=== PATIENT | female | born 1970 | race Two or more races ===

== ENCOUNTER 2019-11-27 14:24 | Outpatient (REF) | payer OTHER, SELFPAY | END 2019-11-27 14:25 | disposition home or self-care (01) | LOC: HO.LAB 14:24 | PROVIDERS: PCP Internal Medicine; Referring Provider Internal Medicine; Visit Provider Obstetrics & Gynecology | DX: Z13.89 Encounter for screening for other disorder (principal) ==

== ENCOUNTER 2019-12-11 14:09 | Outpatient (REF) | payer OTHER, SELFPAY ==
--- NOTE | 2019-12-11 14:15 | MM_ITS ---
EXAMINATION: MM SCREENING DIGITAL BREAST TOMOSYNTHESIS, BILATERAL CLINICAL INFORMATION: Screening. Asymptomatic. The lifetime risk of breast cancer based on the Tyrer-Cuzick Model is 9.3%. COMPARISON: Mammography: July 12, 2018 and studies dating back to September 11, 2011 TECHNIQUE: Digital breast tomosynthesis is performed in both the craniocaudal and mediolateral oblique views along with computer-aided detection (CAD). Synthesized 2D images are generated from the tomosynthesis. FINDINGS: The breasts are almost entirely fatty (ACR BI-RADS breast composition Category a). There are no significant masses, abnormal calcifications, or other abnormalities. MM/MM tomosynthesis screening BI IMPRESSION: There are no significant changes from prior study. ASSESSMENT: BI-RADS 1: Negative RECOMMENDATION: Routine annual mammography screening. This patient's information was entered into a reminder system with a target due date for their next mammogram.
== END 2019-12-11 14:10 | disposition home or self-care (01) ==
LOC: HO.MAMMO 14:09
PROVIDERS: PCP Internal Medicine; Visit Provider Internal Medicine
DX: Z12.31 Encounter for screening mammogram for malignant neoplasm of breast (principal)
CPT/HCPCS: 77063; 77067

== ENCOUNTER → 2019-12-22 11:09 | Outpatient (BNVA) | payer OTHER, SELFPAY | PROVIDERS: PCP Internal Medicine; Referring Provider Internal Medicine; Visit Provider Physician Assistant | DX: Z76.89 Persons encountering health services in other specified circumstances (principal) ==

== ENCOUNTER 2020-01-07 10:09 | Outpatient (REF) | payer OTHER, SELFPAY | END 2020-01-07 10:10 | disposition home or self-care (01) | LOC: HO.HMGCLDS 10:09 | PROVIDERS: PCP Internal Medicine; Visit Provider Obstetrics & Gynecology | DX: R82.90 Unspecified abnormal findings in urine (principal) | CPT/HCPCS: 87086 ==

== ENCOUNTER 2020-03-02 07:28 | Day surgery (SDC) | payer OTHER, SELFPAY ==
[2020-02-25 10:49] VITALS: BMI 41.2
--- NOTE | 2020-03-01 09:35 | P.CONAN_ITS ---
Documented by User: Madyson Barrow 03/01/20 09:36 HPI - Anesthesia Eval Consult details Narrative: 50yo F for Colonoscopy PMFSH Past Medical History Medical History Abrasion of left knee Acid reflux Acquired hypothyroidism Developmental disability Gait instability History of fall History of hyperthyroidism Hx of major depression Hx of sleep apnea Family History Family History Father No problems noted. Mother No problems noted. Surgical History Surgical History History of ankle surgery Hx of endoscopy Hx of knee surgery Social History Social History Alcohol intake: never Smoking Status: Never smoker Use of substances other than those prescribed or required for medical reasons: No Advance Directives: No Advance Directives Information Provided: No Advance Directives on File: No Sexual orientation: Straight/Heterosexual Gender identity: female Meds Allergies Allergy/AdvReac Type Severity Reaction Status Date / Time lactose [LACTOSE] AdvReac Mild GI DISTRESS Verified 01/07/20 23:15 Home Medications Medication Instructions Recorded Confirmed Type aripiprazole 20 mg tablet 20 mg PO DAILY 11/27/19 02/25/20 History levothyroxine 112 mcg tablet 112 mcg PO DAILY 11/27/19 03/02/20 History pantoprazole 40 mg tablet,delayed 40 mg PO DAILY 11/27/19 03/02/20 History release topiramate 50 mg tablet 50 mg PO BID 11/27/19 03/02/20 History calcium carbonate-vitamin D3 600 1 tab PO DAILY 01/07/20 02/25/20 History mg (1,500 mg)-800 unit tablet clonidine HCl 0.1 mg tablet 0.1 mg PO BEDTIME 01/07/20 02/25/20 History flu vac qs 2019(4 yr up)CD(PF) ml IM 01/07/20 01/07/20 History lactase 9,000 unit tablet 9,000 unit PO DAILY PRN tab 01/07/20 02/25/20 History mirabegron 50 mg tablet,extended 50 mg PO DAILY 01/07/20 02/25/20 History release 24 hr multivitamin with folic acid 400 1 tab PO DAILY 01/07/20 02/25/20 History mcg tablet varicella-zoster glycoE [id number] IM 01/07/20 01/07/20 History adj(PF) 50 mcg/0.5 mL IM susp, kit fluoxetine 60 mg PO BID 02/25/20 03/02/20 History Exam Exam Date and Time: March 01, 2020 0935 Height,Weight and Vital Signs: Height 5 ft Weight 95.708 kg Assessment and Plan Assessment Anesthesia Assessment: Chart Reviewed Documented by User: Kiki Fatima 03/02/20 09:03 [facility] Past Medical History Medical History Abrasion of left knee Acid reflux Acquired hypothyroidism Developmental disability Gait instability History of fall History of hyperthyroidism Hx of major depression Hx of sleep apnea Family History Family History Father No problems noted. Mother No problems noted. Surgical History Surgical History History of ankle surgery Hx of endoscopy Hx of knee surgery Social History Social History Alcohol intake: never Smoking Status: Never smoker Use of substances other than those prescribed or required for medical reasons: No Advance Directives: No Advance Directives Information Provided: No Advance Directives on File: No Sexual orientation: Straight/Heterosexual Gender identity: female Meds Allergies Allergy/AdvReac Type Severity Reaction Status Date / Time lactose [LACTOSE] AdvReac Mild GI DISTRESS Verified 01/07/20 23:15 Home Medications Medication Instructions Recorded Confirmed Type aripiprazole 20 mg tablet 20 mg PO DAILY 11/27/19 02/25/20 History levothyroxine 112 mcg tablet 112 mcg PO DAILY 11/27/19 03/02/20 History pantoprazole 40 mg tablet,delayed 40 mg PO DAILY 11/27/19 03/02/20 History release topiramate 50 mg tablet 50 mg PO BID 11/27/19 03/02/20 History calcium carbonate-vitamin D3 600 1 tab PO DAILY 01/07/20 02/25/20 History mg (1,500 mg)-800 unit tablet clonidine HCl 0.1 mg tablet 0.1 mg PO BEDTIME 01/07/20 02/25/20 History flu vac qs 2019(4 yr up)CD(PF) ml IM 01/07/20 01/07/20 History lactase 9,000 unit tablet 9,000 unit PO DAILY PRN tab 01/07/20 02/25/20 History mirabegron 50 mg tablet,extended 50 mg PO DAILY 01/07/20 02/25/20 History release 24 hr multivitamin with folic acid 400 1 tab PO DAILY 01/07/20 02/25/20 History mcg tablet varicella-zoster glycoE [id number] IM 01/07/20 01/07/20 History adj(PF) 50 mcg/0.5 mL IM susp, kit fluoxetine 60 mg PO BID 02/25/20 03/02/20 History Exam Airway Mallampati Class: III (Small mouth) TM Dist: >3cm Neck ROM: Full Heart: RRR Lungs: CTA Assessment and Plan Assessment Anesthesia Assessment: Anesthesia Plan Discussed and Chart Reviewed Final Anesthetic Review NPO: Yes ASA Class: III Final Preanesthetic Review: Meds/Allgs Chart Reviewed, Consent Obtained/Reviewed and Anes Risks/Benef Reviewed Patient Risk: Intermediate Procedure Risk: Low Anesthetic Plan Anesthetic Plan: MAC:
[2020-03-02 08:17] VITALS: BP 124/43; PULSE 75; RESP 187; TEMP 36.4; O2SAT 96
[2020-03-02] MEDS: Lactated Ringers 1,000 ML 100 ML IVCONT (08:34)
--- NOTE | 2020-03-02 09:16 | MHC.SHP ---
Pre-Procedural Eval Section B Chief Complaint: screening Details of Present Illness: COLON CANCER SCREENING Relevant Family History (Specify if Yes): No Relevant Social History: None ([place]) Present Medications: see Short Stay Collaborative assessment Medical History: Significant History (DEVELOPMENTAL DELAY,HYPOTHYROID, MAJOR DEPRESSION, MYA) History of Previous Operations: No relevant previous surgery Allergies: Allergies Allergy/AdvReac Type Severity Reaction Status Date / Time lactose [LACTOSE] AdvReac Mild GI DISTRESS Verified 01/07/20 23:15 Review of Systems Sugical H&P ROS: Negative: Constitution, Cardiovascular, Respiratory and Gastrointestinal and Yes, Specify: Neurological Exam Surgical H&P Exam: Normal: HEENT, Normal: Heart, Normal: Lungs, Normal: Extremities and Normal: Abdomen Plan Diagnosis/Plan: Unchanged I have reviewed the history and physical and performed a pertinent physical examination on my patient. No changes have occurred unless specified.YES
[2020-03-02 09:45] VITALS: BP 104/33; PULSE 70; RESP 16; TEMP 36.6; O2SAT 100
--- NOTE | 2020-03-02 09:45 | PM.PROC ---
Brief Operative Note Date of procedure: 03/02/20 Pre-op diagnosis: SCREENING Post-op diagnosis: other (POLYP) Procedure: COLO WITH EXCISIONAL POLYPECTOMY CBX FORCEPS Anesthesia: MAC (MD YOEL) Surgeon: Thea Haddad Estimated blood loss (mL): 5 Pathology: other (POLYP-40CM) Condition: stable Disposition: PACU
[2020-03-02 10:00] VITALS: BP 121/64; PULSE 71; RESP 16; TEMP 36.6; O2SAT 100
--- NOTE | 2020-03-02 10:35 | HO.POSTANES ---
Post Anesthesia Evaluation Post Anesthesia Evaluation Vital Signs: Vital Signs Temp Pulse Resp BP Pulse Ox 03/02/20 10:00 97.8 F 71 16 121/64 100 03/02/20 09:45 97.8 F 70 16 104/33 L 100 03/02/20 08:17 97.5 F 75 187 H 124/43 L 96 Anesthesia: Monitored Mental Status: Awake Pain Control: Satisfactory Nausea/Vomiting: None Hydration: Adequate Anesthesia-Related Issues: No Anes. Related Issues
--- NOTE | 2020-03-02 12:18 | OP_ITS ---
SURGEON: Thea Haddad MD PREOPERATIVE DIAGNOSIS: Colon cancer screening. POSTOPERATIVE DIAGNOSIS: Diminutive polyp, awaiting histology. PROCEDURE PERFORMED: Colonoscopy with excisional polypectomy x1. ESTIMATED BLOOD LOSS: Less than 5 mL. COMPLICATIONS: No complications. ANESTHESIA: Monitored. ANESTHESIOLOGIST: Kiki Fatima MD ASSISTANTS: No cataloging assistant. SPECIMENS: Polyp-40cm. INTERNET MARKETING COORDINATOR: Dr. Haddad. CONDITION: Postop, stable. DESCRIPTION OF PROCEDURE: Digital rectal exam revealed no specific lesion. Video colonoscope was introduced without difficulty. It was navigated into the rectosigmoid sigmoid, slow progress through a fairly redundant colon on the left side. As we approached the region of the distal transverse colon, there was extrinsic looping with 2 techs due to very obese abdomen. We were ultimately able to facilitate movement through the proximal transverse colon, ascending colon down into the cecum. Appendiceal orifice was seen. Ileocecal valve was seen. No mucosal abnormalities noted in this area. Prep was good. Slow withdrawal of scope good rotational views. Polyp was identified and removed at 40 cm. No additional lesions were seen. Anorectal verge was clear. Followup will be 5 to 7 years depending on histology of the polyp with an abdomen that is difficult to exam like this should not exceed 7-year interval for screening. GRAFT OR IMPLANTS: No grafts or implants. Thea Haddad MD MEN/MODL / [id number] MTDD
--- NOTE | 2020-03-04 21:44 | OP_ITS ---
SURGEON: Thea Haddad MD PREOPERATIVE DIAGNOSIS: Colon cancer screening. POSTOPERATIVE DIAGNOSIS: Diminutive polyp. PROCEDURE PERFORMED: Colonoscopy with excisional polypectomy x1. ESTIMATED BLOOD LOSS: Less than 5 mL. COMPLICATIONS: No complications. ANESTHESIA: Monitored. ANESTHESIOLOGIST: Dr. Fatima ASSISTANTS: No academic support assistant. SPECIMENS: Specimen removed; 40 cm diminutive polyp. RETAIL SALESMAN: Dr. Haddad. CONDITION: Postop, stable. FINDINGS: Digital rectal exam revealed no specific lesion. Video colonoscope was introduced without difficulty, navigated into the rectosigmoid area. There was redundancy on the left side. Abdomen was soft, but very moderate. Central obesity noted. Slow progress with extrinsic abdominal pressure. We were able to facilitate movement into the cecum. Appendiceal orifice was seen. Ileocecal valve was well seen. Prep was good. Scope was slowly withdrawn. Good rotational views. Polyp identified and removed at 40 cm. Anorectal verge was clear. GRAFT OR IMPLANTS: No grafts or implants. Thea Haddad MD MEN/MODL / [id number] MTDD
== END 2020-03-02 10:45 | disposition home or self-care (01) ==
PROVIDERS: PCP Internal Medicine; Visit Provider Internal Medicine Gastroenterology
PROC: 0DJD8ZZ Inspection of Lower Intestinal Tract, Via Natural or Artificial Opening Endoscopic (ICD-10-PCS; CPT 45378; principal; 2020-03-02 08:30)
DX: Z12.11 Encounter for screening for malignant neoplasm of colon (principal); K63.5 Polyp of colon; E65 Localized adiposity; E03.9 Hypothyroidism, unspecified; R62.50 Unspecified lack of expected normal physiological development in childhood; F32.9 Major depressive disorder, single episode, unspecified; G47.33 Obstructive sleep apnea (adult) (pediatric); K21.9 Gastro-esophageal reflux disease without esophagitis; E73.9 Lactose intolerance, unspecified; Z79.899 Other long term (current) drug therapy
CPT/HCPCS: 45380; 88305; J2765

== ENCOUNTER → 2020-03-09 10:42 | Outpatient (BNVA) | payer OTHER, SELFPAY | PROVIDERS: PCP Internal Medicine; Visit Provider Physician Assistant ==

== ENCOUNTER 2020-05-15 09:14 | Outpatient (REF) | payer OTHER, SELFPAY ==
[2020-05-15 10:41] LABS: Alanine Aminotransferase 36 U/L (0-31); Anion Gap 10 (12-20); Aspartate Amino Transferase 26 U/L (5-31); Blood Urea Nitrogen 13 mg/dL (9-16); Calcium 8.9 mg/dL (8.4-10.2); Carbon Dioxide 27 mmol/L (22-29); Chloride 107 mmol/L (96-108); Cholesterol 162 mg/dL; Estimated Glomerular Filt Rate > 60; Glucose Fasting 106 mg/dL (60-99); HDL Cholesterol 62 mg/dL; LDL Cholesterol Calculated 85 mg/dl; Potassium 4.3 mmol/L (3.3-5.1); Sodium 140 mmol/L (135-145); Triglycerides 78 mg/dL
[2020-05-15 11:06] LABS: Free T4 (Free Thyroxine) 1.05 ng/dL (0.71-1.85); Thyroid Stimulating Hormone 0.29 uIU/mL (0.32-4.0); Vitamin D 25-OH Total 29.8 ng/mL (>30)
== END 2020-05-15 09:15 | disposition home or self-care (01) ==
LOC: HO.LAB 09:14
PROVIDERS: PCP Internal Medicine; Visit Provider Internal Medicine
DX: E03.9 Hypothyroidism, unspecified (principal); R26.81 Unsteadiness on feet; I10 Essential (primary) hypertension; Z78.0 Asymptomatic menopausal state
CPT/HCPCS: 36415; 80048; 80061; 82306; 84439; 84443; 84450; 84460

== ENCOUNTER 2020-05-28 14:45 | Outpatient (REF) | payer OTHER, SELFPAY ==
[2020-05-29 11:22] LABS: CT PCR NOT DETECTED (Not Detect.); NG PCR NOT DETECTED (Not Detect.)
[2020-05-29 12:03] LABS: BV Int Neg Control Negative (Negative); BV Int Pos Control Positive (Positive)
== END 2020-05-28 14:46 | disposition home or self-care (01) ==
LOC: HO.LAB 14:45
PROVIDERS: PCP Internal Medicine; Visit Provider Advanced Practice Midwife
DX: Z11.3 Encounter for screening for infections with a predominantly sexual mode of transmission (principal); N89.8 Other specified noninflammatory disorders of vagina; R39.15 Urgency of urination
CPT/HCPCS: 81003; 87480; 87491; 87510; 87591; 87660; 99212

== ENCOUNTER 2020-10-20 14:00 | Outpatient (RCR) | payer OTHER, SELFPAY ==
--- NOTE | 2020-07-14 15:19 | MHC.PT.EP ---
[facility] [place] Office [place] Office [place] Office [address] Arline Soto [address] [phone] F: [phone] F: [phone] F: [phone] F: [phone] Physical Therapy Plan of Care Date of Evaluation: Date of Surgery: Diagnosis: UNSTEADY GAIT Assessment: 50 YO FEMALE REF FOR GAIT INSTABILITY- SHE RESIDES IN A RETIREMENT AND HAS HAD FREQ FALLS- THE CAUSE OF SOME APPEAR TO BE DUE TO AMB IN HER SOCKS ONLY INDOORS AND ALSO OUTDOORS AMB RAPIDLY AND INFREQ USE OF HER CANE. SHE HAS A H/O RUPERT TKR AND 2 REVISIONS LEFT. OBJECTIVELY, Pt HAS RUPERT LEs AND CORE WEAKNESS, (+) PELVIC ASYMM W LLI AND SCOLIOSIS, TIGHT HIP IR, DECR ANKLE MOBILITY, AND MECH DEFICITS OF SCOLIOSIS W LEFT GENU VALGUS AND RECURVATUM. FUNCTIONALLY, Pt HAS DECR CHANCE TO STANDING > 3 MIN (W EXTERNAL SUPPORT), INCR LAT WT SHIFT W GAIT , INCONSISTENT USE OF HER CANE, AND DECR SAFETY AWARENESS. SHE WOULD BENEFIT FROM PT TO DEV A HEP, IMPROVE STATIC AND DYNAMIC BALANCE, MONITOR PELVIC SYMM, AND INCR STRENGTH Frequency and Duration: The patient will be seen 2x WK x 5 WKS Short Term Goals: DEV A HEP TO ADDRESS ANKLE ROM AND HIP IR FLEXIB IN 2 WKS DECR LEFT POSTERIOR KNEE PAIN TO A 2-3/10 EASE PELVIC ASYMM IN 2 WKS Property Administrator Goals: Pt MOD INDEP W HEP FOR LEs STRENGTH AND STABILITY IN LEs AND CORE IN 5 WKS Pt DEMON WFL GAIT W CANE ON LEVEL AND UNEVEN SURFACES AND STAIRS IN 5 WKS IMPROVE LEFT SCORE BY AT LEAST 8 POINTS ( 27/80 AT EVAL) IN 5 WKS Treatment Plan: Modalities to reduce pain, spasms and effusion. Manual therapy to restore motion and function. Therapeutic exercise to improve strength and flexibility. Neuromuscular re-education for posture and balance. Therapeutic activities to return to functional activities of daily living. Electronically signed by: Nandini Kidd,PT Please sign and return to therapist. Thank you for your referral.
--- NOTE | 2021-01-31 10:12 | MHC.PT.DC ---
[facility] [place] [facility] [place] [facility] [place] [facility] [address] Arline Soto [address] [phone] F: [phone] F: [phone] F: [phone] F: [phone] Physical Therapy Discharge Report Diagnosis: UNSTEADY GAIT Date of Surgery: Date of Evaluation: 07/14/20 Date of Discharge: 11/19/20 Treatments to Date: 17 Cancellations to Date: 0 No Shows to Date: 0 Discharge Status: Recommend MD Follow-up Discharge Summary: Ira had been an active participant in her therapy in the clinic with fair home carryover of her program; Pt persisted with poor control of her R knee from significant hyperextension with weight bearing activities; she was recommended to receive a brace for this and presentwd with a brace which did not address her significant hyperextension; last reported she was being fit for a new knee brace; Pt has not followed up with therapy after this conversation; NOTE from last Tx 10/20: therapy contacted [facility] d/t cont concern about knee hypertension which continues in her new brace. pt demonstrate 25 deg hyperext w/ WB and 4 step (w/ brace on). pt participated in all of her ther/ex though difficulty focusing with her ther/ex. therapy will wait to hear from her surgeon regarding if she will need an assessment for new knee brace. Electronically signed by: Julien Lew PT. Please sign and return to therapist. Thank you for your referral.
== END 2021-01-31 10:12 | disposition home or self-care (01) ==
LOC: HO.PTCHIC 14:00
PROVIDERS: PCP Internal Medicine; Visit Provider Internal Medicine
DX: R26.81 Unsteadiness on feet (principal); R29.6 Repeated falls
CPT/HCPCS: 97110; 97112; 97116; 97140; 97162; 97530

== ENCOUNTER 2020-11-29 15:54 | Outpatient (REF) | payer OTHER, SELFPAY ==
[2020-11-30 02:44] LABS: CT PCR NOT DETECTED (Not Detect.); NG PCR NOT DETECTED (Not Detect.)
[2020-11-30 09:26] LABS: BV Int Neg Control Negative (Negative); BV Int Pos Control Positive (Positive)
[2020-12-01 15:51] LABS: HPV mRNA E6/E7 rflx Not Detected (Not Detected)
== END 2020-11-29 15:55 | disposition home or self-care (01) ==
LOC: HO.LAB 15:54
PROVIDERS: Visit Provider Advanced Practice Midwife
DX: Z01.411 Encounter for gynecological examination (general) (routine) with abnormal findings (principal); Z11.51 Encounter for screening for human papillomavirus (HPV); Z11.3 Encounter for screening for infections with a predominantly sexual mode of transmission; N89.8 Other specified noninflammatory disorders of vagina; Z20.2 Contact with and (suspected) exposure to infections with a predominantly sexual mode of transmission
CPT/HCPCS: 87480; 87491; 87510; 87591; 87624; 87660; 88142

== ENCOUNTER 2020-12-14 13:52 | Outpatient (REF) | payer MEDICARE, MEDICAID, SELFPAY ==
--- NOTE | ~2020-12-14 | MM_ITS ---
EXAMINATION: MM SCREENING DIGITAL BREAST TOMOSYNTHESIS, BILATERAL CLINICAL INFORMATION: Screening. Asymptomatic. The lifetime risk of breast cancer based on the Tyrer-Cuzick Model is 7.8%. COMPARISON: Mammography: December 11, 2019 and studies dating back to September 11, 2011 TECHNIQUE: Digital breast tomosynthesis is performed in both the craniocaudal and mediolateral oblique views along with computer-aided detection (CAD). Synthesized 2D images are generated from the tomosynthesis. Bilateral exaggerated craniocaudal views performed. FINDINGS: The breasts are almost entirely fatty (ACR BI-RADS breast composition Category a). There are no significant masses, abnormal calcifications, or other abnormalities. MM/MM tomosynthesis screening BI IMPRESSION: There are no significant changes from prior study. ASSESSMENT: BI-RADS 1: Negative RECOMMENDATION: Routine annual mammography screening. This patient's information was entered into a reminder system with a target due date for their next mammogram.
== END 2020-12-14 13:53 | disposition home or self-care (01) ==
LOC: HO.MAMMO 13:52
PROVIDERS: Absent Provider Obstetrics & Gynecology; Visit Provider Internal Medicine
DX: Z12.31 Encounter for screening mammogram for malignant neoplasm of breast (principal)
CPT/HCPCS: 77063; 77067

== ENCOUNTER → 2021-02-15 13:46 | Outpatient (BNVA) | payer MEDICARE, MEDICAID, SELFPAY | PROVIDERS: Visit Provider Obstetrics & Gynecology | DX: Z13.89 Encounter for screening for other disorder (principal) | CPT/HCPCS: 99212 ==

== ENCOUNTER 2021-02-15 14:25 | Outpatient (REF) | payer MEDICARE, MEDICAID, SELFPAY ==
[2021-02-15 15:24] LABS: Alanine Aminotransferase 34 U/L (0-31); Aspartate Amino Transferase 23 U/L (5-31)
[2021-02-15 15:46] LABS: Free T4 (Free Thyroxine) 1.19 ng/dL (0.71-1.85); Thyroid Stimulating Hormone 0.88 uIU/mL (0.32-4.0); Vitamin D 25-OH Total 31.1 ng/mL (>30)
[2021-02-16 07:48] LABS: Syphilis Screen Nonreactive (Nonreactive)
[2021-02-16 07:50] LABS: HBsAGNum1 0.17 S/CO (0.00-0.99); HIV AB/AG Nonreactive (Nonreactive); HIV Num 1 0.09 S/CO (0.00-0.99); Hepatitis B Surface Antigen Negative (Negative); ~HepC Num1 0.24 S/CO (0.00-0.79); ~Hepatitis C Antibody Nonreactive (Nonreactive)
[2021-02-16 09:09] LABS: BV Int Neg Control Negative (Negative); BV Int Pos Control Positive (Positive)
[2021-02-16 10:35] LABS: CT PCR NOT DETECTED (Not Detect.); NG PCR NOT DETECTED (Not Detect.)
== END 2021-02-15 14:26 | disposition home or self-care (01) ==
LOC: HO.LAB 14:25
PROVIDERS: Internal Medicine; PCP Obstetrics & Gynecology; Visit Provider Obstetrics & Gynecology
DX: Z11.4 Encounter for screening for human immunodeficiency virus [HIV] (principal); E03.9 Hypothyroidism, unspecified; E66.9 Obesity, unspecified; R29.6 Repeated falls; E55.9 Vitamin D deficiency, unspecified; Z78.0 Asymptomatic menopausal state; B96.89 Other specified bacterial agents as the cause of diseases classified elsewhere; N76.0 Acute vaginitis
CPT/HCPCS: 36415; 82306; 84439; 84443; 84450; 84460; 86780; 86803; 87340; 87389; 87480; 87491; 87510; 87591; 87660; 99212

== ENCOUNTER 2021-05-11 10:00 | Outpatient (REF) | payer MEDICARE, MEDICAID, SELFPAY ==
[2021-05-11 11:43] LABS: Estimated Average Glucose 117 mg/dL; Hemoglobin A1c % 5.7 %
[2021-05-11 12:05] LABS: Glucose Fasting 99 mg/dL (60-99)
[2021-05-11 12:35] LABS: Free T4 (Free Thyroxine) 1.09 ng/dL (0.71-1.85); Thyroid Stimulating Hormone 1.74 uIU/mL (0.32-4.0); Vitamin D 25-OH Total 37.1 ng/mL (>30)
== END 2021-05-11 10:01 | disposition home or self-care (01) ==
LOC: HO.HMGCLDS 10:00
PROVIDERS: PCP Internal Medicine; Visit Provider Internal Medicine
DX: E03.9 Hypothyroidism, unspecified (principal); N95.9 Unspecified menopausal and perimenopausal disorder
CPT/HCPCS: 36415; 82306; 82947; 83036; 84439; 84443

== ENCOUNTER 2021-09-07 08:00 | Outpatient (RCR) | payer MEDICARE, MEDICAID, SELFPAY | END 2022-01-05 14:54 | disposition home or self-care (01) | LOC: HO.PTCHIC 08:00 | PROVIDERS: PCP Internal Medicine; Visit Provider Orthopaedic Surgery | DX: Z96.652 Presence of left artificial knee joint (principal) | CPT/HCPCS: 97110; 97162; 97530 ==

== ENCOUNTER 2021-12-16 08:08 | Outpatient (REF) | payer MEDICARE, MEDICAID, SELFPAY ==
--- NOTE | ~2021-12-16 | MM_ITS ---
EXAMINATION: MM SCREENING DIGITAL BREAST TOMOSYNTHESIS, BILATERAL CLINICAL INFORMATION: Screening. Asymptomatic. The lifetime risk of breast cancer based on the Tyrer-Cuzick Model is 8%. COMPARISON: Mammography: 12/14/2020, 12/11/2019, 07/12/2018 TECHNIQUE: Digital breast tomosynthesis is performed in both the craniocaudal and mediolateral oblique views along with computer-aided detection (CAD). Synthesized 2D images are generated from the tomosynthesis. Additional bilateral CC and views are provided. FINDINGS: There are scattered areas of fibroglandular density (ACR BI-RADS breast composition Category b). Breast tissue composition is similar to prior studies. There is no developing density or interval mass or architectural abnormality or abnormal calcifications. Mild duct ectasia central anterior right breast is stable. There are some scattered benign round and rim calcifications. The axilla and skin contours are unremarkable. No significant changes. MM/MM tomosynthesis screening BI IMPRESSION: No mammographic evidence of malignancy. ASSESSMENT: BI-RADS 2: Benign RECOMMENDATION: Routine annual mammography screening. This patient's information was entered into a reminder system with a target due date for their next mammogram.
== END 2021-12-16 08:09 | disposition home or self-care (01) ==
LOC: HO.MAMMO 08:08
PROVIDERS: PCP Internal Medicine; Visit Provider Internal Medicine
DX: Z12.31 Encounter for screening mammogram for malignant neoplasm of breast (principal)
CPT/HCPCS: 77063; 77067

== ENCOUNTER 2022-01-13 07:58 | Outpatient (REF) | payer MEDICARE, MEDICAID, SELFPAY ==
[2022-01-13 11:27] LABS: MANUAL DIFF FLAG NO
[2022-01-13 11:47] LABS: Basophils Percent Auto 0.2 % (0-2); Eosinophils Absolute Auto 0.1 X10*3/uL (0.0-0.4); Eosinophils Percent Auto 1.1 % (0-4); Hemoglobin 13.7 g/dl (12.0-16.0); Imm Gran Abs Auto 0.02 X10*3/uL (0.00-0.03); Imm Gran Pct Auto 0.4 % (0.0-0.4); Lymphocytes Absolute Auto 2.2 X10*3/uL (1.2-4.9); Lymphocytes Percent Auto 38.5 % (20-40); Mean Corpuscular HGB Conc 31.9 g/dl (31.0-35.0); Mean Corpuscular Hemoglobin 29.8 pg (27.0-33.0); Mean Corpuscular Volume 93.7 fL (80.0-98.0); Mean Platelet Volume 10.5 fL (9.4-12.3); Monocytes Absolute Auto 0.3 X10*3/uL (0.1-1.2); Neutrophils Percent Auto 53.8 % (45-73); Platelet Count 200 X10*3/uL (160-400); Red Blood Count 4.59 X10*6/uL (4.20-5.50); Red Cell Distribution Width 13.2 % (11.0-16.0); White Blood Count 5.6 X10*3/uL (4.8-10.8)
[2022-01-13 13:54] LABS: Alanine Aminotransferase 18 U/L (0-31); Anion Gap 13 (12-20); Aspartate Amino Transferase 18 U/L (5-31); Blood Urea Nitrogen 15 mg/dL (9-16); Calcium 10.3 mg/dL (8.4-10.2); Carbon Dioxide 32 mmol/L (22-29); Chloride 101 mmol/L (96-108); Cholesterol 181 mg/dL; Estimated Glomerular Filt Rate > 60; Free T4 (Free Thyroxine) 1.05 ng/dL (0.71-1.85); Glucose Fasting 92 mg/dL (60-99); HDL Cholesterol 61 mg/dL; LDL Cholesterol Calculated 104 mg/dl; Potassium 4.8 mmol/L (3.3-5.1); Sodium 141 mmol/L (135-145); Thyroid Stimulating Hormone 6.23 uIU/mL (0.32-4.0); Triglycerides 83 mg/dL; Vitamin D 25-OH Total 44.2 ng/mL (>30)
== END 2022-01-13 07:59 | disposition home or self-care (01) ==
LOC: HO.HMGCLDS 07:58
PROVIDERS: PCP Internal Medicine; Visit Provider Internal Medicine
DX: Z00.01 Encounter for general adult medical examination with abnormal findings (principal); E66.9 Obesity, unspecified; E55.9 Vitamin D deficiency, unspecified; E03.9 Hypothyroidism, unspecified
CPT/HCPCS: 36415; 80048; 80061; 82306; 84439; 84443; 84450; 84460; 85025

== ENCOUNTER 2022-02-09 08:28 | Outpatient (REF) | payer MEDICARE, MEDICAID, SELFPAY ==
[2022-02-09 14:06] LABS: CT PCR NOT DETECTED (Not Detect.); NG PCR NOT DETECTED (Not Detect.)
== END 2022-02-09 08:29 | disposition home or self-care (01) ==
LOC: HO.LNP 08:28
PROVIDERS: PCP Internal Medicine; Visit Provider Advanced Practice Midwife
DX: Z01.419 Encounter for gynecological examination (general) (routine) without abnormal findings (principal); R32 Unspecified urinary incontinence; Z11.3 Encounter for screening for infections with a predominantly sexual mode of transmission
CPT/HCPCS: 0353U

== ENCOUNTER 2022-04-20 14:16 | Outpatient (REF) | payer MEDICARE, MEDICAID, SELFPAY ==
[2022-04-20 16:51] LABS: Influenza A PCR NEGATIVE (Negative); Influenza B PCR NEGATIVE (Negative); Resp Syncy Virus RNA Qual PCR NEGATIVE (Negative); SARS COV2 PCR INHOUSE NEGATIVE (Negative)
== END 2022-04-20 14:17 | disposition home or self-care (01) ==
LOC: HO.LNP 14:16
PROVIDERS: Visit Provider Nurse Practitioner Family
DX: R09.89 Other specified symptoms and signs involving the circulatory and respiratory systems (principal); Z20.822 Contact with and (suspected) exposure to COVID-19
CPT/HCPCS: 0241U

== ENCOUNTER 2022-07-05 09:51 | Outpatient (REF) | payer MEDICARE, MEDICAID, SELFPAY ==
[2022-07-05 12:06] LABS: Thyroid Stimulating Hormone 2.32 uIU/mL (0.32-4.0); Vitamin D 25-OH Total 37.6 ng/mL (>30)
== END 2022-07-05 09:52 | disposition home or self-care (01) ==
LOC: HO.HMGCLDS 09:51
PROVIDERS: PCP Internal Medicine; Visit Provider Internal Medicine
DX: E03.9 Hypothyroidism, unspecified (principal); E55.9 Vitamin D deficiency, unspecified; R26.81 Unsteadiness on feet
CPT/HCPCS: 36415; 82306; 84443

== ENCOUNTER → 2022-07-20 08:03 | Outpatient (BNVA) | payer MEDICARE, MEDICAID, SELFPAY | PROVIDERS: PCP Internal Medicine; Visit Provider Nurse Practitioner Family | DX: G47.33 Obstructive sleep apnea (adult) (pediatric) (principal) | CPT/HCPCS: 99202 ==

== ENCOUNTER 2022-08-31 08:32 | Outpatient (AMB) | payer MEDICARE, MEDICAID, SELFPAY ==
[2022-08-31 08:33] VITALS: BP 110/70; PULSE 79; O2SAT 93; BMI 38.9
--- NOTE | 2022-08-31 08:33 | A.OFFPC_ITS ---
Vital Signs 08/31/22 08:33 Height 5 ft Weight 199 lb BMI 38.9 BP 110/70 Blood Pressure Location Rt brachial Position Sitting Pulse 79 Pulse Source Pulse Oximeter Pulse Oximetry (%) 93 Oxygen Delivery Method Room Air Intake Visit Reasons: BP Check Allergies lactose [LACTOSE] Adverse Reaction (Mild, Verified 10/22/22 23:24) GI DISTRESS Medication List - Last Reconciled 10/22/22 by Deonna Ratliff MD acetaminophen 500 mg PO Q6H PRN benztropine 0.5 mg PO BID calcium carbonate-vitamin D3 600 mg-20 mcg (800 unit) 1 tab PO DAILY fesoterodine ER (Toviaz) 4 mg PO .at bedtime fluoxetine 40 mg PO QAM lactase (Lactaid Fast Act) 9,000 units PO DAILY PRN levothyroxine 112 mcg PO DAILY mirabegron ER (Myrbetriq) 50 mg PO DAILY multivitamin with folic acid 400 mcg 1 tab PO DAILY risperidone 2 mg PO BEDTIME toothpaste (Sensodyne toothpaste) As directed Tobacco use date assessed: 08/31/22 Dental Screening Dental Screen Date: 08/31/22 Did you have a dental visit in the last 12 months?: Yes Did you have a dental problem in the last 6 months where you did not have access to dental care?: No Was dental information given to patient?: No HPI BP Check HPI Details 52-year-old lady with hypothyroidism, ob structive sleep apnea has developmental disability, osteoarthritis in both knees, obesity and major depression, here today accompanied by caregiver to be evaluated for gait instability, causing frequent falls. Patient has a walker, but does not use it all the time, would sometimes get up quick, and would start moving but frequently would lose her balance. Has had frequent fall with no injuries reported. Her bathroom has already been fitted with safety features, including Grab bars and shower chair. Patient however denies having any headache, but occasionally feels lightheaded, no seizure episodes seen, denies any chest pain or shortness of breath. [facility] Medical History (Updated 08/31/22 @ 10:49 by Deonna Ratliff MD) Abnormal Pap smear of cervix Enuresis, nocturnal only MYA (obstructive sleep apnea) Osteoarthritis, knee Vitamin D deficiency Falls frequently Obesity Developmental disability Acquired hypothyroidism Gait instability Acid reflux Hx of sleep apnea History of hyperthyroidism Hx of major depression Surgical History Hx of colonoscopy History of knee replacement Hx LEEP (loop electrosurgical excision procedure), cervix, History of thyroidectomy Hx of endoscopy History of ankle surgery Hx of knee surgery Family History Father No problems noted. Mother No problems noted. Maternal Aunt Breast cancer Social History Household Members: Other Household Members Other:: [facility] Housing: Assisted Living Facility Alcohol intake: never Patient Tobacco Use Status: Former Tobacco user Years Smoked: 2 yrs e-Cigarette/Vaping Use: Never Used service: No Current occupational status: disabled Sexual orientation: Straight/Heterosexual Gender identity: Female Cognitive needs: No Hearing needs: No Vision needs: No Questionnaire Thrive Questionnaire Date Thrive assessed: 11/02/20 AUDIT C Alcohol Use Questionnaire (AUDIT-C) 1. How often do you have a drink containing alcohol?: Never 3. How often do you have six or more drinks on one occasion?: Never Total Score: 0 Score Reviewed/Action Taken: Yes JUSTINO-7 AMB Questionnaire JUSTINO-7 Date JUSTINO - 7 assessed: 11/02/20 Source: Developed by Drs. Oc Dyson, Kate Sánchez, Surya Marks and colleagues, with an educational ena from [employer]. Review of Systems Const Reports as per HPI Eyes Denies change in vision ENT Reports no additional complaints Card Denies chest pain, Denies chest pain with activity, Denies irregular heart rhythm, Denies lightheadedness, Denies dyspnea and Denies dyspnea on exertion Resp Denies chest congestion, Denies cough, Denies dyspnea, Denies dyspnea on exertion and Denies wheezing GI Denies abdominal pain, Denies change in bowel habits, Denies change in stool character, Denies dyspepsia and Denies heartburn Reports no additional complaints, Denies hematuria and Denies dysuria Musc Reports abnormal gait, Reports arthralgias, Denies joint swelling, Denies muscle weakness, Denies numbness and Reports stiffness Skin/Breast Denies lesions and Denies rash Neuro Details: Tremors controlled since starting Cogentin Reports abnormal gait, Denies numbness and Denies Sensory deficit (Neuro) Lit/Lymph Denies easy bleeding and Denies easy bruising Aller/Immun Denies wheezing Physical exam (Primary Care) Vital Signs: Last Vital Signs Pulse 79 08/31/22 08:33 BP 110/70 08/31/22 08:33 Pulse Ox 93 08/31/22 08:33 Oxygen Delivery Method Room Air 08/31/22 08:33 BMI result Body Mass Index 38.9 Tobacco/Smoking Status: Tobacco use Status Tobacco use date assessed 08/31/22 08/31/22 08:34 Patient Tobacco Use Status Former Tobacco user 08/31/22 08:34 e-Cigarette/Vaping Use Never Used 08/31/22 08:34 Thrive Assessment: Date of Thrive Assessment Date Thrive assessed 11/02/20 08/31/22 08:34 Const General: awake Nutritional Appearance: obese Orientation/consciousness: oriented to person and oriented to place Limitations: ambulation with walker (Trunk tilted towards the left) HENMT Head: Yes normocephalic and Yes atraumatic Ears: external ears normal General nose exam: Normal external nose present and No nasal discharge present Face and sinus: Yes face symmetric Eyes Pupils: Equal, round and reactive pupils present Neck Other: Thyroid gland nonpalpable Neck: Yes full ROM and Yes supple Resp Auscultation: clear to auscultation bilaterally Cardio Other: S1-S2 present regular rate and rhythm GI Inspection: Yes obesity Palpation (GI): Soft to palpation, nontender, no guarding and no masses Auscultation: normal bowel sounds General: Yes no CVA tenderness Back/Spine/Pelvis Back: no CVA tenderness and No back tenderness Skin General skin exam: no rashes or lesions noted Neuro General: oriented to person, oriented to place, moves all extremities and no focal motor deficits Cranial nerves: Yes Equal, round and reactive pupils present and Yes Bilaterally intact EOM present Speech: Other speech findings present (Neuro) (Occasional Dysarthria and garbled speech) Gait exam (Neuro): Assisted gait required Gait assisted method: walker Motor exam (neuro): 5/5 motor strength present throughout Sensory Exam: No Sensory deficit (Neuro) Extrem General: Yes full ROM, Yes no joint enlargement and Yes no pedal edema Psych Appearance: grossly normal Speech and movement: Slowed movement present (Neuro) Affect: Blunted affect present Attitude: cooperative Results Reviewed Results Reviewed: Laboratory Tests 07/05/22 10:18 25-OH Vitamin D Total 37.6 TSH 2.32 Assessment and Plan Assessment & Plan (1) Gait instability: Code(s): R26.81 - Unsteadiness on feet (2) Falls frequently: Code(s): R29.6 - Repeated falls Plan: Has had physical therapy in the past which has not much. Will obtain CT of head , patient advised to use walker at all times, and take her time in getting up from a sitting or lying position do not move quickly, lab ordered today to check electrolytes, renal function and glucose levels (3) Acquired hypothyroidism: Code(s): E03.9 - Hypothyroidism, unspecified Plan: Continue with current dose of levothyroxine Orders: Orders CT head for stroke 08/31/22 R26.81 - Unsteadiness on feet Basic Metabolic Panel Fasting 08/31/22 R29.6 - Repeated falls, R26.81 - Unsteadiness on feet Medications: Discontinued leg brace Discontinued Reason: By Stop Date As directed 1 ea 0RF M21.862 - Other specified acquired deformities of left lower leg, R26.81 - Unsteadiness on feet, R29.6 - Repeated falls Coding Level of Care Code Est Pt Level 3 (27323) Diagnoses Gait instability R26.81 Falls frequently R29.6 Acquired hypothyroidism E03.9
== END 2022-08-31 11:30 | disposition home or self-care (01) ==
PROVIDERS: PCP Internal Medicine; Visit Provider Internal Medicine
DX: R26.81 Unsteadiness on feet (principal); R29.6 Repeated falls; E03.9 Hypothyroidism, unspecified
CPT/HCPCS: 99213

== ENCOUNTER 2022-09-27 09:56 | Outpatient (REF) | payer MEDICARE, MEDICAID, SELFPAY ==
--- NOTE | ~2022-09-27 | CT_ITS ---
EXAMINATION: CT HEAD WITHOUT CONTRAST CLINICAL INFORMATION: Unsteadiness on feet. COMPARISON: None. TECHNIQUE: Contiguous axial imaging was performed from the skullbase to vertex without intravenous administration of contrast. This CT examination was performed using dose optimization techniques as appropriate, variously including the following: *Automated exposure control *Adjustment of mA and/or kV according to patient size (this includes techniques or standardized protocols for targeted exams where dose is matched to indication/reason for exam; i.e. extremities or head) *Use of iterative reconstruction technique DLP: 802 mGy-cm. FINDINGS: There is no evidence of acute intracranial hemorrhage or territorial infarction. No abnormal mass effect or midline shift is seen. Medrano to white matter differentiation is well preserved. No extra-axial fluid collections are identified. Mild right cerebellar hemisphere volume loss noted. The ventricles are normal in size. There is no abnormal attenuation within the brain parenchyma. The osseous structures and soft tissues are normal. The mastoid air cells are well aerated. There are retention cysts in the dependent maxillary sinuses. CT/CT head/brain wo IV con IMPRESSION: No acute intracranial pathology. Mild right cerebellar hemispheric volume loss.
== END 2022-09-27 09:57 | disposition home or self-care (01) ==
LOC: HO.CT 09:56
PROVIDERS: Visit Provider Internal Medicine
DX: R26.81 Unsteadiness on feet (principal)
CPT/HCPCS: 70450

== ENCOUNTER 2022-10-04 11:00 | Outpatient (RCR) | payer MEDICARE, MEDICAID, SELFPAY ==
--- NOTE | 2022-09-20 12:23 | MHC.PT.EP ---
[facility] Office [place] Office [place] Office [address] Arline Soto [address] [phone] F: [phone] F: [phone] F: [phone] F: [phone] Physical Therapy Plan of Care Date of Evaluation: Date of Surgery: Diagnosis: Unsteadiness on feet. 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 Pt is a fair candidate for skilled PT services in order to improve functional balance for safe community ambulation. Frequency and Duration: The patient will be seen 1x/wk x5wks Short Term Goals: Initiate Home Program. 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 Computer Networker Goals: I with Home Program with caregiver support. Improve LEFI by at least 9 points: initial 6 Pt will have device compliance with help of staff; initial:poor device compliance Pt will improve pain <5/10: initial 8/10. Pt will be able to walk 2 blocks with moderate difficulty; initial: extreme difficulty Treatment Plan: Modalities to reduce pain, spasms and effusion. Manual therapy to restore motion and function. Therapeutic exercise to improve strength and flexibility. Neuromuscular re-education for posture and balance. Therapeutic activities to return to functional activities of daily living. Electronically signed by: Julien Lew PT. Please sign and return to therapist. Thank you for your referral.
--- NOTE | 2022-10-25 11:13 | MHC.PT.DC ---
[facility] [place] Office [place] Office [place] Office [address] Arline Soto [address] [phone] F: [phone] F: [phone] F: [phone] F: [phone] Physical Therapy Discharge Report Diagnosis: Unsteadiness on feet. Date of Surgery: Date of Evaluation: 09/20/22 Date of Discharge: 10/25/22 Treatments to Date: 3 Cancellations to Date: No Shows to Date: 3 Discharge Status: Recommend MD Follow-up Visit Non-compliance Discharge Summary: Ira had attended 3 visits and is unfortunately discharged d/t [facility] therapies attendance policy largely d/t transportation issues and suffering another recent fall; she is also limited in her participation in therapy due to difficulty following commands and has not been able to demonstrate her home program for self management. This has limited her progression towards her therapeutic goals. Therapy will follow-up with [facility] regarding knee brace as external support is needed to limit her significant L knee hyperextension during weight bearing. Electronically signed by: Julien Lew PT Please sign and return to therapist. Thank you for your referral.
== END 2022-10-25 11:14 | disposition home or self-care (01) ==
LOC: HO.PTCHIC 11:00
PROVIDERS: PCP Internal Medicine; Visit Provider Internal Medicine
DX: R26.81 Unsteadiness on feet (principal); R29.6 Repeated falls
CPT/HCPCS: 97110; 97162; 97530; 97535

== ENCOUNTER 2022-10-18 10:02 | Outpatient (REF) | payer MEDICARE, MEDICAID, SELFPAY ==
--- NOTE | ~2022-10-18 | XR_ITS ---
EXAMINATION: XR RIBS, RIGHT CLINICAL INFORMATION: Fall. Pain. COMPARISON: Chest radiograph dated 09/10/2008. TECHNIQUE: PA view the chest as well as 3 views of the right ribs. FINDINGS: No focal airspace consolidation. No pleural effusion or pneumothorax. Unremarkable cardiomediastinal silhouette. Nondisplaced, oblique fracture through the lateral aspect of the right seventh rib. Additional, possible nondisplaced fracture through the lateral aspect of the right eighth rib. No concerning lytic or blastic osseous lesion. No abnormal soft tissue calcification. Right upper quadrant surgical clips. XR/XR ribs RT min 3V w CXR1V IMPRESSION: Nondisplaced, oblique fracture through the lateral aspect of the right seventh rib. Additional, possible nondisplaced fracture through the lateral aspect of the right eighth rib.
== END 2022-10-18 10:03 | disposition home or self-care (01) ==
LOC: HO.HMGCX 10:02
PROVIDERS: Absent Provider Nurse Practitioner Family; PCP Internal Medicine; Visit Provider Internal Medicine
DX: R07.81 Pleurodynia (principal); W19.XXXD Unspecified fall, subsequent encounter
CPT/HCPCS: 71101

== ENCOUNTER 2022-10-18 10:31 | Outpatient (AMB) | payer MEDICARE, MEDICAID, SELFPAY ==
--- NOTE | 2022-10-18 10:34 | AM.OFFWIN_ITS ---
Intake Vital Signs 10/18/22 10:38 Height 5 ft Weight 196 lb BMI 38.3 BP 104/68 Blood Pressure Location Rt brachial Position Sitting Pulse 62 Pulse Source Pulse Oximeter Pulse Oximetry (%) 97 Oxygen Delivery Method Room Air Intake Visit Reasons: EST/fell right side pain Intake Note: Patient here because she had a fall on sunday, and now she had a bruise on the face and now has complaints of back pain. Patient Tobacco Use Status: Former Tobacco user Allergies lactose [LACTOSE] Adverse Reaction (Mild, Verified 10/18/22 10:40) GI DISTRESS Do you need a note to return to daycare/school/sports/work: No HPI EST/fell right side pain HPI Details Patient presents today worker from her halfway accompanying her. Reports that she slipped while using her walker on Sunday, and fell onto the floor on her right side. Denies LOC. EMS came, and evaluated her, and offered her transport to emergency department, however she declined. 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 Since incident, patient reports a pain on the right side of her ribs, increasing when she takes deep breaths. Denies any shortness of breath. [facility] Medical History (Updated 08/31/22 @ 10:49 by Deonna Ratliff MD) Abnormal Pap smear of cervix Enuresis, nocturnal only MYA (obstructive sleep apnea) Osteoarthritis, knee Vitamin D deficiency Falls frequently Obesity Developmental disability Acquired hypothyroidism Gait instability Acid reflux Hx of sleep apnea History of hyperthyroidism Hx of major depression Surgical History Hx of colonoscopy History of knee replacement Hx LEEP (loop electrosurgical excision procedure), cervix, History of thyroidectomy Hx of endoscopy History of ankle surgery Hx of knee surgery Family History (Updated 07/05/22 @ 09:08 by Daisy Lloyd CMA) Father No problems noted. Mother No problems noted. Maternal Aunt Breast cancer Social History (Updated 07/20/22 @ 08:12 by Mariam Rosales CMA) Household Members: Other Household Members Other:: [facility] Housing: Assisted Living Facility Alcohol intake: never Patient Tobacco Use Status: Former Tobacco user Years Smoked: 2 yrs e-Cigarette/Vaping Use: Never Used service: No Current occupational status: disabled Sexual orientation: Straight/Heterosexual Gender identity: Female Cognitive needs: No Hearing needs: No Vision needs: No Review of Systems Const All systems reviewed & are unremarkable except as noted in HPI and below Physical Exam Vital Signs: Last Vital Signs Pulse 62 10/18/22 10:38 BP 104/68 10/18/22 10:38 Pulse Ox 97 10/18/22 10:38 Oxygen Delivery Method Room Air 10/18/22 10:38 BMI result Body Mass Index 38.3 Const General: cooperative and no acute distress HEENT Head: Yes normal to inspection Ears: hearing grossly normal bilaterally Eyes General: appearance normal, both eyes and all related structures Resp Effort & Inspection: normal respiratory effort and able to speak in complete sentences Auscultation: clear to auscultation bilaterally Cardio Jugular venous distension: no JVD Palpation: normal PMI Rate: regular rate Rhythm: regular rhythm Back/Spine/Pelvis Other: Tenderness to palpation over right ribs on right side over mid axillary line. N o bruising noted. Skin General skin exam: no rashes or lesions noted Neuro General: gait normal, tone normal and moves all extremities Extrem General: Yes full ROM, Yes capillary refill normal and Yes no clubbing, cyanosis or edema Psych Other: Developmental delay. Appearance: grossly normal Attitude: cooperative Assessment & Plan Assessment & Plan (1) Fall: Code(s): W19.XXXA - Unspecified fall, initial encounter Qualifiers: Encounter type: initial encounter Qualified Code(s): W19.XXXA - Unspecified fall, initial encounter Plan: Patient had fall 3 days ago onto right side, with associated right-sided rib pain. X-ray obtained in the clinic today. Imaging was difficult per opto mechanical technician due to patient's habitus and difficulty in following directions. I did review images and do not see any fracture or acute process. Will review official radiology read once available. Advised to take PRN tylenol as ordered at her halfway, and may apply heat prn. Advised that this is likely a self-limiting injury and will take some time to resolve. If any new symptoms develop or if she does not improve with time and conservative measures, she can certainly return for evaluation. Patient and accompanying worker agree to plan. Paperwork for facility completed. (2) Rib pain on right side: Code(s): R07.81 - Pleurodynia Orders: Orders XR ribs RT min 3V w CXR1V Today R07.81 - Pleurodynia, W19.XXXA - Unspecified fall, initial encounter Coding Level of Care Code Est Pt Level 3 (09863) Diagnoses Fall, initial encounter W19.XXXA Encounter type: initial encounter Rib pain on right side R07.81
[2022-10-18 10:38] VITALS: BP 104/68; PULSE 62; O2SAT 97; BMI 38.3
== END 2022-10-18 11:54 | disposition home or self-care (01) ==
PROVIDERS: PCP Internal Medicine; Visit Provider Nurse Practitioner Family
DX: R07.81 Pleurodynia (principal); W19.XXXA Unspecified fall, initial encounter
CPT/HCPCS: 99213

== ENCOUNTER 2022-12-18 08:45 | Outpatient (AMB) | payer MEDICARE, MEDICAID, SELFPAY ==
--- NOTE | 2022-12-18 08:52 | MHC.PC.OV ---
Vital Signs 12/18/22 08:56 Height 5 ft Weight 193 lb BMI 37.7 BP 110/70 Blood Pressure Location Lt brachial Position Sitting Pulse 66 Pulse Source Pulse Oximeter Pulse Oximetry (%) 93 Oxygen Delivery Method Room Air Intake Visit Reasons: [facility]-12/11-12/12-acute kidney injury/UTI Intake Note: Pt is here today for [facility] acute kidney injury/ UTI Accompanied by: Bibi (staff residential) Allergies lactose [LACTOSE] Adverse Reaction (Mild, Verified 12/18/22 09:31) GI DISTRESS Medication List - Last Reconciled 12/18/22 by Deonna Ratliff MD acetaminophen 500 mg PO Q6H PRN benztropine 0.5 mg PO BID calcium carbonate-vitamin D3 600 mg-20 mcg (800 unit) 1 tab PO DAILY fesoterodine ER (Toviaz) 4 mg PO .at bedtime fluoxetine 40 mg PO QAM lactase (Lactaid Fast Act) 9,000 units PO DAILY PRN levothyroxine 112 mcg PO DAILY multivitamin with folic acid 400 mcg 1 tab PO DAILY risperidone 1 mg PO BEDTIME toothpaste (Sensodyne toothpaste) As directed vibegron (Gemtesa) 75 mg PO DAILY Tobacco use date assessed: 12/18/22 Dental Screening Dental Screen Date: 12/18/22 Did you have a dental visit in the last 12 months?: No Was dental information given to patient?: Patient declined HPI [facility]-12/11-12/12-acute kidney injury/UTI HPI Details 52-year-old lady with past medical history significant for hypothyroidism, cognitive impairment, schizophrenia, obstructive sleep apnea on CPAP, GERD, overactive urinary bladder with urge incontinence, here today for follow-up after recent admission at [facility], for altered mental status/ confusion, with decreased oral intake and recurrent fall and found to have acute kidney injury. She was afebrile, with found to have acute kidney injury with urinalysis positive for increased white blood cell count, leukocytes, and presence of bacteria seen. CT of head and cervical spine, chest x-ray and CT in abdomen pelvis were within normal limits. Her urine culture grew mixed yanick suggestive of contamination, blood cultures came back negative. Patient was empirically treated with ceftriaxone IV but no further oral antibiotics given after that. She was continued on her psychiatric medication for schizophrenia and depression and was continued on levothyroxine for her hypothyroidism with her TSH within normal limits. Patient's caregiver states that she has seldom drinks water, drinks mainly sweet tea, and juices. She however is now back to her baseline and has no complaints at present time. Reviewed [facility] discharge summary, which showed recent labs done 12/12/2022 . CBC was checked and results were within normal limits except for mild anemia with a hemoglobin at 11.9 grams/dL and hematocrit at 36.8%. troponin all came back negative, chemistry panel showed results within normal limits including ionized calcium and serum calcium, liver enzymes all within normal limits as well as TSH at 2.44 and repeat urine showed no evidence of infection on 12/10/2022 [facility] Medical History (Updated 12/18/22 @ 09:57 by Deonna Ratliff MD) Schizophrenia Abnormal Pap smear of cervix Enuresis, nocturnal only MYA (obstructive sleep apnea) Osteoarthritis, knee Vitamin D deficiency Falls frequently Obesity Developmental disability Acquired hypothyroidism Gait instability Acid reflux Hx of sleep apnea History of hyperthyroidism Hx of major depression Surgical History Hx of colonoscopy History of knee replacement Hx LEEP (loop electrosurgical excision procedure), cervix, History of thyroidectomy Hx of endoscopy History of ankle surgery Hx of knee surgery Family History Father No problems noted. Mother No problems noted. Maternal Aunt Breast cancer Social History Household Members: Other Household Members Other:: [facility] Housing: Assisted Living Facility Alcohol intake: never Patient Tobacco Use Status: Former Tobacco user Years Smoked: 2 yrs e-Cigarette/Vaping Use: Never Used service: No Current occupational status: disabled Sexual orientation: Straight/Heterosexual Gender identity: Female Cognitive needs: No Hearing needs: No Vision needs: No Questionnaire Thrive Questionnaire Date Thrive assessed: 11/02/20 JUSTINO-7 AMB Questionnaire JUSTINO-7 Date JUSTINO - 7 assessed: 11/02/20 Source: Developed by Drs. Oc Dyson, Kate Sánchez, Surya Marks and colleagues, with an educational ena from [employer]. Review of Systems Const Reports as per HPI Eyes Denies change in vision ENT Reports no additional complaints Card Denies chest pain, Denies chest pain with activity, Denies irregular heart rhythm, Denies lightheadedness, Denies dyspnea and Denies dyspnea on exertion Resp Denies chest congestion, Denies cough, Denies dyspnea, Denies dyspnea on exertion and Denies wheezing GI Denies abdominal pain, Denies change in bowel habits, Denies change in stool character, Denies dyspepsia and Denies heartburn Reports no additional complaints, Denies hematuria and Denies dysuria Musc Reports abnormal gait, Reports arthralgias, Denies joint swelling, Denies muscle weakness, Denies numbness and Reports stiffness Skin/Breast Denies lesions and Denies rash Neuro Details: Tremors controlled since starting Cogentin Reports abnormal gait, Denies numbness and Denies Sensory deficit (Neuro) Lit/Lymph Denies easy bleeding and Denies easy bruising Aller/Immun Denies wheezing Physical exam (Primary Care) Vital Signs: Last Vital Signs Pulse 66 12/18/22 08:56 BP 110/70 12/18/22 08:56 Pulse Ox 93 12/18/22 08:56 Oxygen Delivery Method Room Air 12/18/22 08:56 BMI result Body Mass Index 37.7 Tobacco/Smoking Status: Tobacco use Status Tobacco use date assessed 12/18/22 12/18/22 09:01 Patient Tobacco Use Status Former Tobacco user 12/18/22 08:55 e-Cigarette/Vaping Use Never Used 12/18/22 08:55 Thrive Assessment: Date of Thrive Assessment Date Thrive assessed 11/02/20 12/18/22 08:55 Const General: awake Nutritional Appearance: obese Orientation/consciousness: oriented to person and oriented to place Limitations: ambulation with walker HENWA Head: Yes normocephalic and Yes atraumatic Ears: external ears normal General nose exam: Normal external nose present and No nasal discharge present Face and sinus: Yes face symmetric Eyes Pupils: Equal, round and reactive pupils present Neck Other: Thyroid gland nonpalpable Neck: Yes full ROM and Yes supple Resp Auscultation: clear to auscultation bilaterally Cardio Other: S1-S2 present regular rate and rhythm GI Inspection: Yes obesity Palpation (GI): Soft to palpation, nontender, no guarding and no masses Auscultation: normal bowel sounds General: Yes no CVA tenderness Back/Spine/Pelvis Back: no CVA tenderness and No back tenderness Skin General skin exam: no rashes or lesions noted Neuro General: oriented to person, oriented to place, moves all extremities and no focal motor deficits Cranial nerves: Yes Equal, round and reactive pupils present and Yes Bilaterally intact EOM present Speech: Other speech findings present (Neuro) (Occasional Dysarthria and garbled speech) Gait exam (Neuro): Assisted gait required Gait assisted method: walker Motor exam (neuro): 5/5 motor strength present throughout Sensory Exam: No Sensory deficit (Neuro) Extrem General: Yes full ROM, Yes no joint enlargement and Yes no pedal edema Psych Appearance: grossly normal Speech and movement: Slowed movement present (Neuro) Affect: Blunted affect present Attitude: cooperative Assessment and Plan Assessment & Plan (1) Acquired hypothyroidism: Code(s): E03.9 - Hypothyroidism, unspecified Plan: Continue with current dose of levothyroxine, TSH level drawn during recent admission at [facility] showed results within normal limits (2) MYA (obstructive sleep apnea): Code(s): G47.33 - Obstructive sleep apnea (adult) (pediatric) Plan: Patient advised strongly to use the CPAP mask (3) Developmental disability: Comment: Has mild mental retardation, lives in residential, can sign for herself, sister HCP will bring DOS Code(s): F89 - Unspecified disorder of psychological development Plan: Followed by psychiatry (4) Schizophrenia: Code(s): F20.9 - Schizophrenia, unspecified Plan: Followed by psychiatry (5) Acute kidney injury (nontraumatic): Code(s): N17.9 - Acute kidney failure, unspecified Plan: Stressed importanc of staying well hydrated, advised to drink at least 4 8 oz glass of water daily (6) History of UTI: Code(s): Z87.440 - Personal history of urinary (tract) infections Plan: No evidence of infection on latest urinalysis done at [facility] prior to discharge December 10 (7) Hospital discharge follow-up: Code(s): Z09 - Encounter for follow-up examination after completed treatment for conditions other than malignant neoplasm Coding Level of Care Code Est Pt Level 4 (35531) Diagnoses Acquired hypothyroidism E03.9 MYA (obstructive sleep apnea) G47.33 Developmental disability F89 Schizophrenia F20.9 Acute kidney injury (nontraumatic) N17.9 History of UTI Z87.440 Hospital discharge follow-up Z09
[2022-12-18 08:56] VITALS: BP 110/70; PULSE 66; O2SAT 93; BMI 37.7
== END 2022-12-18 11:09 | disposition home or self-care (01) ==
PROVIDERS: PCP Internal Medicine; Visit Provider Internal Medicine
DX: E03.9 Hypothyroidism, unspecified (principal); N17.9 Acute kidney failure, unspecified; F20.9 Schizophrenia, unspecified; G47.33 Obstructive sleep apnea (adult) (pediatric); F89 Unspecified disorder of psychological development; Z87.440 Personal history of urinary (tract) infections; Z09 Encounter for follow-up examination after completed treatment for conditions other than malignant neoplasm
CPT/HCPCS: 99214

== ENCOUNTER 2022-12-19 12:00 | Outpatient (REF) | payer MEDICARE, MEDICAID, SELFPAY | END 2022-12-19 12:01 | disposition home or self-care (01) | LOC: HO.MAMMO 12:00 | PROVIDERS: PCP Internal Medicine; Visit Provider Internal Medicine | DX: Z12.31 Encounter for screening mammogram for malignant neoplasm of breast (principal) | CPT/HCPCS: 77063; 77067 ==

== ENCOUNTER → 2022-12-19 12:00 | Outpatient (BNV) | payer MEDICARE, MEDICAID, SELFPAY | PROVIDERS: PCP Internal Medicine; Visit Provider Radiology Diagnostic Radiology | DX: Z12.31 Encounter for screening mammogram for malignant neoplasm of breast (principal) | CPT/HCPCS: 77063; 77067 ==

== ENCOUNTER 2023-01-01 10:49 | Outpatient (AMB) | payer MEDICARE, MEDICAID, SELFPAY ==
[2023-01-01 11:23] VITALS: BP 112/64; PULSE 60; O2SAT 100
--- NOTE | 2023-01-01 11:23 | MHC.PC.OV ---
Vital Signs 01/01/23 11:23 Height 5 ft BMI Reason not done Patient refused/unable BP 112/64 Blood Pressure Location Rt brachial Position Sitting Pulse 60 Pulse Source Pulse Oximeter Pulse Oximetry (%) 100 Oxygen Delivery Method Room Air Intake Visit Reasons: Annual/f/u fx ribs right side Allergies lactose [LACTOSE] Adverse Reaction (Mild, Verified 06/14/23 14:07) GI DISTRESS Medication List - Last Reconciled 01/01/23 by Deonna Ratliff MD acetaminophen 500 mg PO Q6H PRN benztropine 0.5 mg PO BID calcium carbonate-vitamin D3 600 mg-20 mcg (800 unit) 1 tab PO DAILY fesoterodine ER (Toviaz) 4 mg PO .at bedtime fluoxetine 40 mg PO QAM lactase (Lactaid Fast Act) 9,000 units PO DAILY PRN levothyroxine 112 mcg PO DAILY multivitamin with folic acid 400 mcg 1 tab PO DAILY risperidone 1 mg PO BEDTIME toothpaste (Sensodyne toothpaste) As directed vibegron (Gemtesa) 75 mg PO DAILY Tobacco use date assessed: 12/18/22 HPI Annual/f/u fx ribs right side HPI Details 52-year-old lady with past medical history significant for hypothyroidism, cognitive impairment, schizophrenia, obstructive sleep apnea on CPAP, GERD, overactive urinary bladder with urge incontinence, here today for her physical exam. She sustained a fall in October 2022 and fractured her right 7th and questionable 8th rib, nondisplaced. Patient at present denies any pain over site, with no pain on inspiration reported. She is up-to-date with her screening mammogram, done 12/19/2022 with normal findings, had a cervical cancer screening done by [facility] 11/29/2020 with normal findings. She is also up-to-date with her screening colonoscopy done by Dr. Haddad 03/02/2020, with removal of hyperplastic polyp, with repeat colonoscopy due again in 2030. [facility], [facility] Medical History (Updated 06/14/23 @ 14:18 by Deonna Ratliff MD) Difficulty swallowing solids Schizophrenia Abnormal Pap smear of cervix Enuresis, nocturnal only MYA (obstructive sleep apnea) Osteoarthritis, knee Vitamin D deficiency Falls frequently Obesity Developmental disability Acquired hypothyroidism Gait instability Acid reflux Hx of sleep apnea History of hyperthyroidism Hx of major depression Surgical History Hx of colonoscopy History of knee replacement Hx LEEP (loop electrosurgical excision procedure), cervix, History of thyroidectomy Hx of endoscopy History of ankle surgery Hx of knee surgery Family History Father No problems noted. Mother No problems noted. Maternal Aunt Breast cancer Social History Household Members: Other Household Members Other:: Alf Housing: Assisted Living Facility Alcohol intake: never Comment: unsteady gait Patient Tobacco Use Status: Former Tobacco user Years Smoked: 2 yrs e-Cigarette/Vaping Use: Never Used service: No Current occupational status: disabled Sexual orientation: Straight/Heterosexual Gender identity: Female Cognitive needs: No Hearing needs: No Vision needs: No Female Reproductive History Menstrual Date of last pap smear: 11/29/20 Date of Mammogram: 12/19/22 Questionnaire PHQ-9 Over the last 2 weeks, how often have you been bothered by any of the following problems? 1. Little interest or pleasure in doing things: not at all 2. Feeling down, depressed, or hopeless: several days 3. Trouble falling or staying asleep, or sleeping too much: several days 4. Feeling tired or having little energy: several days 5. Poor appetite or overeating: not at all 6. Feeling bad about yourself - or that you are a failure or have let yourself or your family down: not at all 7. Trouble concentrating on things, such as reading the newspaper or watching television: several days 8. Moving or speaking so slowly that other people could have noticed. Or the opposite - being so fidgety or restless that you have been moving around a lot more than usual: not at all 9. Thoughts that you would be better off or of hurting yourself in some way: not at all Total score: 4 Depression Screening Interpretation: Positive Depression Screening Follow-up: Existing condition, In treatment and Community Mental Health Worker F/U Depression Screening Done: Yes 93635 - PHQ-9 Billing: Yes Source: Developed by Drs. Oc Dyson, Kate BSurya Stephens and colleagues, with an educational ena from [employer]. Thrive Questionnaire Date Thrive assessed: 01/01/23 I am a: Patient What is your living situation today?: I have a steady place to live Within the past 12 months, did the food you bought not last and you didn't have the money to get more?: Never true Within the past 12 months, did you worry whether your food would run out before you got money to buy more?: Never true Do you have trouble paying for medicines?: No Do you have trouble getting transportation to medical appointments?: No Do you have trouble paying your heating and electricity bill?: No Do you have trouble taking care of your child, family member or friend?: No Do you have trouble with day-to-day activities such as bathing, preparing meals, shopping, managing finances, etc.?: Yes Are you currently unemployed and looking for a job?: No Are you interested in more education?: Yes AUDIT C Alcohol Use Questionnaire (AUDIT-C) 1. How often do you have a drink containing alcohol?: Never Total Score: 0 JUSTINO-7 AMB Questionnaire JUSTINO-7 Date JUSTINO - 7 assessed: 01/01/23 Feeling nervous, anxious, or on edge: 1 = Several days Not being able to stop or control worryin = Several days Worrying too much about different things: 1 = Several days Trouble relaxin = Not at all Being so restless that it is hard to sit still: 0 = Not at all Becoming easily annoyed or irritable: 0 = Not at all Feeling afraid as if something awful might happen: 0 = Not at all Total JUSTINO-7 score (0-4 normal; 5-9 mild; 10-14 moderate; 15-21 severe): 3 Source: Developed by Drs. Oc Dyson, Surya Lee and colleagues, with an educational ena from [employer]. JUSTINO-7 Assessment Billing JUSTINO-7 Assessment Tool: JUSTINO-7 Assessment 56345 Review of Systems Const Reports no additional complaints Eyes Denies change in vision ENT Reports no additional complaints Card Denies chest pain, Denies chest pain with activity, Denies irregular heart rhythm, Denies lightheadedness, Denies dyspnea and Denies dyspnea on exertion Resp Denies chest congestion, Denies cough, Denies dyspnea, Denies dyspnea on exertion and Denies wheezing GI Denies abdominal pain, Denies change in bowel habits, Denies change in stool character, Denies dyspepsia and Denies heartburn Reports no additional complaints, Denies hematuria and Denies dysuria Musc Reports abnormal gait, Reports arthralgias, Denies joint swelling, Denies muscle weakness, Denies numbness and Reports stiffness Skin/Breast Denies lesions and Denies rash Neuro Reports abnormal gait, Denies numbness and Denies Sensory deficit (Neuro) Psych Reports no additional complaints and Reports as per HPI Endo Reports no additional complaints Lit/Lymph Denies easy bleeding and Denies easy bruising Aller/Immun Denies seasonal rhinorrhea and Denies wheezing Physical exam (Primary Care) Vital Signs: Last Vital Signs Pulse 60 01/01/23 11:23 BP 112/64 01/01/23 11:23 Pulse Ox 100 01/01/23 11:23 Oxygen Delivery Method Room Air 01/01/23 11:23 Tobacco/Smoking Status: Tobacco use Status Tobacco use date assessed 12/18/22 01/01/23 11:23 Patient Tobacco Use Status Former Tobacco user 01/01/23 11:23 e-Cigarette/Vaping Use Never Used 01/01/23 11:23 Depression Screening Interpretation: Positive Depression Screening Follow-up: Existing condition, In treatment and Community Mental Health Worker F/U Thrive Assessment: Date of Thrive Assessment Date Thrive assessed 11/02/20 01/01/23 11:23 Const General: awake Nutritional Appearance: obese Orientation/consciousness: oriented to person and oriented to place Limitations: ambulation with walker HENSC Head: Yes normocephalic and Yes atraumatic Ears: external ears normal General nose exam: Normal external nose present and No nasal discharge present Face and sinus: Yes face symmetric Eyes Pupils: Equal, round and reactive pupils present Neck Other: Thyroid gland nonpalpable Neck: Yes full ROM and Yes supple Resp Auscultation: clear to auscultation bilaterally Cardio Other: S1-S2 present regular rate and rhythm GI Inspection: Yes obesity Palpation (GI): Soft to palpation, nontender, no guarding and no masses Auscultation: normal bowel sounds General: Yes no CVA tenderness Back/Spine/Pelvis Back: no CVA tenderness and No back tenderness Skin General skin exam: no rashes or lesions noted Neuro General: oriented to person, oriented to place, moves all extremities and no focal motor deficits Cranial nerves: Yes Equal, round and reactive pupils present and Yes Bilaterally intact EOM present Speech: Other speech findings present (Neuro) (Occasional Dysarthria and garbled speech) Gait exam (Neuro): Assisted gait required Gait assisted method: walker Motor exam (neuro): 5/5 motor strength present throughout Sensory Exam: No Sensory deficit (Neuro) Extrem General: Yes full ROM, Yes no joint enlargement and Yes no pedal edema Psych Appearance: grossly normal Speech and movement: Slowed movement present (Neuro) Affect: Blunted affect present Attitude: cooperative Assessment and Plan Assessment & Plan (1) Annual visit for general adult medical examination with abnormal findings: Code(s): Z00.01 - Encounter for general adult medical examination with abnormal findings Plan: Will check appropriate labs. Recommended dental visit every 6 months and regular eye exams, at least every 2 years. Take adequate calcium in diet and vitamin-D 3 at 2000 IU per cap once a day, in addition to weight-bearing exercises to help maintain good muscle tone and weight control. Instructed to do self-breast exam, and continue to get yearly mammogram, . Up-to-date with her screening colonoscopy and cervical cancer screening. Up-to-date with her vaccine (2) Acquired hypothyroidism: Code(s): E03.9 - Hypothyroidism, unspecified Plan: Ordered TSH and free T4 level, continued in the meantime on levothyroxine 112 mcg daily (3) Developmental disability: Comment: Has mild mental retardation, lives in longterm, can sign for herself, sister HCP will bring DOS Code(s): F89 - Unspecified disorder of psychological development Plan: Lives in a longterm (4) Schizophrenia: Code(s): F20.9 - Schizophrenia, unspecified Plan: Followed by psychiatry Orders: Orders Lipid Panel 01/01/23 Z00.01 - Encounter for general adult medical examination with abnormal findings, E03.9 - Hypothyroidism, unspecified, R26.81 - Unsteadiness on feet, E66.9 - Obesity, unspecified, G47.33 - Obstructive sleep apnea (adult) (pediatric), F89 - Unspecified disorder of psychological development, R29.6 - Repeated falls, F20.9 - Schizophrenia, unspecified, Z78.0 - Asymptomatic menopausal state Vitamin D 25-OH Total 01/01/23 Z00.01 - Encounter for general adult medical examination with abnormal findings, E03.9 - Hypothyroidism, unspecified, R26.81 - Unsteadiness on feet, E66.9 - Obesity, unspecified, G47.33 - Obstructive sleep apnea (adult) (pediatric), F89 - Unspecified disorder of psychological development, R29.6 - Repeated falls, F20.9 - Schizophrenia, unspecified, Z78.0 - Asymptomatic menopausal state Thyroid Stimulating Hormone 01/01/23 Z00.01 - Encounter for general adult medical examination with abnormal findings, E03.9 - Hypothyroidism, unspecified, R26.81 - Unsteadiness on feet, E66.9 - Obesity, unspecified, G47.33 - Obstructive sleep apnea (adult) (pediatric), F89 - Unspecified disorder of psychological development, R29.6 - Repeated falls, F20.9 - Schizophrenia, unspecified, Z78.0 - Asymptomatic menopausal state Complete Blood Count Auto Diff 01/01/23 Z00.01 - Encounter for general adult medical examination with abnormal findings, E03.9 - Hypothyroidism, unspecified, R26.81 - Unsteadiness on feet, E66.9 - Obesity, unspecified, G47.33 - Obstructive sleep apnea (adult) (pediatric), F89 - Unspecified disorder of psychological development, R29.6 - Repeated falls, F20.9 - Schizophrenia, unspecified, Z78.0 - Asymptomatic menopausal state Comprehensive Ponce. Panel Fast 01/01/23 Z00.01 - Encounter for general adult medical examination with abnormal findings, E03.9 - Hypothyroidism, unspecified, R26.81 - Unsteadiness on feet, E66.9 - Obesity, unspecified, G47.33 - Obstructive sleep apnea (adult) (pediatric), F89 - Unspecified disorder of psychological development, R29.6 - Repeated falls, F20.9 - Schizophrenia, unspecified, Z78.0 - Asymptomatic menopausal state Coding Level of Care Code Est Pt Prev Care 40-64y(53637) Diagnoses Annual visit for general adult medical examination with abnormal findings Z00.01 Acquired hypothyroidism E03.9 Developmental disability F89 Schizophrenia F20.9 Additional Codes JUSTINO-7 Assessment Billing - JUSTINO-7 Assessment Tool: JUSTINO-7 Assessment [id number] ([id number])
== END 2023-01-01 12:27 | disposition home or self-care (01) ==
PROVIDERS: Visit Provider Internal Medicine
DX: Z00.00 Encounter for general adult medical examination without abnormal findings (principal); E03.9 Hypothyroidism, unspecified; F89 Unspecified disorder of psychological development; F20.9 Schizophrenia, unspecified
CPT/HCPCS: 99396

== ENCOUNTER 2023-01-23 11:48 | Outpatient (AMB) | payer MEDICARE, MEDICAID, SELFPAY ==
--- NOTE | 2023-01-23 13:38 | MHC.OFFWIV ---
Intake Vital Signs 01/23/23 13:40 Height 5 ft Weight 198 lb BMI 38.7 BP 118/70 Blood Pressure Location Lt brachial Position Sitting Pulse 86 Pulse Source Pulse Oximeter Temp 97.2 F Temp Source Temporal Artery Scan Pulse Oximetry (%) 96 Oxygen Delivery Method Room Air Intake Visit Reasons: EST/rash in between legs (lobby) Intake Note: pt is here today for rash in between legs started yesterday. Pt PARTNERSHIP DEVELOPMENT MANAGER states she noticed it today. Patient Tobacco Use Status: Former Tobacco user Allergies lactose [LACTOSE] Adverse Reaction (Mild, Verified 01/23/23 13:49) GI DISTRESS Do you need a note to return to daycare/school/sports/work: No HPI HPI Comments History of Present Illness Details This is a 53yo female with a past medical history of obesity, schizophrenia, developmental disabilities, dementia and hypothyroidism presenting for evaluation of a rash that was noticed in her left inguinal region this morning by Lawanda, her PARTNERSHIP DEVELOPMENT MANAGER. The PARTNERSHIP DEVELOPMENT MANAGER has applied baby powder only to her area of discomfort. The patient denies any pain or itching and describes the lesion as only stinky . PFS Medical History Schizophrenia Abnormal Pap smear of cervix Enuresis, nocturnal only MYA (obstructive sleep apnea) Osteoarthritis, knee Vitamin D deficiency Falls frequently Obesity Developmental disability Acquired hypothyroidism Gait instability Acid reflux Hx of sleep apnea History of hyperthyroidism Hx of major depression Surgical History Hx of colonoscopy History of knee replacement Hx LEEP (loop electrosurgical excision procedure), cervix, History of thyroidectomy Hx of endoscopy History of ankle surgery Hx of knee surgery Family History Father No problems noted. Mother No problems noted. Maternal Aunt Breast cancer Social History Household Members: Other Household Members Other:: Long Term Housing: Assisted Living Facility Alcohol intake: never Comment: unsteady gait Patient Tobacco Use Status: Former Tobacco user Years Smoked: 2 yrs e-Cigarette/Vaping Use: Never Used service: No Current occupational status: disabled Sexual orientation: Straight/Heterosexual Gender identity: Female Cognitive needs: No Hearing needs: No Vision needs: No Review of Systems Const All systems reviewed & are unremarkable except as noted in HPI and below Reports no additional complaints Skin/Breast Reports as per HPI, Reports non-healing lesions (left inguinal region) and Reports erythema Psych Reports no additional complaints Physical Exam Vital Signs: Last Vital Signs Temp 97.2 F 01/23/23 13:40 Pulse 86 01/23/23 13:40 BP 118/70 01/23/23 13:40 Pulse Ox 96 01/23/23 13:40 Oxygen Delivery Method Room Air 01/23/23 13:40 BMI result Body Mass Index 38.7 Const General: cooperative, comfortable and well developed; No ill appearing Nutritional Appearance: obese Orientation/consciousness: oriented to person, oriented to place and Other orientation findings (poor historian as related to HPI) Limitations: other limitations (cognitive delays) GI Palpation (GI): Soft to palpation and nontender Auscultation: normal bowel sounds Skin Rashes: other (surface abrasion 4cm x 1.5cm left inguinal region, no surrounding erythema) Neuro General: oriented to person and oriented to place Psych Appearance: grossly normal Mental Status: mental status grossly normal Affect: normal affect Attitude: cooperative Judgement: Good judgement present (Psych) Assessment & Plan Assessment & Plan (1) Abrasion of groin: Comment: Lesion appears to be related to friction of adipose tissue; no evidence of a secondary cellulitis. Code(s): S30.811A - Abrasion of abdominal wall, initial encounter Qualifiers: Encounter type: initial encounter Qualified Code(s): S30.811A - Abrasion of abdominal wall, initial encounter Plan: Given the location of this friction abrasion, patient will be discharged with Nystatin powder to use in the inguinal region bilaterally. Patient to follow-up with her PCP in 2-3 weeks for a reevaluation of this lesion. Medications: New nystatin 1 appl topical BID 60 grams 0RF Coding Level of Care Code Est Pt Level 3 (41774) Diagnoses Abrasion of groin, initial encounter S30.811A Encounter type: initial encounter Time Spent (min) 20
[2023-01-23 13:40] VITALS: BP 118/70; PULSE 86; TEMP 36.2; O2SAT 96; BMI 38.7
== END 2023-01-23 14:50 | disposition home or self-care (01) ==
PROVIDERS: PCP Internal Medicine; Visit Provider Physician Assistant
DX: S30.811A Abrasion of abdominal wall, initial encounter (principal)
CPT/HCPCS: 99213

== ENCOUNTER 2023-03-01 13:08 | Outpatient (REF) | payer MEDICARE, MEDICAID, SELFPAY ==
[2023-03-01 18:06] LABS: CT PCR NOT DETECTED (Not Detect.); NG PCR NOT DETECTED (Not Detect.)
[2023-03-02 07:15] LABS: Syphilis Screen Nonreactive (Nonreactive)
[2023-03-02 07:27] LABS: HBc Num1 0.12 S/CO (0.00-0.79); HIV AB/AG Nonreactive (Nonreactive); HIV Num 1 0.07 S/CO (0.00-0.99); Hepatitis B Core Antibody Nonreactive (Nonreactive); ~HepC Num1 0.16 S/CO (0.00-0.79); ~Hepatitis C Antibody Nonreactive (Nonreactive)
== END 2023-03-01 13:09 | disposition home or self-care (01) ==
LOC: HO.LNP 13:08
PROVIDERS: PCP Internal Medicine; Visit Provider Advanced Practice Midwife
DX: Z01.419 Encounter for gynecological examination (general) (routine) without abnormal findings (principal); Z11.4 Encounter for screening for human immunodeficiency virus [HIV]; Z20.2 Contact with and (suspected) exposure to infections with a predominantly sexual mode of transmission
CPT/HCPCS: 0353U; 86704; 86780; 86803; 87389; G0101

== ENCOUNTER 2023-03-01 13:08 | Outpatient (AMB) | payer MEDICARE, MEDICAID, SELFPAY ==
--- NOTE | 2023-03-01 13:17 | A.OFFVIS_ITS ---
Intake Vital Signs 03/01/23 13:19 Height 5 ft Weight 198 lb BMI 38.7 BP 120/84 Intake Visit Reasons: COSMETIC COUNSELOR annual exam Intake Note: 10/17 asc-h 12/17 colpo noé 2 02/17 leep 09/17 ascus neg hpv 4/18 +hpv /18 colpo noé 1 Manufacturing Machine Operator Required: No Packer Sausage [employer] Wiener: Packer Sausage [employer] Wiener Present (Josefina) Accompanied by: Family/Other Allergies lactose [LACTOSE] Adverse Reaction (Mild, Verified 03/01/23 13:19) GI DISTRESS HPI HPI Comments History of Present Illness Details She is a postmenopausal woman presenting for her annual medical claims representative examination. Presents with her LEGEND MAKER, Nimo Clement. She is doing well with no concerns. Attempting to eat a healthy diet with calcium and vitamin D. Uses a wheelchair and walker. Currently sexually active. Denies any vaginal dryness or irritation. STI testing offered; she accepts. Last pap smear; 2020. Last mammogram; 2022. Colonoscopy is UTD. Denies any family history of breast, ovarian or colon cancer. [facility] Medical History Schizophrenia Abnormal Pap smear of cervix Enuresis, nocturnal only MYA (obstructive sleep apnea) Osteoarthritis, knee Vitamin D deficiency Falls frequently Obesity Developmental disability Acquired hypothyroidism Gait instability Acid reflux Hx of sleep apnea History of hyperthyroidism Hx of major depression Surgical History Hx of colonoscopy History of knee replacement Hx LEEP (loop electrosurgical excision procedure), cervix, History of thyroidectomy Hx of endoscopy History of ankle surgery Hx of knee surgery Family History Father No problems noted. Mother No problems noted. Maternal Aunt Breast cancer Social History Household Members: Other Household Members Other:: Nursing Home Housing: Assisted Living Facility Alcohol intake: never Comment: unsteady gait Patient Tobacco Use Status: Former Tobacco user Years Smoked: 2 yrs e-Cigarette/Vaping Use: Never Used service: No Current occupational status: disabled Sexual orientation: Straight/Heterosexual Gender identity: Female Cognitive needs: No Hearing needs: No Vision needs: No Female Reproductive History Menstrual Total pregnancies: 1 Full term: 1 Number of Living Children: 1 Date of last pap smear: 11/29/20 (neg pap and hpv) History of abnormal pap smear: Yes (see intake note) Date of Mammogram: 12/19/22 (Birad 1) Review of Systems Const All systems reviewed & are unremarkable except as noted in HPI and below Reports as per HPI Eyes Reports no additional complaints ENT Reports no additional complaints Card Reports no additional complaints Resp Reports no additional complaints GI Reports as per HPI and Reports no additional complaints Reports as per HPI Musc Reports no additional complaints Skin/Breast Reports as per HPI Neuro Reports no additional complaints Psych Reports no additional complaints Endo Reports no additional complaints Lit/Lymph Reports no additional complaints Aller/Immun Reports no additional complaints Physical Exam Vital Signs: Last Vital Signs BP 120/84 03/01/23 13:19 BMI result Body Mass Index 38.7 Const General: cooperative, healthy appearing, no acute distress, well developed and alert Orientation/consciousness: patient oriented x3 HEENT Head: Yes normal to inspection Eyes General: appearance normal, both eyes and all related structures Neck Neck: Yes normal visual inspection Thyroid: Thyroid normal Chest Chest palpation & inspection: normal inspection of the chest and other (no puckering, dimpling, peau de orange, retraction, discharge, masses) Breast/axilla inspection: normal inspection of the breasts Breast/axilla palpation: normal palpation of the breasts Resp Effort & Inspection: normal respiratory effort GI Inspection: Yes normal to inspection and Yes obesity Palpation (GI): Soft to palpation Rectal Exam - Female: deferred General: Yes bladder normal to palpation External Female Exam: normal external appearance and normal appearance of the urethra Speculum Exam - Vagina: normal appearance of the vagina, normal palpation, normal vaginal discharge and vagina atrophic Speculum Exam - Cervix: normal appearance of the cervix and normal palpation Bimanual exam- vagina & uterus: normal bimanual exam, normal palpation, uterine size normal, bladder normal to palpation, normal palpation and non-tender Bimanual Exam- Adnexa, other: no masses Skin General skin exam: no rashes or lesions noted Rashes: no rashes Neuro General: patient oriented x3 Cognition (Neuro): normal cognition Extrem General: Yes normal to inspection Psych Attitude: cooperative Thought process: Normal thought process present Assessment & Plan Assessment & Plan (1) Encounter for well woman exam with routine gynecological exam: Code(s): Z01.419 - Encounter for gynecological examination (general) (routine) without abnormal findings Plan Discussed: Current recommendations for pap smears per ASCCP guidelines. Breast awareness, periodic self breast exams and yearly mammogram. Maintain a healthy lifestyle, well balanced diet including Calcium 1,200 mg and Vitamin D 600 IU daily, and routine exercise. Contact the office with any postmenopausal bleeding. Patient verbalizes understanding and agrees to the plan of care. She was given opportunity to ask questions and all questions were answered to the best of my ability. RTO in 1 year for annual medical claims representative exam. This note is constructed using voice recognition software. While every effort has been made to ensure accuracy, lean process deployment consultant errors may have been included. Orders: Orders CT NG by PCR Today Z20.2 - Contact with and (suspected) exposure to infections with a predominantly sexual mode of transmission Hepatitis C Antibody Today Z20.2 - Contact with and (suspected) exposure to infections with a predominantly sexual mode of transmission Syphilis Screen Today Z20.2 - Contact with and (suspected) exposure to in fections with a predominantly sexual mode of transmission HIV Ab/Ag Today Z20.2 - Contact with and (suspected) exposure to infections with a predominantly sexual mode of transmission Hepatitis B Core Antibody Today Z20.2 - Contact with and (suspected) exposure to infections with a predominantly sexual mode of transmission Coding Level of Care Code Est Pt Prev Care 40-64y(31688) Diagnoses Encounter for well woman exam with routine gynecological exam Z01.419
[2023-03-01 13:19] VITALS: BP 120/84; BMI 38.7
== END 2023-03-01 14:48 | disposition home or self-care (01) ==
PROVIDERS: PCP Internal Medicine; Visit Provider Advanced Practice Midwife
DX: Z01.419 Encounter for gynecological examination (general) (routine) without abnormal findings (principal)
CPT/HCPCS: G0101

== ENCOUNTER 2023-03-22 11:20 | Outpatient (REF) | payer MEDICARE, MEDICAID, SELFPAY ==
[2023-03-22 13:04] LABS: MANUAL DIFF FLAG NO
[2023-03-22 13:23] LABS: Basophils Percent Auto 0.4 % (0-2); Eosinophils Absolute Auto 0.1 X10*3/uL (0.0-0.4); Eosinophils Percent Auto 1.3 % (0-4); Hematocrit 42.6 % (37.0-47.0); Hemoglobin 13.8 g/dl (12.0-16.0); Imm Gran Abs Auto 0.01 X10*3/uL (0.00-0.03); Imm Gran Pct Auto 0.2 % (0.0-0.4); Lymphocytes Absolute Auto 2.1 X10*3/uL (1.2-4.9); Lymphocytes Percent Auto 40.8 % (20-40); Mean Corpuscular HGB Conc 32.4 g/dl (31.0-35.0); Mean Corpuscular Hemoglobin 29.4 pg (27.0-33.0); Mean Corpuscular Volume 90.8 fL (80.0-98.0); Mean Platelet Volume 10.7 fL (9.4-12.3); Monocytes Absolute Auto 0.3 X10*3/uL (0.1-1.2); Monocytes Percent Auto 5.7 % (2-11); Neutrophils Absolute Auto 2.7 x10*3/uL (2.0-8.3); Neutrophils Percent Auto 51.6 % (45-73); Platelet Count 198 X10*3/uL (160-400); Red Blood Count 4.69 X10*6/uL (4.20-5.50); Red Cell Distribution Width 15.5 % (11.0-16.0); White Blood Count 5.3 X10*3/uL (4.8-10.8)
[2023-03-22 14:04] LABS: Alanine Aminotransferase 19 U/L (0-31); Albumin Level 3.8 g/dL (3.5-5.0); Alkaline Phosphatase 102 U/L (39-117); Anion Gap 13 (12-20); Aspartate Amino Transferase 18 U/L (5-31); Bilirubin Total 0.5 mg/dL (0.0-1.0); Blood Urea Nitrogen 14 mg/dL (9-16); Calcium 9.1 mg/dL (8.4-10.2); Carbon Dioxide 29 mmol/L (22-29); Chloride 103 mmol/L (96-108); Cholesterol 172 mg/dL (<200); Estimated Glomerular Filt Rate > 60; Glucose Fasting 104 mg/dL (60-99); HDL Cholesterol 61 mg/dL (>40); LDL Cholesterol Calculated 92 mg/dL (<100); Potassium 4.4 mmol/L (3.3-5.1); Sodium 141 mmol/L (135-145); Total Protein 7.6 g/dL (6.5-8.0); Triglycerides 95 mg/dL (<150)
[2023-03-22 14:06] LABS: Free T4 (Free Thyroxine) 0.99 ng/dL (0.71-1.85); Thyroid Stimulating Hormone 6.55 uIU/mL (0.32-4.0); Vitamin D 25-OH Total 38.8 ng/mL (>30)
[2023-03-24 20:48] LABS: TS Negative Control Passed; TS Panel A 0; TS Panel B 0; TS Positive Control Passed; TSpotTB Negative (Negative)
== END 2023-03-22 11:21 | disposition home or self-care (01) ==
LOC: HO.HMGCLDS 11:20
PROVIDERS: PCP Internal Medicine; Visit Provider Internal Medicine
DX: Z00.01 Encounter for general adult medical examination with abnormal findings (principal); R29.6 Repeated falls; R26.81 Unsteadiness on feet; E03.9 Hypothyroidism, unspecified; E55.9 Vitamin D deficiency, unspecified; E83.52 Hypercalcemia; E66.9 Obesity, unspecified; G47.33 Obstructive sleep apnea (adult) (pediatric); F89 Unspecified disorder of psychological development; F20.9 Schizophrenia, unspecified; Z78.0 Asymptomatic menopausal state; Z11.1 Encounter for screening for respiratory tuberculosis
CPT/HCPCS: 36415; 80053; 80061; 82306; 82330; 84439; 84443; 85025; 86481

== ENCOUNTER 2023-06-14 13:22 | Outpatient (AMB) | payer MEDICARE, MEDICAID, SELFPAY ==
[2023-06-14 13:34] VITALS: BP 120/80; PULSE 81; O2SAT 98; BMI 39.3
--- NOTE | 2023-06-14 13:34 | A.OFFPC_ITS ---
Vital Signs 06/14/23 13:34 Height 5 ft Weight 201 lb BMI 39.3 BP 120/80 Blood Pressure Location Lt brachial Position Sitting Pulse 81 Pulse Source Pulse Oximeter Pulse Oximetry (%) 98 Oxygen Delivery Method Room Air Intake Visit Reasons: Follow up Intake Note: Pt is here today for a follow up visit. Allergies lactose [LACTOSE] Adverse Reaction (Mild, Verified 06/14/23 14:07) GI DISTRESS Medication List - Last Reconciled 06/14/23 by Deonna Ratliff MD acetaminophen 500 mg PO Q6H PRN amantadine HCl 100 mg PO DAILY benztropine 0.5 mg PO BID calcium carbonate-vitamin D3 600 mg-20 mcg (800 unit) 1 tab PO DAILY donepezil 5 mg PO DAILY fesoterodine ER (Toviaz) 4 mg PO .at bedtime fluoxetine 40 mg PO QAM lactase (Lactaid Fast Act) 9,000 units PO DAILY PRN levothyroxine 112 mcg PO DAILY multivitamin with folic acid 400 mcg 1 tab PO DAILY nystatin 1 appl topical BID risperidone 1 mg PO BEDTIME risperidone 3 mg PO BEDTIME toothpaste (Sensodyne toothpaste) As directed vibegron (Gemtesa) 75 mg PO DAILY Tobacco use date assessed: 06/14/23 Dental Screening Dental Screen Date: 06/14/23 Did you have a dental visit in the last 12 months?: Yes Did you have a dental problem in the last 6 months where you did not have access to dental care?: No Was dental information given to patient?: Patient has dentist HPI Follow up HPI Details 63-year-old lady with history hypothyroi dism, cognitive impairment, schizophrenia, obstructive sleep apnea on CPAP, GERD, overactive urinary bladder with urge incontinence, and gait instability, here today for follow-up. She would like a prescription for an ultralight walker with seat, as the one she is using is so heavy for her and is borrowed. She also has been having occasional difficulty swallowing usually solid food, for the last several weeks , no problems with swallowing liquids. [facility] Medical History (Updated 06/14/23 @ 14:18 by Deonna Ratliff MD) Difficulty swallowing solids Schizophrenia Abnormal Pap smear of cervix Enuresis, nocturnal only MYA (obstructive sleep apnea) Osteoarthritis, knee Vitamin D deficiency Falls frequently Obesity Developmental disability Acquired hypothyroidism Gait instability Acid reflux Hx of sleep apnea History of hyperthyroidism Hx of major depression Surgical History Hx of colonoscopy History of knee replacement Hx LEEP (loop electrosurgical excision procedure), cervix, History of thyroidectomy Hx of endoscopy History of ankle surgery Hx of knee surgery Family History Father No problems noted. Mother No problems noted. Maternal Aunt Breast cancer Social History Household Members: Other Household Members Other:: [facility] Housing: Assisted Living Facility Alcohol intake: never Comment: unsteady gait Patient Tobacco Use Status: Former Tobacco user Years Smoked: 2 yrs e-Cigarette/Vaping Use: Never Used service: No Current occupational status: disabled Sexual orientation: Straight/Heterosexual Gender identity: Female Cognitive needs: No Hearing needs: No Vision needs: No Questionnaire PHQ-9 Over the last 2 weeks, how often have you been bothered by any of the following problems? 1. Little interest or pleasure in doing things: not at all 2. Feeling down, depressed, or hopeless: several days 3. Trouble falling or staying asleep, or sleeping too much: several days 4. Feeling tired or having little energy: several days 5. Poor appetite or overeating: not at all 6. Feeling bad about yourself - or that you are a failure or have let yourself or your family down: not at all 7. Trouble concentrating on things, such as reading the newspaper or watching television: several days 8. Moving or speaking so slowly that other people could have noticed. Or the opposite - being so fidgety or restless that you have been moving around a lot more than usual: not at all 9. Thoughts that you would be better off or of hurting yourself in some way: not at all Total score: 4 Depression Screening Interpretation: Positive Depression Screening Follow-up: Existing condition, In treatment and Community Mental Health Worker F/U Depression Screening Done: Yes 68997 - PHQ-9 Billing: Yes Source: Developed by Drs. Oc Dyson, Kate Sánchez, Surya Marks and colleagues, with an educational ena from [employer]. Thrive Questionnaire Date Thrive assessed: 06/14/23 I am a: Parent/Caregiver What is your living situation today?: I have a steady place to live Within the past 12 months, did the food you bought not last and you didn't have the money to get more?: Never true Within the past 12 months, did you worry whether your food would run out before you got money to buy more?: Never true Do you have trouble paying for medicines?: No Do you have trouble getting transportation to medical appointments?: No Do you have trouble paying your heating and electricity bill?: No Do you have trouble taking care of your child, family member or friend?: No Do you have trouble with day-to-day activities such as bathing, preparing meals, shopping, managing finances, etc.?: Yes Are you currently unemployed and looking for a job?: No Are you interested in more education?: Yes THRIVE Score: 0 AUDIT C Alcohol Use Questionnaire (AUDIT-C) 1. How often do you have a drink containing alcohol?: Never 3. How often do you have six or more drinks on one occasion?: Never Total Score: 0 JUSTINO-7 AMB Questionnaire JUSTINO-7 Date JUSTINO - 7 assessed: 06/14/23 Feeling nervous, anxious, or on edge: 1 = Several days Not being able to stop or control worryin = Several days Worrying too much about different things: 1 = Several days Trouble relaxin = Not at all Being so restless that it is hard to sit still: 0 = Not at all Becoming easily annoyed or irritable: 0 = Not at all Feeling afraid as if something awful might happen: 0 = Not at all Total JUSTINO-7 score (0-4 normal; 5-9 mild; 10-14 moderate; 15-21 severe): 3 Source: Developed by Drs. Oc Dyson, Kate Sánchez, Surya Marks and colleagues, with an educational ena from [employer]. JUSTINO-7 Assessment Billing JUSTINO-7 Assessment Tool: JUSTINO-7 Assessment 75380 Review of Systems Const Reports no additional complaints Eyes Denies change in vision ENT Reports no additional complaints Card Denies chest pain, Denies irregular heart rhythm, Denies lightheadedness and Denies dyspnea Resp Denies cough, Denies dyspnea and Denies wheezing GI Denies abdominal pain, Denies change in bowel habits, Denies change in stool character, Denies dyspepsia and Denies heartburn Reports no additional complaints, Denies hematuria and Denies dysuria Musc Reports abnormal gait, Reports arthralgias, Denies joint swelling, Denies muscle weakness, Denies numbness and Reports stiffness Skin/Breast Denies lesions and Denies rash Neuro Reports abnormal gait, Denies numbness and Denies Sensory deficit (Neuro) Endo Reports no additional complaints Lit/Lymph Denies easy bleeding and Denies easy bruising Aller/Immun Denies seasonal rhinorrhea and Denies wheezing Physical exam (Primary Care) Vital Signs: Last Vital Signs Pulse 81 06/14/23 13:34 BP 120/80 06/14/23 13:34 Pulse Ox 98 06/14/23 13:34 Oxygen Delivery Method Room Air 06/14/23 13:34 BMI result Body Mass Index 39.3 Tobacco/Smoking Status: Tobacco use Status Tobacco use date assessed 06/14/23 06/14/23 13:39 Patient Tobacco Use Status Former Tobacco user 06/14/23 13:39 e-Cigarette/Vaping Use Never Used 06/14/23 13:39 PHQ-9: PHQ-9 Score PHQ-9: Total score 4 06/14/23 14:24 Depression Screening Interpretation: Positive Depression Screening Follow-up: Existing condition, In treatment and Community Mental Health Worker F/U Thrive Assessment: Date of Thrive Assessment Date Thrive assessed 06/14/23 06/14/23 14:24 Const Nutritional Appearance: obese Orientation/consciousness: oriented to person and oriented to place Limitations: ambulation with walker HENMT Ears: external ears normal General nose exam: Normal external nose present and No nasal discharge present Face and sinus: Yes face symmetric Eyes Pupils: Equal, round and reactive pupils present Neck Other: Thyroid gland nonpalpable Neck: Yes full ROM and Yes supple Resp Auscultation: clear to auscultation bilaterally Cardio Other: S1-S2 present regular rate and rhythm GI Inspection: Yes obesity Palpation (GI): Soft to palpation, nontender, no guarding and no masses Auscultation: normal bowel sounds Skin General skin exam: no rashes or lesions noted Neuro General: oriented to person, oriented to place, moves all extremities and no focal motor deficits Cranial nerves: Yes Equal, round and reactive pupils present and Yes Bilaterally intact EOM present Speech: Other speech findings present (Neuro) (Occasional Dysarthria and garbled speech) Gait exam (Neuro): Assisted gait required Gait assisted method: walker Motor exam (neuro): 5/5 motor strength present throughout Sensory Exam: No Sensory deficit (Neuro) Extrem General: Yes full ROM, Yes no joint enlargement and Yes no pedal edema Psych Appearance: grossly normal Speech and movement: Slowed movement present (Neuro) Affect: Blunted affect present Attitude: cooperative Results Reviewed Results Reviewed: Name: Ira Acuña Age/Sex: 53/F : 1970 Unit#: [id number] Attend Dr: Deonna Ratliff MD Re03/22/23 Status: DEP [facility]F [facility] Disch: SPEC : [id number] GERTRUDIS: 03/22/23 STATUS: COMP REQ : [id number] RECD: 03/22/23-[address]: Deonna Ratliff MD COMP: 03/22/23 ENTERED: 03/22/[address] [facility] [address]: ORDERED: CBC Auto Diff Test Result Flag Reference WBC 5.3 4.8-10.8 X10*3/uL RBC 4.69 4.20-5.50 X10*6/uL HGB 13.8 12.0-16.0 g/dl HCT 42.6 37.0-47.0 % MCV 90.8 80.0-98.0 fL MCH 29.4 27.0-33.0 pg MCHC 32.4 31.0-35.0 g/dl RDW 15.5 11.0-16.0 % PLT 198 160-400 X10*3/uL MPV 10.7 9.4-12.3 fL Neut Pct Auto 51.6 45-73 % ImGran Pct Auto 0.2 0.0-0.4 % Lymp Pct Auto 40.8 H 20-40 % [place] Pct Auto 5.7 2-11 % Eos Pct Auto 1.3 0-4 % Baso Pct Auto 0.4 0-2 % NRBC Pct Auto 0.0 0.0-0.2 /100WBC ANC Neut Abs # 2.7 2.0-8.3 x10*3/uL ImGran Abs Auto 0.01 0.00-0.03 X10*3/uL Lymph Abs Auto 2.1 1.2-4.9 X10*3/uL [place] Abs Auto 0.3 0.1-1.2 X10*3/uL Eos Abs Auto 0.1 0.0-0.4 X10*3/uL Baso Abs Auto 0.0 0.0-0.2 X10*3/uL NRBC Abs Auto 0.000 0.0-0.012 X10*3/uL Name: Ira Acuña Age/Sex: 53/F : 1970 Unit#: [id number] Attend Dr: Deonna Ratliff MD Re03/22/23 Status: DEP REF Location: [facility] Disch: SPEC : [id number] GERTRUDIS: 03/22/23-1124 STATUS: COMP REQ : [id number] RECD: 03/22/23-[address]: Deonna Ratliff MD COMP: 03/22/23-1405 ENTERED: 03/22/23-[address]: ORDERED: CMP Fast, Lipid Panel, Vitamin D 25-OH, Free T4, TSH Test Result Flag Reference Sodium 141 135-145 mmol/L Potassium 4.4 3.3-5.1 mmol/L CL 103 96-108 mmol/L CO2 29 22-29 mmol/L Gap 13 12-20 BUN 14 9-16 mg/dL Creat 0.82 0.5-1.4 mg/dL EGFR > 60 NOTE: For -Spanish individuals, multiply the result by 1.210. Chronic Kidney Disease: Estimated GFR < 60 mL/min/1.73m2 Severe Kidney Disease: Estimated GFR < 15 mL/min/1.73m2 FBS 104 H 60-99 mg/dL A fasting glucose from 100-125 mg/dl is considered impaired (pre-diabetes). CA 9.1 # 8.4-10.2 mg/dL Total Bili 0.5 0.0-1.0 mg/dL AST (GOT) 18 5-31 U/L ALT (GPT) 19 0-31 U/L Protein, Total 7.6 6.5-8.0 g/dL Alb 3.8 3.5-5.0 g/dL Triglyceride 95 <150 mg/dL Desirable Triglyceride: less than 150 mg/dL Borderline High Triglyceride 150-199 mg/dL High Triglyceride: 200-499 mg/dL Very High Triglyceride: greater than or equal to 5OO mg/dL Cholesterol 172 <200 mg/dL Desirable Cholesterol: less than 200 mg/dL Borderline High Cholesterol: 200-239 mg/dL High Cholesterol: greater than 239 mg/dL LDL Calculated 92 <100 mg/dL Desirable LDL: less than 100 mg/dL Near Optimal/Above Optimal LDL: 110-129 mg/dL Borderline High LDL: 130-159 mg/dL High LDL: 160-189 mg/dL Very High LDL: greater than or equal to 190 mg/dL HDL 61 >40 mg/dL Desirable HDL: greater than 40 mg/dL Note: This HDL assay may give artificially low results in patients with liver disease. Alk Phos 102 39-117 U/L Vit D 25-OH Tot 38.8 >30 ng/mL Health Based Reference Values* < 20 ng/mL Deficient 20-30 ng/mL Insufficient > 30 ng/mL Sufficient *Alicia HOLLAND. N Engl J Med. 2007;357:266-280 Care must be taken in interpreting Vitamin D results from different laboratories and methodologies. Published data demonstrated that results from patients undergoing hemodialysis may show a negative bias when tested with various automated 25-OH vitamin D assays when compared to LC-MS/MS. When testing samples from patients whose predominant form of Vitamin D is Vitamin D2, such as patients receiving Vitamin D2 supplementation, results that are subtherapeutic should be confirmed with another method such as LC-MS/MS. Free T4 0.99 0.71-1.85 ng/dL TSH 3rd Gen. 6.55 H 0.32-4.0 uIU/mL Note: A sustained TSH level above 2.5 uIU/mL may warrant further investigation. TSH 3rd Generation ([facility]) Assessment and Plan Assessment & Plan (1) Difficulty swallowing solids: Code(s): R13.10 - Dysphagia, unspecified Plan: Ordered barium swallow for further evaluation management (2) Acquired hypothyroidism: Code(s): E03.9 - Hypothyroidism, unspecified Plan: Repeat TSH and free T4, in the meantime will continue with levothyroxine 112 mcg daily in a.m. (3) Gait instability: Code(s): R26.81 - Unsteadiness on feet Plan: Prescription given for Ultralight Rollator walker with seat (4) Developmental disability: Comment: Has mild mental retardation, lives [place] [facility] [place], can sign for herself, sister HCP will bring DOS Code(s): F89 - Unspecified disorder of psychological development Plan: Lives in [place] Orders: Orders FL barium swallow 06/14/23 R13.10 - Dysphagia, unspecified Thyroid Stimulating Hormone 06/14/23 E03.9 - Hypothyroidism, unspecified, R13.10 - Dysphagia, unspecified Free T4 (Free Thyroxine) 06/14/23 E03.9 - Hypothyroidism, unspecified, R13.10 - Dysphagia, unspecified Medications: New walker (Ultra-Light Rollator misc) As directed, with seat 1 ea 0RF F89 - Unspecified disorder of psychological development, R26.81 - Unsteadiness on feet Coding Level of Care Code Est Pt Level 4 (36780) Complex EM visit Add On G2211 Diagnoses Difficulty swallowing solids R13.10 Acquired hypothyroidism E03.9 Gait instability R26.81 Developmental disability F89 Additional Codes JUSTINO-7 Assessment Billing - JUSTINO-7 Assessment Tool: JUSTINO-7 Assessment 46618 ([id number])
== END 2023-06-14 14:27 | disposition home or self-care (01) ==
PROVIDERS: PCP Internal Medicine; Visit Provider Internal Medicine
DX: R13.10 Dysphagia, unspecified (principal); E03.9 Hypothyroidism, unspecified; R26.81 Unsteadiness on feet; F89 Unspecified disorder of psychological development
CPT/HCPCS: 99214; G2211

== ENCOUNTER 2023-06-14 14:32 | Outpatient (REF) | payer MEDICARE, MEDICAID, SELFPAY ==
[2023-06-14 16:58] LABS: Free T4 (Free Thyroxine) 1.09 ng/dL (0.71-1.85)
== END 2023-06-14 14:33 | disposition home or self-care (01) ==
LOC: HO.HMGCLDS 14:32
PROVIDERS: PCP Internal Medicine; Visit Provider Internal Medicine
DX: E03.9 Hypothyroidism, unspecified (principal); R13.10 Dysphagia, unspecified
CPT/HCPCS: 36415; 84439; 84443

== ENCOUNTER 2023-08-20 07:44 | Outpatient (REF) | payer MEDICARE, MEDICAID, SELFPAY ==
--- NOTE | ~2023-08-20 | FL_ITS ---
EXAMINATION: XR FLUOROSCOPY UPPER GI WITH AIR CLINICAL INFORMATION: Dysphagia COMPARISON: None TECHNIQUE: Fluoroscopic air contrast upper GI examination was performed utilizing standard techniques with thin and thick barium and effervescent granules. Numerous spot images were obtained. FINDINGS: Lateral cine images of the oropharynx and hypopharynx demonstrate normal swallow mechanism with normal epiglottic inversion and soft palate elevation. A small amount of tracheal aspiration was observed on the third swallow with thick barium. No nasopharyngeal reflux present. There is a large bridging anterior osteophyte from C3-C5 causing moderate posterior compression of the hypopharynx. Mild cricopharyngeal achalasia is present. Numerous paratracheal surgical clips in the region of the thyroid gland are present. Dual and single contrast images of the esophagus demonstrate normal caliber, contour, and mucosal pattern. No evidence of stricture, mass, or ulcerations identified. There is to and fro motion of the barium column with nonpropulsive tertiary contractions noted throughout the esophagus. A small type I hiatal hernia is present. A small amount of gastroesophageal reflux is seen in the distal esophagus. Dual contrast and single contrast images of the stomach demonstrated a normal contour. Evaluation of the gastric mucosa is limited due to lack of distention of the stomach from poor tolerance of the effervescent granules. No obvious masses or ulcerations are seen. Contrast freely passed into the gastric antrum and duodenal bulb without delay. Single and air-contrast images of the duodenal bulb demonstrate no abnormality. The duodenal sweep has a normal appearance, course, and mucosal fold appearance. The imaged proximal jejunum has a normal fold pattern and caliber. FLUOROSCOPY TIME: 4 minutes 5 seconds Number of Spot Images: 11 Number of Cine: 12 DOSE AREA PRODUCT: 2458 uGy-m2 (microgray-meter squared) FL/FL barium swallow with air IMPRESSION: 1. Small amount of tracheal aspiration observed on the third swallow 2. Large bridging anterior osteophyte from C3-C5 causing moderate posterior compression of the hypopharynx. Appearance highly suggestive of DISH. 3. Mild cricopharyngeal achalasia 4. Significant esophageal dysmotility 5. Small type I hiatal hernia with mild gastroesophageal reflux 6. Limited evaluation of the gastric mucosa due to lack of distention of the stomach from poor tolerance of the effervescent granular gas. This procedure was performed by Lorenzo Dwyer PA-C, and supervised by Dr. Beavers
== END 2023-08-20 07:45 | disposition home or self-care (01) ==
LOC: HO.XRAY 07:44
PROVIDERS: Visit Provider Internal Medicine
DX: R13.10 Dysphagia, unspecified (principal)
CPT/HCPCS: 74221

== ENCOUNTER → 2023-08-20 07:46 | Outpatient (BNV) | payer MEDICARE, MEDICAID, SELFPAY | PROVIDERS: Visit Provider Physician Assistant Surgical | DX: R13.10 Dysphagia, unspecified (principal) | CPT/HCPCS: 74246 ==

== ENCOUNTER 2023-09-06 09:53 | Outpatient (REF) | payer MEDICARE, MEDICAID, SELFPAY ==
[2023-09-06 12:58] LABS: MANUAL DIFF FLAG NO
[2023-09-06 13:02] LABS: Basophils Percent Auto 0.5 % (0-2); Eosinophils Absolute Auto 0.2 X10*3/uL (0.0-0.4); Eosinophils Percent Auto 3.3 % (0-4); Hematocrit 43.5 % (37.0-47.0); Hemoglobin 14.2 g/dl (12.0-16.0); Imm Gran Abs Auto 0.01 X10*3/uL (0.00-0.03); Imm Gran Pct Auto 0.2 % (0.0-0.4); Lymphocytes Absolute Auto 2.7 X10*3/uL (1.2-4.9); Mean Corpuscular HGB Conc 32.6 g/dl (31.0-35.0); Mean Corpuscular Hemoglobin 29.6 pg (27.0-33.0); Mean Corpuscular Volume 90.8 fL (80.0-98.0); Mean Platelet Volume 10.7 fL (9.4-12.3); Monocytes Absolute Auto 0.5 X10*3/uL (0.1-1.2); Platelet Count 188 X10*3/uL (160-400); Red Blood Count 4.79 X10*6/uL (4.20-5.50); Red Cell Distribution Width 14.7 % (11.0-16.0); White Blood Count 6.4 X10*3/uL (4.8-10.8)
[2023-09-06 13:25] LABS: Alanine Aminotransferase 23 U/L (0-31); Albumin Level 3.7 g/dL (3.5-5.0); Alkaline Phosphatase 97 U/L (39-117); Anion Gap 13 (12-20); Aspartate Amino Transferase 19 U/L (5-31); Bilirubin Total 0.8 mg/dL (0.0-1.0); Blood Urea Nitrogen 17 mg/dL (9-16); Calcium 9.9 mg/dL (8.4-10.2); Carbon Dioxide 31 mmol/L (22-29); Chloride 100 mmol/L (96-108); Estimated Glomerular Filt Rate > 60; Glucose Random 88 mg/dL (60-115); Potassium 4.8 mmol/L (3.3-5.1); Sodium 139 mmol/L (135-145); Total Protein 7.4 g/dL (6.5-8.0)
== END 2023-09-06 09:54 | disposition home or self-care (01) ==
LOC: HO.HMGCLDS 09:53
PROVIDERS: PCP Internal Medicine; Visit Provider Clinical Nurse Specialist Psychiatric/Mental Health, Adult
DX: F33.3 Major depressive disorder, recurrent, severe with psychotic symptoms (principal); F63.9 Impulse disorder, unspecified
CPT/HCPCS: 36415; 80053; 85025

== ENCOUNTER 2023-09-19 14:52 | Outpatient (AMB) | payer MEDICARE, MEDICAID, SELFPAY ==
--- NOTE | 2023-09-19 14:52 | AM.OFFWIN_ITS ---
Intake Vital Signs 09/19/23 14:54 Height 5 ft Weight 200 lb BMI 39.1 BP 110/74 Blood Pressure Location Rt brachial Position Sitting Pulse 80 Pulse Source Pulse Oximeter Temp 97.8 F Temp Source Oral Pulse Oximetry (%) 94 Oxygen Delivery Method Room Air Intake Visit Reasons: EP- cold, coughing, stuffy Intake Note: pt c/o cough/cold/stuffy nose. Started yesterday Patient Tobacco Use Status: Former Tobacco user Allergies lactose [LACTOSE] Adverse Reaction (Mild, Verified 09/19/23 14:53) GI DISTRESS Do you need a note to return to daycare/school/sports/work: No HPI EP- cold, coughing, stuffy HPI Details This note is constructed using voice recognition software. While every effort has been made to ensure accuracy, driver trainer errors may have been included. The patient is a 53 year old female who presents to the clinic today with itchy, watery eyes, cough, and runny nose for the past 1 day. She denies fever, chills, dyspnea. She reports a sick green party at her day program, but that individual reported it was allergies, she has had no other sick contacts. [facility] Medical History (Updated 06/14/23 @ 14:18 by Deonna Ratliff MD) Difficulty swallowing solids Schizophrenia Abnormal Pap smear of cervix Enuresis, nocturnal only MYA (obstructive sleep apnea) Osteoarthritis, knee Vitamin D deficiency Falls frequently Obesity Developmental disability Acquired hypothyroidism Gait instability Acid reflux Hx of sleep apnea History of hyperthyroidism Hx of major depression Surgical History Hx of colonoscopy History of knee replacement Hx LEEP (loop electrosurgical excision procedure), cervix, History of thyroidectomy Hx of endoscopy History of ankle surgery Hx of knee surgery Family History Father No problems noted. Mother No problems noted. Maternal Aunt Breast cancer Social History Household Members: Other Household Members Other:: Jail Housing: Assisted Living Facility Alcohol intake: never Comment: unsteady gait Patient Tobacco Use Status: Former Tobacco user Years Smoked: 2 yrs e-Cigarette/Vaping Use: Never Used service: No Current occupational status: disabled Sexual orientation: Straight/Heterosexual Gender identity: Female Cognitive needs: No Hearing needs: No Vision needs: No Review of Systems Const All systems reviewed & are unremarkable except as noted in HPI and below Physical Exam Vital Signs: Last Vital Signs Temp 97.8 F 09/19/23 14:54 Pulse 80 09/19/23 14:54 BP 110/74 09/19/23 14:54 Pulse Ox 94 09/19/23 14:54 Oxygen Delivery Method Room Air 09/19/23 14:54 BMI result Body Mass Index 39.1 Const General: cooperative, healthy appearing, comfortable and no acute distress Orientation/consciousness: patient oriented x3 HEENT Head: Yes normal to inspection, Yes No palpable skull fracture present and Yes normocephalic Ears: hearing grossly normal bilaterally, external ears normal, EAC's normal, mastoids normal (no TTP) bilaterally and TM abnormal (on left) bulging and erythematous General nose exam: Normal external nose present Face and sinus: Yes normal facial exam Mouth: Normal oral and palatal mucosa present Teeth and gingiva: dentition normal Throat: Yes posterior oropharynx normal Eyes General: appearance normal, both eyes and all related structures Neck Neck: Yes normal visual inspection, Yes full ROM, Yes no lymphadenopathy, Yes no meningeal signs, Yes trachea midline and Yes supple Resp Effort & Inspection: normal respiratory effort and able to speak in complete sentences Skin General skin exam: no rashes or lesions noted Neuro General: patient oriented x3 and no meningeal signs Assessment & Plan Assessment & Plan (1) Otitis media: Code(s): H66.90 - Otitis media, unspecified, unspecified ear Qualifiers: Otitis media type: suppurative Chronicity: acute Laterality: left Recurrence: non-recurrent Spontaneous tympanic membrane rupture: without spontaneous rupture Qualified Code(s): H66.002 - Acute suppurative otitis media without spontaneous rupture of ear drum, left ear Plan: Antibiotic therapy sent to requested pharmacy. Advised supportive measures such as ibuprofen for pain management. Advised follow up with worsening or new symptoms. Plan See above for full details and plan. Medications: New amoxicillin-pot clavulanate 875-125 mg 1 tab PO BID 7 days 14 tabs 0RF Coding Level of Care Code Est Pt Level 3 (41334) Diagnoses Non-recurrent acute suppurative otitis media of left ear without spontaneous rupture of tympanic membrane H66.002 Otitis media type: suppurative Chronicity: acute Laterality: left Recurrence: non-recurrent Spontaneous tympanic membrane rupture: without spontaneous rupture
[2023-09-19 14:54] VITALS: BP 110/74; PULSE 80; TEMP 36.6; O2SAT 94; BMI 39.1
--- OUTSIDE RECORDS SUMMARY | 2023-09-26 06:00 | XMS_ITS | Continuity of Care Document ---
Author Organization [facility] Address [address] [place] [id number]- Care Team Providers Care Fur Mixer Operator Name Role Phone Gaudencio TUCKER, Deonna Montoya Primary Care Physician [place] [facility] [place] - 06/07/[address] [address]- Encounter Diagnosis Fall(Final) - 06/07/22 Closed head injury(Final) - 06/07/22 Discharge Disposition: A-D/C Home Attending Physician: Ketty Harmon MD Admitting Physician: Ketty Harmon MD Referring Physician: Not on Staff, Referring MD Allergies, Adverse Reactions, Alerts Substance Reaction Severity Status Milk Products mayonnaise diarrhea Active Medications Abilify 15 mg oral tablet 20 mg, By Mouth, Daily, # 30 tablet, Refills 0, Maintenance, 07/05/17 9:11:09 EDT Start Date: 07/05/17 Status: Ordered Bactrim DS 800 mg-160 mg oral tablet 1 tablet, By Mouth, 2 times a day, # 60 tablet, 0 Refills, Maintenance, 05/23/19 14:06:00 EDT, Tablet, [facility], 1 tablet By Mouth 2 times a day, 153, cm, 01/01/19 10:27:00 EST, Height, 92.5, kg, 06/04/18 8:24:00 EDT, Dry Weight Start Date: 05/23/19 Status: Ordered CPAP Business Development Representative, 07/04/17 9:22:17 EDT, Compound Start Date: 07/04/17 Status: Ordered Fesoterodine 4 mg oral tablet, extended release 1 tablet, By Mouth, Daily at bedtime, # 30 tablet, 5 Refills, Maintenance, 05/26/22 8:29:00 EDT, [facility], 153, cm, 04/28/22 13:14:00 EDT, Height, 89.9, kg, 07/16/21 10:56:00 EDT, Dry Weight Start Date: 05/26/22 Status: Ordered FLUoxetine 60 mg oral tablet 1 tablet = 60 mg, By Mouth, Daily in AM, # 30 tablet, 0 Refills, Maintenance, 07/04/17 9:21:07 EDT,Tablet Start Date: 07/04/17 Status: Ordered Lactaid Fast Action 9000 units oral tablet 0 Refills, Maintenance, 07/04/17 9:22:32 EDT Start Date: 07/04/17 Status: Ordered levothyroxine 0.112 mg oral tablet 1 tablet = 112 mcg, By Mouth, Daily, # 30 tablet, 0 Refills, Maintenance, 07/05/17 9:04:17 EDT, Tablet Start Date: 07/05/17 Status: Ordered Multivitamin Daily, 0 Refills, Maintenance, 07/07/19 11:29:00 EDT Start Date: 07/07/19 Status: Ordered Myrbetriq 50 mg oral tablet, extended release 1 tablet, By Mouth, Daily at bedtime, INSTR:DO NOT CRUSH OR CHEW, # 30 tablet, 4 Refills, Maintenance, 05/15/22 16:27:00 EDT, [facility], 153, cm, 04/28/22 13:14:00 EDT, Height, 89.9, kg, 07/16/21 10:56:00 EDT, Dry Weight Start Date: 05/15/22 Status: Ordered pantoprazole 40 mg oral delayed release tablet = 40 mg, By Mouth, Daily, 0 Refills, Maintenance, 12/27/17 7:33:03 EST, EC Tablet Start Date: 12/27/17 Status: Ordered Topamax 50 mg oral tablet 1 tablet = 50 mg, By Mouth, 2 times a day, # 180 tablet, 0 Refills, Maintenance, 11/02/16 10:10:03,Tablet Start Date: 11/02/16 Status: Ordered trospium 60 mg oral capsule, extended release 1 capsule = 60 mg, By Mouth, Daily in AM, # 30 capsule, 6 Refills, Maintenance, 11/04/21 12:21:00 EDT, CR Capsule, [facility], Partial fill upon patient request if the prescription is for aschedule II opioid drug., 153, cm, 07/16/21 10:56:0... Start Date: 11/04/21 Status: Ordered Tylenol Extra Strength 500 mg oral tablet 2 tablet = 1,000 mg, By Mouth, Every 6 hours, 0 Refills, Maintenance, 07/07/19 11:29:00 EDT Start Date: 07/07/19 Status: Ordered Problem List Condition Confirmation Course Effective Dates Status Health St atus Informant Obstructive sleep apnea Confirmed Active Severe obesity (BMI 35.0-39.9) with comorbidity Confirmed Active Urinary incontinence Confirmed Active Results Radiology Reports * Exam Date Time Procedure Performing Provider Status 06/07/22 10:[address] Cervical Spine W/O Contrast Arcelia Stewart (Verified) Notes: (CT Cervical Spine W/O Contrast) Reason For Exam: Neck trauma, dangerous injury mechanism;Other: RESULT: CT Cervical Spine W/O Contrast CT Head/Brain W/O Contrast, CT Cervical Spine W/O Contrast INDICATION: Hx of Present Illness: from 's office. Lives in jail. Fall and hit frontal head.; Reason: Trauma; Clinical Question(s): Hematoma TECHNIQUE: Noncontrast head CT using axial technique was reconstructed in axial and coronal planes.Noncontrast spiral CT through the cervical spine was formatted in 3 planes. Automatic tube modulation was used for the cervical spine and iterative dose reconstruction was used for both the head and cervical spine to optimize scan parameters and image quality. CTDIvol Body: 68.88 mGy, DLP Body: 1468 mGy*cm. CTDIvol Head: 43.97 mGy, DLP Head: 703 mGy*cm. COMPARISON: None. FINDINGS: Retail Special Event Associate View Findings, Lines and Tubes: None. BRAIN AND EXTRA-AXIAL SPACES: No parenchymal hemorrhage, midline shift, or mass effect. Medrano-white matter differentiation is wellpreserved. No acute infarct. Ventricles, sulci, and basilar cisterns are normal. No white matter lesions. No subarachnoid hemorrhage. No subdural or epidural collection. CALVARIUM, SKULL BASE, AND SOFT TISSUES: No fractures or suspicious bony lesions. There are multiple retention cysts within bilateral maxillary sinuses. There is mild mucoperiostealthickening within the ethmoid air cells. The remaining paranasal sinuses and mastoid air cells are clear. Visualized orbits and globes are intact. The extracranial soft tissues are unremarkable. CERVICAL SPINE: No fracture. No acute osseous abnormalities. Normal alignment. No locked or perched facet. There are anterior flowing osteophytes. There is narrowing of the atlantodens interval with osteophyte formation. OTHER BONES: No acute abnormality. CERVICAL SOFT TISSUES AND LUNG APICES: Normal soft tissues. Visualized lung apices are clear. IMPRESSION: No acute intracranial abnormality. No cervical spine fracture or subluxation. Extensive disc degenerative disease with anterior flowing osteophytes. WSN: [id number] Ordering Physician: Berna Ann Dictated By: Rosario Oden MD Dictated Date/Time: 06/07/22 10:46 a Reviewed By: Rosario Oden MD Signed By: Rosario Oden MD Signed Date/Time: 06/07/22 10:46 am Transcribed By: BRUNO Transcribed Date/Time: 06/07/22 10:38 am * Exam Date Time Procedure Performing Provider Status 06/07/22 10:[address] Head/Brain W/O Contrast Patty Stewart; Auth (Verified) Notes: (CT Head/Brain W/O Contrast) Reason For Exam: Trauma RESULT: CT Head/Brain W/O Contrast CT Head/Brain W/O Contrast, CT Cervical Spine W/O Contrast INDICATION: Hx of Present Illness: from Dr's office. Lives in jail. Fall and hit frontal head.; Reason: Trauma; Clinical Question(s): Hematoma TECHNIQUE: Noncontrast head CT using axial technique was reconstructed in axial and coronal planes.Noncontrast spiral CT through the cervical spine was formatted in 3 planes. Automatic tube modulation was used for the cervical spine and iterative dose reconstruction was used for both the head and cervical spine to optimize scan parameters and image quality. CTDIvol Body: 68.88 mGy, DLP Body: 1468 mGy*cm. CTDIvol Head: 43.97 mGy, DLP Head: 703 mGy*cm. COMPARISON: None. FINDINGS: Retail Special Event Associate View Findings, Lines and Tubes: None. BRAIN AND EXTRA-AXIAL SPACES: No parenchymal hemorrhage, midline shift, or mass effect. Medrano-white matter differentiation is wellpreserved. No acute infarct. Ventricles, sulci, and basilar cisterns are normal. No white matter lesions. No subarachnoid hemorrhage. No subdural or epidural collection. CALVARIUM, SKULL BASE, AND SOFT TISSUES: No fractures or suspicious bony lesions. There are multiple retention cysts within bilateral maxillary sinuses. There is mild mucoperiostealthickening within the ethmoid air cells. The remaining paranasal sinuses and mastoid air cells are clear. Visualized orbits and globes are intact. The extracranial soft tissues are unremarkable. CERVICAL SPINE: No fracture. No acute osseous abnormalities. Normal alignment. No locked or perched facet. There are anterior flowing osteophytes. There is narrowing of the atlantodens interval with osteophyte formation. OTHER BONES: No acute abnormality. CERVICAL SOFT TISSUES AND LUNG APICES: Normal soft tissues. Visualized lung apices are clear. IMPRESSION: No acute intracranial abnormality. No cervical spine fracture or subluxation. Extensive disc degenerative disease with anterior flowing osteophytes. WSN: [id number] Ordering Physician: Berna Ann Dictated By: Rosario Oden MD Dictated Date/Time: 06/07/22 10:46 a Reviewed By: Rosario Oden MD Signed By: Rosario Oden MD Signed Date/Time: 06/07/22 10:46 am Transcribed By: RBUNO Transcribed Date/Time: 06/07/22 10:38 am Vital Signs Most recent to oldest [Reference Range]: 1 2 Oxygen Saturation [94-100 %] 98 % (06/07/22 11:25 AM) 98 % (06/07/22 9:48 AM) Pulse Rate [55-90 bpm] 66 bpm (06/07/22 11:25 AM) 72 bpm (06/07/22 9:48 AM) Blood Pressure [90-138/55-84 mm Hg] 124/ 53mm Hg (06/07/22 11:25 AM) 112/77mm Hg (06/07/22 9:48 AM) Respiratory Rate [16-30 br/min] 14 br/mi n *L* (06/07/22 11:25 AM) 13 br/min *L* (06/07/22 9:48 AM) Temperature [96.8-100.4 DegF] 97.5 DegF (06/07/22 9:48 AM) Mode of Delivery (Oxygen) Room air (06/07/22 11:25 AM) Room air (06/07/22 9:48 AM) Blood pressure sites Arm, left (06/07/22 11:25 AM) Arm, left (06/07/22 9:48 AM) Temperature Route Oral (06/07/22 9:48 AM) Social History Social History Type Response Smoking Status Former smoker entered on: 05/01/16 Sex Note * Berna Mckeon: PERFORM Event Display: Patient Education Leaflets Authored Date: [id number] Head Injury (Adult) ?? [id number] Head Injury (Adult) You have a head injury. It doesn't appear serious at this time. But symptoms of a more serious problem, such as a mild brain injury (concussion) or bruising or bleeding in the brain, may appear later. For this reason, you or someone caring for you will need to watch for the symptoms listed below. Once you???re home, also be sure to follow any care directions you???re given. Home care Watch??for the following symptoms Seek emergency medical care if you have any of these symptoms over the next hours to days:? Headache that gets worse or doesn't go away ??? Nausea or vomiting ??? Dizziness ??? Sensitivity to light or noise ??? Unusual sleepiness or grogginess ??? Trouble falling asleep ??? Personality changes ??? Vision changes ??? Memory loss ??? Confusion ??? Trouble walking or clumsiness ??? Loss of consciousness (even for a short time) ??? Inability to be awakened ??? Stiff neck ??? Weakness ornumbness in any part of the body ??? Seizures General care ??? If you were prescribed medicines for pain, use them as directed. Note: Don???t take other medicines for pain without talking to your healthcare provider first. ??? To help reduce swelling and pain, apply a cold source to the injured area for up to 20 minutes at a time. Do this as often??as directed. Use a cold pack or bag of ice wrapped in a thin towel. Never apply a cold source directly to the skin. ??? If you are on a blood thinner for a health condition and have a head injury, follow your healthcare provider's specific directions. You are at a higher risk for bleeding fromthe blood thinner, so your provider will talk to you about taking extra precautions. ??? If you have cuts or scrapes as a result of your head injury, care for them as directed. ??? For the next 24 hours??(or longer, if directed): o Don???t drink alcohol or use sedatives or other medicines that makeyou sleepy. o Don???t drive or operate machinery. o Don???t do anything strenuous, such as heavy lifting or straining. o Limit tasks that need concentration. This includes reading, using a smartphone or computer, watching TV, and playing video games. o Don???t return to sports or other activities that could result in another head injury until approved by your healthcare provider. ?? Follow-up care Follow up with your healthcare provider, or as directed.??If imaging tests were done, they will be reviewed by a healthcare provider. You will be told the results and any new findings that may affectyour care. ?? When to seek medical advice Call your healthcare provider right away if any of the following occur: ??? Pain doesn???t get better or gets worse ??? New or increased swelling or bruising ??? Increased redness,??warmth,??drainage, or bleeding from the injured area ??? Fluid drainage or bleeding from the nose or ears ??? Any depression or bony abnormality in the injured area ??? Persistent confusion or lethargy ??? Personalitychanges ??? Bruising behind the ears or bruising around the eyes ?? Last Reviewed Date: 2022 ?? [id number] The [employer]. All rights reserved. This information is not intended as a substitute for professional medical care. Always follow your healthcare professional's instructions. ?? CT Cervical spine WO contrast * BHSPowerscribe , CIS S: TRANSCRIBE Akshat TUCKER, Rosario H: VERIFY Event Display: Result: Authored Date: [id number] CT Head/Brain W/O Contrast, CT Cervical Spine W/O Contrast INDICATION: Hx of Present Illness: from 's office. Lives in jail. Fall and hit frontal head.; Reason: Trauma; Clinical Question(s): Hematoma TECHNIQUE: Noncontrast head CT using axial technique was reconstructed in axial and coronal planes.Noncontrast spiral CT through the cervical spine was formatted in 3 planes. Automatic tube modulation was used for the cervical spine and iterative dose reconstruction was used for both the head and cervical spine to optimize scan parameters and image quality. CTDIvol Body: 68.88 mGy, DLP Body: 1468 mGy*cm. CTDIvol Head: 43.97 mGy, DLP Head: 703 mGy*cm. COMPARISON: None. FINDINGS: Retail Special Event Associate View Findings, Lines and Tubes: None. BRAIN AND EXTRA-AXIAL SPACES: No parenchymal hemorrhage, midline shift, or mass effect. Medrano-white matter differentiation is wellpreserved. No acute infarct. Ventricles, sulci, and basilar cisterns are normal. No white matter lesions. No subarachnoid hemorrhage. No subdural or epidural collection. CALVARIUM, SKULL BASE, AND SOFT TISSUES: No fractures or suspicious bony lesions. There are multiple retention cysts within bilateral maxillary sinuses. There is mild mucoperiostealthickening within the ethmoid air cells. The remaining paranasal sinuses and mastoid air cells are clear. Visualized orbits and globes are intact. The extracranial soft tissues are unremarkable. CERVICAL SPINE: No fracture. No acute osseous abnormalities. Normal alignment. No locked or perched facet. There are anterior flowing osteophytes. There is narrowing of the atlantodens interval with osteophyte formation. OTHER BONES: No acute abnormality. CERVICAL SOFT TISSUES AND LUNG APICES: Normal soft tissues. Visualized lung apices are clear. IMPRESSION: No acute intracranial abnormality. No cervical spine fracture or subluxation. Extensive disc degenerative disease with anterior flowing osteophytes. WSN: [id number] Ordering Physician: Berna Ann Dictated By: Rosario Oden MD Dictated Date/Time: 06/07/22 10:46 a Reviewed By: Rosario Oden MD Signed By: Rosario Oden MD Signed Date/Time: 06/07/22 10:46 am Transcribed By: BRUNO Transcribed Date/Time: 06/07/22 10:[address] Head WO contrast * [employer] , CIS S: TRANSCRIBE Rosario Oden MD: VERIFY Event Display: Result: Authored Date: [id number] CT Head/Brain W/O Contrast, CT Cervical Spine W/O Contrast INDICATION: Hx of Present Illness: from Dr's office. Lives in jail. Fall and hit frontal head.; Reason: Trauma; Clinical Question(s): Hematoma TECHNIQUE: Noncontrast head CT using axial technique was reconstructed in axial and coronal planes.Noncontrast spiral CT through the cervical spine was formatted in 3 planes. Automatic tube modulation was used for the cervical spine and iterative dose reconstruction was used for both the head and cervical spine to optimize scan parameters and image quality. CTDIvol Body: 68.88 mGy, DLP Body: 1468 mGy*cm. CTDIvol Head: 43.97 mGy, DLP Head: 703 mGy*cm. COMPARISON: None. FINDINGS: Retail Special Event Associate View Findings, Lines and Tubes: None. BRAIN AND EXTRA-AXIAL SPACES: No parenchymal hemorrhage, midline shift, or mass effect. Medrano-white matter differentiation is wellpreserved. No acute infarct. Ventricles, sulci, and basilar cisterns are normal. No white matter lesions. No subarachnoid hemorrhage. No subdural or epidural collection. CALVARIUM, SKULL BASE, AND SOFT TISSUES: No fractures or suspicious bony lesions. There are multiple retention cysts within bilateral maxillary sinuses. There is mild mucoperiostealthickening within the ethmoid air cells. The remaining paranasal sinuses and mastoid air cells are clear. Visualized orbits and globes are intact. The extracranial soft tissues are unremarkable. CERVICAL SPINE: No fracture. No acute osseous abnormalities. Normal alignment. No locked or perched facet. There are anterior flowing osteophytes. There is narrowing of the atlantodens interval with osteophyte formation. OTHER BONES: No acute abnormality. CERVICAL SOFT TISSUES AND LUNG APICES: Normal soft tissues. Visualized lung apices are clear. IMPRESSION: No acute intracranial abnormality. No cervical spine fracture or subluxation. Extensive disc degenerative disease with anterior flowing osteophytes. WSN: [id number] Ordering Physician: Berna Ann Dictated By: Rosario Oden MD Dictated Date/Time: 06/07/22 10:46 a Reviewed By: Rosario Oden MD Signed By: Rosario Oden MD Signed Date/Time: 06/07/22 10:46 am Transcribed By: BRUNO Transcribed Date/Time: 06/07/22 10:38 am Patient Care team information Care Team Personnel Name: Cleo Riggs RN Position: [facility] RN Member Role: Primary Care Nurse Name: Amauri Mathias RN Position: [facility] RN Member Role: Primary Care Nurse Name: Gaudencio TUCKER , Deonna Montoya Position: Reference Physician Member Role: PCP Address: Address: [address], [place] - Name: Kiley Miller RN Position: [facility] RN Member Role: Primary Care Nurse Name: Lisa Rodrigues RN Position: [facility] RN Member Role: Primary Care Nurse Name: Elenita Donald RN Position: [facility] RN Member Role: Primary Care Nurse Name: Rica Rosario RN Position: [facility] RN Member Role: Primary Care Nurse Name: Pam Matt Position: [facility] ED RN W/OE and Tasks Member Role: Patient Care Provider Name: Ketty Harmon MD Position: [facility] Resident Member Role: Admitting Physician Address: Address: [address] [place] [id number]- Name: Berna Mckeon Position: [facility] Associate Professional Member Role: ED Physician Toll Service Observer Address: Address: [address] [place] [address]- Name: Kathleen Vieira Position: [facility] ED TA [facility] Member Role: General Maintenance Technician Care Team Related Persons Name: VIELKA MILAN Address: home [address] [place] [address] Name: GERALDO WILDER Address: home [address] [place] [address]
--- OUTSIDE RECORDS SUMMARY | 2023-09-26 06:00 | XMS_ITS | Continuity of Care Document ---
Author Organization [facility] Address [address] [place] [id number]- Care Team Providers Care Bailer Tenders Supervisor Name Role Phone Gaudencio TUCKER, Deonna Montoya Primary Care Physician [place] [facility] [place] Date[place]s): 01/30/19 - 05/30/19 [facility] [address] [place] [address]- [facility] Attending Physician: Armando Serrano MD Admitting Physician: Armando Serrano MD Allergies, Adverse Reactions, Alerts Substance Reaction [...] 0 Refills, Maintenance, 05/23/19 14:06:00 EDT, Tablet, [facility], 1 tablet By Mouth 2 times a day, 153, cm, 01/01/19 10:27:00 EST, Height, 92.5, kg, 06/04/18 8:24:00 EDT, Dry Weight Start Date: 05/23/19 Status: Ordered CPAP Crop Grain Or Livestock Farm Manager, 07/04/17 9:22:17 EDT, Compound Start Date: 07/04/17 Status: Ordered FLUoxetine 60 mg oral tablet [...] EDT, Tablet Start Date: 07/05/17 Status: Ordered mirabegron 25 mg oral tablet, extended release 1 tablet = 25 mg, By Mouth, Daily, do not crush or chew, # 30 tablet, 5 Refills, Maintenance, 11/29/18 8:18:32 EDT, ER Tablet Start Date: 11/29/18 Status: Ordered mirabegron 25 mg oral tablet, extended release 1 tablet = 25 mg, By Mouth, Daily, do not crush or chew, # 30 tablet, 5 Refills, Maintenance, 09/16/18 10:00:19 EDT, ER Tablet Start Date: 09/16/18 Status: Ordered mirabegron 50 mg oral tablet, extended release 1 tablet = 50 mg, By Mouth, Daily, do not crush or chew, # 30 tablet, 5 Refills, Maintenance, 05/27/19 8:49:00 EDT, ER Tablet, [facility], 153, cm, 01/01/19 10:27:00 EST, Height, 92.5, kg, 06/04/18 8:24:00 EDT, Dry Weight Start Date: 05/27/19 Status: Ordered pantoprazole 40 mg oral delayed release tablet = 40 mg, By Mouth, Daily, 0 Refills, Maintenance, 12/27/17 7:33:03 EST, EC Tablet Start Date: 12/27/17 Status: Ordered Topamax 50 mg oral tablet 1 tablet = 50 mg, By Mouth, 2 times a day, # 180 tablet, 0 Refills, Maintenance, 11/02/16 10:10:03,Tablet Start Date: 11/02/16 Status: Ordered Problem List Condition Effective Dates Status Health Status Inform ant Obstructive sleep apnea(Confirmed) Active Urinary incontinence(Confirmed) Active Social History Social History Type Response Smoking Status Former smoker entered on: 05/01/16 Sex
--- OUTSIDE RECORDS SUMMARY | 2023-09-26 06:00 | XMS_ITS | Continuity of Care Document ---
Author Organization [facility] Address [address], [address] [place] [address]- Care Team Providers Care Cigar Packer And Sorter Name Role Phone Gaudencio TUCKER, Deonna Montoya Primary Care Physician Encounter [facility] [place] Date(s): 04/27/21 - 06/05/21 [facility] [address] [place], [place] [address] Attending Physician: Lori Cai MD Referring Physician: Gaudencio TUCKER , Deonna Montoya Allergies, Adverse Reactions, Alerts Substance Reaction Severity Status Milk Products mayonnaise diarrhea Active Medications Abilify 15 mg oral tablet 20 mg, By Mouth, Daily, # 30 tablet, Refills 0, Maintenance, 07/05/17 9:11:09 EDT Start Date: 07/05/17 Status: Ordered Bactrim DS 800 mg-160 mg oral tablet 1 tablet, By Mouth, 2 times a day, # 60 tablet, 0 Refills, Maintenance, 05/23/19 14:06:00 EDT, Tablet, [facility], 1 tablet By Mouth 2 times a day, 153, cm, 01/01/19 10:27:00 EST, Height, 92.5, kg, 06/04/18 8:24:00 EDT, Dry Weight Start Date: 05/23/19 Status: Ordered CPAP Cigar Head Puncher, 07/04/17 9:22:17 EDT, Compound Start Date: 07/04/17 [...] NOT CRUSH OR CHEW, # 30 tablet, 5 Refills, Maintenance, 01/12/21 16:53:00 EST, [facility] Start Date: 01/12/21 Status: Ordered pantoprazole 40 mg oral delayed release tablet = 40 mg, By Mouth, Daily, 0 Refills, Maintenance, 12/27/17 7:33:03 EST, EC Tablet Start Date: 12/27/17 Status: Ordered Topamax 50 mg oral tablet 1 tablet = 50 mg, By Mouth, 2 times a day, # 180 tablet, 0 Refills, Maintenance, 11/02/16 10:10:03,Tablet Start Date: 11/02/16 Status: Ordered Tylenol Extra Strength 500 mg oral tablet 2 tablet = 1,000 mg, By Mouth, Every 6 hours, 0 Refills, Maintenance, 07/07/19 11:29:00 EDT Start Date: 07/07/19 Status: Ordered Problem List Condition Effective Dates Status Health Status Inform ant Obstructive sleep apnea(Confirmed) Active Urinary incontinence(Confirmed) Active Social History Social History Type Response Smoking Status Former smoker entered on: 05/01/16 Sex
--- OUTSIDE RECORDS SUMMARY | 2023-09-26 06:00 | XMS_ITS | Continuity of Care Document ---
Author Organization [facility] Address [address] [place] [id number] Care Team Providers Care Electronic Health Records Specialist Name Role Phone Gaudencio TUCKER, Deonna Montoya Primary Care Physician Encounter [facility] – [place] Date(s): 12/10/22 - 12/12/[address] [id number]- Encounter Diagnosis ELLA (acute kidney injury)(Final) - 12/10/22 Fall(Final) - 12/10/22 Fall(Final) - 12/11/22 ELLA (acute kidney injury)(Final) - 12/11/22 Failure to thrive in adult(Final) - 12/11/22 Discharge Disposition: A-D/C Home Attending Physician: Irma TUCKER, Raven Arreguin Admitting Physician: Anton TUCKER, Erich Vega Referring Physician: Not on Staff, Referring MD Allergies, Adverse Reactions, Alerts Substance Reaction Severity Status Milk Products mayonnaise diarrhea Active Medications Abilify 15 mg oral tablet 20 mg, By Mouth, Daily, # 30 tablet, Refills 0, Maintenance, 07/05/17 9:11:09 EDT Start Date: 07/05/17 Status: Ordered benztropine 0.5 mg oral tablet 0.5 mg, 1, tablet, By Mouth, Daily at bedtime, # 90 tablet, Refills 0, Maintenance, 07/27/22 11:16:00 EDT, Partial fill upon patient request if the prescription is for a schedule II opioid drug. Start Date: 07/27/22 Status: Ordered Fesoterodine 4 mg oral tablet, extended release 1 tablet, By Mouth, Daily at bedtime, # 30 tablet, 5 Refills, Maintenance, 10/30/22 14:23:00 EDT, [facility], 153, cm, 06/24/22 10:53:00 EDT, Height, 91.5, kg, 07/27/22 11:08:00 EDT, Dry Weight Start Date: 10/30/22 Status: Ordered FLUoxetine 60 mg oral tablet 1 tablet = 60 mg, By Mouth, Daily in AM, # 30 tablet, 0 Refills, Maintenance, 07/04/17 9:21:07 EDT,Tablet Start Date: 07/04/17 Status: Ordered Gemtesa 75 mg oral tablet 1 tablet = 75 mg, By Mouth, Daily, # 30 tablet, 7 Refills, Maintenance, 10/24/22 13:54:00 EDT, Tablet, [facility], Partial fill upon patient request if the prescription is for a schedule IIopioid drug., 153, cm, 06/24/22 10:53:00 EDT, [facility]. Start Date: 10/24/22 Status: Ordered Lactaid Fast Action 9000 units oral tablet 0 Refills, Maintenance, 07/04/17 9:22:32 EDT Start Date: 07/04/17 Status: Ordered levothyroxine 0.112 mg oral tablet 1 tablet = 112 mcg, By Mouth, Daily, # 30 tablet, 0 Refills, Maintenance, 07/05/17 9:04:17 EDT, Tablet Start Date: 07/05/17 Status: Ordered Multivitamin Daily, 0 Refills, Maintenance, 07/07/19 11:29:00 EDT Start Date: 07/07/19 Status: Ordered pantoprazole 40 mg oral delayed release tablet = 40 mg, By Mouth, Daily, 0 Refills, Maintenance, 12/27/17 7:33:03 EST, [facility] Tablet Start Date: 12/27/17 Status: Ordered risperiDONE 2 mg oral tablet 2 mg, 1, tablet, By Mouth, Daily, # 30 tablet, Refills 0, Maintenance, 07/27/22 11:16:00 EDT, Partial fill upon patient request if the prescription is for a schedule II opioid drug. Start Date: 07/27/22 Status: Ordered Topamax 50 mg oral tablet [...] List Condition Confirmation Course Effective Dates Status H ealth Status Informant Altered mental state Confirmed Active Depression Confirmed Active Hypothyroidism Confirmed Active Cognitive impairment Confirmed Active Obstructive sleep apnea Confirmed Active Overactive bladder Confirmed Active Recurrent falls Confirmed Active Schizophrenia Confirmed Active Severe obesity (BMI 35.0-39.9) with comorbidity Confirmed Active Urge urinary incontinence Confirmed Active Urinary incontinence Confirmed Active Results Orders for Microbiology Reports Name Date Blood Culture 12/10/22 Blood Culture #2 12/10/22 Urine Culture (URINE CULTURE) 12/10/22 Microbiology Reports TEST:Blood Culture, Second Order STATUS:Unauthenticated BODY SITE: SOURCE:Blood COLLECTED DATE/TIME:12/10/22 9:09 AM Blood Culture, Second Order SPECIMEN DESCRIPTION : BLOOD SPECIAL REQUESTS : NONE CULTURE : NO GROWTH AFTER 48 HOURS REPORT STATUS : PRELIMINARY REPORT TEST:Blood Culture STATUS:Unauthenticated BODY SITE: SOURCE:Blood COLLECTED DATE/TIME:12/10/22 9:00 AM Blood Culture SPECIMEN DESCRIPTION : BLOOD NO SITE SPECIAL REQUESTS : NONE CULTURE : NO GROWTH AFTER 48 HOURS REPORT STATUS : PRELIMINARY REPORT TEST:Urine Culture STATUS:Auth (Verified) BODY SITE: SOURCE:URINE COLLECTED DATE/TIME:12/10/22 1:35 AM Urine Culture SPECIMEN DESCRIPTION : URINE SPECIAL REQUESTS : NONE CULTURE : Mixed bacterial yanick, indicative of urogenital contamination. REPORT STATUS : FINAL 12/11/2022 Radiology Reports * Exam Date Time Procedure Performing Provider Status 12/10/22 1:59 AM Humerus Min 2 Views Right Joe Sung na; Auth (Verified) Notes: (Humerus Min 2 Views Right) Reason For Exam: Trauma RESULT: Humerus Min 2 Views Right Humerus Min 2 Views Right, 2 views Hx of Present Illness: [facility] from [facility]- hx of schizo[hernia - poor po intake past 2 days, gnl abd pain , speech is slower per staff, pt not cleaning herself, urinating on self, did fall 2 days agobut refused ambulacne -no focal neuro deficits,; Reason: Trauma; Clinical Question(s): Fracture COMPARISON: None. FINDINGS: No diaphyseal humeral fracture. Positioning and soft tissue superimposition mildly limits assessment of the right humeral head and elbow without definite acute abnormality. IMPRESSION: No definite fracture. WSN: [id number] Ordering Physician: Tonja Guajardo Dictated By: Joel Kim MD Dictated Date/Time: 12/10/22 7:08 am Reviewed By: Joel Kim MD Signed By: Joel Kim MD Signed Date/Time: 12/10/22 7:08 am Transcribed By: BRUNO Transcribed Date/Time: 12/10/22 7:06 am * Exam Date Time Procedure Performing Provider Status 12/10/22 1:59 AM Chest 2 Views Frontal and Lat Janie Sung; Auth (Verified) Notes: (Chest 2 Views Frontal and Lat) Reason For Exam: Shortness of Breath RESULT: Chest 2 Views Frontal and Lat Chest 2 Views Frontal and Lat Hx of Present Illness: Pt from [facility]- hx of schizo[hernia - poor po intake past 2 days, gnl abd pain , speech is slower per staff, pt not cleaning herself, urinating on self, did fall 2 days agobut refused ambulacne -no focal neuro deficits,; Reason: Shortness of Breath; Clinical Question(s):Pulmonary Edema COMPARISON: July 09, 2022 FINDINGS: LINES AND TUBES: None. LUNGS AND PLEURA: Substantially leftward rotated study with limited evaluation of the left lung due to overlying softtissue. Right lung appears clear without evidence of edema, effusion, or pneumothorax. HEART, MEDIASTINUM AND NANI: Mildly prominent cardiomediastinal silhouette, with evaluation limited by rotated AP technique. BONES AND SOFT TISSUES: No acute abnormality. Mild degenerative change throughout the spine. IMPRESSION: Limited study due to rotation and soft tissue superimposition without definite acute cardiopulmonary process. WSN: [id number] Ordering Physician: Tonja Guajardo Dictated By: Joel Kim MD Dictated Date/Time: 12/10/22 6:29 am Reviewed By: Joel Kim MD Signed By: Joel Kim MD Signed Date/Time: 12/10/22 6:29 am Transcribed By: BRUNO Transcribed Date/Time: 12/10/22 6:28 am * Exam Date Time Procedure Performing Provider Status 12/10/22 1:[address] Cervical Spine W/O Contrast Stupak , Awais; Auth (Verified) Notes: (CT Cervical Spine W/O Contrast) Reason For Exam: Neck trauma, dangerous injury mechanism;Other: RESULT: CT Cervical Spine W/O Contrast Please see report for head CT from the same date. WSN: [id number] Ordering Physician: Tonja Guajardo Dictated By: Antonia Yo MD Dictated Date/Time: 12/10/22 6:14 am Reviewed By: Antonia Yo MD Signed By: Antonia Yo MD Signed Date/Time: 12/10/22 6:14 am Transcribed By: BRUNO Transcribed Date/Time: 12/10/22 6:13 am * Exam Date Time Procedure Performing Provider Status 12/10/22 1:[address] Head/Brain W/O Contrast Stupak , Ol eg; Auth (Verified) Notes: (CT Head/Brain W/O Contrast) Reason For Exam: Trauma RESULT: CT Head/Brain W/O Contrast CT Head/Brain W/O Contrast INDICATION: Hx of Present Illness: Pt from [facility]- hx of schizo[hernia - poor po intake past 2 days, gnl abd pain , speech is slower per staff, pt not cleaning herself, urinating on self, did fall 2 days ago but refused ambulacne - no focal neuro deficits,; Reason: Trauma; Clinical Question(s): Hematoma; Order Comment: TECHNIQUE: Noncontrast head CT using axial technique was reconstructed in axial and coronal planes.Noncontrast spiral CT through the cervical spine was formatted in 3 planes. Automatic tube modulation was used for the cervical spine and iterative dose reconstruction was used for both the head and cervical spine to optimize scan parameters and image quality. COMPARISON: 07/09/2022 and 06/07/2022 FINDINGS: Porcelain Enamel Installer View Findings, Lines and Tubes: None. BRAIN AND EXTRA-AXIAL SPACES: No parenchymal hemorrhage, midline shift, or mass effect. Medrano-white matter differentiation is wellpreserved. No acute infarct. Negative insular ribbon sign. Atherosclerotic vascular calcification of the carotid arteries but negative hyperdense vessel sign. Mild prominence of the ventricles and sulci consistent with parenchymal volume loss. Mild low-density white matter changes. No subarachnoid hemorrhage. No subdural or epidural collection. CALVARIUM, SKULL BASE, AND SOFT TISSUES: No fractures or suspicious bony lesions. Mucosal retention cysts in bilateral maxillary sinuses. The remaining paranasal sinuses and mastoidair cells are clear. Visualized orbits and globes are intact. The extracranial soft tissues are unremarkable. CERVICAL SPINE: No fracture. No acute osseous abnormalities. Normal alignment. No locked or perched facet. Mild multilevel degenerative disc space narrowing andend plate irregularity. OTHER BONES: No acute abnormality. CERVICAL SOFT TISSUES AND LUNG APICES: Normal soft tissues. Multifocal hazy groundglass opacity. IMPRESSION: No acute abnormality of the head or cervical spine. Hazy groundglass opacities seen in bilateral lung apices, could represent mild pulmonary edema. I have personally reviewed the images and I agree with this report. WSN: [id number] Ordering Physician: Tonja Guajardo Dictated By: Tahir Snow DO Dictated Date/Time: 12/10/22 6:08 am Reviewed By: Antonia Yo MD Signed By: Antonia Yo MD Signed Date/Time: 12/10/22 6:13 am Transcribed By: BRUNO Transcribed Date/Time: 12/10/22 1:44 am * Exam Date Time Procedure Performing Provider Status 12/10/22 12:[address] Abd/Pelvis W/ IV Contrast Only Stupak , Awais; Auth (Verified) Notes: (CT Abd/Pelvis W/ IV Contrast Only) Reason For Exam: Pain RESULT: CT Abd/Pelvis W/ IV Contrast Only CT Abd/Pelvis W/ IV Contrast Only Hx of Present Illness: Pt from [facility]- hx of schizo[hernia - poor po intake past 2 days, gnl abd pain , speech is slower per staff, pt not cleaning herself, urinating on self, did fall 2 days agobut refused ambulacne -no focal neuro deficits,; Reason: Pain; Clinical Question(s): Bowel Perforation; Order Comment: TECHNIQUE: Spiral CT through the abdomen and pelvis with IV contrast formatted in 3 planes. 100 cc of Omnipaque 300 was administered intravenously. This study was performed without oral contrast. Weight-based protocol using automatic tube modulation was used to optimize exposure parameters. CTDIvol Body: 20.00 mGy, DLP Body: 1117 mGy*cm. COMPARISON: 07/09/2022. FINDINGS: Porcelain Enamel Installer View Findings, Lines and Tubes: None. Visualized Chest: Lung bases are clear. No pleural effusion. The heart is normal in size. No pericardial effusion. Diaphragm: Normal. Liver: Normal. Gallbladder: Absent consistent with prior cholecystectomy. Bile ducts: No biliary ductal dilation. Spleen: Normal. Pancreas: Normal. Adrenal glands: 2.3 cm left adrenal nodule is redemonstrated. Kidneys and ureters: No hydronephrosis, stones, or suspicious masses. Bladder: Distended Reproductive organs: Unremarkable. Stomach, small bowel, and large bowel: No evidence of obstruction or inflammation. Appendix: Normal. Peritoneum and retroperitoneum: No ascites or pneumoperitoneum. No omental or mesenteric lesions. Lymph nodes: No enlarged lymph nodes. Blood vessels: Normal. No aneurysm. No evidence of venous thrombosis. Abdominal and pelvic wall: Unremarkable. Bones: No acute abnormality. IMPRESSION: The urinary bladder is mildly distended, otherwise no acute process. Stable 2.3 cm left adrenal nodule. This could be further characterized with routine dedicated adrenal CT or MRI. An actionable message (Yellow) has been communicated via the Say2[employer] system on 12/10/2022 6:01 AM, Message ID [id number]. I have personally reviewed the images and I agree with this report. WSN: [id number] Ordering Physician: Odell Krishnamurthy Dictated By: Tahir Snow DO Dictated Date/Time: 12/10/22 6:01 am Reviewed By: Antonia Yo MD Signed By: Antonia Yo MD Signed Date/Time: 12/10/22 6:06 am Transcribed By: BRUNO Transcribed Date/Time: 12/10/22 1:36 am Vital Signs Most recent to oldest [Reference Range]: 1 2 3 Height 153 cm (12/12/22 2:07 PM) 153 cm (12/12/22 5:24 AM) 153 cm (12/12/22 12:03 AM) Weight 91.5 kg (12/11/22 10:33 AM) Oxygen Saturation [94-100 %] 98 % (12/12/22 2:07 PM) 97 % (12/12/22 5:24 AM) 98 % (12/12/22 12:03 AM) Pulse Rate [55-90 bpm] 66 bpm (12/12/22 2:07 PM) 60 bpm (12/12/22 5:24 AM) 94 bpm *H* (12/12/22 12:03 AM) Body Mass Index [18.5-24.99 kg/m2] 39.09 kg/m2 *>HHI* (12/11/22 10:33 AM) Blood Pressure [90-138/55-84 mm Hg] 98/64mm Hg (12/12/22 2:07 PM) 113/51mm Hg (12/12/22 5:24 AM) 111/82mm Hg (12/12/22 12:03 AM) Respiratory Rate [16-30 br/min] 16 br/min (12/12/22 2:07 PM) 16 br/min (12/12/22 5:24 AM) 18 br/min (12/12/22 12:03 AM) Temperature [96.8-100.4 DegF] 97.2 DegF (12/12/22 2:07 PM) 97.4 DegF (12/12/22 5:24 AM) 97.6 DegF (12/12/22 12:03 AM) Mode of Delivery (Oxygen) Room air (12/12/22 2:07 PM) Room air (12/12/22 5:24 AM) Room air (12/12/22 12:03 AM) Blood pressure sites Arm, left (12/12/22 2:07 PM) Arm, left (12/12/22 5:24 AM) Arm, right (12/12/22 12:03 AM) Temperature Route Oral (12/12/22 2:07 PM) Oral (12/12/22 5:24 AM) Oral (12/12/22 12:03 AM) Dry Weight 91.5 kg (12/11/22 10:33 AM) Social History Social History Type Response Smoking Status Former smoker entered on: 05/01/16 Sex Admission evaluation note * Argelia TUCKER, [place] A: PERFORM, MODIFY Event Display: Admission Note Authored Date: [id number] Patient: ??ELLEN REED ? Age:??52 Years?Sex:??Female?:??1970?? Chief Complaint/Reason for Consultation Altered mental status, decrease PO intake and recurrent falls. History of Present Illness 52-year-old female patient with a past medical history significant hypothyroidism, cognitive impairment, schizophrenia, obstructive sleep apnea on CPAP machine, gastroesophageal reflux disease, overactive urinary bladder with urge urinary incontinence was brought to the emergency department for evaluation of altered mental status and is being admitted with acute kidney injury. ?? History is limited due to patient altered mental status. Most of the history was obtained from the [facility] employee who was present at the bedside and from the medical chart. ??[facility]??and??at baseline is alert and oriented x3, able to ambulate with a walker,??and able to go to the bathroom by herself but needs help with medications and meals. According to the review the patient has not been herself??for the last month, with decrease PO intake,??getting more confused, and they are not able to understand her when she talks which has worsen in the last few days. Also in the last three days she has had multiple falls with no loss of consciousness. Unclear if she had head strike. Patient has not reported any symptoms to [facility] employees in the last months. Her family lives in [place]. ?? In the emergency department she has been afebrile, and hemodynamically stable, on room air with good oxygen saturation.?? Lab including complete blood cell count, basic metabolic panel, liver biochemical profile were significant for elevated creatinine of 1.8, elevated alkaline phosphatase of 138 and elevated lactic acid of 3.4 which normalized to 1 on repeat.?? High-sensitivity troponin was initially elevated at 1.5 which was normal of less than 6 on repeat. Urine analysis was positive for LE, WBC of 20 and slight bacteria. Imaging including CXR, CT head and cervical spine and CT abdomen and pelvis are pending. She received??1 L of intravenous fluid and being admitted to the medical service for further evaluation and management.?? Review of Systems Unobtainable due to MS Objective Vital Signs?? Temperature: 98.1 DegF (12/09/22 21:59:00) Temperature Route: Oral (12/09/22 21:59:00) Pulse Rate: 63 bpm (12/10/22 03:35:00) Respiratory Rate: 16 br/min (12/10/22 03:35:00) Systolic Blood Pressure: 130 mm Hg (12/10/22 03:35:00) Diastolic Blood Pressure: 58 mm Hg (12/10/22 03:35:00) Blood pressure sites: Arm, left (12/10/22 03:35:00) Mean Arterial Pressure: 94 mm Hg (12/09/22 21:59:00) Pulse Pressure: 45 mm Hg (12/09/22 21:59:00) Oxygen Saturation: 98 % (12/10/22 03:35:00) Mode of Delivery (Oxygen): Room air (12/10/22 03:35:00) ? Physical Exam Constitutional: Alert, in no acute distress. Head: Normocephalic. Eyes: Pupils are equal, round and reactive to light. Extraocular muscles??could not be examined as she was not following commands consistently-??No pallor or scleral icterus Ear, Nose and Throat: mucous membranes moist. Ears and nose - no obvious deformities. Neck: No JVD or bruits. Respiratory:??Clear to auscultation. No wheezing or rhonchi.??No use of accessory muscles. Cardiovascular:??S1 S2 regular. No murmurs, rubs or gallops. Gastrointestinal:??Abdomen soft, non-tender, non-distended. Extremities: No lower extremity pitting edema. No cyanosis or clubbing. Neurologic:??AAOx2, Cranial nerves II-XII grossly intact. Speech incoherent, no facial droop. No focal neurological deficits. Moves all extremities spontaneously. Skin:??No rash.?? Psychiatric: Normal mood and affect. Assessment/Plan 52-year-old female patient with a past medical history significant hypothyroidism, cognitive impairment, schizophrenia, obstructive sleep apnea on CPAP machine, gastroesophageal reflux disease, overactive urinary bladder with urge urinary incontinence was brought to the emergency department for evaluation of altered mental status,??decrease oral intake, and recurrent fall??and is being admitted with acute kidney injury. ? Active Problem list:?? #??ELLA (acute kidney injury) ??(N17.9): Likely pre-renal as appear very dehydrated on examination -received 1 L of LR. - 1 L of LR @ 75 cc/hr. - monitor kidney functions ?? # Altered mental state ??(R41.82):?? #??Recurrent falls ??(R29.6) # Cognitive impairment ??(R41.89) Patient with history of cognitive impairment, schizophrenia brought to the ED with??progressive altered mental status/confusion for almost a month which has worsen in the last few days. She has been having recurrent fall. She is afebrile and hemodynamically stable in ED. Initial basic blood work significant for acute kidney injury and UA positive for WBC 20, LE and bacteria. Imaging including CT head??and cervical spine, CXR, CT abdomen and pelvis are pending. - continue fluid hydration. - start CTX for possible UTI. - add urine culture, blood culture, COVID 19 and Flu PCR. - send Thiamine level, folic acid and vitamin B12. - f/u imaging CT head??and cervical spine, CXR, CT abdomen and pelvis? # Schizophrenia ??(F20.9) # Depression ??(F32.A) - continue Risperidone and??Prozac ?? #?Hypothyroidism ??(E03.9): - continue Levothyroxine ?? #??Overactive bladder ??(N32.81) #??Urge urinary incontinence ??(N39.41) ?? Prophylaxis: VTE: heparin SQ ? Goal of care: Code Status: full code (not discussed with patient due to mental status - no family, HCP or guardian) Histories Allergies Allergies ?(Active and Proposed Allergies Only) Milk Products? (Severity: Unknown severity, Onset: Unknown) ?Reactions: mayonnaise, diarrhea ? Past Medical History/Problem List Active Problems??(3) Obstructive sleep apnea Severe obesity (BMI 35.0-39.9) with comorbidity Urinary incontinence ? Past Surgical History No surgery history documented. ? Social History Alcohol Details:??Use: Never. Employment/School Details:??Status: Unemployed. Exercise Details:??Self assessment: Poor condition. Home/Environment Details:??Living situation: residential. Nutrition/Health Details:??Diet: Regular. Sexual Details:??Sexually involved in last 6 months: No. ??Sexual orientation: Heterosexual. ??Gender identity: Female. Substance Abuse Details:??Use: Never. Tobacco Details:??Former smoker ? Family History No family history recorded. ? Medications Home Medications Acetaminophen (Tylenol Extra Strength 500 mg oral tablet)?2?tab(s)?1,000?Milligram?By Mouth?Every 6 hours Aripiprazole (Abilify 15 mg oral tablet)?20?Milligram?By Mouth?Daily Benztropine (benztropine 0.5 mg oral tablet)?0.5?Milligram?1?tablet?By Mouth?Daily at bedtime fesoterodine (Fesoterodine 4 mg oral tablet, extended release)?1?tab(s)?By Mouth?Daily at bedtime Fluoxetine (FLUoxetine 60 mg oral tablet)?1?tab(s)?60?Milligram?By Mouth?Daily Piero Levothyroxine (levothyroxine 0.112 mg oral tablet)?1?tab(s)?112?Microgram?By Mouth?Daily Multivitamin?Daily Pantoprazole (pantoprazole 40 mg oral delayed release tablet)?40?Milligram?By Mouth?Daily Risperidone (risperiDONE 2 mg oral tablet)?2?Milligram?1?tablet?By Mouth?Daily Topiramate (Topamax 50 mg oral tablet)?1?tab(s)?50?Milligram?By Mouth?2 times a day vibegron (Gemtesa 75 mg oral tablet)?1?tab(s)?75?Milligram?By Mouth?Daily ? Results Recent Labs BLOOD COUNT & DIFF WBC 4.8 k/mm3 ()?? 12/09/2022 22:30 RBC 5.42 m/mm3 (High)?? 12/09/2022 22:30 Hgb 13.6 Gm/dL ()?? 12/09/2022 22:30 Hct 44.3 % ()?? 12/09/2022 22:30 MCV 81.7 femtoliters ()?? 12/09/2022 22:30 MCH 25.1 pg (Low)?? 12/09/2022 22:30 MCHC 30.7 g/dL (Low)?? 12/09/2022 22:30 Platelet Count 187 k/mm3 ()?? 12/09/2022 22:30 RDW-SD 47.9 femtoliters (High)?? 12/09/2022 22:30 MPV 11.6 femtoliters ()?? 12/09/2022 22:30 Nucleated RBC (Automated) 0.0 #/100 WBC'S ()?? 12/09/2022 22:30 Abs. NRBC 0.0 k/mm3 ()?? 12/09/2022 22:30 Abs. Neut 2.5 k/mm3 ()?? 12/09/2022 22:30 Abs. Lymph 1.6 k/mm3 ()?? 12/09/2022 22:30 Abs. [place] 0.5 k/mm3 ()?? 12/09/2022 22:30 Abs. Eo 0.2 k/mm3 ()?? 12/09/2022 22:30 Abs. Baso 0.0 k/mm3 ()?? 12/09/2022 22:30 Neut % 52.9 % ()?? 12/09/2022 22:30 Lymph % 33.3 % ()?? 12/09/2022 22:30 [place] % 9.4 % ()?? 12/09/2022 22:30 Eos % 3.6 % ()?? 12/09/2022 22:30 Baso % 0.6 % ()?? 12/09/2022 22:30 Imm Gran 0.2 % ()?? 12/09/2022 22:30 Abs. Imm Gran 0.0 k/mm3 ()?? 12/09/2022 22:30 ?? CARDIAC High Sensitivity Troponin (HSTnT) <6 ng/L ()?? 12/10/2022 00:50 ?? CHEM GENERAL Sodium 142 mmol/L ()?? 12/09/2022 22:30 Potassium 3.7 mmol/L ()?? 12/09/2022 22:30 Chloride 105 mmol/L ()?? 12/09/2022 22:30 Bicarbonate Level 25 mmol/L ()?? 12/09/2022 22:30 Anion Gap 12 ()?? 12/09/2022 22:30 Glucose Level 292 mg/dL (High)?? 12/09/2022 22:30 BUN 35 mg/dL (High)?? 12/09/2022 22:30 Creatinine-Blood 1.8 mg/dL (High)?? 12/09/2022 22:30 Estimated GFR Creatinine 33 ML/MIN/1.73 M2 ()?? 12/09/2022 22:30 Calcium 8.4 mg/dL (Low)?? 12/09/2022 22:30 Calcium, Ionized pH Corrected 1.18 mmol/L ()?? 12/09/2022 22:30 Magnesium 1.6 mg/dL ()?? 12/09/2022 22:30 Protein, Total 6.3 Gm/dL ()?? 12/09/2022 22:30 Albumin 3.2 Gm/dL (Low)?? 12/09/2022 22:30 AG Ratio 1.0 ()?? 12/09/2022 22:30 Alkaline Phosphatase 138 units/L (High)?? 12/09/2022 22:30 AST (SGOT) 24 units/L ()?? 12/09/2022 22:30 ALT (SGPT) 27 units/L ()?? 12/09/2022 22:30 Bilirubin, Total 0.7 mg/dL ()?? 12/09/2022 22:30 Lactate 1.0 mmol/L ()?? 12/10/2022 00:50 ?? ENDOCRINE/TUMOR MARKER TSH 2.44 uIU/mL ()?? 12/09/2022 22:30 ?? HEME OTHER Hold Lavender Top SPECIMEN DISCARDED AFTER 24 HOURS. ()?? 12/10/2022 00:50 Hold Blue Top SPECIMEN DISCARDED AFTER 4 HOURS. ()?? 12/10/2022 00:50 ?? MISC. CHEMISTRY Hold Green Top SPECIMEN DISCARDED AFTER 1 WEEK ()?? 12/09/2022 23:02 Hold Gel Top SPECIMEN DISCARDED AFTER 1 WEEK ()?? 12/09/2022 23:02 Hold Medrano Top SPECIMEN DISCARDED AFTER 1 WEEK ()?? 12/09/2022 23:02 ?? UA/URINALYSIS Appear/Color, Urine LIGHT YELLOW ()?? 12/10/2022 01:35 Specific [place], Urine 1.020 ()?? 12/10/2022 01:35 pH, Urine 6.5 ()?? 12/10/2022 01:35 Albumin, Urine NEGATIVE ()?? 12/10/2022 01:35 Glucose, Urine NEGATIVE ()?? 12/10/2022 01:35 Ketones, Urine NEGATIVE ()?? 12/10/2022 01:35 Bilirubin, Urine NEGATIVE ()?? 12/10/2022 01:35 Hemoglobin, Urine NEGATIVE ()?? 12/10/2022 01:35 Nitrite, Urine NEGATIVE ()?? 12/10/2022 01:35 Leukocyte, Urine 1+ (Abnormal)?? 12/10/2022 01:35 Urobilinogen NORMAL mg/dL ()?? 12/10/2022 01:35 WBC's, Urine 20 /HPF (High)?? 12/10/2022 01:35 RBC's, Urine 1 /HPF ()?? 12/10/2022 01:35 Bacteria SLIGHT HPF (Abnormal)?? 12/10/2022 01:35 Squamous Epith 2 /HPF ()?? 12/10/2022 01:35 Mucus SLIGHT /LPF ()?? 12/10/2022 01:35 Hold Urine Culture Testing available 48 hours from time of collection. ()?? 12/10/2022 01:35 ? Hospital Progress note * Samir Berumen RN: PERFORM, SIGN, VERIFY Event Display: Progress Note Hospital Authored Date: [id number] Patient: ELLEN REED Age: 52 years Sex: Female : 1970 Associated Diagnoses: None Author: Samir Berumen RN Findings Problem Related to Alteration in Genitourinary : Alteration in Genitourinary Function/new 12/11/2022 18:00 EST Alteration in Status Related to UTI Goals & Outcomes, Genitourinary Pt will achieve normal/improved fluid balance, Pt will maintainnormal fluid balance Interventions, Assess/monitor/maintain Genitourinary status BH Goals/Interventions, Genitourinary Yes Genitourinary, Problem Start 12/11/2022 12:00 Reviewed Plan with, Genitourinary Other: [employer] Patient Progression, Genitourinary Plan Initiation Genitourinary, Problem Ongoing Yes . Evaluation I- SEE CIS E- patient alert to self, does not report pain, does not ambulate as of yet, high risk fall. Video safety order in. Compliant with medications. Safety maintained during shift. . * Mee Patiño DO: PERFORM Event Display: Progress Note Hospital Authored Date: [id number] Patient: ??ELLEN REED ? Age:??52 Years?Sex:??Female?:??1970?? Subjective feeling better. limited hisotrian. caregiver at bedside, reports she is feeling better Review of Systems as per above Objective ? Vital Signs?? Temperature: 97.3 DegF (12/11/22 08:49:00) Temperature Route: Oral (12/11/22 08:49:00) Pulse Rate: 61 bpm (12/11/22 08:49:00) Respiratory Rate:??15 br/min??Low (12/11/22 08:49:00) Systolic Blood Pressure: 129 mm Hg (12/11/22 08:49:00) Diastolic Blood Pressure: 56 mm Hg (12/11/22 08:49:00) Blood pressure sites: Arm, right (12/11/22 08:49:00) Mean Arterial Pressure: 80 mm Hg (12/11/22 08:49:00) Pulse Pressure: 73 mm Hg (12/11/22 08:49:00) Oxygen Saturation: 100 % (12/11/22 08:49:00) Mode of Delivery (Oxygen): Room air (12/11/22 08:49:00) Early Warning Score: 8 (12/11/22 08:50:14) ? Physical Exam General:??NAD Head:??NCAT Eyes:??EOMI Ear, Nose and Throat:??MMM Respiratory:??CTA Cardiovascular:RRR Gastrointestinal:??soft nt nd Neurologic :alert and orientedx1 ?? Results Recent Labs BLOOD COUNT & DIFF WBC 3.2 k/mm3 (Low)?? 12/10/2022 06:27 RBC 4.19 m/mm3 (Low)?? 12/10/2022 06:27 Hgb 12.0 Gm/dL ()?? 12/10/2022 06:27 Hct 36.8 % ()?? 12/10/2022 06:27 MCV 87.8 femtoliters ()?? 12/10/2022 06:27 MCH 28.6 pg ()?? 12/10/2022 06:27 MCHC 32.6 g/dL (Low)?? 12/10/2022 06:27 Platelet Count 147 k/mm3 (Low)?? 12/10/2022 06:27 RDW-SD 47.0 femtoliters (High)?? 12/10/2022 06:27 MPV 10.3 femtoliters ()?? 12/10/2022 06:27 Nucleated RBC (Automated) 0.0 #/100 WBC'S ()?? 12/10/2022 06:27 Abs. NRBC 0.0 k/mm3 ()?? 12/10/2022 06:27 ?? CARDIAC High Sensitivity Troponin (HSTnT) <6 ng/L ()?? 12/10/2022 00:50 ?? CHEM GENERAL Sodium 140 mmol/L ()?? 12/11/2022 06:56 Potassium HEMOLYZED mmol/L ()?? 12/11/2022 06:56 Chloride 103 mmol/L ()?? 12/11/2022 06:56 Bicarbonate Level 26 mmol/L ()?? 12/11/2022 06:56 Anion Gap 11 ()?? 12/11/2022 06:56 Glucose Level 98 mg/dL ()?? 12/10/2022 06:27 BUN 12 mg/dL ()?? 12/11/2022 06:56 Creatinine-Blood 0.7 mg/dL ()?? 12/11/2022 06:56 Estimated GFR Creatinine 103 ML/MIN/1.73 M2 ()?? 12/11/2022 06:56 Calcium 9.1 mg/dL ()?? 12/10/2022 06:27 Protein, Total 5.9 Gm/dL (Low)?? 12/10/2022 06:27 Albumin 3.2 Gm/dL (Low)?? 12/10/2022 06:27 Alkaline Phosphatase 94 units/L ()?? 12/10/2022 06:27 AST (SGOT) 21 units/L ()?? 12/10/2022 06:27 ALT (SGPT) 17 units/L ()?? 12/10/2022 06:27 Bilirubin, Total 0.4 mg/dL ()?? 12/10/2022 06:27 Bilirubin, Direct <0.2 mg/dL ()?? 12/10/2022 06:27 Bilirubin, Indirect Direct bilirubin is less than the measureable limit. Therefore, indirect mg/dL ()?? 12/10/2022 06:27 Lactate 1.0 mmol/L ()?? 12/10/2022 00:50 ?? HEME OTHER Hold Lavender Top SPECIMEN DISCARDED AFTER 24 HOURS. ()?? 12/10/2022 00:50 Hold Blue Top SPECIMEN DISCARDED AFTER 4 HOURS. ()?? 12/10/2022 00:50 ?? UA/URINALYSIS Appear/Color, Urine LIGHT YELLOW ()?? 12/10/2022 01:35 Specific [place], Urine 1.020 ()?? 12/10/2022 01:35 pH, Urine 6.5 ()?? 12/10/2022 01:35 Albumin, Urine NEGATIVE ()?? 12/10/2022 01:35 Glucose, Urine NEGATIVE ()?? 12/10/2022 01:35 Ketones, Urine NEGATIVE ()?? 12/10/2022 01:35 Bilirubin, Urine NEGATIVE ()?? 12/10/2022 01:35 Hemoglobin, Urine NEGATIVE ()?? 12/10/2022 01:35 Nitrite, Urine NEGATIVE ()?? 12/10/2022 01:35 Leukocyte, Urine 1+ (Abnormal)?? 12/10/2022 01:35 Urobilinogen NORMAL mg/dL ()?? 12/10/2022 01:35 WBC's, Urine 20 /HPF (High)?? 12/10/2022 01:35 RBC's, Urine 1 /HPF ()?? 12/10/2022 01:35 Bacteria SLIGHT HPF (Abnormal)?? 12/10/2022 01:35 Squamous Epith 2 /HPF ()?? 12/10/2022 01:35 Mucus SLIGHT /LPF ()?? 12/10/2022 01:35 Hold Urine Culture Testing available 48 hours from time of collection. ()?? 12/10/2022 01:35 ?? VIROLOGY Influenza A PCR NEGATIVE ()?? 12/10/2022 06:10 Influenza B PCR NEGATIVE ()?? 12/10/2022 06:10 RSV PCR NEGATIVE ()?? 12/10/2022 06:10 COVID-19 PCR Specimen Source NASAL ()?? 12/10/2022 06:10 COVID-19 PCR Result NEGATIVE ()?? 12/10/2022 06:10 ? Abnormal Labs ?? CHEM GENERAL ??Estimated GFR Creatinine ??103 ML/MIN/1.73 M2 () ??12/11/2022 06:56 ??Potassium ??HEMOLYZED mmol/L () ??12/11/2022 06:56 ? Note: Critical results are displayed in red. ? CBC, CBC w/Diff?? No qualifying data available. ?? BMP, Mg, and Phos Anion Gap: 11 (06:56) Bicarbonate Level: 26 mmol/L (06:56) BUN: 12 mg/dL (06:56) Chloride: 103 mmol/L (06:56) Creatinine-Blood: 0.7 mg/dL (06:56) Estimated GFR Creatinine: 103 ML/MIN/1.73 M2 (06:56) Potassium: HEMOLYZED (06:56) Sodium: 140 mmol/L (06:56) ?? Coagulation Profile?? No qualifying data available. ?? LFT?? No qualifying data available. ?? Urinalysis?? No qualifying data available. ?? Microbiology ?? COVID-19, RSV, and Flu A/B, Rapid PCR?? Completed?? Source: Nasopharyngeal Body Site: Nasopharyngeal Collected Dt/Tm: 12/10/2022 05:56 Last Updated Dt/Tm: 12/10/2022 07:13 ? Assessment/Plan ??52-year-old female patient with a past medical history significant hypothyroidism, cognitive impairment, schizophrenia, obstructive sleep apnea on CPAP machine, gastroesophageal reflux disease, overactive urinary bladder with urge urinary incontinence was brought to the emergency department for evaluation of altered mental status,??decrease oral intake, and recurrent fall??and is being admittedwith acute kidney injury. ? Active Problem list:?? #??ELLA (acute kidney injury) ??(N17.9): Likely pre-renal as appear very dehydrated on examination -received 1 L of LR. - resolved encourage oral hydration ?? # Altered mental state ??(R41.82):?? #??Recurrent falls ??(R29.6) # Cognitive impairment ??(R41.89) Patient with history of cognitive impairment, schizophrenia brought to the ED with??progressive altered mental status/confusion for almost a month which has worsened in the last few days. She has been having recurrent fall. She is afebrile and hemodynamically stable in ED. Initial basic blood work significant for acute kidney injury and UA positive for WBC 20, LE and bacteria. Imaging including CT head??and cervical spine, CXR, CT abdomen and pelvis wnl. - start CTX for possible UTI. - add urine culture, -f/u blood cx -f/u Thiamine level, folic acid and vitamin B12. ?? # Schizophrenia ??(F20.9) # Depression ??(F32.A) - continue Risperidone and??Prozac ?? #?Hypothyroidism ??(E03.9): tsh wnl continue Levothyroxine ? Prophylaxis: VTE: heparin SQ * Matthew Cabrera MD: PERFORM Event Display: Progress Note Hospital Authored Date: Patient: ??ELLEN REED ? Age:??52 Years?Sex:??Female?:??1970?? Subjective Reviewed H/P from today, 52 y/o female patient that was brought with AMS, decreased PO intake. ?? Patient was seen in the ED area [facility] staff at bedside ?? Unable to obtain history from patient ?? Review of Systems unable to obtain Objective Vital Signs?? Temperature: 97.2 DegF (12/10/22 05:46:00) Temperature Route: Oral (12/10/22 05:46:00) Pulse Rate: 63 bpm (12/10/22 11:41:00) Respiratory Rate:??14 br/min??Low (12/10/22 11:41:00) Systolic Blood Pressure: 122 mm Hg (12/10/22 11:41:00) Diastolic Blood Pressure: 68 mm Hg (12/10/22 11:41:00) Blood pressure sites: Arm, left (12/10/22 11:41:00) Mean Arterial Pressure: 94 mm Hg (12/09/22 21:59:00) Pulse Pressure: 54 mm Hg (12/10/22 11:41:00) Oxygen Saturation: 95 % (12/10/22 11:41:00) Mode of Delivery (Oxygen): Room air (12/10/22 11:41:00) Early Warning Score:??10??Critical (12/10/22 11:41:58) ? Intake/Output? No Data Available ? Physical Exam Constitutional: Alert, in no acute distress. Mental Status: unable to assess Head: Normocephalic. Respiratory: Clear to auscultation bilaterally anteriorly. No wheezing, rales or rhonchi. Cardiovascular: S1 S2 regular. No murmurs, rubs or gallops. RRR Gastrointestinal: Abdomen soft, non-tender, non-distended. Normal bowel sounds. Neurologic:??unable to fully examine, not following commands Skin: No rashes or lesions. No jaundice Musculoskeletal: No cyanosis or clubbing. No gross deformities. no pitting edema on Right or Left LE ?? Results Recent Labs BLOOD COUNT & DIFF WBC 3.2 k/mm3 (Low)?? 12/10/2022 06:27 RBC 4.19 m/mm3 (Low)?? 12/10/2022 06:27 Hgb 12.0 Gm/dL ()?? 12/10/2022 06:27 Hct 36.8 % ()?? 12/10/2022 06:27 MCV 87.8 femtoliters ()?? 12/10/2022 06:27 MCH 28.6 pg ()?? 12/10/2022 06:27 MCHC 32.6 g/dL (Low)?? 12/10/2022 06:27 Platelet Count 147 k/mm3 (Low)?? 12/10/2022 06:27 RDW-SD 47.0 femtoliters (High)?? 12/10/2022 06:27 MPV 10.3 femtoliters ()?? 12/10/2022 06:27 Nucleated RBC (Automated) 0.0 #/100 WBC'S ()?? 12/10/2022 06:27 Abs. NRBC 0.0 k/mm3 ()?? 12/10/2022 06:27 Abs. Neut 2.5 k/mm3 ()?? 12/09/2022 22:30 Abs. Lymph 1.6 k/mm3 ()?? 12/09/2022 22:30 Abs. [place] 0.5 k/mm3 ()?? 12/09/2022 22:30 Abs. Eo 0.2 k/mm3 ()?? 12/09/2022 22:30 Abs. Baso 0.0 k/mm3 ()?? 12/09/2022 22:30 Neut % 52.9 % ()?? 12/09/2022 22:30 Lymph % 33.3 % ()?? 12/09/2022 22:30 [place] % 9.4 % ()?? 12/09/2022 22:30 Eos % 3.6 % ()?? 12/09/2022 22:30 Baso % 0.6 % ()?? 12/09/2022 22:30 Imm Gran 0.2 % ()?? 12/09/2022 22:30 Abs. Imm Gran 0.0 k/mm3 ()?? 12/09/2022 22:30 ?? CARDIAC High Sensitivity Troponin (HSTnT) <6 ng/L ()?? 12/10/2022 00:50 ?? CHEM GENERAL Sodium 141 mmol/L ()?? 12/10/2022 06:27 Potassium 4.2 mmol/L ()?? 12/10/2022 06:27 Chloride 104 mmol/L ()?? 12/10/2022 06:27 Bicarbonate Level 27 mmol/L ()?? 12/10/2022 06:27 Anion Gap 10 ()?? 12/10/2022 06:27 Glucose Level 98 mg/dL ()?? 12/10/2022 06:27 BUN 11 mg/dL ()?? 12/10/2022 06:27 Creatinine-Blood 0.7 mg/dL ()?? 12/10/2022 06:27 Estimated GFR Creatinine 103 ML/MIN/1.73 M2 ()?? 12/10/2022 06:27 Calcium 9.1 mg/dL ()?? 12/10/2022 06:27 Calcium, Ionized pH Corrected 1.18 mmol/L ()?? 12/09/2022 22:30 Magnesium 1.6 mg/dL ()?? 12/09/2022 22:30 Protein, Total 5.9 Gm/dL (Low)?? 12/10/2022 06:27 Albumin 3.2 Gm/dL (Low)?? 12/10/2022 06:27 AG Ratio 1.0 ()?? 12/09/2022 22:30 Alkaline Phosphatase 94 units/L ()?? 12/10/2022 06:27 AST (SGOT) 21 units/L ()?? 12/10/2022 06:27 ALT (SGPT) 17 units/L ()?? 12/10/2022 06:27 Bilirubin, Total 0.4 mg/dL ()?? 12/10/2022 06:27 Bilirubin, Direct <0.2 mg/dL ()?? 12/10/2022 06:27 Bilirubin, Indirect Direct bilirubin is less than the measureable limit. Therefore, indirect mg/dL ()?? 12/10/2022 06:27 Lactate 1.0 mmol/L ()?? 12/10/2022 00:50 ?? ENDOCRINE/TUMOR MARKER TSH 2.44 uIU/mL ()?? 12/09/2022 22:30 ?? HEME OTHER Hold Lavender Top SPECIMEN DISCARDED AFTER 24 HOURS. ()?? 12/10/2022 00:50 Hold Blue Top SPECIMEN DISCARDED AFTER 4 HOURS. ()?? 12/10/2022 00:50 ?? MISC. CHEMISTRY Hold Green Top SPECIMEN DISCARDED AFTER 1 WEEK ()?? 12/09/2022 23:02 Hold Gel Top SPECIMEN DISCARDED AFTER 1 WEEK ()?? 12/09/2022 23:02 Hold [place] Top SPECIMEN DISCARDED AFTER 1 WEEK ()?? 12/09/2022 23:02 ?? UA/URINALYSIS Appear/Color, Urine LIGHT YELLOW ()?? 12/10/2022 01:35 Specific [place], Urine 1.020 ()?? 12/10/2022 01:35 pH, Urine 6.5 ()?? 12/10/2022 01:35 Albumin, Urine NEGATIVE ()?? 12/10/2022 01:35 Glucose, Urine NEGATIVE ()?? 12/10/2022 01:35 Ketones, Urine NEGATIVE ()?? 12/10/2022 01:35 Bilirubin, Urine NEGATIVE ()?? 12/10/2022 01:35 Hemoglobin, Urine NEGATIVE ()?? 12/10/2022 01:35 Nitrite, Urine NEGATIVE ()?? 12/10/2022 01:35 Leukocyte, Urine 1+ (Abnormal)?? 12/10/2022 01:35 Urobilinogen NORMAL mg/dL ()?? 12/10/2022 01:35 WBC's, Urine 20 /HPF (High)?? 12/10/2022 01:35 RBC's, Urine 1 /HPF ()?? 12/10/2022 01:35 Bacteria SLIGHT HPF (Abnormal)?? 12/10/2022 01:35 Squamous Epith 2 /HPF ()?? 12/10/2022 01:35 Mucus SLIGHT /LPF ()?? 12/10/2022 01:35 Hold Urine Culture Testing available 48 hours from time of collection. ()?? 12/10/2022 01:35 ?? VIROLOGY Influenza A PCR NEGATIVE ()?? 12/10/2022 06:10 Influenza B PCR NEGATIVE ()?? 12/10/2022 06:10 RSV PCR NEGATIVE ()?? 12/10/2022 06:10 COVID-19 PCR Specimen Source NASAL ()?? 12/10/2022 06:10 COVID-19 PCR Result NEGATIVE ()?? 12/10/2022 06:10 ? Assessment/Plan ??52-year-old female patient with a past medical history significant hypothyroidism, cognitive impairment, schizophrenia, obstructive sleep apnea on CPAP machine, gastroesophageal reflux disease, overactive urinary bladder with urge urinary incontinence was brought to the emergency department for evaluation of altered mental status and is being admitted with acute kidney injury. ?? 1. Acute kidney injury: resolved, renal function back to normal today. Likely pre-renal/dehydration, will continue with IV fluids since unknown PO intake improvement ?? 2. UTI/Cognitive impairment: continue with Ceftriaxone IV, follow up urine cultures ?? Will continue with plan as described in H/P from today ?? Note * Ekta Long RN: PERFORM Event Display: Discharge/Transfer Note Hospital Authored Date: [id number] Nursing Discharge Note Entered On: 12/12/2022 14:26 EST Performed On: 12/12/2022 14:25 EST by Ekta Long RN Nursing Discharge Note 2 Discharge Time : 12/12/2022 14:30 EST Discharge Level of Care at Discharge : Home/Senior Living/Foster Care Patient Left Unit Via : Chair Van Patient Accompanied Off Unit with : Responsible adult DC Instructions Provided & Signed by Pt : Unable Patient Understands D/C Instructions : Unable Verbalized Understanding of D/C Plan By : Responsible adult Patient Instructions Discharge Signed : Yes Did Pt have Specialty Bed or Wound Vac : No Ekta Long RN - 12/12/2022 14:25 EST * Irma TUCKER, Raven Arreguin: PERFORM Event Display: Discharge/Transfer Note Hospital Authored Date: [id number] Patient: ??ELLEN REED ? Age:??52 Years?Sex:??Female?:??1970?? Patient Information Discharge Location: S64 Primary Care Physician: Gaudencio TUCKER , Deonna Montoya Admit Date/Time: 12/10/22 04:17 Discharge Disposition Discharge Disposition: ?? Discharge Diagnosis ELLA (acute kidney injury) (N17.9) Fall (W19.XXXA) Recurrent falls (R29.6) Cognitive impairment (R41.89) Schizophrenia (F20.9) Depression (F32.A) Hypothyroidism (E03.9) Overactive bladder (N32.81) Urge urinary incontinence (N39.41) Altered mental state (R41.82) ELLA (acute kidney injury) (N17.9) Failure to thrive in adult (R62.7) Fall (W19.XXXA) ?? _ Discharge Medications Acetaminophen (Tylenol Extra Strength 500 mg oral tablet)?2?tab(s)?1,000?Milligram?By Mouth?Every 6 hours Aripiprazole (Abilify 15 mg oral tablet)?20?Milligram?By Mouth?Daily Benztropine (benztropine 0.5 mg oral tablet)?0.5?Milligram?1?tablet?By Mouth?Daily at bedtime fesoterodine (Fesoterodine 4 mg oral tablet, extended release)?1?tab(s)?By Mouth?Daily at bedtime Fluoxetine (FLUoxetine 60 mg oral tablet)?1?tab(s)?60?Milligram?By Mouth?Daily Piero Levothyroxine (levothyroxine 0.112 mg oral tablet)?1?tab(s)?112?Microgram?By Mouth?Daily Multivitamin?Daily Pantoprazole (pantoprazole 40 mg oral delayed release tablet)?40?Milligram?By Mouth?Daily Risperidone (risperiDONE 2 mg oral tablet)?2?Milligram?1?tablet?By Mouth?Daily Topiramate (Topamax 50 mg oral tablet)?1?tab(s)?50?Milligram?By Mouth?2 times a day vibegron (Gemtesa 75 mg oral tablet)?1?tab(s)?75?Milligram?By Mouth?Daily ? Allergies Allergies ?(Active and Proposed Allergies Only) Milk Products? (Severity: Unknown severity, Onset: Unknown) ?Reactions: mayonnaise, diarrhea ? Future Appointments Sunday 12:00 PM EST ?? With: Trell TUCKER, Lori Vega Where: [facility] [address] [place] [address]- Status: Pending Hospital Course 52-year-old female patient with a past medical history significant hypothyroidism, cognitive impairment, schizophrenia, obstructive sleep apnea on CPAP machine, gastroesophageal reflux disease, overactive urinary bladder with urge urinary incontinence was brought to the emergency department for evaluation of altered mental status, decrease oral intake, and recurrent fall and is being admitted with acute kidney injury. ? # ELLA (acute kidney injury) (N17.9): Likely pre-renal as appear very dehydrated on examination - received 1 L of LR. ??- resolved ?? She is being discharged back to her [facility] ?? Tesfaye??encourage oral hydration ?? # Altered mental state (R41.82):??Resolved # Recurrent falls (R29.6) ??# Cognitive impairment (R41.89) ?? Patient with history of cognitive impairment, schizophrenia brought to the ED with progressive altered mental status/confusion for almost a month which has worsened in the last few days. She has beenhaving recurrent fall. She is afebrile and hemodynamically stable in ED. Initial basic blood work significant for acute kidney injury and UA positive for WBC 20, LE and bacteria. Imaging including CThead and cervical spine, CXR, CT abdomen and pelvis wnl. ?? urine CS grew mixed yanick suggestive of contamination Blood cs negative ?? Received Ceftriaxone (day 2) No further antibiotic needed ? # Schizophrenia (F20.9) ??# Depression (F32.A) - continue Risperidone and Prozac ?? # Hypothyroidism (E03.9): ??tsh wnl ??continue Levothyroxine ? Objective Assessment and Plan ? Vital Signs?? Temperature: 97.4 DegF (12/12/22 05:24:00) Temperature Route: Oral (12/12/22 05:24:00) Pulse Rate: 60 bpm (12/12/22 05:24:00) Respiratory Rate: 16 br/min (12/12/22 05:24:00) Systolic Blood Pressure: 113 mm Hg (12/12/22 05:24:00) Diastolic Blood Pressure:??51 mm Hg??Low (12/12/22 05:24:00) Blood pressure sites: Arm, left (12/12/22 05:24:00) Mean Arterial Pressure: 72 mm Hg (12/12/22 05:24:00) Pulse Pressure: 62 mm Hg (12/12/22 05:24:00) Oxygen Saturation: 97 % (12/12/22 05:24:00) Mode of Delivery (Oxygen): Room air (12/12/22 05:24:00) Early Warning Score: 2 (12/12/22 05:26:01) ? . Physical Exam Awake, alert, oriented Lungs: Clear to auscultation bilateral, no wheezing no rales Heart: Regular rate and rhythm, no murmur, no rub or gallop Abdomen: Soft, nontender, nondistended; Bowel sounds present Extremity: No edema cyanosis clubbing Neurological: No focal deficit Psychiatric: Normal mood and affect Pending Results Add On Lab Order ordered on 12/10/2022 Basic Metabolic Panel ordered on 12/10/2022 Blood Culture ordered on 12/10/2022 Blood Culture #2 ordered on 12/10/2022 CBC ordered on 12/10/2022 Folate Level ordered on 12/10/2022 Thiamine Level ordered on 12/10/2022 Vitamin B12 Level ordered on 12/10/2022 Follow-Up Appointments Added Follow Up ?Time Frame ?Comments Gaudencio TUCKER , Deonna Montoya?1 week Home Health Face to Face ^[facility] Results Discharge Labs BLOOD COUNT & DIFF WBC 4.0 k/mm3 ()?? 12/12/2022 01:28 RBC 4.14 m/mm3 (Low)?? 12/12/2022 01:28 Hgb 11.9 Gm/dL ()?? 12/12/2022 01:28 Hct 36.8 % ()?? 12/12/2022 01:28 MCV 88.9 femtoliters ()?? 12/12/2022 01:28 MCH 28.7 pg ()?? 12/12/2022 01:28 MCHC 32.3 g/dL (Low)?? 12/12/2022 01:28 Platelet Count 182 k/mm3 ()?? 12/12/2022 01:28 RDW-SD 46.2 femtoliters ()?? 12/12/2022 01:28 MPV 10.4 femtoliters ()?? 12/12/2022 01:28 Nucleated RBC (Automated) 0.0 #/100 WBC'S ()?? 12/12/2022 01:28 Abs. NRBC 0.0 k/mm3 ()?? 12/12/2022 01:28 Abs. Neut 1.3 k/mm3 ()?? 12/12/2022 01:28 Abs. Lymph 2.2 k/mm3 ()?? 12/12/2022 01:28 Abs. [place] 0.3 k/mm3 (Low)?? 12/12/2022 01:28 Abs. Eo 0.1 k/mm3 ()?? 12/12/2022 01:28 Abs. Baso 0.0 k/mm3 ()?? 12/12/2022 01:28 Neut % 31.9 % (Low)?? 12/12/2022 01:28 Lymph % 56.6 % (High)?? 12/12/2022 01:28 [place] % 8.6 % ()?? 12/12/2022 01:28 Eos % 2.3 % ()?? 12/12/2022 01:28 Baso % 0.3 % ()?? 12/12/2022 01:28 Imm Gran 0.3 % ()?? 12/12/2022 01:28 Abs. Imm Gran 0.0 k/mm3 ()?? 12/12/2022 01:28 ?? CARDIAC High Sensitivity Troponin (HSTnT) <6 ng/L ()?? 12/10/2022 00:50 ? CHEM GENERAL Sodium 142 mmol/L ()?? 12/12/2022 01:28 Potassium 5.2 mmol/L ()?? 12/12/2022 01:28 Chloride 90 mmol/L (Low)?? 12/12/2022 01:28 Bicarbonate Level 26 mmol/L ()?? 12/12/2022 01:28 Anion Gap 26 (High)?? 12/12/2022 01:28 Glucose Level 98 mg/dL ()?? 12/10/2022 06:27 BUN 18 mg/dL ()?? 12/12/2022 01:28 Creatinine-Blood 0.8 mg/dL ()?? 12/12/2022 01:28 Estimated GFR Creatinine 85 ML/MIN/1.73 M2 ()?? 12/12/2022 01:28 Calcium 9.1 mg/dL ()?? 12/10/2022 06:27 Calcium, Ionized pH Corrected 1.18 mmol/L ()?? 12/09/2022 22:30 Magnesium 1.6 mg/dL ()?? 12/09/2022 22:30 Protein, Total 5.9 Gm/dL (Low)?? 12/10/2022 06:27 Albumin 3.2 Gm/dL (Low)?? 12/10/2022 06:27 AG Ratio 1.0 ()?? 12/09/2022 22:30 Alkaline Phosphatase 94 units/L ()?? 12/10/2022 06:27 AST (SGOT) 21 units/L ()?? 12/10/2022 06:27 ALT (SGPT) 17 units/L ()?? 12/10/2022 06:27 Bilirubin, Total 0.4 mg/dL ()?? 12/10/2022 06:27 Bilirubin, Direct <0.2 mg/dL ()?? 12/10/2022 06:27 Bilirubin, Indirect Direct bilirubin is less than the measureable limit. Therefore, indirect mg/dL ()?? 12/10/2022 06:27 Lactate 1.0 mmol/L ()?? 12/10/2022 00:50 ?? ENDOCRINE/TUMOR MARKER TSH 2.44 uIU/mL ()?? 12/09/2022 22:30 ? HEME OTHER Hold Lavender Top SPECIMEN DISCARDED AFTER 24 HOURS. ()?? 12/10/2022 00:50 Hold Blue Top SPECIMEN DISCARDED AFTER 4 HOURS. ()?? 12/10/2022 00:50 ?? MISC. CHEMISTRY Hold Green Top SPECIMEN DISCARDED AFTER 1 WEEK ()?? 12/09/2022 23:02 Hold Gel Top SPECIMEN DISCARDED AFTER 1 WEEK ()?? 12/09/2022 23:02 Hold [place] Top SPECIMEN DISCARDED AFTER 1 WEEK ()?? 12/09/2022 23:02 ? UA/URINALYSIS Appear/Color, Urine LIGHT YELLOW ()?? 12/10/2022 01:35 Specific [place], Urine 1.020 ()?? 12/10/2022 01:35 pH, Urine 6.5 ()?? 12/10/2022 01:35 Albumin, Urine NEGATIVE ()?? 12/10/2022 01:35 Glucose, Urine NEGATIVE ()?? 12/10/2022 01:35 Ketones, Urine NEGATIVE ()?? 12/10/2022 01:35 Bilirubin, Urine NEGATIVE ()?? 12/10/2022 01:35 Hemoglobin, Urine NEGATIVE ()?? 12/10/2022 01:35 Nitrite, Urine NEGATIVE ()?? 12/10/2022 01:35 Leukocyte, Urine 1+ (Abnormal)?? 12/10/2022 01:35 Urobilinogen NORMAL mg/dL ()?? 12/10/2022 01:35 WBC's, Urine 20 /HPF (High)?? 12/10/2022 01:35 RBC's, Urine 1 /HPF ()?? 12/10/2022 01:35 Bacteria SLIGHT HPF (Abnormal)?? 12/10/2022 01:35 Squamous Epith 2 /HPF ()?? 12/10/2022 01:35 Mucus SLIGHT /LPF ()?? 12/10/2022 01:35 Hold Urine Culture Testing available 48 hours from time of collection. ()?? 12/10/2022 01:35 ? URINE OTHER Est Creatinine Clearance 58.43 mL/min ()?? 12/12/2022 05:13 ? VIROLOGY Influenza A PCR NEGATIVE ()?? 12/10/2022 06:10 Influenza B PCR NEGATIVE ()?? 12/10/2022 06:10 RSV PCR NEGATIVE ()?? 12/10/2022 06:10 COVID-19 PCR Specimen Source NASAL ()?? 12/10/2022 06:10 COVID-19 PCR Result NEGATIVE ()?? 12/10/2022 06:10 ? Microbiology ?? COVID-19, RSV, and Flu A/B, Rapid PCR?? Completed?? Source: Nasopharyngeal Body Site: Nasopharyngeal Collected Dt/Tm: 12/10/2022 05:56 Last Updated Dt/Tm: 12/10/2022 07:13 ? 35 minutes spent on discharge * Ekta Long RN: PERFORM Event Display: Patient Education/Instruction Authored Date: [id number] Inpatient Adult Discharge Instructions [address] [address] Name: ELLEN REED : 1970 Visit: 12/10/2022 04:17:00 Current Date: 12/12/2022 14:18 Account: [id number] Inpatient Adult Discharge Instructions We would like to thank you for allowing us to assist you with your healthcare needs. The following includes patient education materials and information regarding your injury/illness. Our entire staffstrives to provide an excellent experience for our patients and their families. PLEASE ENSURE YOU FOLLOW-UP PER THE INSTRUCTIONS BELOW! ?? YOUR OPINION IS IMPORTANT TO US! Please complete the survey you may receive by mail or email. Your feedback will be used to make improvements to the healthcare experiences of our patients and their families. Surveys are administered by [employer] ?? If further treatment with your primary care physician or another doctor is recommended, it is important for you to keep the appointment. Call your primary care physician or return to the Emergency Department immediately if your condition worsens, fails to improve, or new symptoms develop. If you need to find a doctor, you can call [facility] Link for a referral at [phone] or toll free at [phone]) or log in to [email or web address].. ?? [facility], in keeping with [facility] guidance, no longer requires face masks for staff, patientsor visitors in most situations. Similiar to time spent indoors at other locations, there is the chance that you were exposed to repiratory viruses during your time with us (such as flu or COVID-19). If you develop symptoms concerning for a viral respiratory infection, please seek testing (and treatment if indicated) from your medical provider or home test kit. ?? You can view and manage your care through the patient portal or by using a health care issac of your choosing. [employer] is a website that allows you to securely view your medical information including your hospital discharge summary, office visit summaries, medications and follow-up visits. You can also request appointments, renew medications, and request access to your medical information using a health care issac of your choosing, or just ask a question. You can enroll at [email or web address] or register during your next office visit. You have been discharged from [facility], Patient Care Unit: S64. If you have any questions regarding these instructions after you leave, please call us and we will be happy to assist you. [facility] Your Care Team Attending Physician Raven Solis MD Discharging Providers Raven Solis MD Reason for Admission failure to thrive Your Diagnosis ELLA (acute kidney injury) Fall Recurrent falls Cognitive impairment Schizophrenia Depression Hypothyroidism Overactive bladder Urge urinary incontinence Altered mental state Fall ELLA (acute kidney injury) Failure to thrive in adult Tests Performed Below is a partial list of the tests performed during your hospitalization. You may have had other tests and procedures not included in this list. Please discuss all test results with your provider. B12 Vitamin Level?-- Results Pending -- Basic Metabolic Panel?-- Results Pending -- BUN Calcium Ionized CBC w/ Differential Comprehensive Metabolic Panel COVID-19, RSV, and Flu A/B, Rapid PCR Creatinine Electrolytes Folic Acid Level?-- Results Pending -- High??Sensitivity??Troponin T HOLD BLUE TUBE HOLD GEL TUBE HOLD MEDRANO TUBE HOLD GREEN TUBE HOLD LAVENDER TUBE Lactate Level Lactic Acid Level LFT's Lytes Magnesium Level Troponin T, High Sensitivity TSH with T4 Reflex (Adults Only) Urinalysis w/hold for Urine Culture CT Abd/Pelvis W/ IV Contrast Only CT Cervical Spine W/O Contrast CT Head/Brain W/O Contrast CXR W/ Frontal and Lat XR Humerus Min 2 Views Right You will be contacted within 72 hours with your results. Primary Care Provider Deonna Ratliff MD Advance Directive Health Care Proxy on File Yes - Health Care Proxy Yes - MOLST Discharge Vitals Temperature: 97.2 DegF Height: 153 cm Pulse Rate: 66 bpm Weight: 91.5 kg Respiratory Rate: 16 br/min Body Mass Index:??39.09 kg/m2??Critical Systolic Blood Pressure: 98 mm Hg Body surface area: 1.97 Diastolic Blood Pressure: 64 mm Hg ?? Oxygen Saturation: 98 % ?? Studies Pending All tests and labs ordered during this hospital stay have been completed unless listed below. Please discuss all pending results with your provider listed above in these instructions. ?? Add On Lab Order Basic Metabolic Panel Blood Culture Blood Culture #2 CBC (COMPLETE BLOOD COUNT) Folate Level (Folic Acid Level) Thiamine Level Vitamin B12 Level (B12 Vitamin Level) What to do next Instructions From Your Doctor Discharge Orders Scheduled Follow-Up Appointments Sunday 12:00 PM EST ?? With: Lori Cai MD Where: [facility] [address] [address]- Status: Pending You Need to Schedule the Following Appointments Follow Up with??Deonna Ratliff MD When:??Within 1 week Where: [address] [place] [address]- Discharge Medications ELLEN REED :1970 Visit Date:12/10/2022 Medications: Please continue your medications until treatment is completed or stopped by your provider. Medications not listed below should be discontinued. Discuss any questions related to medications with your provider. What How Much When Instructions Next Dose Unchanged Acetaminophen (Tylenol Extra Strength 500 mg oral tablet) 2 tab(s) Oral Every 6 hours Unchanged Aripiprazole (Abilify 15 mg oral tablet) 20 Milligram Oral Daily 12/13/22 Unchanged Benztropine (benztropine 0.5 mg oral tablet) 1 tab(s) Oral Daily at Bedtime 12/12/22 Unchanged fesoterodine (Fesoterodine 4 mg oral tablet, extended release) 1 tab(s) Oral Daily at Bedtime 12/12/22 Unchanged Fluoxetine (FLUoxetine 60 mg oral tablet) 1 tab(s) Oral Daily in the morning 12/13/22 Unchanged Lactase (Lactaid Fast Action 9000 units oral tablet) Unchanged Levothyroxine (levothyroxine 0.112 mg oral tablet) 1 tab(s) Oral Daily 12/13/22 Unchanged Multivitamin Daily 12/13/22 Unchanged Pantoprazole (pantoprazole 40 mg oral delayed release tablet) 40 Milligram Oral Daily 12/13/22 Unchanged Risperidone (risperiDONE 2 mg oral tablet) 1 tab(s) Oral Daily 12/13/22 Unchanged Topiramate (Topamax 50 mg oral tablet) 1 tab(s) Oral Twice a day 02/11/22 Unchanged vibegron (Gemtesa 75 mg oral tablet) 1 tab(s) Oral Daily 12/13/22 Test Results Below is a partial list of the most recent Laboratory test results done prior to this discharge. You may have had other tests and procedures not included in this list. Please discuss all test resultswith your provider. Est Creatinine Clearance - 58.43 mL/min (12/12/2022) BUN (12/12/2022) ???BUN - 18 mg/dL Calcium Ionized (12/09/2022) ???Calcium, Ionized pH Corrected - 1.18 mmol/L CBC w/ Differential (12/12/2022) ???WBC - 4.0 k/mm3???RBC - 4.14 m/mm3???Hgb - 11.9 Gm/dL???Hct - 36.8 %???MCV - 88.9 femtoliters???MCH - 28.7 pg???MCHC - 32.3 g/dL???Platelet Count - 182 k/mm3???RDW-SD - 46.2 femtoliters???MPV - 10.4 femtoliters???Nucleated RBC (Automated) - 0.0 #/100 WBC'S???Abs. NRBC - 0.0 k/mm3???Abs. Neut - 1.3 k/mm3???Abs. Lymph - 2.2 k/mm3???Abs. [place] - 0.3 k/mm3???Abs. Eo - 0.1 k/mm3???Abs. Baso - 0.0 k/mm3???Neut % - 31.9 %???Lymph % - 56.6 %???[place] % - 8.6 %???Eos % - 2.3 %???Baso % - 0.3 %???Imm Gran - 0.3 %???Abs. Imm Gran - 0.0 k/mm3 Comprehensive Metabolic Panel (12/09/2022) ???Sodium - 142 mmol/L???Potassium - 3.7 mmol/L???Chloride - 105 mmol/L???Bicarbonate Level - 25 mmol/L???Anion Gap - 12???Glucose Level - 292 mg/dL???BUN - 35 mg/dL???Creatinine-Blood - 1.8 mg/dL???Estimated GFR Creatinine - 33 ML/MIN/1.73 M2???Calcium - 8.4 mg/dL???Protein, Total - 6.3 Gm/dL???Albumin - 3.2 Gm/dL???AG Ratio - 1.0???Alkaline Phosphatase - 138 units/L???AST (SGOT) - 24 units/L???ALT (SGPT) - 27 units/L???Bilirubin, Total - 0.7 mg/dL COVID-19, RSV, and Flu A/B, Rapid PCR (12/10/2022) ???Influenza A PCR - NEGATIVE???Influenza B PCR - NEGATIVE???RSV PCR - NEGATIVE???COVID-19 PCR Specimen Source - NASAL???COVID-19 PCR Result - NEGATIVE Creatinine (12/12/2022) ???Creatinine-Blood - 0.8 mg/dL???Estimated GFR Creatinine - 85 ML/MIN/1.73 M2 Electrolytes (12/12/2022) ???Sodium - 142 mmol/L???Potassium - 5.2 mmol/L???Chloride - 90 mmol/L???Bicarbonate Level - 26 mmol/L???Anion Gap - 26 High??Sensitivity??Troponin T (12/09/2022) ???High Sensitivity Troponin (HSTnT) - 105 ng/L HOLD BLUE TUBE (12/10/2022) ???Hold Blue Top - SPECIMEN DISCARDED AFTER 4 HOURS. HOLD GEL TUBE (12/09/2022) ???Hold Gel Top - SPECIMEN DISCARDED AFTER 1 WEEK HOLD MEDRANO TUBE (12/09/2022) ???Hold [place]rano Top - SPECIMEN DISCARDED AFTER 1 WEEK HOLD GREEN TUBE (12/09/2022) ???Hold Green Top - SPECIMEN DISCARDED AFTER 1 WEEK HOLD LAVENDER TUBE (12/10/2022) ???Hold Lavender Top - SPECIMEN DISCARDED AFTER 24 HOURS. Lactate Level (12/09/2022) ???Lactate - 3.4 mmol/L Lactic Acid Level (12/10/2022) ???Lactate - 1.0 mmol/L LFT's (12/10/2022) ???Protein, Total - 5.9 Gm/dL???Albumin - 3.2 Gm/dL???Alkaline Phosphatase - 94 units/L???AST (SGOT) - 21 units/L? ?ALT (SGPT) - 17 units/L? ?Bilirubin, Total - 0.4 mg/dL? ?Bilirubin, Direct - <0.2 mg/dL???Bilirubin, Indirect - Direct bilirubin is less than the measureable limit. Therefore, indirect Lytes (12/11/2022) ???Sodium - 140 mmol/L???Potassium - HEMOLYZED???Chloride - 103 mmol/L???Bicarbonate Level - 26 mmol/L???Anion Gap - 11 Magnesium Level (12/09/2022) ???Magnesium - 1.6 mg/dL Troponin T, High Sensitivity (12/10/2022) ? ?High Sensitivity Troponin (HSTnT) - <6 ng/L TSH with T4 Reflex (Adults Only) (12/09/2022) ???TSH - 2.44 uIU/mL Urinalysis w/hold for Urine Culture (12/10/2022) ???Appear/Color, Urine - LIGHT YELLOW???Specific [place], Urine - 1.020???pH, Urine - 6.5???Albumin, Urine - NEGATIVE???Glucose, Urine - NEGATIVE???Ketones, Urine - NEGATIVE???Bilirubin, Urine - NEGATIVE???Hemoglobin, Urine - NEGATIVE???Nitrite, Urine - NEGATIVE???Leukocyte, Urine - 1+???Urobilinogen - NORMAL???WBC's, Urine - 20 /HPF???RBC's, Urine - 1 /HPF???Bacteria - SLIGHT???Squamous Epith - 2 /HPF???Mucus - SLIGHT???Hold Urine Culture - Testing available 48 hours from time of collection. Allergies (NKA means No Known Allergies) Milk Products??(mayonnaise, diarrhea) Problems Active Problems??(11) Altered mental state?? Cognitive impairment?? Depression?? Hypothyroidism?? Obstructive sleep apnea?? Overactive bladder?? Recurrent falls?? Schizophrenia?? Severe obesity (BMI 35.0-39.9) with comorbidity?? Urge urinary incontinence?? Urinary incontinence?? Education Materials Below is the list of Educational Leaflet Providered with your Discharge Instructions. Valuables and Belongings I fully understand and agree that [facility] accepts no responsibility for all my personal property including clothing, toilet articles, radios, jewelry, dentures, hearing aids, rings, money, or any other property that is in my possession or is brought to me after admission. I understand certain valuables may be placed in a hospital safe for a short period of time. I understand that the hospital is not liable for loss or damage due to accident, fire, or other natural occurrence while said property is in the safe. I accept full responsibility for any personal property that I keep with me, and will not hold the hospital responsible in case of loss or disappearance. I acknowledge that i have been encouraged to send valuables and belongings home. ?? No Valuables/Belongings: No valuables/belongings present Review of Valuable and Belonging List: With patient, With witness Date for Pt to Sign Valuables/Belongings: 12/11/22 08:50:00 ?? Other Discharge Information ? Case Management Discharge Plan?? Discharge Plan?? Discharge Level of Care at Discharge: Home/Senior Living/Foster Care Discharge Transportation Arranged: Group residence staff transportation Mode of Transportation Arranged: private car Discharge Arranged Transport Date/Time: 12/12/22 15:00:00 ?? Pulmonary Rehab Status?? Pulmonary Rehab Discharge Status?? Respiratory Rate: 16 br/min ? Common Emergency Awareness Tips IS IT A STROKE? Act FAST and Check for these signs: FACE Does the face look uneven? ARM Does one arm drift down? SPEECH Does their speech sound strange? TIME Call at any sign of stroke ?? Heart Attack Signs Chest discomfort: Most heart attacks involve discomfort in the center of the chest and lasts more than a few minutes, or goes away and comes back. It can feel like uncomfortable pressure, squeezing, fullness or pain. Discomfort in upper body: Symptoms can include pain or discomfort in one or both arms, back, neck, jaw or stomach. Shortness of breath: With or without discomfort. Other signs: Breaking out in a cold sweat, nausea, or lightheaded. Remember, MINUTES DO MATTER. If you experience any of these heart attack warning signs, call to get immediate medical attention! ?? Smoking can increase your chances of developing chronic health problems and can cause harmful effects to other family members in your house. If you smoke, you are strongly encouraged to quit. Please call [facility] [employer] Link at [phone] or [phone] ([phone]) or log in to [email or web address] for referrals to smoking cessation programs. ?? 737 Suicide & Crisis Lifeline is available 28/08 if you or someone you know needs to find a reason to keep living. By calling 230 you'll be connected to a skilled, trained counselor at a crisis center in your area. INPATIENT DISCHARGE INSTRUCTIONS SIGNATURE PAGE ELLEN REED Location:[facility] Registration Date and Time:12/10/2022 04:17 EST Primary Care Physician: Gaudencio TUCKER , Deonna Montoya, Attending Physician: Irma TUCKER, Raven Arreguin, ELLEN TILLMAN, have received the above patient education materials/instructions and have verbalized understanding. If ambulance or transport services are being used I further acknowledge being given a choice of service. ?? If you need to contact me, please call me at this number: . Patient/Oil Well Pumper Name: Patient/Oil Well Pumper Signature: Relationship to Patient: Witness Name/Signature: Date: Patient Care team information Care Team Personnel Name: Cleo Riggs RN Position: S RN Member Role: Primary Care Nurse Name: Amauri Mathias RN Position: S RN Member Role: Primary Care Nurse Name: Deonna Ratliff MD Position: Reference Physician Member Role: PCP Address: Address: [address], [place] [address] Name: Kiley Miller RN Position: S RN Member Role: Primary Care Nurse Name: Lisa Rodrigues RN Position: S RN Member Role: Primary Care Nurse Name: Tobias Nixon RN Position: [facility] RN Member Role: Primary Care Nurse Name: Elenita Donald RN Position: [facility] RN Member Role: Primary Care Nurse Name: Rica Rosario RN Position: [facility] RN Member Role: Primary Care Nurse Name: Sonam LUNA Attending Position: [facility] ED Medicine MD Name: Yancy Navarrete RN Position: [facility] ED RN W/OE and Tasks Member Role: Patient Care Provider Name: Yoanna Hernandez Position: [facility] ED TA [facility] Care Team Related Persons Name: VIELKA MILAN Address: home [address] [place] [id number] Name: TINA RUIJAZMYNE Address: [address] [place] [address]
--- OUTSIDE RECORDS SUMMARY | 2023-09-26 06:00 | XMS_ITS | Continuity of Care Document ---
Author Organization [facility] Jose rupesh Address [address] [place] [address] [address] [place] [address]- Care Team Providers Care Securities Compliance Examiner Name Role Phone Gaudencio TUCKER, Deonna Montoya Primary Care Physician [place] [facility] 04/28/22 - 05/28/22 [facility] [address] [place], [place] [address] Attending Physician: Admtr, Jayson Admitting Physician: Admtr, Jayson Referring Physician: Admtr, Ar8 Allergies, Adverse Reactions, Alerts Substance Reaction Severity Status Milk Products mayonnaise diarrhea Active Medications Abilify 15 mg oral tablet 20 mg, By Mouth, Daily, # 30 tablet, Refills 0, Maintenance, 07/05/17 9:11:09 EDT Start Date: 07/05/17 Status: Ordered Bactrim DS 800 mg-160 mg oral tablet 1 tablet, By Mouth, 2 times a day, # 60 tablet, 0 Refills, Maintenance, 05/23/19 14:06:00 EDT, Tablet, [facility], 1 tablet By Mouth 2 times a day, 153, cm, 01/01/19 10:27:00 EST, Height, 92.5, kg, 06/04/18 8:24:00 EDT, Dry Weight Start Date: 05/23/19 Status: Ordered CPAP Highway Patrol Officer, 07/04/17 9:22:17 EDT, Compound Start Date: 07/04/17 Status: Ordered Fesoterodine 4 mg oral tablet, extended release 1 tablet, By Mouth, Daily at bedtime, # 30 tablet, 5 Refills, Maintenance, 05/26/22 8:29:00 EDT, [facility], 153, cm, 04/28/22 13:14:00 EDT, Height, [...] tablet, 4 Refills, Maintenance, 05/15/22 16:27:00 EDT, [facility], 153, cm, 04/28/22 13:14:00 EDT, Height, [...] Refills, Maintenance, 11/04/21 12:21:00 EDT, CR Capsule, [facility], Partial fill upon patient request if [...] comorbidity Confirmed Active Urinary incontinence Confirmed Active Social History Social History Type Response Smoking Status Former smoker entered on: 05/01/16 Sex Patient Care team information Care Team Personnel Name: Cleo Riggs RN Position: S RN Member Role: Primary Care Nurse Name: Amauri Mathias RN Position: S RN Member Role: Primary Care Nurse Name: Gaudencio TUCKER , Deonna Montoya Position: Reference Physician Member Role: PCP Address: Address: [facility] [place] [address]- Name: Kiley Miller RN Position: S RN Member Role: Primary Care Nurse Name: Lisa Rodrigues RN Position: S RN Member Role: Primary Care Nurse Name: Elenita Donald RN Position: S RN Member Role: Primary Care Nurse Name: Rica Rosario RN Position: S RN Member Role: Primary Care Nurse Care Team Related Persons Name: VIELKA MILAN Address: [address] [address] Name: GERALDO WILDER Address: home [address] [place] [address]
--- OUTSIDE RECORDS SUMMARY | 2023-09-26 06:00 | XMS_ITS | Continuity of Care Document ---
Author Organization [facility]anna [facility] Address [address], [address] [place] [address]- Care Team Providers Care Temple Meat Cutter Name Role Phone Gaudencio TUCKER, Deonna Montoya Primary Care Physician Encounter [facility] Date(s): 04/11/22 - 05/11/22 [facility] [address] [place], [place] [address] Allergies, Adverse Reactions, Alerts Substance Reaction Severity Status Milk Products mayonnaise diarrhea Active Medications Abilify 15 mg oral tablet 20 mg, By Mouth, Daily, # 30 tablet, Refills 0, Maintenance, 07/05/17 9:11:09 EDT Start Date: 07/05/17 Status: Ordered Bactrim DS 800 mg-160 mg oral tablet 1 tablet, By Mouth, 2 times a day, # 60 tablet, 0 Refills, Maintenance, 05/23/19 14:06:00 EDT, Tablet, [facility], 1 tablet By Mouth 2 times a day, 153, cm, 01/01/19 10:27:00 EST, Height, 92.5, kg, 06/04/18 8:24:00 EDT, Dry Weight Start Date: 05/23/19 Status: Ordered CPAP Leather Toggler, 07/04/17 9:22:17 EDT, Compound Start Date: 07/04/17 [...] NOT CRUSH OR CHEW, # 30 tablet, 1 Refills, Maintenance, 02/13/22 10:07:00 EST, [facility], 153, cm, 07/16/21 10:56:00 EDT, Height, 89.9, kg, 07/16/21 10:56:00 EDT, Dry Weight Start Date: 02/13/22 Status: Ordered pantoprazole 40 mg oral delayed release tablet = 40 mg, By Mouth, Daily, 0 Refills, Maintenance, 12/27/17 7:33:03 EST, EC Tablet Start Date: 12/27/17 Status: Ordered Topamax 50 mg oral tablet 1 tablet = 50 mg, By Mouth, 2 times a day, # 180 tablet, 0 Refills, Maintenance, 11/02/16 10:10:03,Tablet Start Date: 11/02/16 Status: Ordered Toviaz 4 mg oral tablet, extended release 1 tablet = 4 mg, By Mouth, Daily, # 30 tablet, 6 Refills, Maintenance, 11/09/21 8:28:00 EDT, ER Tablet, [facility], Partial fill upon patient request if the prescription is for a schedule II opioid drug., 153, cm, 07/16/21 10:56:00 EDT, [facility]... Start Date: 11/09/21 Status: Ordered trospium 60 mg oral capsule, extended release 1 capsule = 60 mg, By Mouth, Daily in AM, # 30 capsule, 6 Refills, Maintenance, 11/04/21 12:21:00 EDT, CR Capsule, [facility], Partial fill upon patient request if the [...] Physician Member Role: PCP Address: Address: [address] [place], [place] [facility] Name: Kiley Miller RN Position: S RN Member Role: Primary Care Nurse Name: Lisa Rodrigues RN Position: S RN Member Role: Primary Care Nurse Name: Elenita Donald RN Position: S RN Member Role: Primary Care Nurse Name: Rica Rosario RN Position: S RN Member Role: Primary Care Nurse Care Team Related Persons Name: VIELKA MILAN Address: home [address] [place] [address] Name: GERALDO WILDER Address: [address] [place] [address]
--- OUTSIDE RECORDS SUMMARY | 2023-09-26 06:00 | XMS_ITS | Continuity of Care Document ---
Author Organization [facility] Address [address] [place] [address]- Care Team Providers Care Director Of Product Development Name Role Phone Gaudencio TUCKER, Deonna Montoya Primary Care Physician [place] [facility] - 07/04/19 [facility] [address] [place] [address] [facility] Attending Physician: Armando Serrano MD Admitting Physician: Armando Serrano MD Referring Physician: Deonna Ratliff MD Allergies, Adverse Reactions, Alerts Substance Reaction [...] 0 Refills, Maintenance, 05/23/19 14:06:00 EDT, Tablet, [facility], 1 tablet By Mouth 2 times a day, 153, cm, 01/01/19 10:27:00 EST, Height, 92.5, kg, 06/04/18 8:24:00 EDT, Dry Weight Start Date: 05/23/19 Status: Ordered CPAP Sports Physiotherapist, 07/04/17 9:22:17 EDT, Compound Start Date: 07/04/17 [...] Refills, Maintenance, 05/27/19 8:49:00 EDT, ER Tablet, [facility], 153, cm, 01/01/19 10:27:00 EST, Height, [...]
--- OUTSIDE RECORDS SUMMARY | 2023-09-26 06:00 | XMS_ITS | Continuity of Care Document ---
Author Organization [facility] Ashley browne [facility] Address [address], [address]t [place] [address]- Care Team Providers Care Automatic Lehr Operator Name Role Phone Gaudencio TUCKER, Deonna Montoya [id number] [address], 4th Floor [place], [place] [address] Allergies, Adverse Reactions, Alerts Substance Reaction [...] Fesoterodine 4 mg oral tablet, extended release See Instructions, TAKE 1 TABLET BY MOUTH DAILY AT BEDTIME, # 30 tablet, 4 Refills, Maintenance, 05/31/23 16:32:00 EDT, [facility], 153, cm, 12/12/22 14:07:00 EST, Height, 91.5, kg, 12/11/2313:36:00 EST, Dry Weight Start Date: 05/31/23 Status: Ordered FLUoxetine 60 mg oral tablet 1 tablet = 60 mg, By Mouth, Daily in AM, # 30 tablet, 0 Refills, Maintenance, 07/04/17 9:21:07 EDT,Tablet Start Date: 07/04/17 Status: Ordered Gemtesa 75 mg oral tablet 1 tablet, By Mouth, Daily in AM, # 30 tablet, 6 Refills, Maintenance, 06/19/23 16:54:00 EDT, [facility], 153, cm, 12/12/22 14:07:00 EST, Height, 91.5, kg, 12/11/22 14:36:00 EST, Dry Weight Start Date: 06/19/23 Status: Ordered Lactaid Fast Action 9000 units [...] incontinence Confirmed Active Urinary incontinence Confirmed Active Social [...] Physician Member Role: PCP Address: Address: [address] [place], [place] [facility] Name: Kiley Miller RN Position: S RN Member Role: Primary Care Nurse Name: Lisa Rodrigues RN Position: S RN Member Role: Primary Care Nurse Name: Tobias Nixon RN Position: [facility] RN Member Role: Primary Care Nurse Name: Elenita Donald RN Position: S RN Member Role: Primary Care Nurse Name: Rica Rosario RN Position: S RN Member Role: Primary Care Nurse Care Team Related Persons Name: VIELKA MILAN Address: [address] [address] Name: GERALDO WILDER Address: home [address] [place] [address]
--- OUTSIDE RECORDS SUMMARY | 2023-09-26 06:00 | XMS_ITS | Continuity of Care Document ---
Author Organization [facility] Jose rupesh Address [address] [place] [address] [address] [place] [address]- Care Team Providers Care Pedicab Driver Name Role Phone Gaudencio TUCKER, Doenna Montoya Primary Care Physician Encounter [facility] Date(s): 11/14/22 - 12/14/22 [facility] [address] [place], [place] [address] Attending Physician: Jayson Monzon Admitting Physician: AdmtrJayson Referring Physician: Admtr, ArLorenzo Allergies, Adverse Reactions, Alerts Substance Reaction Severity [...] tablet, 5 Refills, Maintenance, 10/30/22 14:23:00 EDT, [facility], 153, cm, 06/24/22 10:53:00 EDT, Height, [...] 7 Refills, Maintenance, 10/24/22 13:54:00 EDT, Tablet, [facility], Partial fill upon patient request if the prescription is for a schedule IIopioid drug., 153, cm, 06/24/22 10:53:00 EDT, Abhinav... Start Date: 10/24/22 Status: Ordered Lactaid Fast [...] Physician Member Role: PCP Address: Address: [address] [place], [place] [facility] Name: Kiley Miller RN Position: S RN Member Role: Primary Care Nurse Name: Lisa Rodrigues RN Position: S RN Member Role: Primary Care Nurse Name: Tobias Nixon RN Position: S RN Member Role: Primary Care Nurse Name: Elenita Donald RN Position: S RN Member Role: Primary Care Nurse Name: Rica Rosario RN Position: S RN Member Role: Primary Care Nurse Care Team Related Persons Name: VIELKA MILAN Address: home [address] [place] [id number] Name: GERALDO WILDER Address: home [place] [id number] [place] [address]
--- OUTSIDE RECORDS SUMMARY | 2023-09-26 06:00 | XMS_ITS | Continuity of Care Document ---
Author Organization [facility] Brianna [employer] [facility] Address [address] [place] [address], 4t [place] [address]- Care Team Providers Care Mis Director Name Role Phone Gaudencio TUCKER, Deonna Montoya Primary Care Physician Encounter [facility] Date(s): 12/12/21 - 01/11/22 [facility] [email or web address] [facility] [address] [facility], 4th Floor [place], [place] [address] Attending Physician: Jayson Monzno Admitting Physician: Jayson Monzon Referring Physician: AdmtrJayson Allergies, Adverse Reactions, Alerts Substance Reaction Severity Status Milk Products mayonnaise diarrhea Active Medications Abilify 15 mg oral tablet 20 mg, By Mouth, Daily, # 30 tablet, Refills 0, Maintenance, 07/05/17 9:11:09 EDT Start Date: 07/05/17 Status: Ordered Bactrim DS 800 mg-160 mg oral tablet 1 tablet, By Mouth, 2 times a day, # 60 tablet, 0 Refills, Maintenance, 05/23/19 14:06:00 EDT, Tablet, [facility], 1 tablet By Mouth 2 times a day, 153, cm, 01/01/19 10:27:00 EST, Height, 92.5, kg, 06/04/18 8:24:00 EDT, Dry Weight Start Date: 05/23/19 Status: Ordered CPAP Financial Sales Consultant, 07/04/17 9:22:17 EDT, Compound Start Date: 07/04/17 [...] NOT CRUSH OR CHEW, # 30 tablet, 2 Refills, Maintenance, 11/18/21 11:11:00 EDT, [facility], 153, cm, 07/16/21 10:56:00 EDT, Height, 89.9, kg, 07/16/21 10:56:00 EDT, Dry Weight Start Date: 11/18/21 Status: Ordered pantoprazole 40 mg oral delayed [...] Refills, Maintenance, 11/09/21 8:28:00 EDT, ER Tablet, [facility], Partial fill upon patient request if the prescription is for a schedule II opioid drug., 153, cm, 07/16/21 10:56:00 EDT, [facility]... Start Date: 11/09/21 Status: Ordered trospium 60 mg oral capsule, extended release 1 capsule = 60 mg, By Mouth, Daily in AM, # 30 capsule, 6 Refills, Maintenance, 11/04/21 12:21:00 EDT, CR Capsule, [facility], Partial fill upon patient request if [...] atus Informant Obstructive sleep apnea Confirmed Active Urinary incontinence Confirmed Active Social [...] Physician Member Role: PCP Address: Address: [address] [place] [address]- Name: Kiley Miller RN Position: S RN Member Role: Primary Care Nurse Name: Lisa Rodrigues RN Position: S RN Member Role: Primary Care Nurse Name: Elenita Donald RN Position: S RN Member Role: Primary Care Nurse Name: Rica Rosario RN Position: S RN Member Role: Primary Care Nurse Care Team Related Persons Name: VIELKA MILAN Address: [address] [address] Name: GERALDO WILDER Address: [address] [place] [address]
--- OUTSIDE RECORDS SUMMARY | 2023-09-26 06:00 | XMS_ITS | Continuity of Care Document ---
Author Organization [facility] Ashley browne [facility] Address [address], 4t [place] [address]- Care Team Providers Care Supervisor Computer Operations Name Role Phone Gaudencio TUCKER, Deonna Montoya Primary Care Physician [id number] Date[facility]s): 10/05/22 - [facility]04[facility] [address], 4th Floor [place], [place] [address] Allergies, Adverse Reactions, Alerts Substance Reaction Severity [...] tablet, 5 Refills, Maintenance, 10/30/22 14:23:00 EDT, [facility], 153, cm, 06/24/22 10:53:00 EDT, Height, [...] 7 Refills, Maintenance, 10/24/22 13:54:00 EDT, Tablet, [facility], Partial fill upon patient request if the prescription is for a schedule IIopioid drug., 153, cm, 06/24/22 10:53:00 EDT, [facility]ney Start Date: 10/24/22 Status: Ordered Lactaid Fast [...] tablet, 4 Refills, Maintenance, 05/15/22 16:27:00 EDT, [facility], 153, cm, 04/28/22 13:14:00 EDT, Height, [...] Reference Physician Member Role: PCP Address: Address: [facility] [place], [place] [facility] Name: Paul MACIAS, Kiley Position: S RN Member Role: Primary Care Nurse Name: Lisa Rodrigues RN Position: S RN Member Role: Primary Care Nurse Name: Elenita Donald RN Position: S RN Member Role: Primary Care Nurse Name: Rica Rosario RN Position: S RN Member Role: Primary Care Nurse Care Team Related Persons Name: VIELKA MILAN Address: [address] Name: GERALDO WILDER Address: [facility] [address] [place] [address]
--- OUTSIDE RECORDS SUMMARY | 2023-09-26 06:00 | XMS_ITS | Continuity of Care Document ---
Author Organization [facility] Brianna [employer] [facility] Address [address], 4t [place] [address]- Care Team Providers Care Prison Officer Name Role Phone Gaudencio TUCKER, Deonna Montoya Primary Care Physician Encounter [facility] Date(s): 01/12/21 - 02/11/21 [facility] Axtell RaúlM[employer] [facility] [address], 4th [address] [place], [place] [address] Allergies, Adverse Reactions, Alerts Substance Reaction [...] 0 Refills, Maintenance, 05/23/19 14:06:00 EDT, Tablet, [facility], 1 tablet By Mouth 2 times a day, 153, cm, 01/01/19 10:27:00 EST, Height, 92.5, kg, 06/04/18 8:24:00 EDT, Dry Weight Start Date: 05/23/19 Status: Ordered CPAP Lift Builder Whole, 07/04/17 9:22:17 EDT, Compound Start Date: 07/04/17 [...] tablet, 5 Refills, Maintenance, 01/12/21 16:53:00 EST, [facility] Start Date: 01/12/21 Status: Ordered pantoprazole [...]
--- OUTSIDE RECORDS SUMMARY | 2023-09-26 06:00 | XMS_ITS | Continuity of Care Document ---
Author Organization [facility] Brianna nki works [facility] Address [address], 4t [place] [address]- Care Team Providers Care Earth Boring Machine Operator Name Role Phone Gaudencio TUCKER, Deonna Montoya Primary Care [id number] Date[facility] 05/27/19 - 06/03/19 [facility] [employer] [address], [address]th [place] [address]- Attending Physician: Lori Cai MD Admitting Physician: Lori Cai MD Referring Physician: Gaudencio [...] 0 Refills, Maintenance, 05/23/19 14:06:00 EDT, Tablet, [facility], 1 tablet By Mouth 2 times a day, 153, cm, 01/01/19 10:27:00 EST, Height, 92.5, kg, 06/04/18 8:24:00 EDT, Dry Weight Start Date: 05/23/19 Status: Ordered CPAP Blanket Maker, 07/04/17 9:22:17 EDT, Compound Start Date: 07/04/17 [...] Refills, Maintenance, 05/27/19 8:49:00 EDT, ER Tablet, [facility], 153, cm, 01/01/19 10:27:00 EST, Height, [...]
--- OUTSIDE RECORDS SUMMARY | 2023-09-26 06:00 | XMS_ITS | Continuity of Care Document ---
Author Organization [facility] Ashley browne [facility] Address [address] [place] [address], 4t [place] [address]- Care Team Providers Care Prorate Clerk Name Role Phone Gaudencio TUCKER, Deonna Montoya Primary Care Physician [facility] [id number] Date(s): 01/12/23 - 02/11/23 [facility] Ashley Chávezs [facility] [address] [facility], 4th [address] [place], [place] [address] Attending Physician: Jayson Monzon Admitting Physician: AdmJayson heredia Referring Physician: AdmtrJasyon Allergies, Adverse Reactions, Alerts Substance Reaction Severity [...] tablet, 5 Refills, Maintenance, 10/30/22 14:23:00 EDT, [facility], 153, cm, 06/24/22 10:53:00 EDT, Height, [...] 7 Refills, Maintenance, 10/24/22 13:54:00 EDT, Tablet, [facility], Partial fill upon patient request if the prescription is for a schedule IIopioid drug., 153, cm, 06/24/22 10:53:00 EDT, Abhinav.Marilee. Start Date: 10/24/22 Status: Ordered Lactaid Fast [...] Physician Member Role: PCP Address: Address: [address] [place] [address]- Name: Kiley Miller RN Position: S RN [...] Team Related Persons Name: VIELKA MILAN Address: [address] [address] Name: GERALDO WILDER Address: [address] [place] [address]
--- OUTSIDE RECORDS SUMMARY | 2023-09-26 06:00 | XMS_ITS | Continuity of Care Document ---
Author Organization [facility] ter Address [address] [place] [id number]- Care Team Providers Care Conventions Assistant Name Role Phone Gaudencio TUCKER, Deonna Montoya Primary Care Physician Encounter [facility] [place] Date(s): 07/20/21 - 07/20/[address] [id number]- Encounter Diagnosis Left ankle pain(Final) - 07/20/21 Discharge Disposition: A-D/C Home Attending Physician: Oc Noble MD Admitting Physician: Oc Noble MD Referring Physician: Not on Staff, Referring MD Allergies, Adverse Reactions, Alerts Substance Reaction Severity Status [facility] Active Medications Abilify 15 mg oral tablet 20 mg, By Mouth, Daily, # 30 tablet, Refills 0, Maintenance, 07/05/17 9:11:09 EDT Start Date: 07/05/17 Status: Ordered Bactrim DS 800 mg-160 mg oral tablet 1 tablet, By Mouth, 2 times a day, # 60 tablet, 0 Refills, Maintenance, 05/23/19 14:06:00 EDT, Tablet, [facility], 1 tablet By Mouth 2 times a day, 153, cm, 01/01/19 10:27:00 EST, Height, 92.5, kg, 06/04/18 8:24:00 EDT, Dry Weight Start Date: 05/23/19 Status: Ordered CPAP Dry Cleaning Supervisor, 07/04/17 9:22:17 EDT, Compound Start Date: 07/04/17 [...] NOT CRUSH OR CHEW, # 30 tablet, 3 Refills, [facility] Start Date: 07/15/21 Status: Ordered pantoprazole 40 mg oral delayed [...] Obstructive sleep apnea(Confirmed) Active Urinary incontinence(Confirmed) Active Results Radiology Reports * Exam Date Time Procedure Performing Provider Status 07/20/21 10:35 AM Tibia/Fibula 2 Views Right Priscilla Tesfaye; Auth (Verified) Notes: (Tibia/Fibula 2 Views Right) Reason For Exam: Trauma RESULT: Tibia/Fibula 2 Views Right Ankle Min 3 Views Left, Tibia/Fibula 2 Views Left, Femur 2 Views Left, Pelvis 1 or 2 Views, Femur 2Views Right, Tibia/Fibula 2 Views Right Hx of Present Illness: L knee lower exremity pain s p fall; Reason: Trauma; Clinical Question(s): Fracture COMPARISON: None. FINDINGS: No acute osseous abnormality. Hip joint and SI joints are unremarkable. Patient is status post bilateral total knee arthroplasty. Postsurgical changes are noted in the surrounding soft tissue. No evidence of hardware failure or loosening on this study. Ligament repair hardware is also noted in the left knee. Moderate bilateral patellofemoral osteoarthritis. No acute fractures of the tibia/fibula bilaterally. Patient is status post internal fixation of thedistal right fibula. No evidence of hardware for prior fracture. The ankle mortise and talar dome are maintained on the left. There is moderate degenerative changesof the left ankle and visualized tarsals/tarsometatarsal articulations are IMPRESSION: No acute osseous abnormality. Degenerative changes and postsurgical changes as mentioned above. I have personally reviewed the images and I agree with this report. WSN: [id number] Ordering Physician: Thor Lea Dictated By: Urbano Reyna DO Dictated Date/Time: 07/20/21 10:55 a Reviewed By: Min Estrada MD, V Signed By: Min Estrada MD, V Signed Date/Time: 07/20/21 11:02 am Transcribed By: BRUNO Transcribed Date/Time: 07/20/21 10:45 am * Exam Date Time Procedure Performing Provider Status 07/20/21 10:35 AM XR Femur 2 Views Right Ayo Tesfaye; Auth (Verified) Notes: (XR Femur 2 Views Right) Reason For Exam: Trauma RESULT: Femur 2 Views Right Ankle Min 3 Views Left, Tibia/Fibula 2 Views Left, Femur 2 Views Left, Pelvis 1 or 2 Views, Femur 2Views Right, Tibia/Fibula 2 Views Right Hx of Present Illness: L knee lower exremity pain s p fall; Reason: Trauma; Clinical Question(s): Fracture COMPARISON: None. FINDINGS: No acute osseous abnormality. Hip joint and SI joints are unremarkable. Patient is status post bilateral total knee arthroplasty. Postsurgical changes are noted in the surrounding soft tissue. No evidence of hardware failure or loosening on this study. Ligament repair hardware is also noted in the left knee. Moderate bilateral patellofemoral osteoarthritis. No acute fractures of the tibia/fibula bilaterally. Patient is status post internal fixation of thedistal right fibula. No evidence of hardware for prior fracture. The ankle mortise and talar dome are maintained on the left. There is moderate degenerative changesof the left ankle and visualized tarsals/tarsometatarsal articulations are IMPRESSION: No acute osseous abnormality. Degenerative changes and postsurgical changes as mentioned above. I have personally reviewed the images and I agree with this report. WSN: [id number] Ordering Physician: Thor Lea Dictated By: Urbano Reyna DO Dictated Date/Time: 07/20/21 10:55 a Reviewed By: Min Estrada MD, V Signed By: Min Estrada MD, V Signed Date/Time: 07/20/21 11:02 am Transcribed By: BRUNO Transcribed Date/Time: 07/20/21 10:45 am * Exam Date Time Procedure Performing Provider Status 07/20/21 10:35 AM Pelvis 1 or 2 Views Lalitha Tesfaye; Auth (Verified) Notes: (Pelvis 1 or 2 Views) Reason For Exam: Trauma RESULT: Pelvis 1 or 2 Views Ankle Min 3 Views Left, Tibia/Fibula 2 Views Left, Femur 2 Views Left, Pelvis 1 or 2 Views, Femur 2Views Right, Tibia/Fibula 2 Views Right Hx of Present Illness: L knee lower exremity pain s p fall; Reason: Trauma; Clinical Question(s): Fracture COMPARISON: None. FINDINGS: No acute osseous abnormality. Hip joint and SI joints are unremarkable. Patient is status post bilateral total knee arthroplasty. Postsurgical changes are noted in the surrounding soft tissue. No evidence of hardware failure or loosening on this study. Ligament repair hardware is also noted in the left knee. Moderate bilateral patellofemoral osteoarthritis. No acute fractures of the tibia/fibula bilaterally. Patient is status post internal fixation of thedistal right fibula. No evidence of hardware for prior fracture. The ankle mortise and talar dome are maintained on the left. There is moderate degenerative changesof the left ankle and visualized tarsals/tarsometatarsal articulations are IMPRESSION: No acute osseous abnormality. Degenerative changes and postsurgical changes as mentioned above. I have personally reviewed the images and I agree with this report. WSN: [id number] Ordering Physician: Thor Lea Dictated By: Urbano Reyna DO Dictated Date/Time: 07/20/21 10:55 a Reviewed By: Min Estrada MD, V Signed By: Min Estrada MD, V Signed Date/Time: 07/20/21 11:02 am Transcribed By: BRUNO Transcribed Date/Time: 07/20/21 10:45 am * Exam Date Time Procedure Performing Provider Status 07/20/21 10:35 AM XR Femur 2 Views Left Leanne Tesfaye; Auth (Verified) Notes: (XR Femur 2 Views Left) Reason For Exam: Trauma RESULT: Femur 2 Views Left Ankle Min 3 Views Left, Tibia/Fibula 2 Views Left, Femur 2 Views Left, Pelvis 1 or 2 Views, Femur 2Views Right, Tibia/Fibula 2 Views Right Hx of Present Illness: L knee lower exremity pain s p fall; Reason: Trauma; Clinical Question(s): Fracture COMPARISON: None. FINDINGS: No acute osseous abnormality. Hip joint and SI joints are unremarkable. Patient is status post bilateral total knee arthroplasty. Postsurgical changes are noted in the surrounding soft tissue. No evidence of hardware failure or loosening on this study. Ligament repair hardware is also noted in the left knee. Moderate bilateral patellofemoral osteoarthritis. No acute fractures of the tibia/fibula bilaterally. Patient is status post internal fixation of thedistal right fibula. No evidence of hardware for prior fracture. The ankle mortise and talar dome are maintained on the left. There is moderate degenerative changesof the left ankle and visualized tarsals/tarsometatarsal articulations are IMPRESSION: No acute osseous abnormality. Degenerative changes and postsurgical changes as mentioned above. I have personally reviewed the images and I agree with this report. WSN: [id number] Ordering Physician: Thor Lea Dictated By: Urbano Reyna DO Dictated Date/Time: 07/20/21 10:55 a Reviewed By: Min Estrada MD, V Signed By: Min Estrada MD, V Signed Date/Time: 07/20/21 11:02 am Transcribed By: BRUNO Transcribed Date/Time: 07/20/21 10:45 am * Exam Date Time Procedure Performing Provider Status 07/20/21 10:35 AM Tibia/Fibula 2 Views Left Priscilla Tesfaye; Auth (Verified) Notes: (Tibia/Fibula 2 Views Left) Reason For Exam: Trauma RESULT: Tibia/Fibula 2 Views Left Ankle Min 3 Views Left, Tibia/Fibula 2 Views Left, Femur 2 Views Left, Pelvis 1 or 2 Views, Femur 2Views Right, Tibia/Fibula 2 Views Right Hx of Present Illness: L knee lower exremity pain s p fall; Reason: Trauma; Clinical Question(s): Fracture COMPARISON: None. FINDINGS: No acute osseous abnormality. Hip joint and SI joints are unremarkable. Patient is status post bilateral total knee arthroplasty. Postsurgical changes are noted in the surrounding soft tissue. No evidence of hardware failure or loosening on this study. Ligament repair hardware is also noted in the left knee. Moderate bilateral patellofemoral osteoarthritis. No acute fractures of the tibia/fibula bilaterally. Patient is status post internal fixation of thedistal right fibula. No evidence of hardware for prior fracture. The ankle mortise and talar dome are maintained on the left. There is moderate degenerative changesof the left ankle and visualized tarsals/tarsometatarsal articulations are IMPRESSION: No acute osseous abnormality. Degenerative changes and postsurgical changes as mentioned above. I have personally reviewed the images and I agree with this report. WSN: [id number] Ordering Physician: Thor Lea Dictated By: Urbano Reyna DO Dictated Date/Time: 07/20/21 10:55 a Reviewed By: Min Estrada MD, V Signed By: Min Estrada MD, V Signed Date/Time: 07/20/21 11:02 am Transcribed By: BRUNO Transcribed Date/Time: 07/20/21 10:45 am * Exam Date Time Procedure Performing Provider Status 07/20/21 10:35 AM Ankle Min 3 Views Left Ayo Tesfaye; Auth (Verified) Notes: (Ankle Min 3 Views Left) Reason For Exam: Trauma RESULT: Ankle Min 3 Views Left Ankle Min 3 Views Left, Tibia/Fibula 2 Views Left, Femur 2 Views Left, Pelvis 1 or 2 Views, Femur 2Views Right, Tibia/Fibula 2 Views Right Hx of Present Illness: L knee lower exremity pain s p fall; Reason: Trauma; Clinical Question(s): Fracture COMPARISON: None. FINDINGS: No acute osseous abnormality. Hip joint and SI joints are unremarkable. Patient is status post bilateral total knee arthroplasty. Postsurgical changes are noted in the surrounding soft tissue. No evidence of hardware failure or loosening on this study. Ligament repair hardware is also noted in the left knee. Moderate bilateral patellofemoral osteoarthritis. No acute fractures of the tibia/fibula bilaterally. Patient is status post internal fixation of thedistal right fibula. No evidence of hardware for prior fracture. The ankle mortise and talar dome are maintained on the left. There is moderate degenerative changesof the left ankle and visualized tarsals/tarsometatarsal articulations are IMPRESSION: No acute osseous abnormality. Degenerative changes and postsurgical changes as mentioned above. I have personally reviewed the images and I agree with this report. WSN: [id number] Ordering Physician: Thor Lea Dictated By: Urbano Reyna DO Dictated Date/Time: 07/20/21 10:55 a Reviewed By: Min Estrada MD, V Signed By: Min Estrada MD, V Signed Date/Time: 07/20/21 11:02 am Transcribed By: BRUNO Transcribed Date/Time: 07/20/21 10:45 am Vital Signs Most recent to oldest [Reference Range]: 1 2 3 Oxygen Saturation [94-100 %] 100 % (07/20/21 7:55 AM) Pulse Rate [55-90 bpm] 67 bpm (07/20/21 1:44 PM) 62 bpm (07/20/21 11:38 AM) 73 bpm (07/20/21 7:55 AM) Blood Pressure [90-138/55-84 mm Hg] 114/38mm Hg (07/20/21 1:44 PM) 105/42mm Hg (07/20/21 11:38 AM) 111/84mm Hg (07/20/21 7:55 AM) Respiratory Rate [16-30 br/min] 18 br/min (07/20/21 1:44 PM) 18 br/min (07/20/21 11:38 AM) 18 br/min (07/20/21 7:55 AM) Temperature [96.8-100.4 DegF] 97.7 DegF (07/20/21 1:44 PM) 97.5 DegF (07/20/21 11:38 AM) 97.9 DegF (07/20/21 7:55 AM) Mode of Delivery (Oxygen) Room air (07/20/21 7:55 AM) Blood pressure sites Arm, left (07/20/21 1:44 PM) Arm, left (07/20/21 11:38 AM) Arm, right (07/20/21 7:55 AM) Temperature Route Oral (07/20/21 1:44 PM) Oral (07/20/21 11:38 AM) Oral (07/20/21 7:55 AM) Social History Social History Type Response Smoking Status Former smoker entered on: 05/01/16 Sex
--- OUTSIDE RECORDS SUMMARY | 2023-09-26 06:00 | XMS_ITS | Continuity of Care Document ---
Author Organization [facility] Address [address] [place] [id number]- Care Team Providers Care Publishing Director Name Role Phone Gaudencio TUCKER, Deonna Montoya Primary Care Physician Encounter [facility] Date(s): 07/09/22 - 07/09/[address] [address]- Encounter Diagnosis Weakness(Final) - 07/09/22 Discharge Disposition: A-D/C Home Attending Physician: Robert Gil MD Admitting Physician: Robert iGl MD Referring Physician: Not on Staff, Referring MD Allergies, Adverse Reactions, Alerts Substance Reaction Severity Status Milk Products mayonnaise diarrhea Active Medications Abilify 15 mg oral tablet 20 mg, By Mouth, Daily, # 30 tablet, Refills 0, Maintenance, 07/05/17 9:11:09 EDT Start Date: 07/05/17 Status: Ordered Fesoterodine 4 mg oral tablet, extended release 1 tablet, By Mouth, Daily at bedtime, # 30 tablet, 5 Refills, Maintenance, 05/26/22 8:29:00 EDT, [facility], 153, cm, 04/28/22 13:14:00 EDT, Height, [...] tablet, 4 Refills, Maintenance, 05/15/22 16:27:00 EDT, [facility], 153, cm, 04/28/22 13:14:00 EDT, Height, [...] Exam Date Time Procedure Performing Provider Status 07/09/22 11:[address] Abd/Pelvis W/ IV Contrast Only [place] n , Neema; Auth (Verified) Notes: (CT Abd/Pelvis W/ IV Contrast Only) Reason For Exam: LLQ abdominal pain;Other: RESULT: CT Abd/Pelvis W/ IV Contrast Only CT Abd/Pelvis W/ IV Contrast Only Hx of Present Illness: Pt from custodial, poor historian, custodial staff reported to EMS pt is new at facility and seemed to have increased weakness today, normally ambulates with walker and was unable to stand today, pt initially stated pain to L shoulder and buttocks; Reason: LLQ abdominal pain; Clinical Question(s): Diverticulitis; TECHNIQUE: Spiral CT through the abdomen and pelvis with IV contrast formatted in 3 planes. 100 cc of Omnipaque 300 was administered intravenously. This study was performed without oral contrast. Weight-based protocol using automatic tube modulation was used to optimize exposure parameters. CTDIvolBody: 19.30 mGy, DLP Body: 1080 mGy*cm. COMPARISON: None on record at the time of interpretation. FINDINGS: LUNG BASES: Included portions appear clear. LIVER: Unremarkable. GALLBLADDER: Status post cholecystectomy. BILE DUCTS: No intra or extra hepatic bile duct dilation. SPLEEN: Normal in size and attenuation. PANCREAS: Atrophic. ADRENAL GLANDS: Unremarkable. KIDNEYS and URETERS: No calculi or hydronephrosis. No suspicious masses. BLADDER: Unremarkable. REPRODUCTIVE ORGANS: Unremarkable. STOMACH, SMALL AND LARGE BOWEL: No obstruction or inflammation. APPENDIX: Normal-appearing. PERITONEUM, OMENTUM AND MESENTERY: No ascites or pneumoperitoneum. No omental or mesenteric lesions. VASCULATURE: Normal. No aneurysm. No evidence of venous thrombosis. LYMPH NODES: None enlarged. ABDOMINAL WALL: Unremarkable. BONES: No acute abnormalities, no focal osseous lesions. IMPRESSION: No evidence of an acute process. WSN: [id number] Ordering Physician: Dori Anderson Dictated By: Andrea Álvarez MD Dictated Date/Time: 07/09/22 12:28 p Reviewed By: Andrea Álvarez MD Signed By: Andrea Álvarez MD Signed Date/Time: 07/09/22 12:28 pm Transcribed By: BRUNO Transcribed Date/Time: 07/09/22 12:07 pm * Exam Date Time Procedure Performing Provider Status 07/09/22 11:[address] Cervical Spine W/O Contrast [place] , Neema; Auth (Verified) Notes: (CT Cervical Spine W/O Contrast) Reason For Exam: Neck trauma, dangerous injury mechanism;Other: RESULT: CT Cervical Spine W/O Contrast CT Head/Brain W/O Contrast, CT Cervical Spine W/O Contrast INDICATION: Pt from custodial, poor historian, custodial staff reported to EMS pt is new at facility and seemed to have increased weakness today, normally ambulates with walker and was unable to stand today; Reason: Trauma; Clinical Question(s): Hematoma TECHNIQUE: Noncontrast head CT using axial technique was reconstructed in axial and coronal planes.Noncontrast spiral CT through the cervical spine was formatted in 3 planes. Automatic tube modulation was used for the cervical spine and iterative dose reconstruction was used for both the head and cervical spine to optimize scan parameters and image quality. CTDIvol Body: 22.00 mGy, DLP Body: 605 mGy*cm. CTDIvol Head: 47.00 mGy, DLP Head: 773 mGy*cm. (accession [id number]), CTDIvol Body: 22.00 mGy, DLP Body: 605 mGy*cm. CTDIvol Head: 47.00 mGy, DLP Head: 773 mGy*cm. (accession [id number]) COMPARISON: 06/07/2022 FINDINGS: Information Assurance View Findings, Lines and Tubes: None. BRAIN [...] No fractures or suspicious bony lesions. Mucosal thickening of the maxillary sinuses. Other visualized paranasal sinuses and mastoid air cells are clear. Visualized orbits and globes are intact. The extracranial soft tissues are unremarkable. CERVICAL SPINE: No fracture. No acute osseous abnormalities. There is straightening of the cervical spine. No locked or perched facet. Mild multilevel degenerative disc space narrowing and end plate irregularity. OTHER BONES: No acute abnormality. CERVICAL SOFT TISSUES AND LUNG APICES: Normal soft tissues. Visualized lung apices are clear. IMPRESSION: No acute abnormality of the head or cervical spine. I have personally reviewed the images and I agree with this report. WSN: [id number] Ordering Physician: Dori Anderson Dictated By: Rosenda Islas DO Dictated Date/Time: 07/09/22 11:41 a Reviewed By: Antonia Cook MD Signed By: Antonia Cook MD Signed Date/Time: 07/09/22 11:46 am Transcribed By: BRUNO Transcribed Date/Time: 07/09/22 11:33 am * Exam Date Time Procedure Performing Provider Status 07/09/22 11:[address] Head/Brain W/O Contrast Colon , Tat jasvir; Auth (Verified) Notes: (CT Head/Brain W/O Contrast) Reason For Exam: Trauma RESULT: CT Head/Brain W/O Contrast CT Head/Brain W/O Contrast, CT Cervical Spine W/O Contrast INDICATION: Pt from custodial, poor historian, custodial staff reported to EMS pt is new at facility and seemed to have increased weakness today, normally ambulates with walker and was unable to stand today; Reason: Trauma; Clinical Question(s): Hematoma TECHNIQUE: Noncontrast head CT using axial technique was reconstructed in axial and coronal planes.Noncontrast spiral CT through the cervical spine was formatted in 3 planes. Automatic tube modulation was used for the cervical spine and iterative dose reconstruction was used for both the head and cervical spine to optimize scan parameters and image quality. CTDIvol Body: 22.00 mGy, DLP Body: 605 mGy*cm. CTDIvol Head: 47.00 mGy, DLP Head: 773 mGy*cm. (accession [id number]), CTDIvol Body: 22.00 mGy, DLP Body: 605 mGy*cm. CTDIvol Head: 47.00 mGy, DLP Head: 773 mGy*cm. (accession [id number]) COMPARISON: 06/07/2022 FINDINGS: Information Assurance View Findings, Lines and Tubes: None. BRAIN [...] No fractures or suspicious bony lesions. Mucosal thickening of the maxillary sinuses. Other visualized paranasal sinuses and mastoid air cells are clear. Visualized orbits and globes are intact. The extracranial soft tissues are unremarkable. CERVICAL SPINE: No fracture. No acute osseous abnormalities. There is straightening of the cervical spine. No locked or perched facet. Mild multilevel degenerative disc space narrowing and end plate irregularity. OTHER BONES: No acute abnormality. CERVICAL SOFT TISSUES AND LUNG APICES: Normal soft tissues. Visualized lung apices are clear. IMPRESSION: No acute abnormality of the head or cervical spine. I have personally reviewed the images and I agree with this report. WSN: [id number] Ordering Physician: Dori Anderson Dictated By: Rosenda Islas DO Dictated Date/Time: 07/09/22 11:41 a Reviewed By: Antonia Cook MD Signed By: Antonia Cook MD Signed Date/Time: 07/09/22 11:46 am Transcribed By: BRUNO Transcribed Date/Time: 07/09/22 11:33 am * Exam Date Time Procedure Performing Provider Status 07/09/22 8:10 AM Chest 2 Views Frontal and Lat Ilda Kim; Kiara (Verified) Notes: (Chest 2 Views Frontal and Lat) Reason For Exam: Chest Pain;Other: RESULT: Chest 2 Views Frontal and Lat Chest 2 Views Frontal and Lat Hx of Present Illness: Pt from custodial, poor historian, custodial staff reported to EMS pt is new at facility and seemed to have increased weakness today, normally ambulates with walker and was unable to stand today, pt initially stated pain to L shoulder and buttocks; Reason: Other:; Chest Pain; Clinical Question(s): CHF COMPARISON: 06/15/2018. FINDINGS: LINES AND TUBES: None. LUNGS AND PLEURA: Low lung volumes. Mild left basilar atelectasis. Normal pulmonary vascularity. No pleural effusion. No pneumothorax. HEART, MEDIASTINUM AND NANI: Low lung volumes which accentuates the cardiomediastinal silhouette. BONES AND SOFT TISSUES: No acute abnormality. Multilevel degenerative changes of the visualized spine. IMPRESSION: Low lung volumes which accentuates the cardiomediastinal silhouette. No acute abnormality. WSN: [id number] Ordering Physician: Dori Anderson Dictated By: Antonia Cook MD Dictated Date/Time: 07/09/22 8:25 am Reviewed By: Antonia Cook MD Signed By: Antonia Cook MD Signed Date/Time: 07/09/22 8:25 am Transcribed By: BRUNO Transcribed Date/Time: 07/09/22 8:22 am * Exam Date Time Procedure Performing Provider Status 07/09/22 8:10 AM Shoulder Min 2 Views Left Meaghan Kim dashcammy; Auth (Verified) Notes: (Shoulder Min 2 Views Left) Reason For Exam: with Pain;Trauma RESULT: Shoulder Min 2 Views Left Shoulder Min 2 Views Left, 3 views Hx of Present Illness: Pt from custodial, poor historian, custodial staff reported to EMS pt is new at facility and seemed to have increased weakness today, normally ambulates with walker and was unable to stand today, pt initially stated pain to L shoulder and buttocks; Reason: Trauma; with Pain; Clinical Question(s): Fracture COMPARISON: None. FINDINGS: No fracture or dislocation. No arthritic change of the glenohumeral joint. Moderate degenerative changes of the AC joint. The portion of the clavicle included on the exam is intact. No calcification of the rotator cuff. IMPRESSION: No acute fracture or dislocation. WSN: [id number] Ordering Physician: Dori Anderson Dictated By: Ania Baker MD Dictated Date/Time: 07/09/22 8:18 am Reviewed By: Ania Baker MD Signed By: Ania Baker MD Signed Date/Time: 07/09/22 8:18 am Transcribed By: BRUNO Transcribed Date/Time: 07/09/22 8:18 am Vital Signs Most recent to oldest [Reference Range]: 1 2 3 Oxygen Saturation [94-100 %] 100 % (07/09/22 2:55 PM) 100 % (07/09/22 11:56 AM) 100 % (07/09/22 10:12 AM) Pulse Rate [55-90 bpm] 78 bpm (07/09/22 2:55 PM) 73 bpm (07/09/22 11:56 AM) 72 bpm (07/09/22 10:12 AM) Blood Pressure [90-138/55-84 mm Hg] 105/53mm Hg (07/09/22 2:55 PM) 120/94mm Hg (07/09/22 11:56 AM) 118/63mm Hg (07/09/22 10:12 AM) Respiratory Rate [16-30 br/min] 14 br/min *L* (07/09/22 2:55 PM) 12 br/min *L* (07/09/22 11:56 AM) 10 br/min *L* (07/09/22 10:12 AM) Temperature [96.8-100.4 DegF] 97.7 DegF (07/09/22 7:37 AM) Mode of Delivery (Oxygen) Room air (07/09/22 2:55 PM) Room air (07/09/22 11:56 AM) Room air (07/09/22 10:12 AM) Blood pressure sites Arm, right (07/09/22 2:55 PM) Arm, right (07/09/22 11:56 AM) Arm, left (07/09/22 10:12 AM) Temperature Route Oral (07/09/22 7:37 AM) Social History Social History Type Response Smoking Status Former smoker entered on: 05/01/16 Sex XR Shoulder - left GE 2 Views * [facility] , CIS S: TRANSCRIBE Ania Baker MD: VERIFY Event Display: Result: Authored Date: Shoulder Min 2 Views Left, 3 views Hx of Present Illness: Pt from custodial, poor historian, custodial staff reported to EMS pt is new at facility and seemed to have increased weakness today, normally ambulates with walker and was unable to stand today, pt initially stated pain to L shoulder and buttocks; Reason: Trauma; with Pain; Clinical Question(s): Fracture COMPARISON: None. FINDINGS: No fracture or dislocation. No arthritic change of the glenohumeral joint. Moderate degenerative changes of the AC joint. The portion of the clavicle included on the exam is intact. No calcification of the rotator cuff. IMPRESSION: No acute fracture or dislocation. WSN: [id number] Ordering Physician: Dori Anderson Dictated By: Ania Baker MD Dictated Date/Time: 07/09/22 8:18 am Reviewed By: Aina Baker MD Signed By: Ania Baker MD Signed Date/Time: 07/09/22 8:18 am Transcribed By: BRUNO Transcribed Date/Time: 07/09/22 8:18 am Laboratory * [facility]HAAD[facility]oweranthony , CIS S: TRANSCRIAntonia Buchanan MD: VERIFY Event Display: Result: Authored Date: [id number] Chest 2 Views Frontal and Lat Hx of Present Illness: Pt from custodial, poor historian, custodial staff reported to EMS pt is new at facility and seemed to have increased weakness today, normally ambulates with walker and was unable to stand today, pt initially stated pain to L shoulder and buttocks; Reason: Other:; Chest Pain; Clinical Question(s): CHF COMPARISON: 06/15/2018. FINDINGS: LINES AND TUBES: None. LUNGS AND PLEURA: Low lung volumes. Mild left basilar atelectasis. Normal pulmonary vascularity. No pleural effusion. No pneumothorax. HEART, MEDIASTINUM AND NANI: Low lung volumes which accentuates the cardiomediastinal silhouette. BONES AND SOFT TISSUES: No acute abnormality. Multilevel degenerative changes of the visualized spine. IMPRESSION: Low lung volumes which accentuates the cardiomediastinal silhouette. No acute abnormality. WSN: [id number] Ordering Physician: Dori Anderson Dictated By: Antonia Cook MD Dictated Date/Time: 07/09/22 8:25 am Reviewed By: Antonia Cook MD Signed By: Antonia Cook MD Signed Date/Time: 07/09/22 8:25 am Transcribed By: BRUNO Transcribed Date/Time: 07/09/22 8:[address] Cervical spine WO contrast * [facility] , CIS S: TRANSCRIBE Antonia Cook MD: VERIFY Rosenda Islas DO F: SIGN Event Display: Result: Authored Date: [id number] CT Head/Brain W/O Contrast, CT Cervical Spine W/O Contrast INDICATION: Pt from custodial, [facility], custodial staff reported to EMS pt is new at facility and seemed to have increased weakness today, normally ambulates with walker and was unable to stand today; Reason: Trauma; Clinical Question(s): Hematoma TECHNIQUE: Noncontrast head CT using axial technique was reconstructed in axial and coronal planes.Noncontrast spiral CT through the cervical spine was formatted in 3 planes. Automatic tube modulation was used for the cervical spine and iterative dose reconstruction was used for both the head and cervical spine to optimize scan parameters and image quality. CTDIvol Body: 22.00 mGy, DLP Body: 605 mGy*cm. CTDIvol Head: 47.00 mGy, DLP Head: 773 mGy*cm. (accession [id number]), CTDIvol Body: 22.00 mGy, DLP Body: 605 mGy*cm. CTDIvol Head: 47.00 mGy, DLP Head: 773 mGy*cm. (accession [id number]) COMPARISON: 06/07/2022 FINDINGS: Information Assurance View Findings, Lines and Tubes: None. BRAIN [...] No fractures or suspicious bony lesions. Mucosal thickening of the maxillary sinuses. Other visualized paranasal sinuses and mastoid air cells are clear. Visualized orbits and globes are intact. The extracranial soft tissues are unremarkable. CERVICAL SPINE: No fracture. No acute osseous abnormalities. There is straightening of the cervical spine. No locked or perched facet. Mild multilevel degenerative disc space narrowing and end plate irregularity. OTHER BONES: No acute abnormality. CERVICAL SOFT TISSUES AND LUNG APICES: Normal soft tissues. Visualized lung apices are clear. IMPRESSION: No acute abnormality of the head or cervical spine. I have personally reviewed the images and I agree with this report. WSN: [id number] Ordering Physician: Dori Anderson Dictated By: Rosenda Islas DO Dictated Date/Time: 07/09/22 11:41 a Reviewed By: Antonia Cook MD Signed By: Antonia Cook MD Signed Date/Time: 07/09/22 11:46 am Transcribed By: BRUNO Transcribed Date/Time: 07/09/22 11:[address] Head WO contrast * [facility] , CIS S: TRANSCRIBE Antonia Cook MD: VERIFY Rosenda Islas DO: SIGN Event Display: Result: Authored Date: [id number] CT Head/Brain W/O Contrast, CT Cervical Spine W/O Contrast INDICATION: Pt from custodial, [employer] historian, custodial staff reported to EMS pt is new at facility and seemed to have increased weakness today, normally ambulates with walker and was unable to stand today; Reason: Trauma; Clinical Question(s): Hematoma TECHNIQUE: Noncontrast head CT using axial technique was reconstructed in axial and coronal planes.Noncontrast spiral CT through the cervical spine was formatted in 3 planes. Automatic tube modulation was used for the cervical spine and iterative dose reconstruction was used for both the head and cervical spine to optimize scan parameters and image quality. CTDIvol Body: 22.00 mGy, DLP Body: 605 mGy*cm. CTDIvol Head: 47.00 mGy, DLP Head: 773 mGy*cm. (accession [id number]), CTDIvol Body: 22.00 mGy, DLP Body: 605 mGy*cm. CTDIvol Head: 47.00 mGy, DLP Head: 773 mGy*cm. (accession [id number]) COMPARISON: 06/07/2022 FINDINGS: Information Assurance View Findings, Lines and Tubes: None. BRAIN [...] No fractures or suspicious bony lesions. Mucosal thickening of the maxillary sinuses. Other visualized paranasal sinuses and mastoid air cells are clear. Visualized orbits and globes are intact. The extracranial soft tissues are unremarkable. CERVICAL SPINE: No fracture. No acute osseous abnormalities. There is straightening of the cervical spine. No locked or perched facet. Mild multilevel degenerative disc space narrowing and end plate irregularity. OTHER BONES: No acute abnormality. CERVICAL SOFT TISSUES AND LUNG APICES: Normal soft tissues. Visualized lung apices are clear. IMPRESSION: No acute abnormality of the head or cervical spine. I have personally reviewed the images and I agree with this report. WSN: [id number] Ordering Physician: Dori Anderson Dictated By: Valentinprashanthernandonegrita Rosenda CLAY Dictated Date/Time: 07/09/22 11:41 a Reviewed By: Antonia Cook MD Signed By: Antonia Cook MD Signed Date/Time: 07/09/22 11:46 am Transcribed By: BRUNO Transcribed Date/Time: 07/09/22 11:[address] Abdomen and Pelvis W contrast IV * [facility] , CIS S: TRANSCRIBE Andrea Álvarez MD: VERIFY Event Display: Result: Authored Date: [id number] CT Abd/Pelvis W/ IV Contrast Only Hx of Present Illness: Pt from custodial, poor historian, custodial staff reported to EMS pt is new at facility and seemed to have increased weakness today, normally ambulates with walker and was unable to stand today, pt initially stated pain to L shoulder and buttocks; Reason: LLQ abdominal pain; Clinical Question(s): Diverticulitis; TECHNIQUE: Spiral CT through the abdomen and pelvis with IV contrast formatted in 3 planes. 100 cc of Omnipaque 300 was administered intravenously. This study was performed without oral contrast. Weight-based protocol using automatic tube modulation was used to optimize exposure parameters. CTDIvolBody: 19.30 mGy, DLP Body: 1080 mGy*cm. COMPARISON: None on record at the time of interpretation. FINDINGS: LUNG BASES: Included portions appear clear. LIVER: Unremarkable. GALLBLADDER: Status post cholecystectomy. BILE DUCTS: No intra or extra hepatic bile duct dilation. SPLEEN: Normal in size and attenuation. PANCREAS: Atrophic. ADRENAL GLANDS: Unremarkable. KIDNEYS and URETERS: No calculi or hydronephrosis. No suspicious masses. BLADDER: Unremarkable. REPRODUCTIVE ORGANS: Unremarkable. STOMACH, SMALL AND LARGE BOWEL: No obstruction or inflammation. APPENDIX: Normal-appearing. PERITONEUM, OMENTUM AND MESENTERY: No ascites or pneumoperitoneum. No omental or mesenteric lesions. VASCULATURE: Normal. No aneurysm. No evidence of venous thrombosis. LYMPH NODES: None enlarged. ABDOMINAL WALL: Unremarkable. BONES: No acute abnormalities, no focal osseous lesions. IMPRESSION: No evidence of an acute process. WSN: [id number] Ordering Physician: Dori Anderson Dictated By: Andrea Álvarez MD Dictated Date/Time: 06/04/23 12:28 p Reviewed By: Andrea Álvarez MD Signed By: Andrea Álvarez MD Signed Date/Time: 07/09/22 12:28 pm Transcribed By: BRUNO Transcribed Date/Time: 07/09/22 12:07 pm Patient Care team information Care Team Personnel Name: Cleo Riggs RN Position: [facility] RN Member Role: Primary Care Nurse Name: Amauri Mathias RN Position: [facility] RN Member Role: Primary Care Nurse Name: Deonna Ratliff MD Position: Reference Physician Member Role: PCP Address: Address: [facility] [place], [place] - Name: Kiley Miller RN Position: [facility] RN Member Role: Primary Care Nurse Name: Lisa Rodrigues RN Position: [facility] RN Member Role: Primary Care Nurse Name: Elenita Donald RN Position: [facility] RN Member Role: Primary Care Nurse Name: Rica Rosario RN Position: [facility] RN Member Role: Primary Care Nurse Name: Yumi Chandler Position: [facility] ED RN W/OE and Tasks Member Role: Patient Care Provider Name: Dori Anderson DO Position: [facility] Resident Member Role: ED Resident Address: Address: [address] [place] [id number]- Name: Robert Gil MD Position: [facility] ED Medicine MD Member Role: Admitting Physician Address: Address: [address] [place] [address]- Name: Kiley Pineda RN Position: [facility] ED RN W/OE and Tasks Member Role: Patient Care Provider Care Team Related Persons Name: KAYLI VIELKA Address: [address] Name: GERALDO WILDER Address: [address] [place] [address]
--- OUTSIDE RECORDS SUMMARY | 2023-09-26 06:00 | XMS_ITS | Continuity of Care Document ---
Author Organization [facility] Address [address], [address] [place] [address]- Care Team Providers Care Brown Sourer Name Role Phone Gaudencio TUCKER, Deonna Montoya Primary Care Physician Encounter [facility] Date(s): 11/10/21 - 01/11/22 [facility] [address] [place], [place] [address] Attending Physician: oLri Cai MD Admitting Physician: Lori Cai MD [...] 0 Refills, Maintenance, 05/23/19 14:06:00 EDT, Tablet, [facility], 1 tablet By Mouth 2 times a day, 153, cm, 01/01/19 10:27:00 EST, Height, 92.5, kg, 06/04/18 8:24:00 EDT, Dry Weight Start Date: 05/23/19 Status: Ordered CPAP Night Worker, 07/04/17 9:22:17 EDT, Compound Start Date: 07/04/17 [...] tablet, 2 Refills, Maintenance, 11/18/21 11:11:00 EDT, [facility], 153, cm, 07/16/21 10:56:00 EDT, Height, [...] Refills, Maintenance, 11/09/21 8:28:00 EDT, ER Tablet, [facility], Partial fill upon patient request if the prescription is for a schedule II opioid drug., 153, cm, 07/16/21 10:56:00 EDT, Hechristine... Start Date: 11/09/21 Status: Ordered trospium 60 mg oral capsule, extended release 1 capsule = 60 mg, By Mouth, Daily in AM, # 30 capsule, 6 Refills, Maintenance, 11/04/21 12:21:00 EDT, CR Capsule, [facility], Partial fill upon patient request if [...] Reference Physician Member Role: PCP Address: Address: [facility] [place] [address]- Name: Kiley Miller RN Position: S RN Member Role: Primary Care Nurse Name: Lisa Rodrigues RN Position: S RN Member Role: Primary Care Nurse Name: Elenita Donald RN Position: S RN Member Role: Primary Care Nurse Name: Rica Rosario RN Position: S RN Member Role: Primary Care Nurse Care Team Related Persons Name: VIELKA MILAN Address: home [address] [place] [address] Name: GERALDO WILDER Address: home [address] [place] [address]
--- OUTSIDE RECORDS SUMMARY | 2023-09-26 06:00 | XMS_ITS | Continuity of Care Document ---
Author Organization [facility] Address [address] [place] [address]- Care Team Providers Care Surfacer Name Role Phone Gaudencio TUCKER, Deonna Montoya Primary Care Physician Encounter [facility] Date(s): 06/24/22 - 06/24/[address] [address]- Encounter Diagnosis Fall(Final) - 06/24/22 Discharge Disposition: A-D/C Home Attending Physician: Maegan TUCKER, Leonel Coronel Admitting Physician: Maegan TUCKER, Leonel Coronel Referring Physician: Not on Staff, Referring MD [...] tablet, 5 Refills, Maintenance, 05/26/22 8:29:00 EDT, [facility], 153, cm, 04/28/22 13:14:00 EDT, Height, [...] tablet, 4 Refills, Maintenance, 05/15/22 16:27:00 EDT, [facility], 153, cm, 04/28/22 13:14:00 EDT, Height, [...] Exam Date Time Procedure Performing Provider Status 06/24/22 11:17 AM Knee 1 or 2 Views Left Vianca Nieto; Auth (Verified) Notes: (Knee 1 or 2 Views Left) Reason For Exam: Pain RESULT: Knee 1 or 2 Views Left Knee 1 or 2 Views Left, 2 views Hx of Present Illness: fall at home hardwood floor, slipped with socks on, off balance, did not have cane with her. Pt c o left knee and left wrist. Pt c o left foot going numb ; Reason: Pain; Clinical Question(s): Fracture COMPARISON: Tibia and fibular radiograph 07/20/2021.. FINDINGS: Patient is status post total knee arthroscopy and patellar resurfacing. No periprosthetic fracture No evidence of hardware loosening. Prominent patellar tendon enthesophyte. Small suprapatellar effusion. IMPRESSION: 1. No radiographic evidence of an acute osseous abnormality. 2. No evidence of hardware loosening or malfunction. WSN: [id number] Ordering Physician: Leonel Issa Dictated By: Lorenzo Engle MD Dictated Date/Time: 06/24/22 12:05 p Reviewed By: Lorenzo Engle MD Signed By: Lorenzo Engle MD Signed Date/Time: 06/24/22 12:05 pm Transcribed By: BRUNO Transcribed Date/Time: 06/24/22 11:58 am * Exam Date Time Procedure Performing Provider Status 06/24/22 11:17 AM Forearm 2 Views Left Gerson , Vianca; A ut (Verified) Notes: (Forearm 2 Views Left) Reason For Exam: Pain RESULT: Forearm 2 Views Left Forearm 2 Views Left Hx of Present Illness: fall at home hardwood floor, slipped with socks on, off balance, did not have cane with her. Pt c o left knee and left wrist. Pt c o left foot going numb ; Reason: Pain; Clinical Question(s): Fracture COMPARISON: None available. FINDINGS: No fractures or bone lesions. Mild degenerative joint space narrowing of the radiocarpal joint. There is also degenerative joint space narrowing sclerosis of the intercarpal joints. Proximal elbow joint is intact. Normal soft tissues. IMPRESSION: No radiographic evidence of an acute osseous abnormality. WSN: [id number] Ordering Physician: Leonel Issa Dictated By: Lorenzo Engle MD Dictated Date/Time: 06/24/22 11:58 a Reviewed By: Lorenzo Engle MD Signed By: Lorenzo Engle MD Signed Date/Time: 06/24/22 11:58 am Transcribed By: BRUNO Transcribed Date/Time: 06/24/22 11:56 am Vital Signs Most recent to oldest [Reference Range]: 1 2 Height 153 cm (06/24/22 10:53 AM) Weight 94.0 kg (06/24/22 10:53 AM) Oxygen Saturation [94-100 %] 97 % (5/20/23 1:05 PM) 100 % (06/24/22 10:53 AM) Pulse Rate [55-90 bpm] 72 bpm (06/24/22 1:05 PM) 86 bpm (06/24/22 10:53 AM) Blood Pressure [90-138/55-84 mm Hg] 113/ 46mm Hg (06/24/22 1:05 PM) 97/63mm Hg (06/24/22 10:53 AM) Respiratory Rate [16-30 br/min] 16 br/mi n (06/24/22 1:05 PM) 18 br/min (06/24/22 10:53 AM) Temperature [96.8-100.4 DegF] 97.8 DegF (06/24/22 1:05 PM) 97.1 DegF (06/24/22 10:53 AM) Mode of Delivery (Oxygen) Room air (06/24/22 1:05 PM) Room air (06/24/22 10:53 AM) Blood pressure sites Arm, right (06/24/22 1:05 PM) Arm, left (06/24/22 10:53 AM) Temperature Route Oral (06/24/22 1:05 PM) Temporal (06/24/22 10:53 AM) Dry Weight 94.0 kg (06/24/22 10:53 AM) Weight Obtained Via Standing scale (06/24/22 10:53 AM) Dry Weight Obtained Via Standing scale (06/24/22 10:53 AM) Social History Social History Type Response Smoking Status Former smoker entered on: 05/01/16 Sex Note * Maegan TUCKER, Leonel Coronel: PERFORM Event Display: Patient Education Leaflets Authored Date: [id number] Knee Sprain ?? [id number] Knee Sprain A sprain is an injury to the ligaments or capsule that holds a joint together. There are no broken bones. Most sprains take 3 to 6 weeks to heal. If it's a severe sprain where the ligament is completely torn, it can take months to recover. Most knee sprains are treated with a splint, knee immobilizer brace, or elastic wrap for support. Severe sprains may rarely require surgery. Home care ??? Stay off the injured leg as much as possible until you can walk on it without pain. If you have a lot of pain with walking, crutches or a walker may be prescribed. (These can be rented or purchased at many pharmacies and surgical or orthopedic supply stores). Follow your healthcare provider's advice about when to begin putting weight on that leg. ??? Keep your leg raised (elevated) to reduce pain and swelling. When sleeping, place a pillow under the injured leg. When sitting, support the injured leg so it's above heart level. This is very important during the first 48 hours. ???Apply an ice pack over the injured area for 15 to 20 minutes every??2 to 3 ??hours. You should do this for??the first??24 to 48 hours.??To make an ice pack, put ice cubes in a plastic bag that seals at the top. Wrap the bag in a thin towel. Continue to use ice packs to ease pain and swelling as needed. As the ice melts, be careful to avoid getting your wrap, splint, or cast wet. After 48 to 72 hours or as directed by your healthcare provider, apply heat??(warm shower or??warm bath)??for 15 to 20 minutes several times a day, or alternate ice and heat.??You can place the ice pack directly over the splint. If you have to wear a rwan-ttv-ymsr??knee brace, you can open it to apply the ice pack, or heat, directly to the knee. Never put ice directly on the skin. Always wrap the ice in a towel orother type of cloth. ??? You may use??ulvb-wmr-fkiyajk pain medicine??to control pain, unless another pain medicine was prescribed. If you have chronic liver or kidney disease, ever had a stomach ulcer or gastrointestinal bleeding, or take a blood thinner, talk with your healthcare provider before??using these medicines. ??? If you were given a splint, keep it completely dry at all times. Bathe with your splint out of the water, protected with??2 large plastic bags, sealed with rubber bands or tape at the top end. If a fiberglass splint gets wet, you can dry it with a hairspring truer set to cool. If you have a??rmai-tny-obcy??knee brace, you can remove this to bathe, unless told otherwise. ?? Follow-up care Follow up with your doctor, or as advised. Any X-rays you had today don???t show any broken bones, breaks, or fractures. Sometimes fractures don???t show up on the first X-ray. Bruises and sprains can sometimes hurt as much as a fracture. These injuries can take time to heal completely. If your symptoms don???t improve or they get worse, talk with your doctor. You may need a repeat X- ray.??If X-rays were taken, you will be told of any new findings that may affect your care. ?? Call 911 Call 911 if you have: ?Shortness of breath ?Chest pain ?? When to get medical advice Call your healthcare provider right away??if any of these occur: ??? The??splint??or knee immobilizer??brace??becomes wet or soft ??? The fiberglass cast or splint stays wet for more than 24 hours ??? Pain or swelling get worse ??? The injured leg??or??toes become cold, blue, numb, or tingly ?? Last Reviewed Date: 2021 ?? 2182-1933 [employer]. All rights reserved. This information is not intended as a substitute for professional medical care. Always follow your healthcare professional's instructions. ?? XR Radius and Ulna - left 2 Views * [facility] , CIS S: TRANSCRILorenzo Metcalf MD: VERIFY Event Display: Result: Authored Date: Forearm 2 Views Left Hx of Present Illness: fall at home hardwood floor, slipped with socks on, off balance, did not have cane with her. Pt c o left knee and left wrist. Pt c o left foot going numb ; Reason: Pain; Clinical Question(s): Fracture COMPARISON: None available. FINDINGS: No fractures or bone lesions. Mild degenerative joint space narrowing of the radiocarpal joint. There is also degenerative joint space narrowing sclerosis of the intercarpal joints. Proximal elbow joint is intact. Normal soft tissues. IMPRESSION: No radiographic evidence of an acute osseous abnormality. WSN: [id number] Ordering Physician: Leonel Issa Dictated By: Lorenzo Engle MD Dictated Date/Time: 06/24/22 11:58 a Reviewed By: Lorenzo Engle MD Signed By: Lorenzo Engle MD Signed Date/Time: 06/24/22 11:58 am Transcribed By: BRUNO Transcribed Date/Time: 06/24/22 11:56 am XR Knee - left 1 or 2 Views * [facility] , CIS S: TRANSCRIBE Lorenzo Engle MD: VERIFY Event Display: Result: Authored Date: Knee 1 or 2 Views Left, 2 views Hx of Present Illness: fall at home hardwood floor, slipped with socks on, off balance, did not have cane with her. Pt c o left knee and left wrist. Pt c o left foot going numb ; Reason: Pain; Clinical Question(s): Fracture COMPARISON: Tibia and fibular radiograph 07/20/2021.. FINDINGS: Patient is status post total knee arthroscopy and patellar resurfacing. No periprosthetic fracture No evidence of hardware loosening. Prominent patellar tendon enthesophyte. Small suprapatellar effusion. IMPRESSION: 1. No radiographic evidence of an acute osseous abnormality. 2. No evidence of hardware loosening or malfunction. WSN: [id number] Ordering Physician: Leonel Issa Dictated By: Lorenzo Engle MD Dictated Date/Time: 06/24/22 12:05 p Reviewed By: Lorenzo Engle MD Signed By: Lorenzo Engle MD Signed Date/Time: 06/24/22 12:05 pm Transcribed By: BRUNO Transcribed Date/Time: 06/24/22 11:58 am Patient Care team information Care Team Personnel Name: Cleo Riggs RN Position: S RN Member Role: Primary Care Nurse Name: Aamuri Mathias RN Position: S RN Member Role: Primary Care Nurse Name: Deonna Ratliff MD Position: Reference Physician Member Role: PCP Address: Address: [address] [place], [place] [address] Name: Kiley Miller RN Position: S RN Member Role: Primary Care Nurse Name: Lisa Rodrigues RN Position: S RN Member Role: Primary Care Nurse Name: Elenita Donald RN Position: [facility] RN Member Role: Primary Care Nurse Name: Rica Rosario RN Position: [facility] RN Member Role: Primary Care Nurse Name: Avinash Falcon RN Position: [facility] ED RN W/OE and Tasks Member Role: Patient Care Provider Name: Leonel Issa MD Position: [facility] Resident Member Role: Admitting Physician Address: Address: [address] [place] [address] Name: Lizzie Cullen Position: [facility] ED TA [facility] Member Role: Patient Care Provider Care Team Related Persons Name: KAYLI VIELKA Address: home [address] [place] [id number] Name: GERALDO WILDER Address: home [address] [address]
--- OUTSIDE RECORDS SUMMARY | 2023-09-26 06:00 | XMS_ITS | Continuity of Care Document ---
Author Organization [facility] Address [address] [place] [address]- Care Team Providers Care Systems Consultant Name Role Phone Gaudencio TUCKER, Deonna Montoya Primary Care Physician [place] [facility] Date(s): 06/04/19 - 07/04/19 [facility] [address] [place] [address] [facility] Attending Physician: Admgiovanna, Jayson Admitting Physician: Admtr, Ar8 Referring Physician: Admtr, Ar8 Allergies, Adverse Reactions, [...] 0 Refills, Maintenance, 05/23/19 14:06:00 EDT, Tablet, [facility], 1 tablet By Mouth 2 times a day, 153, cm, 01/01/19 10:27:00 EST, Height, 92.5, kg, 06/04/18 8:24:00 EDT, Dry Weight Start Date: 05/23/19 Status: Ordered CPAP Manager Facility, 07/04/17 9:22:17 EDT, Compound Start Date: 07/04/17 [...] Refills, Maintenance, 05/27/19 8:49:00 EDT, ER Tablet, [facility], 153, cm, 01/01/19 10:27:00 EST, Height, [...]
--- OUTSIDE RECORDS SUMMARY | 2023-09-26 06:00 | XMS_ITS | Continuity of Care Document ---
Author Organization [facility] Brianna nZidishas [facility] Address [address] [place] [address], 4t [place] [address]- Care Team Providers Care Missileman Name Role Phone Gaudencio TUCKER, Deonna Montoya Primary Care Physician Encounter [facility] Date(s): 02/11/21 - 03/13/21 [facility] Bomgar RaúlZidishas [facility] [address] [facility], 4th Floor [place], [place] [address] Attending Physician: Jayson Monzon Admitting Physician: Jayson Monzon Referring Physician: AdmtrJayson [...] 0 Refills, Maintenance, 05/23/19 14:06:00 EDT, Tablet, [facility], 1 tablet By Mouth 2 times a day, 153, cm, 01/01/19 10:27:00 EST, Height, 92.5, kg, 06/04/18 8:24:00 EDT, Dry Weight Start Date: 05/23/19 Status: Ordered CPAP Foot Doctor, 07/04/17 9:22:17 EDT, Compound Start Date: 07/04/17 [...] tablet, 5 Refills, Maintenance, 01/12/21 16:53:00 EST, [facility] Start Date: 01/12/21 Status: Ordered pantoprazole [...]
--- OUTSIDE RECORDS SUMMARY | 2023-09-26 06:00 | XMS_ITS | Continuity of Care Document ---
Author Organization [facility] Brianna [employer] [facility] Address [address] [place] [address], 4t [place] [address]- Care Team Providers Care Eye Specialist Name Role Phone Gaudencio TUCKER, Deonna Montoya Primary Care Physician Encounter [facility] Date(s): 09/22/21 - 10/22/21 [facility] [facility] [address] [facility], 4th [place] [address]- Allergies, Adverse Reactions, Alerts Substance Reaction Severity Status Milk Products mayonnaise diarrhea Active Medications Abilify 15 mg oral tablet 20 mg, By Mouth, Daily, # 30 tablet, Refills 0, Maintenance, 07/05/17 9:11:09 EDT Start Date: 07/05/17 Status: Ordered Bactrim DS 800 mg-160 mg oral tablet 1 tablet, By Mouth, 2 times a day, # 60 tablet, 0 Refills, Maintenance, 05/23/19 14:06:00 EDT, Tablet, [facility], 1 tablet By Mouth 2 times a day, 153, cm, 01/01/19 10:27:00 EST, Height, 92.5, kg, 06/04/18 8:24:00 EDT, Dry Weight Start Date: 05/23/19 Status: Ordered CPAP Sales Performance Manager, 07/04/17 9:22:17 EDT, Compound Start Date: [...] OR CHEW, # 30 tablet, 3 Refills, [facility] Start Date: 07/15/21 Status: Ordered pantoprazole [...] Status Former smoker entered on: 05/01/16 Sex Care Team Personnel Name: Gaudencio TUCKER , Deonna Montoya Address: [address] [place] [id number]
--- OUTSIDE RECORDS SUMMARY | 2023-09-26 06:00 | XMS_ITS | Continuity of Care Document ---
Author Organization [facility] Brianna [facility] [facility] Address [address] [facility], 4t [place] [address]- Care Team Providers Care Supervisor Scouring Pads Name Role Phone Gaudencio TUCKER, Deonna Montoya Primary Care Physician Encounter [facility] Date(s): 01/12/21 - 03/13/21 [facility] Ashley RaúlVolunteerSpots [facility] [address], 4th [address] [place], [place] [address] Attending Physician: Lori Cai MD Referring Physician: [...] 0 Refills, Maintenance, 05/23/19 14:06:00 EDT, Tablet, [facility], 1 tablet By Mouth 2 times a day, 153, cm, 01/01/19 10:27:00 EST, Height, 92.5, kg, 06/04/18 8:24:00 EDT, Dry Weight Start Date: 05/23/19 Status: Ordered CPAP Dynamics Ax Solution Architect, 07/04/17 9:22:17 EDT, Compound Start Date: 07/04/17 [...] tablet, 5 Refills, Maintenance, 01/12/21 16:53:00 EST, [facility] Start Date: 01/12/21 Status: Ordered pantoprazole [...]
--- OUTSIDE RECORDS SUMMARY | 2023-09-26 06:00 | XMS_ITS | Continuity of Care Document ---
Author Organization [facility] Jose rupesh Address [address] [place] [address] [address] [place] [address]- Care Team Providers Care Preparatory Technician Name Role Phone Gaudencio TUCKER, Deonna Montoya Primary Care Physician [place] [facility] [place]14[place]22 - 11/21/22 [facility] [address] [place], [place] [address] Attending Physician: Not on Staff, Attending MD Allergies, Adverse Reactions, Alerts Substance Reaction [...] tablet, 5 Refills, Maintenance, 10/30/22 14:23:00 EDT, [facility], 153, cm, 06/24/22 10:53:00 EDT, Height, [...] 7 Refills, Maintenance, 10/24/22 13:54:00 EDT, Tablet, [facility], Partial fill upon patient request if [...] tablet, 4 Refills, Maintenance, 05/15/22 16:27:00 EDT, [facility], 153, cm, 04/28/22 13:14:00 EDT, Height, [...] comorbidity Confirmed Active Urinary incontinence Confirmed Active Vital Signs Most recent to oldest [Reference Range]: 1 Height 153 cm (11/14/22 11:02 AM) Weight 91 kg (11/14/22 11:02 AM) Body Mass Index [18.5-24.99 kg/m2] 38.87 kg/m2 *>HHI* (11/14/22 11:02 AM) Weight Obtained Via Standing scale (11/14/22 11:02 AM) Social History Social History Type Response Smoking Status Former smoker entered on: 05/01/16 Sex Patient Care team information Care Team Personnel Name: Cleo Riggs RN Position: S RN Member Role: Primary Care Nurse Name: Amauri Mathias RN Position: S RN Member Role: Primary Care Nurse Name: Gaudencio TUCKER , Deonna Montoya Position: Reference Physician Member Role: PCP Address: Address: [address] [place] [address]- Name: Kiley Miller RN Position: S RN Member Role: Primary Care Nurse Name: Lisa Rodrigues RN Position: S RN Member Role: Primary Care Nurse Name: Elenita Donald RN Position: S RN Member Role: Primary Care Nurse Name: Rica Rosario RN Position: S RN Member Role: Primary Care Nurse Care Team Related Persons Name: VIELKA MILAN Address: home [address] [place] [id number] Name: TINA RUIJAZMYNE Address: home [address] [facility] [address] [place] [address]
--- OUTSIDE RECORDS SUMMARY | 2023-09-26 06:00 | XMS_ITS | Continuity of Care Document ---
Author Organization [facility] Brianna [employer] [facility] Address [address] [place] [address], 4t [place] [address]- Care Team Providers Care Ob Gyn Name Role Phone Gaudencio TUCKER, Deonna Montoya Primary Care Phys[id number] Date(s): 07/06/20 - 08/05/20 [facility] [employer] [facility] [address] [facility], 4th [address] [place], [place] [address] Attending Physician: Admtr, Jayson Admitting Physician: AdmtrJayson Referring Physician: Admtr, Ar8 Allergies, Adverse Reactions, [...] 0 Refills, Maintenance, 05/23/19 14:06:00 EDT, Tablet, [facility], 1 tablet By Mouth 2 times a day, 153, cm, 01/01/19 10:27:00 EST, Height, 92.5, kg, 06/04/18 8:24:00 EDT, Dry Weight Start Date: 05/23/19 Status: Ordered CPAP Curtain Stretcher, 07/04/17 9:22:17 EDT, Compound Start Date: 07/04/17 [...] CHEW, # 30 tablet, 5 Refills, Maintenance, 06/29/20 14:56:00 EDT, [facility], 153, cm, 01/01/19 10:27:00 EST, Height Start Date: 06/29/20 Status: Ordered pantoprazole 40 mg oral delayed [...]
--- OUTSIDE RECORDS SUMMARY | 2023-09-26 06:01 | XMS_ITS | Continuity of Care Document ---
Author Organization [facility] Brianna [employer] Address [address] [facility], 4t [place] [address]- Care Team Providers Care Ship Rigger Apprentice Name Role Phone Gaudencio TUCKER, Deonna Montoya Primary Care Physician En[place] [facility] Date(s): 11/08/21 - 12/08/21 [facility] Ashleydmitriy OlsenGFRANQs [employer] [address], 4th [address] [place], [place] [address] Allergies, Adverse Reactions, Alerts Substance Reaction [...] 0 Refills, Maintenance, 05/23/19 14:06:00 EDT, Tablet, [facility], 1 tablet By Mouth 2 times a day, 153, cm, 01/01/19 10:27:00 EST, Height, 92.5, kg, 06/04/18 8:24:00 EDT, Dry Weight Start Date: 05/23/19 Status: Ordered CPAP Crabber, 07/04/17 9:22:17 EDT, Compound Start Date: 07/04/17 [...] tablet, 2 Refills, Maintenance, 11/18/21 11:11:00 EDT, [facility], 153, cm, 07/16/21 10:56:00 EDT, Height, [...] Refills, Maintenance, 11/09/21 8:28:00 EDT, ER Tablet, [facility], Partial fill upon patient request if the prescription is for a schedule II opioid drug., 153, cm, 07/16/21 10:56:00 EDT, [facility]... Start Date: 11/09/21 Status: Ordered trospium 60 mg oral capsule, extended release 1 capsule = 60 mg, By Mouth, Daily in AM, # 30 capsule, 6 Refills, Maintenance, 11/04/21 12:21:00 EDT, CR Capsule, [facility], Partial fill upon patient request if the [...] on: 05/01/16 Sex Patient Care team information Personnel Name: Gaudencio TUCKER , Deonna Montoya Address: Address: [facility] [place] [address]
--- OUTSIDE RECORDS SUMMARY | 2023-09-26 06:01 | XMS_ITS | Continuity of Care Document ---
Author Organization [facility] Ashley browne [facility] Address [address] [place] [address], 4t [place] [address]- Care Team Providers Care Lip Of Shank Cutter Name Role Phone Gaudencio TUCKER, Deonna Montoya Primary Care Physician [facility] [id number] Date(s): 12/06/22 - 01/05/23 [facility] Ashley Chávezs [facility] [address] [facility], 4th [address] [place], [place] [address] Attending Physician: aJyson Monzon Admitting Physician: AdmJayson heredia Referring Physician: AdmtrJayson Allergies, Adverse Reactions, Alerts [...] tablet, 5 Refills, Maintenance, 10/30/22 14:23:00 EDT, [facility], 153, cm, 06/24/22 10:53:00 EDT, Height, [...] 7 Refills, Maintenance, 10/24/22 13:54:00 EDT, Tablet, [facility], Partial fill upon patient request if [...] Physician Member Role: PCP Address: Address: [address] [place] [address]- Name: Kiley Miller RN Position: S RN [...] Team Related Persons Name: VIELKA MILAN Address: [address] [address] Name: GERALDO WILDER Address: [address] [place] [address]
--- OUTSIDE RECORDS SUMMARY | 2023-09-26 06:01 | XMS_ITS | Continuity of Care Document ---
Author Organization [facility] Jose rupesh Address [address] [place] [address] [address] [place] [address]- Care Team Providers Care Wire Galvanizer Name Role Phone Gaudencio TUCKER, Deonna Montoya Primary Care Physician Encounter [facility] Date(s): 04/28/22 - 05/05/22 [facility] [address] [place], [place] [address] Attending Physician: Christopher Gallegos MD Allergies, Adverse Reactions, Alerts Substance Reaction [...] 0 Refills, Maintenance, 05/23/19 14:06:00 EDT, Tablet, [facility], 1 tablet By Mouth 2 times a day, 153, cm, 01/01/19 10:27:00 EST, Height, 92.5, kg, 06/04/18 8:24:00 EDT, Dry Weight Start Date: 05/23/19 Status: Ordered CPAP Scarf And Anneal Operator, 07/04/17 9:22:17 EDT, Compound Start Date: 07/04/17 [...] tablet, 1 Refills, Maintenance, 02/13/22 10:07:00 EST, [facility], 153, cm, 07/16/21 10:56:00 EDT, Height, [...] Refills, Maintenance, 11/09/21 8:28:00 EDT, ER Tablet, [facility], Partial fill upon patient request if the prescription is for a schedule II opioid drug., 153, cm, 07/16/21 10:56:00 EDT, [facility]... Start Date: 11/09/21 Status: Ordered trospium 60 mg oral capsule, extended release 1 capsule = 60 mg, By Mouth, Daily in AM, # 30 capsule, 6 Refills, Maintenance, 11/04/21 12:21:00 EDT, CR Capsule, [facility], Partial fill upon patient request [...] oldest [Reference Range]: 1 Height 153 cm (04/28/22 1:14 PM) Weight 89 kg (04/28/22 1:14 PM) Body Mass Index [18.5-24.99 kg/m2] 38.02 kg/m2 *>HHI* (04/28/22 1:14 PM) Social History Social History Type Response Smoking Status Former smoker entered on: 05/01/16 Sex Patient Care team information Care Team Personnel Name: Cleo Riggs RN Position: S RN Member Role: Primary Care Nurse Name: Amauri Mathias RN Position: S RN Member Role: Primary Care Nurse Name: Gaudencio TUCKER , Deonna Montoya Position: Reference Physician Member Role: PCP Address: Address: [address] [place] [address]- Name: Kiley Miller RN Position: S RN Member Role: Primary Care Nurse Name: Lisa Rodrigues RN Position: S RN Member Role: Primary Care Nurse Name: Elenita Donald RN Position: S RN Member Role: Primary Care Nurse Name: Rica Rosario RN Position: S RN Member Role: Primary Care Nurse Care Team Related Persons Name: VIELKA MILAN Address: home [address] [place] [address] Name: GERALDO WILDER Address: home [facility] [address] [place] [address], [place] [address]
--- OUTSIDE RECORDS SUMMARY | 2023-09-26 06:01 | XMS_ITS | Continuity of Care Document ---
Author Organization [facility] Jose rupesh Address [address] [place] [address] [address] [place] [address]- Care Team Providers Care Powerhouse Mechanic Name Role Phone Gaudencio TUCKER, Deonna Montoya Primary Care Physician Encounter [facility] Date(s): 11/03/22 - 11/10/22 [facility] [address] [place], [place] [address] Attending Physician: Christopher Gallegos MD Allergies, Adverse [...] tablet, 5 Refills, Maintenance, 10/30/22 14:23:00 EDT, [facility], 153, cm, 06/24/22 10:53:00 EDT, Height, [...] 7 Refills, Maintenance, 10/24/22 13:54:00 EDT, Tablet, [facility], Partial fill upon patient request if [...] tablet, 4 Refills, Maintenance, 05/15/22 16:27:00 EDT, [facility], 153, cm, 04/28/22 13:14:00 EDT, Height, [...] oldest [Reference Range]: 1 Height 153 cm (11/03/22 2:28 PM) Weight 91 kg (11/03/22 2:28 PM) Body Mass Index [18.5-24.99 kg/m2] 38.87 kg/m2 *>HHI* (11/03/22 2:28 PM) Social History Social History Type Response Smoking Status Former smoker entered on: 05/01/16 Sex Patient Care team information Care Team Personnel Name: Cleo Riggs RN Position: S RN Member Role: Primary Care Nurse Name: Amauri Mathias RN Position: S RN Member Role: Primary Care Nurse Name: Deonna Ratliff MD Position: Reference Physician Member Role: PCP Address: Address: [address] [place], [place] - Name: Kiley Miller RN Position: S RN Member Role: Primary Care Nurse Name: Lisa Rodrigues RN Position: S RN Member Role: Primary Care Nurse Name: Elenita Donald RN Position: S RN Member Role: Primary Care Nurse Name: Rica Rosario RN Position: S RN Member Role: Primary Care Nurse Care Team Related Persons Name: VIELKA MILAN Address: [address] [address] Name: GERALDO WILDER Address: home [address] [place] [address]
--- OUTSIDE RECORDS SUMMARY | 2023-09-26 06:01 | XMS_ITS | Continuity of Care Document ---
Author Organization [facility] Ashley browne [facility] Address [address], 4t [place] [address]- Care Team Providers Care Developer Evangelist Name Role Phone Gaudencio TUCKER, Deonna Montoya Primary Care Physician [id number] Date(s): [facility]/31/23 [facility] [address], 4th [address] [place], [place] [address] Allergies, Adverse Reactions, Alerts Substance Reaction [...] tablet, 4 Refills, Maintenance, 05/31/23 16:32:00 EDT, [facility], 153, cm, 12/12/22 14:07:00 EST, Height, [...] tablet, 6 Refills, Maintenance, 06/19/23 16:54:00 EDT, [facility], 153, cm, 12/12/22 14:07:00 EST, Height, [...] Physician Member Role: PCP Address: Address: [address] [place], [place] [facility] Name: Kiley Miller RN Position: S RN Member Role: Primary Care Nurse Name: Lisa Rodrigues RN Position: S RN Member Role: Primary Care Nurse Name: Tobias Nioxn RN Position: [facility] RN Member Role: Primary Care Nurse Name: Elenita Donald RN Position: S RN Member Role: Primary Care Nurse Name: Rica Rosario RN Position: S RN Member Role: Primary Care Nurse Care Team Related Persons Name: VIELKA MILAN Address: [address] [address] Name: GERALDO WILDER Address: home [address] [place] [address]
--- OUTSIDE RECORDS SUMMARY | 2023-09-26 06:01 | XMS_ITS | Continuity of Care Document ---
Author Organization [facility] Jose rupesh Address [address] [place] [address] [address] [place] [address]- Care Team Providers Care Cleat Blanker Name Role Phone Gaudencio TUCKER, Deonna Montoya Primary Care Physician Encounter [facility] Date(s): 12/06/21 - 01/05/22 [facility] [address] [place], [place] [address] Allergies, Adverse Reactions, Alerts Substance [...] 0 Refills, Maintenance, 05/23/19 14:06:00 EDT, Tablet, [facility], 1 tablet By Mouth 2 times a day, 153, cm, 01/01/19 10:27:00 EST, Height, 92.5, kg, 06/04/18 8:24:00 EDT, Dry Weight Start Date: 05/23/19 Status: Ordered CPAP Nematology Teacher, 07/04/17 9:22:17 EDT, Compound Start Date: 07/04/17 [...] tablet, 2 Refills, Maintenance, 11/18/21 11:11:00 EDT, [facility], 153, cm, 07/16/21 10:56:00 EDT, Height, 89.9, [...] Refills, Maintenance, 11/09/21 8:28:00 EDT, ER Tablet, [facility], Partial fill upon patient request if the prescription is for a schedule II opioid drug., 153, cm, 07/16/21 10:56:00 EDT, [facility]... Start Date: 11/09/21 Status: Ordered trospium 60 mg oral capsule, extended release 1 capsule = 60 mg, By Mouth, Daily in AM, # 30 capsule, 6 Refills, Maintenance, 11/04/21 12:21:00 EDT, CR Capsule, [facility], Partial fill upon patient request [...] Physician Member Role: PCP Address: Address: [address] [place] [address]- Name: Kiley Miller RN Position: S RN Member Role: Primary Care Nurse Name: Lisa Rodrigues RN Position: S RN Member Role: Primary Care Nurse Name: Elenita Donald RN Position: S RN Member Role: Primary Care Nurse Name: Rica Rosario RN Position: S RN Member Role: Primary Care Nurse Care Team Related Persons Name: VIELKA MILAN Address: home [address] [place] [id number] Name: GERALDO WILDER Address: [address] [place] [address]
--- OUTSIDE RECORDS SUMMARY | 2023-09-26 06:01 | XMS_ITS | Continuity of Care Document ---
Author Organization [facility] Brianna nEferios [facility] Address [address], 4t [place] [address]- Care Team Providers Care Rn Tele Name Role Phone Gaudencio TUCKER, Deonna Montoya Primary Care Physician Encounter [facility] [place] Date(s): 04/05/21 - 05/08/21 [facility] Ashley RaúlEferios [facility] [address], 4th [address] [place], [place] [address] Attending Physician: Lori Cai MD Referring Physician: [...] 0 Refills, Maintenance, 05/23/19 14:06:00 EDT, Tablet, [facility], 1 tablet By Mouth 2 times a day, 153, cm, 01/01/19 10:27:00 EST, Height, 92.5, kg, 06/04/18 8:24:00 EDT, Dry Weight Start Date: 05/23/19 Status: Ordered CPAP Reel Hooker, 07/04/17 9:22:17 EDT, Compound Start Date: 07/04/17 [...] tablet, 5 Refills, Maintenance, 01/12/21 16:53:00 EST, [facility] Start Date: 01/12/21 Status: Ordered pantoprazole [...]
--- OUTSIDE RECORDS SUMMARY | 2023-09-26 06:01 | XMS_ITS | Continuity of Care Document ---
Author Organization [facility] Ashley browne [facility] Address [address] [place] [address], 4t [place] [address]- Care Team Providers Care Lead Java Software Engineer Name Role Phone Gaudencio TUCKER, Deonna Montoya Primary Care Physician Encounter [facility] [id number] Date(s): 10/24/22 - 01/05/23 [facility] Ashley Chávezs [facility] [address], 4th Floor [place], [place] [address] Attending Physician: Lori Cai MD Admitting Physician: Lori Cai MD Referring Physician: Deonna Ratliff MD Allergies, [...] tablet, 5 Refills, Maintenance, 10/30/22 14:23:00 EDT, [facility], 153, cm, 06/24/22 10:53:00 EDT, Height, [...] 7 Refills, Maintenance, 10/24/22 13:54:00 EDT, Tablet, [facility], Partial fill upon patient request if [...] Physician Member Role: PCP Address: Address: [address] [place] [address]- Name: Kiley Miller RN Position: S RN [...] Related Persons Name: VIELKA MILAN Address: home [address] [place] [address] Name: GERALDO WILDER Address: home [address] [place] [address]
--- OUTSIDE RECORDS SUMMARY | 2023-09-26 06:01 | XMS_ITS | Continuity of Care Document ---
Author Organization [facility] Address [address] [place] [address]- Care Team Providers Care Spring Bender Name Role Phone Gaudencio TUCKER, Deonna Montoya Primary Care Physician Encounter [facility] Date(s): 07/16/21 - 07/16/[address] [address]- Discharge Disposition: A-D/C Home Attending Physician: Julio Cesar Ferraro MD Admitting Physician: Julio Cesar Ferraro MD Referring Physician: Not on Staff, Referring [...] 0 Refills, Maintenance, 05/23/19 14:06:00 EDT, Tablet, [facility], 1 tablet By Mouth 2 times a day, 153, cm, 01/01/19 10:27:00 EST, Height, 92.5, kg, 06/04/18 8:24:00 EDT, Dry Weight Start Date: 05/23/19 Status: Ordered CPAP Director Of Billing, 07/04/17 9:22:17 EDT, Compound Start Date: 07/04/17 [...] OR CHEW, # 30 tablet, 3 Refills, [facility] Start Date: 07/15/21 Status: Ordered pantoprazole [...] Obstructive sleep apnea(Confirmed) Active Urinary incontinence(Confirmed) Active Vital Signs Most recent to oldest [Reference Range]: 1 Height 153 cm (07/16/21 10:56 AM) Weight 89.9 kg (07/16/21 10:56 AM) Oxygen Saturation [94-100 %] 98 % (07/16/21 10:56 AM) Pulse Rate [55-90 bpm] 65 bpm (07/16/21 10:56 AM) Blood Pressure [90-138/55-84 mm Hg] 98/4 4mm Hg (07/16/21 10:56 AM) Respiratory Rate [16-30 br/min] 18 br/mi n (07/16/21 10:56 AM) Temperature [96.8-100.4 DegF] 97 DegF (07/16/21 10:56 AM) Mode of Delivery (Oxygen) Room air (07/16/21 10:56 AM) Blood pressure sites Arm, left (07/16/21 10:56 AM) Temperature Route Temporal (07/16/21 10:56 AM) Dry Weight 89.9 kg (07/16/21 10:56 AM) Dry Weight Obtained Via Standing scale (07/16/21 10:56 AM) Social History Social History Type Response Smoking Status Former smoker entered on: 05/01/16 Sex
--- OUTSIDE RECORDS SUMMARY | 2023-09-26 06:01 | XMS_ITS | Continuity of Care Document ---
Author Organization [facility] Address [address] [place] [address]- Care Team Providers Care Cafe Helper Name Role Phone Gaudencio TUCKER, Deonna Montoya Primary Care Physician Encounter [facility] Date(s): 06/04/19 - 06/11/19 [facility] [address] [place] [address] [facility] Attending Physician: Armando Serrano MD Referring Physician: Deonna [...] 0 Refills, Maintenance, 05/23/19 14:06:00 EDT, Tablet, [facility], 1 tablet By Mouth 2 times a day, 153, cm, 01/01/19 10:27:00 EST, Height, 92.5, kg, 06/04/18 8:24:00 EDT, Dry Weight Start Date: 05/23/19 Status: Ordered CPAP Hospital Ward Clerk, 07/04/17 9:22:17 EDT, Compound Start Date: 07/04/17 [...] Refills, Maintenance, 05/27/19 8:49:00 EDT, ER Tablet, [facility], 153, cm, 01/01/19 10:27:00 EST, Height, 92.5, [...]
--- OUTSIDE RECORDS SUMMARY | 2023-09-26 06:01 | XMS_ITS | Continuity of Care Document ---
Author Organization [facility] Address [address] [place] [address], 4t [place] [address]- Care Team Providers Care Boarding House Manager Name Role Phone Gaudencio TUCKER, Deonna Montoya Primary Care Physician Encounter [facility] Date(s): 05/06/21 - 06/05/21 [facility] [address], 4th [address] [place], [place] [address] Attending Physician: Jayson Monzon Admitting Physician: [...] 0 Refills, Maintenance, 05/23/19 14:06:00 EDT, Tablet, [facility], 1 tablet By Mouth 2 times a day, 153, cm, 01/01/19 10:27:00 EST, Height, 92.5, kg, 06/04/18 8:24:00 EDT, Dry Weight Start Date: 05/23/19 Status: Ordered CPAP Tool Grinding Technician, 07/04/17 9:22:17 EDT, Compound Start Date: 07/04/17 [...] tablet, 5 Refills, Maintenance, 01/12/21 16:53:00 EST, [facility] Start Date: 01/12/21 Status: Ordered pantoprazole [...]
--- OUTSIDE RECORDS SUMMARY | 2023-09-26 06:01 | XMS_ITS | Continuity of Care Document ---
Author Organization [facility] Address [address] [place] [address]- Care Team Providers Care Traditional Chinese Herbalist Name Role Phone Gaudencio TUCKER, Deonna Montoya Primary Care Physician Encounter [facility] Date(s): 10/24/19 - 10/24/[address] [address]- [facility] Encounter Diagnosis Contusion of left knee(Final) - 10/24/19 Discharge Disposition: A-D/C Home Attending Physician: Rom TUCKER, Mame Conteh Admitting Physician: Rom TUCKER, Mame Conteh Referring Physician: Not on Staff, Referring MD [...] 0 Refills, Maintenance, 05/23/19 14:06:00 EDT, Tablet, [facility], 1 tablet By Mouth 2 times a day, 153, cm, 01/01/19 10:27:00 EST, Height, 92.5, kg, 06/04/18 8:24:00 EDT, Dry Weight Start Date: 05/23/19 Status: Ordered CPAP Grape Grower, 07/04/17 9:22:17 EDT, Compound Start Date: 07/04/17 [...] Refills, Maintenance, 05/27/19 8:49:00 EDT, ER Tablet, [facility], 153, cm, 01/01/19 10:27:00 EST, Height, 92.5, kg, 06/04/18 8:24:00 EDT, Dry Weight Start Date: 05/27/19 Status: Ordered Multivitamin Daily, 0 Refills, Maintenance, [...] Exam Date Time Procedure Performing Provider Status 10/24/19 7:42 PM Knee 1 or 2 Views Left Daisy Chaudhari; Auth (Verified) Notes: (Knee 1 or 2 Views Left) Reason For Exam: Pain RESULT: Knee 1 or 2 Views Left Knee 1 or 2 Views Left, 2 views Hx of Present Illness: Fell this morning and now has left knee pain.; Reason: Pain; Clinical Question(s): Fracture COMPARISON: 02/07/2018. FINDINGS: The patient is status post left knee arthroplasty. Hardware appears intact without evidence of loosening. These anatomic in alignment. No acute fracture. No significant joint effusion. The soft tissues are otherwise unremarkable. IMPRESSION: Status post left knee arthroplasty. No acute fracture or dislocation. WSN: [id number] Ordering Physician: Priya Mccrary Dictated By: Tyson Ozuna MD Dictated Date/Time: 10/24/19 7:54 pm Reviewed By: Tyson Ozuna MD Signed By: Tyson Ozuna MD Signed Date/Time: 10/24/19 7:54 pm Transcribed By: BRUNO Transcribed Date/Time: 10/24/19 7:53 pm Vital Signs Most recent to oldest [Reference Range]: 1 2 Oxygen Saturation [94-100 %] 100 % (10/24/19 9:29 PM) 100 % (10/24/19 6:41 PM) Pulse Rate [55-90 bpm] 68 bpm (10/24/19 9:29 PM) 68 bpm (10/24/19 6:41 PM) Blood Pressure [90-138/55-84 mm Hg] 116/ 46mm Hg (10/24/19 9:29 PM) 131/100mm Hg (10/24/19 6:41 PM) Respiratory Rate [16-30 br/min] 17 br/mi n (10/24/19 9:29 PM) 18 br/min (10/24/19 6:41 PM) Temperature [96.8-100.4 DegF] 98.7 DegF (10/24/19 9:29 PM) 97.2 DegF (10/24/19 6:41 PM) Mode of Delivery (Oxygen) Room air (10/24/19 9:29 PM) Room air (10/24/19 6:41 PM) Blood pressure sites Arm, left (10/24/19 9:29 PM) Temperature Route Oral (10/24/19 9:29 PM) Oral (10/24/19 6:41 PM) Social History Social History Type Response Smoking Status Former smoker entered on: 05/01/16 Sex
== END 2023-09-19 15:47 | disposition home or self-care (01) ==
PROVIDERS: PCP Internal Medicine; Visit Provider Registered Nurse
DX: H66.002 Acute suppurative otitis media without spontaneous rupture of ear drum, left ear (principal)
CPT/HCPCS: 99213

== ENCOUNTER 2023-12-17 08:43 | Outpatient (REF) | payer MEDICARE, MEDICAID, SELFPAY ==
[2023-12-17 10:29] LABS: Anion Gap 13 (12-20); Blood Urea Nitrogen 12 mg/dL (9-16); Calcium 9.4 mg/dL (8.4-10.2); Carbon Dioxide 27 mmol/L (22-29); Chloride 102 mmol/L (96-108); Estimated Glomerular Filt Rate > 60; Glucose Fasting 94 mg/dL (60-99); Potassium 4.4 mmol/L (3.3-5.1); Sodium 138 mmol/L (135-145)
[2023-12-17 11:21] LABS: Free T4 (Free Thyroxine) 0.99 ng/dL (0.71-1.85); TSH reflex Free T4 4.98 uIU/mL (0.32-4.0)
== END 2023-12-17 08:44 | disposition home or self-care (01) ==
LOC: HO.LAB 08:43
PROVIDERS: PCP Internal Medicine; Visit Provider Internal Medicine
DX: R29.6 Repeated falls (principal); R26.81 Unsteadiness on feet; E03.9 Hypothyroidism, unspecified
CPT/HCPCS: 36415; 80048; 84439; 84443

== ENCOUNTER 2023-12-20 08:49 | Outpatient (AMB) | payer MEDICARE, MEDICAID, SELFPAY ==
--- NOTE | 2023-12-20 09:39 | A.OFFPC_ITS ---
Vital Signs 12/20/23 09:40 Height 5 ft Weight 205 lb BMI 40.0 BP 120/70 Blood Pressure Location Lt brachial Position Sitting Pulse 75 Pulse Source Pulse Oximeter Pulse Oximetry (%) 95 Oxygen Delivery Method Room Air Intake Visit Reasons: 6 month follow up Allergies lactose [LACTOSE] Adverse Reaction (Mild, Verified 12/20/23 10:02) GI DISTRESS Medication List - Last Reconciled 12/20/23 by Deonna Ratliff MD acetaminophen 500 mg PO Q6H PRN amantadine HCl 100 mg PO DAILY calcium carbonate-vitamin D3 600 mg-20 mcg (800 unit) 1 tab PO DAILY donepezil 5 mg PO DAILY fesoterodine ER (Toviaz) 4 mg PO .at bedtime fluoxetine 40 mg PO DAILY lactase (Lactaid Fast Act) 9,000 units PO DAILY PRN levothyroxine 112 mcg PO DAILY multivitamin with folic acid 400 mcg 1 tab PO DAILY risperidone 1 mg PO BEDTIME toothpaste (Sensodyne toothpaste) As directed vibegron (Gemtesa) 75 mg PO DAILY walker (Ultra-Light Rollator misc) As directed, with seat Tobacco use date assessed: 12/20/23 Dental Screening Dental Screen Date: 12/20/23 Did you have a dental visit in the last 12 months?: Yes Did you have a dental problem in the last 6 months where you did not have access to dental care?: Yes Was dental information given to patient?: Patient has dentist HPI 6 month follow up HPI Details 53 year-old lady with history hypothyroi dism, osteoarthritis, schizophrenia, obstructive sleep apnea on CPAP, GERD, overactive urinary bladder with urge incontinence, and gait instability, here today for follow-up. She had recent fasting labs done which showed thyroid levels within normal limits. Currently taking levothyroxine 112 mcg daily.. Complains of a hard time walking,, has unstable gait and has to use a walker when getting around. She would like a prescription for a new walker, as the rubber tips of her walker has already eroded, which makes it difficult for her to use it. [facility] Medical History (Updated 12/20/23 @ 23:47 by Deonna Ratliff MD) Difficulty swallowing solids Schizophrenia Abnormal Pap smear of cervix Enuresis, nocturnal only MYA (obstructive sleep apnea) Osteoarthritis, knee Vitamin D deficiency Obesity Developmental disability Acquired hypothyroidism Gait instability Acid reflux Hx of sleep apnea History of hyperthyroidism Hx of major depression Surgical History Hx of colonoscopy History of knee replacement Hx LEEP (loop electrosurgical excision procedure), cervix, History of thyroidectomy Hx of endoscopy History of ankle surgery Hx of knee surgery Family History Father No problems noted. Mother No problems noted. Maternal Aunt Breast cancer Social History Household Members: Other Household Members Other:: [facility] Housing: Assisted Living Facility Alcohol intake: never Comment: unsteady gait Patient Tobacco Use Status: Former Tobacco user Years Smoked: 2 yrs e-Cigarette/Vaping Use: Never Used service: No Current occupational status: disabled Sexual orientation: Straight/Heterosexual Gender identity: Female Cognitive needs: No Hearing needs: No Vision needs: No Questionnaire Thrive Questionnaire Date Thrive assessed: 01/01/23 JUSTINO-7 AMB Questionnaire JUSTINO-7 Date JUSTINO - 7 assessed: 01/01/23 Source: Developed by Drs. Oc Dyson, Kate Sánchez, Surya Marks and colleagues, with an educational ena from [email or web address]. Review of Systems Const Reports no additional complaints Eyes Denies change in vision ENT Reports no additional complaints Card Denies chest pain, Denies lightheadedness and Denies dyspnea Resp Denies cough, Denies dyspnea and Denies wheezing GI Denies abdominal pain, Denies change in bowel habits, Denies change in stool character, Denies dyspepsia and Denies heartburn Reports no additional complaints, Denies hematuria and Denies dysuria Musc Reports abnormal gait, Reports arthralgias, Denies joint swelling, Denies muscle weakness, Denies numbness and Reports stiffness Skin/Breast Denies lesions and Denies rash Neuro Reports abnormal gait, Denies numbness and Denies Sensory deficit (Neuro) Endo Reports no additional complaints Lit/Lymph Denies easy bleeding and Denies easy bruising Aller/Immun Denies seasonal rhinorrhea and Denies wheezing Physical exam (Primary Care) Vital Signs: Last Vital Signs Pulse 75 12/20/23 09:40 BP 120/70 12/20/23 09:40 Pulse Ox 95 12/20/23 09:40 Oxygen Delivery Method Room Air 12/20/23 09:40 BMI result Body Mass Index 40.0 Tobacco/Smoking Status: Tobacco use Status Tobacco use date assessed 12/20/23 12/20/23 09:47 Patient Tobacco Use Status Former Tobacco user 12/20/23 09:39 e-Cigarette/Vaping Use Never Used 12/20/23 09:39 Thrive Assessment: Date of Thrive Assessment Date Thrive assessed 01/01/23 12/20/23 09:39 Const Other: Caregiver accompanying patient Nutritional Appearance: obese Orientation/consciousness: oriented to person and oriented to place Limitations: ambulation with walker HENMT Ears: external ears normal General nose exam: Normal external nose present and No nasal discharge present Face and sinus: Yes face symmetric Eyes Pupils: Equal, round and reactive pupils present Neck Other: Thyroid gland nonpalpable Neck: Yes full ROM and Yes supple Resp Auscultation: clear to auscultation bilaterally Cardio Other: S1-S2 present regular rate and rhythm GI Inspection: Yes obesity Palpation (GI): Soft to palpation, nontender, no guarding and no masses Auscultation: normal bowel sounds Skin General skin exam: no rashes or lesions noted Neuro General: oriented to person, oriented to place, moves all extremities and no focal motor deficits Cranial nerves: Yes Equal, round and reactive pupils present and Yes Bilaterally intact EOM present Speech: Other speech findings present (Neuro) (Occasional Dysarthria and garbled speech) Gait exam (Neuro): Assisted gait required Gait assisted method: walker Motor exam (neuro): 5/5 motor strength present throughout Sensory Exam: No Sensory deficit (Neuro) Extrem General: Yes full ROM, Yes no joint enlargement and Yes no pedal edema Psych Appearance: grossly normal Speech and movement: Slowed movement present (Neuro) Affect: Blunted affect present Attitude: cooperative Office Procedures Flu Questionnaire Does the patient have a severe egg allergy?: No Does the patient have severe life threatening allergies?: No Does the patient have a fever or illness today?: No Has the patient ever had Guillain-Thornton Syndrome?: No Has the patient ever had any past reaction to a flu shot?: No Immunizations Fluarix Triv 1388-5099 (PF) 45 mcg (15 mcg x 3)/0.5 mL IM syringe Performing Provider: Deonna Ratliff MD Performing Location: [facility] Administered by: Daisy Lloyd CMA on 12/20/23 10:23 Dose Route Admin Location Dispensed Lot Number Expiration Date [facility] Nuclear Physics Professor 0.5 mL IM Left Deltoid 0.5 mL [id number] 08/04/24 [id number] [employer]LAXOSMITHKLINE VIS Given Date VIS Provided VIS Publication Date 12/20/23 Single Vaccine 20 Eligibility Eligibility Date Funding Source Not [facility] Eligible 12/20/23 Private Results Reviewed Results Reviewed: Name: Ira Acuña Age/Sex: 53/F : 1970 Unit#: [id number] Attend Dr: Deonna Ratliff MD Re12/17/23 Status: DEP REF Location: .LAB Disch: SPEC : [id number] GERTRUDIS: 12/17/23 STATUS: COMP REQ : [id number] RECD: 12/17/[address]: Deonna Ratliff MD COMP: 12/17/23 ENTERED: 12/17/[address]: ORDERED: Met Prof Fast, Free T4, TSH Rflx Test Result Flag Reference Sodium 138 135-145 mmol/L Potassium 4.4 3.3-5.1 mmol/L CL 102 96-108 mmol/L CO2 27 22-29 mmol/L Gap 13 12-20 BUN 12 9-16 mg/dL Creat 0.79 0.5-1.4 mg/dL eGFR > 60 Chronic Kidney Disease: Estimated GFR < 60 mL/min/1.73m2 Severe Kidney Disease: Estimated GFR < 15 mL/min/1.73m2 FBS 94 60-99 mg/dL CA 9.4 8.4-10.2 mg/dL Free T4 0.99 0.71-1.85 ng/dL TSH 4.98 H 0.32-4.0 uIU/mL Coding Level of Care Code Est Pt Level 4 (54961) Diagnoses Gait instability R26.81 Acquired hypothyroidism E03.9 Osteoarthritis, knee M17.10 Needs flu shot Z23 Assessment & Plan Assessment & Plan (1) Gait instability: Code(s): R26.81 - Unsteadiness on feet Category: Medical Plan: Prescription for new walker given to patient. Application for handicap placard completed and given back to patient to mail (2) Acquired hypothyroidism: Code(s): E03.9 - Hypothyroidism, unspecified Category: Medical Plan: Recent thyroid levels are within normal limits, continued on current dose of levothyroxine at 112 mcg daily. Repeat levels again in 09/2024 prior to her next visit (3) Osteoarthritis, knee: Code(s): M17.10 - Unilateral primary osteoarthritis, unspecified knee Category: Medical Plan: Handicap placard application completed and given to patient to male. Prescription for a new walker also given to patient (4) Needs flu shot: Code(s): Z23 - Encounter for immunization Plan: Flu vaccine given today Orders: Orders Influenza [id number] Immunization 12/20/23 Z23 - Encounter for immunization Lipid Panel 09/05/24 E03.9 - Hypothyroidism, unspecified, E66.9 - Obesity, unspecified, M17.10 - Unilateral primary osteoarthritis, unspecified knee, Z13.1 - Encounter for screening for diabetes mellitus, Z13.220 - Encounter for screening for lipoid disorders, Z78.0 - Asymptomatic menopausal state Alanine Aminotransferase 09/05/24 E03.9 - Hypothyroidism, unspecified, E66.9 - Obesity, unspecified, M17.10 - Unilateral primary osteoarthritis, unspecified knee, Z13.1 - Encounter for screening for diabetes mellitus, Z13.220 - Encounter for screening for lipoid disorders, Z78.0 - Asymptomatic menopausal state Vitamin D 25-OH Total 09/05/24 E03.9 - Hypothyroidism, unspecified, E66.9 - Obesity, unspecified, M17.10 - Unilateral primary osteoarthritis, unspecified knee, Z13.1 - Encounter for screening for diabetes mellitus, Z13.220 - Encounter for screening for lipoid disorders, Z78.0 - Asymptomatic menopausal state Thyroid Stimulating Hormone 09/05/24 E03.9 - Hypothyroidism, unspecified, E66.9 - Obesity, unspecified, M17.10 - Unilateral primary osteoarthritis, unspecified knee, Z13.1 - Encounter for screening for diabetes mellitus, Z13.220 - Enco unter for screening for lipoid disorders, Z78.0 - Asymptomatic menopausal state Free T4 (Free Thyroxine) 09/05/24 E03.9 - Hypothyroidism, unspecified, E66.9 - Obesity, unspecified, M17.10 - Unilateral primary osteoarthritis, unspecified knee, Z13.1 - Encounter for screening for diabetes mellitus, Z13.220 - Encounter for screening for lipoid disorders, Z78.0 - Asymptomatic menopausal state Basic Metabolic Panel Fasting 09/05/24 E03.9 - Hypothyroidism, unspecified, E66.9 - Obesity, unspecified, M17.10 - Unilateral primary osteoarthritis, unsp ecified knee, Z13.1 - Encounter for screening for diabetes mellitus, Z13.220 - Encounter for screening for lipoid disorders, Z78.0 - Asymptomatic menopausal state Aspartate Amino Transferase 09/05/24 E03.9 - Hypothyroidism, unspecified, E66.9 - Obesity, unspecified, M17.10 - Unilateral primary osteoarthritis, unspecified knee, Z13.1 - Encounter for screening for diabetes mellitus, Z13.220 - Encounter for screening for lipoid disorders, Z78.0 - Asymptomatic menopausal state Medications: New walker As directed 1 ea 0RF Gait instability/arthritis R26.81 - Unsteadiness on feet
[2023-12-20 09:40] VITALS: BP 120/70; PULSE 75; O2SAT 95; BMI 40.0
== END 2023-12-20 14:47 | disposition home or self-care (01) ==
PROVIDERS: PCP Internal Medicine; Visit Provider Internal Medicine
DX: R26.81 Unsteadiness on feet (principal); E03.9 Hypothyroidism, unspecified; M17.10 Unilateral primary osteoarthritis, unspecified knee; Z23 Encounter for immunization

== ENCOUNTER → 2023-12-20 08:49 | Outpatient (BNVA) | payer MEDICARE, MEDICAID, SELFPAY | PROVIDERS: PCP Internal Medicine; Visit Provider Internal Medicine | DX: Z23 Encounter for immunization (principal); R26.81 Unsteadiness on feet; E03.9 Hypothyroidism, unspecified; M17.10 Unilateral primary osteoarthritis, unspecified knee | CPT/HCPCS: 90471; 90656; 99212 ==

== ENCOUNTER 2024-02-08 07:41 | Outpatient (REF) | payer MEDICARE, MEDICAID, SELFPAY ==
--- NOTE | ~2024-02-08 | MM_ITS ---
EXAMINATION: MM SCREENING DIGITAL BREAST TOMOSYNTHESIS, BILATERAL CLINICAL INFORMATION: Screening. Asymptomatic. COMPARISON: Mammography: Comparison is made with available priors TECHNIQUE: Digital breast mammography with tomosynthesis is performed in both the craniocaudal and mediolateral oblique views along with computer-aided detection (CAD). FINDINGS: There are scattered areas of fibroglandular density (ACR BI-RADS breast composition Category b). There are no significant masses, abnormal calcifications, or other abnormalities. MM/MM tomosynthesis screening BI IMPRESSION: No mammographic evidence of malignancy. ASSESSMENT: BI-RADS BI-RADS 1 - Negative RECOMMENDATION: Routine annual mammography screening. 1 year F/U This examination should not preclude the clinical evaluation of a suspicious palpable abnormality. This patient's information was entered into a reminder system with a target due date for their next mammogram. Electronically signed by: Jojo Morrison DO 02/17/2024 07:28 AM MAURICIO
--- OUTSIDE RECORDS SUMMARY | 2024-02-08 07:42 | XMS_ITS | Data Portability ---
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 On exam, bilateral tympanic membranes are intact with well aerated middle ear spaces. Audiometric testing demonstrated normal hearing on the right and an essentially stable sensorineural hearing loss on the left. Given that audiometric thresholds are stable, we will continue to observe. If asymmetric hearing loss worsens, may consider imaging. Patient is a candidate for left-sided amplification but is not interested at this time. She will follow-up yearly for audiometric testing, or sooner with any changes in her hearing. [email or web address] Not available 10/19/2023 12:03:48 Plan of Treatment Reminders Order Date Submit Date Provider Last Modified By Organization Details Last Modified Time Details Appointments Hearing Test 2024 10:00A M Hearing Test Not available Not available Not available Establish ed 15 2024 10:30A M KIM NOVAK PA-C Not available Not available Not available Lab None recorded. Referral None recorded. Procedures None recorded. Surgeries None recorded. Imaging None recorded. Medication Orders None recorded. Patient TargetsNo targets recorded. Patient InstructionsNo instructions recorded. Reason for Referral None Reported. Results Created Date Observation Date Name Description Value Unit Range Abnormal Flag Note LastModifiedBy Organization Detail LastModifiedTime 09/25/19 24 10/18/2018 imagi ng/di agnos tic resul t No observ ation record ed. [email or web address] Not Available 21:30:25 09/25/19 24 10/24/2021 imagi ng/di agnos tic resul t No observ ation record ed. [email or web address] Not Available 21:30:32 09/25/19 24 10/27/2019 imagi ng/di agnos tic resul t No observ ation record ed. [email or web address] Not Available 21:30:35 09/25/19 24 10/27/2020 imagi ng/di agnos tic resul t No observ ation record ed. [email or web address] Not Available 21:30:36 09/25/19 24 12/27/2022 imagi ng/di agnos tic resul t No observ ation record ed. [email or web address] Not Available 21:30:37 09/25/19 24 10/24/2021 audio gram No observ ation record ed. [email or web address] Not Available 21:30:47 09/25/19 24 12/27/2022 audio gram No observ ation record ed. [email or web address] Not Available 21:31:06 10/22/19 audio gram No observ ation record ed. [email or web address] Not Available 14:54:38 Result Notes None recorded. Problems Name Problem SNOMED Code Status Onset Date Resolution Date Notes Provider Name and Address Organization Details Recorded Time Conductiv e hearing loss 80326645 Active 2016 Conductiv e hearing loss, unilatera l, left ear, with unrestric ledy hearing on the contralat eral side; Note: Date Diagnosed : 7 1:49 PM (H90.12) Not Available [facility] 4 02:19:28 Sensorine ural hearing loss 00607954 Active 2019 Sensorine ural hearing loss, unilatera l, left ear, with unrestric ledy hearing on the contralat eral side; Note: Date Diagnosed : 10/27/2019 10:03 AM (H90.42) [facility] 02:18:26 Bilateral tinnitus 81435161841 02 Active 2016 Tinnitus, bilateral ; Note: Date Diagnosed : 7 1:49 PM (H93.13) Not Available [facility] 02:18:54 Problem Notes None recorded. Procedures Surgical History Date Name Laterality Status Provider Name and Address Organization Details Recorded Time 10/19/2023 Air & Speech Audio with Tymps (21293, 34963 & 06190) completed DARCY KIM, [facility] [address] [facility],[address], [place], [address], [facility] 10/19/2023 10:52:43 Imaging Results Imaging Date Name Status LastModified by Organiz ation Details LastModified Time 10/18/2018 imaging/diagno stic result completed Information not available 09/25/2023 21:30:25 10/24/2021 imaging/diagno stic result completed Information not available 09/25/2023 21:30:32 10/27/2019 imaging/diagno stic result completed Information not available 09/25/2023 21:30:35 10/27/2020 imaging/diagno stic result completed Information not available 09/25/2023 21:30:36 12/27/2022 imaging/diagno stic result completed Information not available 09/25/2023 21:30:37 10/24/2021 audiogram completed Information not available 09/25/2023 21:30:47 12/27/2022 audiogram completed Information not available 09/25/2023 21:31:06 10/22/2023 [facility]ogram [email or web address] Information not available 10/22/2023 14:54:38 Procedure Notes None recorded. Medical Equipment None Reported. Medications Name Sig Start Date Stop Date Status Note LastModified by Organization Details LastModified Time multivitamin tablet 2016 active Medication ID: [id number] Bran d Name: multivitami n Send Method: E-Prescribe d Subs Allowed: subs OK Medicati onGenericNa me: multivitami n Not Available Not Available Not Available amantadine HCl 100 mg tablet active Not Available Not Available Not Available amoxicillin 500 mg capsule active Not Available Not Available Not Available benztropine 0.5 mg tablet active Not Available Not Availabl e Not Available donepezil 5 mg tablet active Not Available Not Available No t Available Prozac 40 mg capsule 2016 active Medication ID: [id number] Ranhco d Name: Prozac Send Method: E-Prescribe d Subs Allowed: subs OK Medicati onGenericNa me: Prozac Not Available Not Available Not Available ibuprofen 800 mg tablet active Not Available Not Available No t Available doxycycline monohydrate 100 mg tablet active Not Available Not Availabl e Not Available amantadine HCl 100 mg capsule active Not Available Not Available Not Available acetaminophen 500 mg tablet active Not Available Not Availabl e Not Available Calcium-600 600 mg (as calcium carbonate 1,500 mg) tablet 2016 active Medication ID: [id number] Rancho d Name: Calcium 600 Send Method: E-Prescribe d Subs Allowed: subs OK Medicati onGenericNa me: Calcium 600 Not Available Not Available Not Available Glucosamine 500 mg tablet 2016 active Medication ID: [id number] Rancho d Name: Glucosamine Send Method: E-Prescribe d Subs Allowed: subs OK Medicati onGenericNa me: Glucosamine Not Available Not Available Not Available nystatin 100,000 unit/gram topical powder active Not Available Not Available Not Available fluoxetine 20 mg capsule active Not Available Not Available N ot Available risperidone 1 mg tablet active Not Available Not Available No t Available levothyroxine 112 mcg tablet active Not Available Not Available Not Available amoxicillin 875 mg-potassium clavulanate 125 mg tablet active Not Available Not Availabl e Not Available Abilify 15 mg tablet 2016 active Medication ID: [id number] Bran d Name: Abilify Sen d Method: E-Prescribe d Subs Allowed: subs OK Medicati onGenericNa me: Abilify Not Available Not Available Not Available Topamax 50 mg tablet 2016 active Medication ID: [id number] Bran d Name: Topamax Sen d Method: E-Prescribe d Subs Allowed: subs OK Medicati onGenericNa me: Topamax Not Available Not Available Not Available Lactaid Fast Act 9,000 unit chewable tablet 2016 active Medication ID: [id number] Bran d Name: Lactaid Fast Act Send Method: E-Prescribe d Subs Allowed: subs OK Medicati onGenericNa me: Lactaid Fast Act Not Available Not Available Not Available Lactase Fast Acting 9,000 unit tablet active Not Available Not Available Not Available fesoterodine ER 4 mg tablet,extend ed release 24 hr active Not Available Not Available Not Available Adult Robitussin Peak Cold DM 10 mg-100 mg/5 mL oral liquid 2016 active Medication ID: [id number] Bran d Name: Adult Robitussin Peak Cold DM Send Method: E-Prescribe d Subs Allowed: subs OK Medicati onGenericNa me: Adult Robitussin Peak Cold DM Not Available Not Available Not Available calcium 600 mg (as carbonate)-vi tamin D3 20 mcg (800 unit) tablet active Not Available Not Available Not Available Tab-A-Hortencia 400 mcg tablet active Not Available Not Available Not Available Gemtesa 75 mg tablet active Not Available Not Available Not Available Vitals Date Recorded Body height Body mass index (BMI) Body weight Provider Name and Address Organization Details Last Updated DateTime 10/19/2023 152.4 cm 48.6 kg/m2 717478.5 g Gely Estrada [place] - [facility] 10/19/2023 11:02:21 Social History None recorded. Functional Status None recorded. Mental Status None recorded. Family History Nothing Reported. Medical History No medical history recorded. Gynecological HistoryNo gynecological history recorded. Obstetrics History GPAL:G 0 P 0 0 0 0 Past Encounters Encounter ID Performer Location Encounter Start Date Encounter Closed Date Diagnosis/Indication Diagnosis SNOMED-CT Code Diagnosis ICD10 Code [id number] RUBY JULIEN MD [facility] [address] [address] 10/19/2023 10:17:57 10/19/2023 11:21:10 Sensorineural hearing loss 36529638 H90.42 [id number] NIMISHA BROWN [facility] [address] [address] 10/19/2023 10:52:20 10/22/2023 07:11:10 Sensorineural hearing loss 04692503 H90.42 Health Concerns Section Related Observation LastModified by Organization Detai ls LastModified Time None Recorded Concern Status LastModified by Organization Details LastModified Time None Recorded Advance Directives Directive None Recorded Payers Encounter Date Sequence Insurance Name Policy Number Policy Santamaria Covered Member ID Santamaria Member ID Guarantor Name 10/19/2023 2 [place] [facility] Ira Acuña [id number] Ira Acuña 10/19/2023 1 MEDICARE [place]: [facility] Ira Acuña [id number] Ira Acuña 10/19/2023 2 [place]ICAID[place] [facility] Ira Acuña [id number] Ira cAuña 10/19/2023 1 MEDICARE [place]: [facility] Ira Acuña [id number] Ira Acuña Notes Date Note Type Note Provider Name and Address Organization Details Recorded Time 10/19/2023 text/html 53-year-old beau berry with history of left-sided hearing loss presents for routine audiometric testing. She resides in a snf. Denies otalgia, otorrhea, and changes in her hearing. Had an ear infection a few weeks ago that resolved. No prior imaging. RUBY JULIEN MD [address] [place] [address], [phone] - [facility] 10/19/2023 15:16:07 OBGyn Episode No OBEpisode recorded.
== END 2024-02-08 07:42 | disposition home or self-care (01) ==
LOC: HO.MAMMO 07:41
PROVIDERS: PCP Internal Medicine; Visit Provider Internal Medicine
DX: Z12.31 Encounter for screening mammogram for malignant neoplasm of breast (principal)
CPT/HCPCS: 77063; 77067

== ENCOUNTER → 2024-02-08 07:45 | Outpatient (BNV) | payer MEDICARE, MEDICAID, SELFPAY | PROVIDERS: PCP Internal Medicine; Visit Provider Internal Medicine | DX: Z12.31 Encounter for screening mammogram for malignant neoplasm of breast (principal) | CPT/HCPCS: 77063; 77067 ==

== ENCOUNTER → 2024-04-01 20:30 | Outpatient (REF) | payer MEDICARE, MEDICAID, SELFPAY ==
--- OUTSIDE RECORDS SUMMARY | 2024-04-01 21:09 | XMS_ITS | Clinical Summary ---
Author Organization [address] [place] [address] Address [address] [place] [address] Phone Care Team Providers Care Human Resources Records Clerk Name Role Phone Unavailable Primary Care Provider Unavailabl e Allergies No known active allergies Medications ARIPiprazole (ABILIFY) 30 mg tablet Take 1 tablet (30 mg total) by mouth 1 (one) time each day. Active cloNIDine (CATAPRES) 0.1 mg tablet Take 1 tablet (0.1 mg total) by mouth 2 (two) times a day. Active FLUoxetine (PROzac) 20 mg tablet Take 1 tablet (20 mg total) by mouth 1 (one) time each day. Active levothyroxine (SYNTHROID, LEVOTHROID) 112 mcg tablet Take 1 tablet (112 mcg total) by mouth 1 (one) time each day. Active pantoprazole (PROTONIX) 40 mg EC tablet Take 1 tablet (40 mg total) by mouth 1 (one) time each day. Active topiramate (TOPAMAX) 100 mg tablet Take 1 tablet (100 mg total) by mouth 2 (two) times a day. Active Active Problems No known active problems Social History Tobacco Use Types Packs/Day Years Used Date Smoking Tobacco: Never Assessed Smokeless Tobacco: Never Comments Unknown Sex and Gender Information Value Date Recorded Sex Assigned at Not on file Legal Sex Female 12:19 AM EST Gender Identity Not on file Sexual Orientation Not on file Obstetrics History Last Filed Vital Signs Vital Sign Reading Time Taken Comments Blood Pressure 102/69 02/28/2023 11:02 AM EST Pulse 71 02/28/2023 11:02 AM EST Temperature - - Respiratory Rate - - Oxygen Saturation - - Inhaled Oxygen Concentration - - Weight - - Height 152.4 cm (5') 02/28/2023 11:02 AM EST Body Mass Index - - Plan of Treatment Upcoming Encounters Date Type Department Care Team ([facility] st Contact Info) Description 05/01/2024 9:15 AM EDT Office Visit Bariatric Surgery - [place] [address] [facility] [address] [place] [address] Jayshree Becerril PA [address] [facility] [address] [place] [address] Health Maintenance Due Date Last Done Comments Breast Cancer Screening 1970 DTaP,Tdap,and Td Vaccines (1 - Tdap) 01/21/1987 Hepatitis B Vaccines (1 of 3 - 19+ 3-dose series) 01/21/1987 Cervical Cancer Screening: P ap Smear 01/21/1989 Pneumococcal Vaccine: 50+ Ye ars (1 of 1 - PCV) 01/21/2018 Zoster Vaccines (1 of 2) 01/21/2018 Colorectal Cancer Screening: Colonoscopy 03/07/2023 Depression Screening 03/07/2023 HIV Screening 03/07/2023 Hepatitis C Screening 03/07/2023 Medicare Annual Wellness Visit 03/07/2023 Social Influencers of Health Screening 03/07/2023 COVID-19 Vaccine ( - 2023-2 5 season) 2023 Influenza Vaccine (#1) 2023 HIB Vaccines Aged Out No longer eligi ble based on patient's age to complete this topic HPV Vaccines Aged Out No longer eligi ble based on patient's age to complete this topic Hepatitis A Vaccines Aged Out No long er eligible based on patient's age to complete this topic IPV Vaccines Aged Out No longer eligi ble based on patient's age to complete this topic MMR Vaccines Aged Out No longer eligi ble based on patient's age to complete this topic Meningococcal ACWY Vaccine Aged Out N o longer eligible based on patient's age to complete this topic Meningococcal B Vacine Aged Out No lo nger eligible based on patient's age to complete this topic Pneumococcal Vaccine: Pediat rics (0 to 5 Years) and At-Risk Patients (6 to 64 Years) Aged Out No longer eligible b ased on patient's age to complete this topic RSV Immunization Patients Un rafael 20 months Aged Out No longer eligible b ased on patient's age to complete this topic Varicella Vaccines Aged Out No longer eligible based on patient's age to complete this topic Insurance MEDICARE [place]ICAID - [place]
--- OUTSIDE RECORDS SUMMARY | 2024-04-01 21:09 | XMS_ITS | Data Portability ---
Author Organization [place] - [facility], Allergy Address [address] [place] [phone] Care Team Providers Care Sportspersons Name Role Phone EMANUEL GREEN Primary Care [...] sooner with any changes in her hearing. [email or web address] Not available 10/19/2023 12:03:48 Plan of Treatment [...] Abnormal Flag Note LastModifiedBy Organization Detail LastModifiedTime 09/25/1910/18/2018 imagi ng/di agnos tic resul t No [...] Details Recorded Time Conductiv e hearing loss 27936614 Active 2016 Conductiv e hearing loss, unilatera l, left ear, with unrestric ledy hearing on the contralat eral side; Note: Date Diagnosed : 7 1:49 PM (H90.12) Not Available [facility] 4 02:19:28 Sensorine ural hearing loss 47687755 Active 2019 Sensorine ural hearing loss, unilatera l, left ear, with unrestric ledy hearing on the contralat eral side; Note: Date Diagnosed : 10/27/2019 10:03 AM (H90.42) Not Available [facility] 4 02:18:26 Bilateral tinnitus [id number] 02 Active 2016 Tinnitus, bilateral ; Note: Date Diagnosed : 7 1:49 PM (H93.13) Not Available [facility] 02:18:54 Problem Notes None recorded. Procedures Surgical History Date Name Laterality Status Provider Name and Address Organization Details Recorded Time 10/19/2023 Air & Speech Audio with Tymps (37008, 31422 & 51533) completed DARCY KIM, [facility] [address] [facility] [address], [place], [address], [facility] 10/19/2023 10:52:43 Imaging Results Imaging Date Name [...] not available 09/25/2023 21:31:06 10/22/2023 audiogram [email or web address] Information not available 10/22/2023 14:54:38 Procedure Notes None recorded. Medical Equipment None Reported. Medications Name Sig Start Date Stop Date Status Note LastModified by Organization Details LastModified Time multivitamin tablet 2016 active Medication ID: [id number] Bran d Name: multivitami n Send Method: [...] 40 mg capsule 2016 active Medication ID: [id number] Rancho d Name: Prozac Send Method: E-Prescribe d [...] 1,500 mg) tablet 2016 active Medication ID: [id number] [place] d Name: Calcium 600 Send Method: E-Prescribe d Subs Allowed: subs OK Medicati onGenericNa me: Calcium 600 Not Available Not Available Not Available Glucosamine 500 mg tablet 2016 active Medication ID: [id number] [place] d Name: Glucosamine Send Method: E-Prescribe [...] 15 mg tablet 2016 active Medication ID: [id number] Bran d Name: Abilify Sen d Method: E-Prescribe d Subs Allowed: subs OK Medicati onGenericNa me: Abilify Not Available Not Available Not Available Topamax 50 mg tablet 2016 active Medication ID: [id number] Bran d Name: Topamax Sen d Method: E-Prescribe d Subs Allowed: subs [place] Medicati onGenericNa me: Topamax Not Available Not Available Not Available Lactaid Fast Act 9,000 unit chewable tablet 2016 active Medication ID: [id number] Bran d Name: Lactaid Fast Act Send [...] mL oral liquid 2016 active Medication ID: [id number] Bran d Name: Adult Robitussin Peak Cold [...] Updated DateTime 10/19/2023 152.4 cm 48.6 kg/m2 583154.5 g Gely Estrada [place] - [facility] 10/19/2023 11:02:21 Social History None recorded. Functional Status None recorded. Mental Status None recorded. Family History Nothing Reported. Medical History No medical history recorded. Gynecological HistoryNo gynecological history recorded. Obstetrics History GPAL:G 0 P 0 0 0 0 Past Encounters Encounter ID Performer Location Encounter Start Date Encounter Closed Date Diagnosis/Indication Diagnosis SNOMED-CT Code Diagnosis ICD10 Code Diagnosis Note [id number] RUBY JULIEN MD [facility] [address] [address] 10/19/2023 10:17:57 10/19/2023 11:21:10 Sensorineural hearing loss 27943284 H90.42 [id number] NIMISHA BROWN [facility] [address] [address] 10/19/2023 10:52:20 10/22/2023 07:11:10 Sensorineural hearing loss 89989912 H90.42 Right Ear:Normal hearing with excellent speech discrimina tion.Type A tympanogra m.Left Ear:Border line normal/mil d SNHL with excellent speech discrimina tion.Type C tympanogra m. Health Concerns Section Related Observation LastModified by Organization Detai ls LastModified Time None Recorded Concern Status LastModified by Organization Details LastModified Time None Recorded Advance Directives Directive None Recorded Payers Encounter Date Sequence Insurance Name Policy Number Policy Santamaria Covered Member ID Santamaria Member ID Guarantor Name 10/19/2023 2 [place] Ira Acuña [id number] Ira Montoya Acuña 10/19/2023 1 MEDICARE [place]: [facility] Ira Rodriguezendez [id number] Ira Montoya Acuña 10/19/2023 2 [place] [facility] Ira Rodriguezendez [id number] Ira Montoya Acuña 10/19/2023 1 MEDICARE B-[place]: [facility] Ira Acuña [id number] Ira Acuña Notes Date Note Type Note Provider Name and Address Organization Details Recorded Time 10/19/2023 text/html 53-year-old femhugo berry with history of left-sided hearing loss presents for routine audiometric testing. She resides in a skilled nursing. Denies otalgia, otorrhea, and changes in her hearing. Had an ear infection a few weeks ago that resolved. No prior imaging. RUBY JULIEN MD [address] [place] [address], [place], [address], [facility] - [facility] 10/19/2023 15:16:07 OBGyn Episode No OBEpisode recorded.
== END ==
LOC: HO.SL 20:30
PROVIDERS: PCP Internal Medicine; Visit Provider Internal Medicine
DX: G47.33 Obstructive sleep apnea (adult) (pediatric) (principal)
CPT/HCPCS: 95810

== ENCOUNTER → 2024-04-01 23:15 | Outpatient (BNV) | payer MEDICARE, MEDICAID, SELFPAY | PROVIDERS: PCP Internal Medicine; Visit Provider Internal Medicine | DX: G47.33 Obstructive sleep apnea (adult) (pediatric) (principal); G47.61 Periodic limb movement disorder | CPT/HCPCS: 95810 ==

== ENCOUNTER 2024-05-19 14:47 | Outpatient (AMB) | payer MEDICARE, MEDICAID, SELFPAY ==
--- NOTE | 2024-05-19 15:49 | AM.OFFWIN_ITS ---
Intake Vital Signs 3 05/19/24 15:52 Weight 218 lb BP 116/74 Blood Pressure Location Rt brachial Position Sitting Pulse 75 Pulse Source Pulse Oximeter Pulse Oximetry (%) 95 Oxygen Delivery Method Room Air Intake Visit Reasons: PE Pain in feet Intake Note: Patient here for right foot swelling and cut that she noticed today. Patient Tobacco Use Status: Former Tobacco user Allergies lactose [LACTOSE] Adverse Reaction (Mild, Verified 05/19/24 15:53) GI DISTRESS Do you need a note to return to daycare/school/sports/work: No HPI HPI Comments 2 History of Present Illness0 Details 54 y/o Female patient who presents to [facility] walk in clinic accompanied by a Care-Taker c/o Right Foot pain on Plantar aspect. Reports feeling a Cut and hurts walking on it. [facility] Medical History (Updated 05/19/24 @ 17:17 by Suyapa Spring NP) Plantar callus Difficulty swallowing solids Schizophrenia Abnormal Pap smear of cervix Enuresis, nocturnal only MYA (obstructive sleep apnea) Osteoarthritis, knee Vitamin D deficiency Obesity Developmental disability Acquired hypothyroidism Gait instability Acid reflux Hx of sleep apnea History of hyperthyroidism Hx of major depression Surgical History Hx of colonoscopy History of knee replacement Hx LEEP (loop electrosurgical excision procedure), cervix, History of thyroidectomy Hx of endoscopy History of ankle surgery Hx of knee surgery Family History Father No problems noted. Mother No problems noted. Maternal Aunt Breast cancer Social History Household Members: Other Household Members Other:: [facility] Housing: Assisted Living Facility Alcohol intake: never Comment: unsteady gait Patient Tobacco Use Status: Former Tobacco user Years Smoked: 2 yrs e-Cigarette/Vaping Use: Never Used service: No Current occupational status: disabled Sexual orientation: Straight/Heterosexual Gender identity: Female Cognitive needs: No Hearing needs: No Vision needs: No Review of Systems Const All systems reviewed & are unremarkable except as noted in HPI and below Physical Exam Vital Signs: Last Vital Signs Pulse 75 05/19/24 15:52 BP 116/74 05/19/24 15:52 Pulse Ox 95 04/14/25 15:52 Oxygen Delivery Method Room Air 04/14/25 15:52 Const General: no acute distress Nutritional Appearance: obese Orientation/consciousness: patient oriented x3 Neuro General: patient oriented x3 Extrem Ankle/foot/toe images: 2 1. Small hardened, thickened area of skin, Callus. Assessment & Plan Assessment & Plan (1) Plantar callus: Code(s): L84 - Corns and callosities Plan: Placed Referral to Podiatry for Shaving of Callus Advised Wearing well-fitting shoes. Keeping the area moisturized can help soften the skin. Orders: Referrals 2 Podiatry Referral L84 - Corns and callosities Coding Level of Care Code Est Pt Level 4 (53224) Diagnoses Plantar callus L84 Time Spent (min) 20
[2024-05-19 15:52] VITALS: BP 116/74; PULSE 75; O2SAT 95
--- OUTSIDE RECORDS SUMMARY | 2024-05-19 17:19 | XMS_ITS | Data Portability ---
Author Organization [place] [facility] Address [address] [place] [id number] Care Team Providers Care Global Safety Officer Name Role Phone EMANUEL GREEN Primary Care Provider [phone] Assessment Encounter Date Assessment Date Assessment LastModified by Organization Details LastModified Time 08/25/2018 08/25/2018 Overview/History : 48-year-old female, with a past medical history of schizophrenia, obesity, anxiety, depression, bilateral knee replacements with septic joint, was evaluated for a mechanical fall where she sustained an injury to the left great toe. She denies hitting her head or any other injuries. Exam: Pleasant, obese female sitting in bed appears in no acute distress. Lungs clear to auscultation bilaterally. Heart rate regular with no obvious murmur. No facial trauma. Cervical spine nontender with full range of motion. Moving all extremities without difficulty. Left 5th toe with mild discomfort to palpation no obvious deformity or significant edema. DDx considered, but not limited to: Fracture. Contusion. Fracture unlikely given no obvious deformity. Plan/Discussion: Discussed elevating the extremity for discomfort and instructed to take acetaminophen t.i.d. as needed. Patient was advised to seek further medical attention if she develops any increasing pain or any other new or worrisome symptoms. In order to obtain further information and compare any laboratory results/values, I have accessed old patient records. This information was pertinent in my medical decision making today. Time On Scene with Patient: 00:24:19 Not available 08/25/2018 17:39:07 12/28/2018 12/28/2018 Overview/History : 48 year-old female, known to myself from a previous visit, with a past history that includes but not limited to schizophrenia, mild MR, osteoarthritis, septic arthritis, on chronic Bactrim always evaluated for a left elbow laceration that occurred this morning after the patient lost her balance and struck the wall. She did not strike her head and sustained no other injuries. Exam: Pleasant, obese female in no acute distress. No signs of head trauma. No midline cervical tenderness. Full ROM to the neck. Lungs clear to auscultation bilaterally. Heart rate regular with no obvious murmur. No T or L spine tenderness. Left arm was 0.5 cm superficial laceration. Full extension and flexion at the elbow and shoulder. No other injuries noted. DDx considered, but not limited to: Open fracture. Laceration. Fracture unlikely as patient with full ROM and no tenderness. Laceration is superficial. Work up/Results: Plan/Discussion: Superficial wound was cleaned with saline. Bacitracin and 2 Steri-Strips were applied with a Band-Aid. Wound care instructions were discussed with staff. If the patient develops signs of infection such as erythema, redness or any other worsening symptoms she will need to be reevaluated. In order to obtain further information and compare any laboratory results/values, I have accessed patient records on the [employer]. This information was pertinent in my medical decision making today. Time On Scene with Patient: 00:16:36 [email or web address] Not available 12/29/2018 12:29:39 12/22/2019 12/22/2019 Overview/History : 49yoF known to DH new to this provider pmhx slight mingo VELAZQUEZ is seen after a mechanical fall this afternoon. Patient reports getting out of the car and falling forward onto her face and R knee. No LOC and the patient was able to get up and walk on her own. No RUDD, dizziness, neck pain. No difficulty walking. Exam: VSS PAtient well appearing Heart and lung sounds clear no signs of trauma to chest or abdomen No midline tenderness or step off deformity throughout entire spine Full ROM and motor at all joints of all 4 extremities All compartments soft Patient is able to stand and ambulate on her own Superficial skin teart to nose, lower lip and L knee DDx considered, but not limited to: mechanical fall (no hx of syncope) no signs of ICH of cervical fx on exam no signs of LLE fracture or compartment syndrome on exam no signs of chest of abdomen trauma superficial skin tears Work up/Results: none at this time Plan/Discussion: Patient is hemodynamically stable non toxic appearing seen today after a mechanical fall. There are no signs of ICH, cervical fx, or any other fracture on exam. Superficial skin abrasions cleaned. Staff at shelter will call PCP and ensure the patient's tetanus is UTD. Educated patient and staff about RICE therapy. Precautions given to again seek medical care if the patient develops worsened pain, redness, swelling or a change in mental status. They vetbalized understanding and were agreeable with overall plan. Proper Personal Protective Equipment (PPE), including gloves, eye protection and masks were donned and doffed appropriately and all equipment cleaned using approved technique with germicidal disposable wipes prior to and after care of this patient according to [facility]'s infection prevention protocols. In order to obtain further information and compare any laboratory results/values, I have accessed old patient records. This information was pertinent in my medical decision making today. Time On Scene with Patient: 00:21:05 [email or web address] Not available 12/22/2019 18:40:11 Plan of Treatment Reminders Order Date Submit Date Provider Last Modified By Organization Details Last Modified Time Details Appointments None record ed. Lab None record ed. Referral None record ed. Procedures None record ed. Surgeries None record ed. Imaging None record ed. Medication Orders None record ed. Patient TargetsNo targets recorded. Patient Instructions Encounter Date Encounter Id Patient Instructions Last Modified By Organization Details Last Modified Time 08/25/2018 [id number] Take Tylenol thr ee times a day for the next 3 days for pain. Then take as needed after this. Pain may be worse tomorrow but should get better each day. Will need to be reseen for increasing pain. Thank you for your visit with [facility] today. We cannot always find the exact cause of your symptoms during your initial visit. Please follow up with your primary care provider or specialist to be rechecked or seek medical attention if your symptoms do not go away or get worse. If you develop any new or worsening symptoms and need after hours care, please go to nearest ER and/or call 911. If you have additional concerns or develop a change in your condition between 8am-10pm, please call [facility] at [phone] to help navigate your care. Thank you for your visit with [facility] today. You do not appear to have a fracture or dislocation that requires immediate surgical intervention. However, small breaks or ligament tears may not be obvious on initial examination. Given this concern, we may have placed you in a temporary splint. If an xray is indicated, we will help direct you to the best option to obtain your imaging study. We have also given you follow up directions. Please follow up with your primary care physician or specialist as directed. If you develop any new or worsening symptoms and need after hours care, please go to nearest ER and/or call 911. If you have additional concerns or develop a change in your condition between 8am-10pm, please call [facility] at [phone] to help navigate your care. [email or web address] Not available 08/25/2018 14:30:38 12/28/2018 [id number] Keep the dressin g on for 48 hours. After this you can change the Band-Aid and apply bacitracin or Neosporin once a day. If you develop signs of infection such as redness, fever or increasing pain you need to be reevaluated. Take Tylenol as prescribed every 6 hours for discomfort. Not available 12/28/2018 12:51:35 12/22/2019 [id number] THE PATIENT WAS SEEN TODAY AFTER A MECHANINCAL FALL SHE WAS FOUND TO HAVE SUPERFICIAL SKIN ABRASIONS TO HER NOSE, LOWER LIP, AND LEFT KNEE THE SKIN TEAR ON THE LEFT KNEE WAS CLEANED AND WE APPLIED BACITRACIN OINTMENT AND A BAND AIDE THE NEXT TIME THE PATIENT SHOWERS SHE CAN REMOVE THE BAND AIDE. COVER THE AREA ON HER KNEE NEEDED THERE WERE NO SIGNS OF ANY FRACTURES OF A HEAD BLEED ON MY EXAM TODAY I WOULD HAVE THE PATIENT ICE HER LIP AND LEFT KNEE FOR 15 MINUTES THREE TIMES A DAY FOR THE NEXT 3-4 DAYS AGAIN CALL FOR MEDICAL CARE IF THE PATIENT DEVELOPS WORSENED REDNESS, SWELLING OR PAIN THE PATIENT DOES NOT NEED FOLLOW UP BUT I WOULD CALL HER PRIMARY CARE PROVIDER TO ENSURE HER TETANUS IS UP TO DATE. SHE SHOULD HAVE HAD ONE IN THE LAST 7 YEARS PLEASE CALL WITH ANY QUESTIONS OR CONCERNS Not available 12/22/2019 15:56:16 Reason for Referral None Reported. Procedures Surgical History Date Name Laterality Status Provider Name and Address Organization Details Recorded Time total knee replacement completed LOWELL DUEÑAS NP [address], [place], [address], [place] [facility] 08/25/2018 14:21:48 Imaging Results None recorded. Procedure Notes None recorded. Medical Equipment None Reported. Allergies No known drug allergies Medications Name Sig Start Date Stop Date Status Note LastModified by Organization Details LastModified Time celecoxib 200 mg capsule 08/25 completed Not Available Not Available Not Available amoxicillin 500 mg capsule 08/25 completed Not Available Not Available Not Available clonidine HCl 0.1 mg tablet active Not Available Not Available Not Available phenazopyri dine 200 mg tablet active Not Available Not Available Not Available sulfamethox azole 800 mg-trimetho prim 160 mg tablet TAKE 1 TABLET BY MOUTH TWICE DAILY 12/21 completed Not Available Not Available Not Available acetaminoph en 500 mg tablet active Not Available Not Available Not Available Bactrim DS 800 mg-160 mg tablet Take 1 tablet every 12 hours by oral route. active Not Available Not Available No t Available hydromorpho ne 2 mg tablet 08/25 completed Not Available Not Available Not Available aspirin 325 mg tablet,annamaria yed release 08/25 completed Not Available Not Available Not Available pantoprazol e 40 mg tablet,annamaria yed release TAKE 1 TABLET BY MOUTH EVERY MORNING active Not Available Not Available No t Available nystatin 100,000 unit/gram topical cream 08/25 completed Not Available Not Available Not Available Calcium-600 600 mg (as calcium carbonate 1,500 mg) tablet active Not Available Not Available Not Available nystatin-tr iamcinolone 100,000 unit/g-0.1 % topical cream active Not Available Not Available Not Available lactase 3,000 unit tablet active Not Available Not Available Not Available docusate sodium 100 mg capsule 08/25 completed Not Available Not Available Not Available bisacodyl 5 mg tablet,annamaria yed release active Not Available Not Available Not Available polyethylen e glycol 3350 17 gram/dose oral powder active Not Available Not Available Not Available fluoxetine 20 mg capsule TAKE 3 CAPSULES BY MOUTH EVERY DAY IN THE MORNING active Not Available Not Available No t Available fluticasone propionate 50 mcg/actuati on nasal spray,suspe nsion active Not Available Not Available Not Available levothyroxi ne 112 mcg tablet TAKE 1 TABLET BY MOUTH EVERY DAY 30 MINUTES BEFORE A MEAL 12/21 completed Not Available Not Available Not Available Daily-Hortencia tablet active Not Available Not Available Not Available aripiprazol e 20 mg tablet TAKE 1 TABLET BY MOUTH EVERY DAY IN THE MORNING active Not Available Not Available No t Available topiramate 50 mg tablet TAKE (1) TABLET BY MOUTH TWICE DAILY. active Not Available Not Available No t Available Fiber Laxative (psyllium husk) 0.52 gram capsule active Not Available Not Available Not Available Lactaid Fast Act 9,000 unit tablet TAKE 1 TABLET BY MOUTH NEEDED BEFORE HAVING DAIRY PRODUCTS EVERY MORNING AND NEEDED IN EVENING active Not Available Not Available No t Available Myrbetriq 25 mg tablet,exte nded release active Not Available Not Available Not Available Myrbetriq 50 mg tablet,exte nded release active Not Available Not Available Not Available calcium 600 mg (as carbonate)- vitamin D3 20 mcg (800 unit) tablet active Not Available Not Available Not Available Shingrix (PF) 50 mcg/0.5 mL intramuscul ar suspension, kit active Not Available Not Available Not Available Flucelvax Quad (PF) 60 mcg (15 mcg x 4)/0.5 mL IM syringe active Not Available Not Available N ot Available Flucelvax Quad (PF) 60 mcg (15 mcg x 4)/0.5 mL IM syringe [facility] active Not Available Not Available No t Available Tab-A-Hortencia 400 mcg tablet active Not Available Not Available Not Available Vitals Date Recorded Respiratory rate Heart rate Oxygen saturation Oxygen saturation in Arterial blood by Pulse oximetry Body temperature Systolic blood pressure Diastolic blood pressure Provider Name and Address Organization Details Last Updated DateTime 9 18 /min 66 /min 100 % 100 % 96.9 [degF] 90 mm[Hg] 64 mm[Hg] Not Available [facility] 9 12:47:32 Date Recorded Heart rate Body temperature Respiratory rate Oxygen saturation Oxygen saturation in Arterial blood by Pulse oximetry Systolic blood pressure Diastolic blood pressure Provider Name and Address Organization Details Last Updated DateTime 0 72 /min 98.8 [degF] 18 /min 98 % 98 % 108 mm[Hg] 58 mm[Hg] Not Available [facility] 0 15:45:10 Date Recorded Body temperature Oxygen saturation Oxygen saturation in Arterial blood by Pulse oximetry Heart rate Respiratory rate Systolic blood pressure Diastolic blood pressure Provider Name and Address Organization Details Last Updated DateTime 9 98.6 [degF] 98 % 98 % 64 /min 17 /min 124 mm[Hg] 72 mm[Hg] Not Available [facility] 9 14:17:01 Social History Question Answer Notes LastModified by Organizat ion Details LastModified Time Tobacco Smoking Status Former Smoker LOWELL DUEÑAS NP [address], [place], [address], [place] [facility] 08/25/2018 14:15:27 Do You Have An Advance Directive? Yes Leanne Sister [facility] – Information not available 08/25/2018 Within The Past 12 Months, Has It Happened That The Food You Bought Just Didn't Last And You Didn't Have Money To Get More. Overweight [facility] – Information not available 08/25/2018 Within The Past 12 Months, Have You Worried That Your Food Would Run Out Before You Got Money To Buy More. Yes [facility] Information not available 08/25/2018 Fall Risk: Do You Feel Unsteady When Standing Or Walking? Yes [facility] – Information not available 08/25/2018 Marital Status Single [facility] Information not available 08/25/2018 What Was The Date Of Your Most Recent Tobacco Screening? 08/25/2018 Information not available 08/29/2018 How Much Tobacco Do You Smoke? 1 PPW [facility] – Information not available 08/25/2018 How Many Years Have You Smoked Tobacco? 5 [facility] – Information not available 08/25/2018 Sex: Unknown Functional Status None recorded. Mental Status None recorded. Family History Relationship Description Onset Age of this Age Resolved Age Notes LastModified by Organization Details LastModified Time Maternal Aunt Malignant tumor of breast [email or web address] Not available 08/25 14:15:16 Medical History Condition Response Coronary Artery Disease N COPD N Depression Y Diabetes N Cancer N Stroke N Asthma N High Cholesterol N Pulmonary Embolism N Hypertension N Kidney Disease N Gynecological HistoryNo gynecological history recorded. Obstetrics History GPAL:G 0 P 0 0 0 0 Past Encounters Encounter ID Performer Location Encounter Start Date Encounter Closed Date Diagnosis/Indication Diagnosis SNOMED-CT Code Diagnosis ICD10 Code Diagnosis Note [id number] LOWELL DUEÑAS NP [facility] [address] [place] [address] 08/25/2018 14:11:07 08/28/2018 16:00:22 Contusion of toe 15194487 S90.122A [id number] LOWELL DUEÑAS NP [facility] [address] [place] [address] 12/28/2018 12:37:52 12/30/2018 20:11:17 Superficial laceration of elbow 832266613 S51.012A Fall W19.XXXA [id number] [facility]AY[facility] BAILON [facility] [address] [place] [address] 12/22/2019 15:37:16 12/22/2019 18:43:25 Tear of skin 141308588 T14.8XXA Health Concerns Section Related Observation LastModified by Organization Detai ls LastModified Time None Recorded Concern Status LastModified by Organization Details LastModified Time None Recorded Advance Directives Directive Y: leanne edmonds Payers Encounter Date Sequence Insurance Name Policy Number Policy Santamaria Covered Member ID Santamaria Member ID Guarantor Name 08/25/2018 1 [facility] [employer] (MEDICAID HMO) Ira Acuña [id number] Ira Acuña 12/28/2018 1 [facility] [email or web address] PLAN (MEDICAID HMO) Ira Acuña [id number] Ira Acuña 12/22/2019 1 [facility] [email or web address] [facility] [facility] PLAN (MEDICAID HMO) [place] Ira Acuña [id number] Ira Acuña Notes Date Note Type Note Provider Name and Address Organization Details Recorded Time 08/25/2018 text/html 48 yo female [facility], with a past medical history that includes but not limited to schizophrenia, anxiety, obesity, mild mental retardation, bilateral knee replacements with septic joint, was evaluated for complaints of left toe pain after a mechanical fall today. The patient lives in a shelter and reports that she lost her balance falling onto her left side. She did not strike her head and her only complaint is pain to the left 5th toe. She is ambulating with her walker without difficulty. LOWELL DUEÑAS NP [address] [place], [address], [place] [facility] 08/25/2018 17:41:41 12/28/2018 text/html 48-year-old fema le known to myself from a previous visit with a past medical history that includes but not limited to schizophrenia, mild MR, osteoarthritis, septic arthritis, was evaluated for a wound to the left elbow that occurred earlier this morning. The patient lives in a shelter. She lost her balance this morning and struck her left elbow against a wall sustaining a laceration. She denies any other injuries. Staff was concerned that she may require sutures. LOWELL DUEÑAS NP [address], [place], [address], [place] [facility] 12/29/2018 12:31:26 12/22/2019 text/html 49yoF known to D H new to this provider pmhx mild MR, schizophrenia, and arthritis is seen today after a fall. Today around noon the patient was getting out of the car and tripped on the ground. The patient was able to get up on her own. Patient reports injuring her nose, lip and L knee. No LOC. No RUDD, dizziness or neck pain. Patient has been able to walk on her own. The patient denies any pain. Unknown last tetanus shot. YAYA BAILON [address], [place], [address], [place] [facility] 12/22/2019 18:40:20 OBGyn Episode No OBEpisode recorded.
--- OUTSIDE RECORDS SUMMARY | 2024-05-19 17:19 | XMS_ITS | Continuity of Care Document ---
Author Organization [facility] Ashley colvins [facility] Address [address], [address] [place] [address]- Care Team Providers Care Lead Setter Name Role Phone Gaudencio TUCKER, Deonna Montoya Primary Care [id number] Date(s): 04/15/24 [facility] [address], [address] [place] [address]- Encounter Type: Triage Allergies, Adverse Reactions, Alerts Substance Criticality Severity Reaction Reaction Severity Status Milk Products mayonnaise diarrhea Active Medications Abilify 15 mg oral tablet 20 mg, By Mouth, Daily, # 30 tablet, Refills 0, Maintenance, 07/05/17 9:11:09 AM EDT Start Date: 07/05/17 Status: Ordered Quantity: 30.0 Unit: tablet Repeat number: 1 Aricept 5 mg oral tablet 5 mg, 1, tablet, By Mouth, Daily at bedtime, Refills 0, Maintenance, 11/12/23 3:02:00 PM EDT, Partial fill upon patient request if the prescription is for a schedule II opioid drug. Start Date: 11/12/23 Status: Ordered Repeat number: 1 benztropine 0.5 mg oral tablet 0.5 mg, 1, tablet, By Mouth, Daily at bedtime, # 90 tablet, Refills 0, Maintenance, 07/27/22 11:16:00 AM EDT, Partial fill upon patient request if the prescription is for a schedule II opioid drug. Start Date: 07/27/22 Status: Ordered Quantity: 90.0 Unit: tablet Repeat number: 1 calcium (as carbonate)-vitamin D 600 mg-800 intl units oral tablet 0 Refills, Maintenance, 11/12/23 3:02:00 PM EDT, Partial fill upon patient request if the prescription is for a schedule II opioid drug. Start Date: 11/12/23 Status: Ordered Repeat number: 1 darifenacin 15 mg oral tablet, extended release 1 tablet = 15 mg, By Mouth, Daily, # 30 tablet, 0 Refills, Maintenance, 04/18/24 2:39:00 PM EDT, ER Tablet, [facility], Partial fill upon patient request if the prescription is for a schedule II opioid drug., 153, cm, 12/12/22 14:07:00 EST, Height, 95.2, kg, 11/12/23 14:01:00 EDT, Dry Weight Start Date: 04/18/24 Status: Ordered Quantity: 30.0 Unit: tablet Repeat number: 1 Fesoterodine 4 mg oral tablet, extended release 1 tablet, By Mouth, Daily at bedtime, # 30 tablet, 3 Refills, Maintenance, 03/17/24 12:36:00 PM EST,[facility], 153, cm, 12/12/22 14:07:00 EST, Height, 95.2, kg, 11/12/23 14:01:00 EDT, Dry Weight Start Date: 03/17/24 Status: Ordered Quantity: 30.0 Unit: tablet Repeat number: 4 FLUoxetine 60 mg oral tablet 1 tablet = 60 mg, By Mouth, Daily in AM, # 30 tablet, 0 Refills, Maintenance, 07/04/17 9:21:07 AM EDT, Tablet Start Date: 07/04/17 Status: Ordered Quantity: 30.0 Unit: tablet Repeat number: 1 Gemtesa 75 mg oral tablet 1 tablet, By Mouth, Daily in AM, # 30 tablet, 6 Refills, Maintenance, 06/19/23 4:54:00 PM EDT, [facility], 153, cm, 12/12/22 14:07:00 EST, Height, 91.5, kg, 12/11/22 14:36:00 EST, Dry Weight Start Date: 06/19/23 Status: Ordered Quantity: 30.0 Unit: tablet Repeat number: 7 Lactaid Fast Action 9000 units oral tablet 0 Refills, Maintenance, 07/04/17 9:22:32 AM EDT Start Date: 07/04/17 Status: Ordered Repeat number: 1 levothyroxine 0.112 mg oral tablet 1 tablet = 112 mcg, By Mouth, Daily, # 30 tablet, 0 Refills, Maintenance, 07/05/17 9:04:17 AM EDT, Tablet Start Date: 07/05/17 Status: Ordered Quantity: 30.0 Unit: tablet Repeat number: 1 MiraLax oral powder for reconstitution = 17 Gm, By Mouth, Daily, # 238 Gm, 1 Refills, Acute 11/11/24 2:56:00 PM EDT, 11/12/23 2:56:00 PM EDT, REC Powder, [facility], Partial fill upon patient request if the prescription is for a schedule II opioid drug., 17 Gm By Mouth Daily, 153, cm, 12/12/22 14:07:00 EST, Height, 95.2, kg, 11/12/23 14:01:00 EDT, Dry Weight Start Date: 11/12/23 Stop Date: 11/11/24 Status: Ordered Quantity: 238.0 Unit: g Repeat number: 2 Multivitamin Daily, 0 Refills, Maintenance, 07/07/19 11:29:00 AM EDT Start Date: 07/07/19 Status: Ordered Repeat number: 1 pantoprazole 40 mg oral delayed release tablet = 40 mg, By Mouth, Daily, 0 Refills, Maintenance, 12/27/17 7:33:03 AM EST, EC Tablet Start Date: 12/27/17 Status: Ordered Repeat number: 1 PROzac 40 mg oral capsule 1 capsule = 40 mg, By Mouth, Daily, 0 Refills, Maintenance, 11/12/23 3:02:00 PM EDT, Partial fill upon patient request if the prescription is for a schedule II opioid drug. Start Date: 11/12/23 Status: Ordered Repeat number: 1 risperiDONE 2 mg oral tablet 2 mg, 1, tablet, By Mouth, Daily, # 30 tablet, Refills 0, Maintenance, 07/27/22 11:16:00 AM EDT, Partial fill upon patient request if the prescription is for a schedule II opioid drug. Start Date: 07/27/22 Status: Ordered Quantity: 30.0 Unit: tablet Repeat number: 1 tolterodine 4 mg oral capsule, extended release 1 capsule = 4 mg, By Mouth, Daily, # 30 capsule, 11 Refills, Maintenance, 05/14/24 4:56:00 PM EDT, [facility] upon patient request if the prescription is for a schedule II opioid drug., 153, cm, 05/13/24 11:54:00 EDT, Height, 95.2, kg, 11/12/23 14:01:00 EDT, Dry Weight Start Date: 05/14/24 Status: Ordered Quantity: 30.0 Unit: capsule Repeat number: 12 Topamax 50 mg oral tablet 1 tablet = 50 mg, By Mouth, 2 times a day, # 180 tablet, 0 Refills, Maintenance, 11/02/16 10:10:03 AM EDT, Tablet Start Date: 11/02/16 Status: Ordered Quantity: 180.0 Unit: tablet Repeat number: 1 Tylenol Extra Strength 500 mg oral tablet 2 tablet = 1,000 mg, By Mouth, Every 6 hours, 0 Refills, Maintenance, 07/07/19 11:29:00 AM EDT Start Date: 07/07/19 Status: Ordered Repeat number: 1 Problem List Condition Confirmation Course Effective Dates [...] Status Former smoker entered on: 05/01/16 Sex Sex Representation Female (finding) Patient Care team information Care Team Personnel Name: Cleo Riggs RN Position: [facility] AMB Nurse Member Role: Primary Care Nurse Name: Amauri Mathias RN Position: [facility] RN Member Role: Primary Care Nurse Name: Gaudencio TUCKER , Deonna Montoya Position: Reference Physician Member Role: PCP Address: [facility] [address] Telecom: Name: Kiley Miller RN Position: [facility] RN Member Role: Primary Care Nurse Name: Lisa Rodrigues RN Position: [facility] RN Member Role: Primary Care Nurse Name: Tobias Nixon RN Position: [facility] RN Member Role: Primary Care Nurse Name: Elenita Donald RN Position: [facility] RN Member Role: Primary Care Nurse Name: Rica Rosario RN Position: S RN Member Role: Primary Care Nurse Care Team Related Persons Name: VIELKA MILAN Name: GERALDO WILDER Insurance Providers Guarantor name: [facility] Plan Information #: 1 Payer: MEDICARE PART B OUTPT Member Number: NA Policy Number: NA Group Number: [id number]
--- OUTSIDE RECORDS SUMMARY | 2024-05-19 17:19 | XMS_ITS | Data Portability ---
Author Organization [place] - [facility], Allergy Address [address] [place] [id number] Care Team Providers Care Projector Operator Name Role Phone EMANUEL GREEN Primary Care [...] sooner with any changes in her hearing. [email or web address] Not available 10/19/2023 12:03:48 Plan of Treatment [...] Details Recorded Time Conductiv e hearing loss [id number] Active 2016 Conductiv e hearing loss, unilatera l, left ear, with unrestric ledy hearing on the contralat eral side; Note: Date Diagnosed : 7 1:49 PM (H90.12) Not Available [facility] 4 02:19:28 Sensorine ural hearing loss [id number] Active 2019 Sensorine ural hearing loss, unilatera l, left ear, with unrestric ledy hearing on the contralat eral side; Note: Date Diagnosed : 10/27/2019 10:03 AM (H90.42) Not Available [facility] 02:18:26 Bilateral tinnitus [id number] 02 Active 2016 Tinnitus, bilateral ; Note: Date Diagnosed : 7 1:49 PM (H93.13) Not Available [facility] 02:18:54 Problem Notes None recorded. Procedures Surgical History Date Name Laterality Status Provider Name and Address Organization Details Recorded Time 10/19/2023 Air & Speech Audio with Tymps (19943, 89677 & 52343) completed DARCY KIM, [facility] [address] [facility] [address] [place], [address], [facility] 10/19/2023 10:52:43 Imaging Results Imaging Date [...] not available 09/25/2023 21:31:06 10/22/2023 [email or web address] Information not available 10/22/2023 14:54:38 Procedure Notes None recorded. Medical Equipment None Reported. Medications Name Sig Start Date Stop Date Status Note LastModified by Organization Details LastModified Time multivitamin tablet 2016 active Medication ID: [id number] Bran d Name: multivitami n Send Method: [...] 40 mg capsule 2016 active Medication ID: [id number] Ranch[place] d Name: Prozac Send Method: E-Prescribe [...] 1,500 mg) tablet 2016 active Medication ID: [id number] [place] Name: Calcium 600 Send Method: E-Prescribe d Subs Allowed: subs [place] Medicati onGenericNa me: Calcium 600 Not Available Not Available Not Available Glucosamine 500 mg tablet 2016 active Medication ID: [id number] [place] Name: Glucosamine Send Method: E-Prescribe [...] 15 mg tablet 2016 active Medication ID: [id number] Bran d Name: Abilify Sen d Method: E-Prescribe d Subs Allowed: subs [place] Medicati onGenericNa me: Abilify Not Available Not Available Not Available Topamax 50 mg tablet 2016 active Medication ID: [id number] Bran d Name: Topamax Sen d Method: E-Prescribe d Subs Allowed: subs [place] Medicati onGenericNa me: Topamax Not Available Not Available Not Available Lactaid Fast Act 9,000 unit chewable tablet 2016 active Medication ID: [id number] Bran d Name: Lactaid Fast Act Send [...] mL oral liquid 2016 active Medication ID: [id number] Bran d Name: Adult Robitussin Peak Cold [...] Updated DateTime 10/19/2023 152.4 cm 48.6 kg/m2 163148.5 g Gely Estrada [place] - [facility] 10/19/2023 11:02:21 Social History None recorded. Functional Status None recorded. Mental Status None recorded. Family History Nothing Reported. Medical History No medical history recorded. Gynecological HistoryNo gynecological history recorded. Obstetrics History GPAL:G 0 P 0 0 0 0 Past Encounters Encounter ID Performer Location Encounter Start Date Encounter Closed Date Diagnosis/Indication Diagnosis SNOMED-CT Code Diagnosis ICD10 Code Diagnosis Note [id number] RUBY JULIEN MD [facility] [address] [address] 10/19/2023 10:17:57 10/19/2023 11:21:10 Sensorineural hearing loss [id number] H90.42 [id number] NIMISHA BROWN [facility] [address] [address] 10/19/2023 10:52:20 10/22/2023 07:11:10 Sensorineural hearing loss 51855312 H90.42 Right Ear:Normal hearing with excellent speech [...] Member ID Guarantor Name 10/19/2023 2 [place] [facility] Ira Acuña [id number] Ira Montoya Acuña 10/19/2023 1 MEDICARE [place]: [facility] Ira Rodriguezendez [id number] Ira Montoya Acuña 10/19/2023 2 [place] [facility] Ira Rodriguezendez [id number] Ira Montoya Acuña 10/19/2023 1 MEDICARE B-[place]: [facility] Ira Acuña [id number] Ira Acuña Notes Date Note Type Note Provider Name and Address Organization Details Recorded Time 10/19/2023 text/html 53-year-old femhugo berry with history of left-sided hearing loss presents for routine audiometric testing. She resides in a senior living. Denies otalgia, otorrhea, and changes in her hearing. Had an ear infection a few weeks ago that resolved. No prior imaging. RUBY JULIEN MD [address] [place] [address], [place], [address], [facility] - [facility] 10/19/2023 15:16:07 OBGyn Episode No OBEpisode recorded.
--- OUTSIDE RECORDS SUMMARY | 2024-05-19 17:19 | XMS_ITS | Clinical Summary ---
Author Organization [address] [place] [address] Address [address] [place] [address] Phone Care Team Providers Care Rotary Lithographic Press Operator Name Role Phone Unavailable Primary Care Provider [...] Upcoming Encounters Date Type Department Care Team ([facility] st Contact Info) Description 07/07/2024 8:45 AM EDT Office Visit Bariatric Surgery - [place] [address] [facility] [address] [place] [address] Jayshree Becerril PA [address] [place] [address] Health Maintenance Due Date Last Done Comments [...] - 2023-2 5 season) 2023 Influenza Vaccine (Season Ended) 2024 HIB Vaccines Aged Out No longer eligi [...] age to complete this topic Meningococcal B Vaccine Aged Out No l onger eligible based on patient's age to complete [...]
== END 2024-05-19 16:45 | disposition home or self-care (01) ==
PROVIDERS: PCP Internal Medicine; Visit Provider Nurse Practitioner Family
DX: L84 Corns and callosities (principal)

== ENCOUNTER → 2024-05-19 14:47 | Outpatient (BNVA) | payer MEDICARE, MEDICAID, SELFPAY | PROVIDERS: PCP Internal Medicine; Visit Provider Nurse Practitioner Family | DX: L84 Corns and callosities (principal); R26.81 Unsteadiness on feet | CPT/HCPCS: 99212 ==

== ENCOUNTER 2024-09-24 08:29 | Outpatient (AMB) | payer MEDICARE, MEDICAID, SELFPAY ==
[2024-09-24 08:41] VITALS: BP 110/80; PULSE 74; TEMP 36.7; O2SAT 98; BMI 44.7
--- NOTE | 2024-09-24 08:41 | MHC.PC.OV ---
Vital Signs 09/24/24 08:41 Height 5 ft Weight 229 lb BMI 44.7 BP 110/80 Blood Pressure Location Rt brachial Position Sitting Pulse 74 Pulse Source Pulse Oximeter Temp 98.0 F Temp Source Oral Pulse Oximetry (%) 98 Oxygen Delivery Method Room Air Intake Visit Reasons: Annual PE Intake Note: Pt is here today for her PE: last mammogram 02/08/24, papsmear 11/30/20, colonoscopy 03/02/20 Allergies lactose (LACTOSE) Adverse Reaction (Mild, Verified 09/24/24 09:07) GI DISTRESS Medication List - Last Reconciled 09/24/24 by Deonna Ratliff MD acetaminophen 500 mg PO Q6H PRN amantadine HCl 100 mg PO DAILY calcium carbonate-vitamin D3 600 mg-20 mcg (800 unit) 1 tab PO DAILY CPAP Machine/Device (CPAP) CPAP use As directed when sleeping NS donepezil 5 mg PO DAILY fesoterodine ER (Toviaz) 4 mg PO .at bedtime fluoxetine 40 mg PO DAILY lactase (Lactaid Fast Act) 9,000 units PO DAILY PRN levothyroxine 112 mcg PO DAILY multivitamin with folic acid 400 mcg 1 tab PO DAILY risperidone 1 mg PO BEDTIME toothpaste (Sensodyne toothpaste) As directed vibegron (Gemtesa) 75 mg PO DAILY walker (Ultra-Light Rollator misc) As directed, with seat walker As directed Tobacco use date assessed: 09/24/24 Dental Screening Dental Screen Date: 09/24/24 Did you have a dental visit in the last 12 months?: No Did you have a dental problem in the last 6 months where you did not have access to dental care?: No Was dental information given to patient?: Patient has dentist HPI Annual PE HPI Details - The patient is a 54-year-old female presenting today for her physical exam. - Obesity: The patient has experienced a weight gain of 9 pounds since May, with a current weight of 229 pounds and a height of 5 feet. Has been trying to follow recommended diet but due to instead in his in gait. - Obstructive Sleep Apnea: T compliant with use of CPAP machine . -has been having intermittent episodes of constipation muscle cramps, usually at night -has hypothyroidism, feeling well on current dose of levothyroxine 112 mcg daily. - Preventative care: The patient is scheduled for a mammogram on February 16, 2025, and a [employer] exam on March 05, 2025. Up-to-date with her screening colonoscopy done [place] [address] Haddad, level of a hyperplastic polyp done with repeat colonoscopy due again in 2030. -diagnosed with schizophrenia, currently being followed by Psychiatry [facility] Medical History (Updated 09/24/24 @ 09:36 by Deonna Ratliff MD) MYA on CPAP Morbid obesity with BMI of 40.0-44.9, adult Plantar callus Difficulty swallowing solids Schizophrenia Abnormal Pap smear of cervix Enuresis, nocturnal only Osteoarthritis, knee Vitamin D deficiency Developmental disability Acquired hypothyroidism Gait instability Acid reflux Hx of sleep apnea History of hyperthyroidism Hx of major depression Surgical History Hx of colonoscopy History of knee replacement Hx LEEP (loop electrosurgical excision procedure), cervix, History of thyroidectomy Hx of endoscopy History of ankle surgery Hx of knee surgery Family History Father No problems noted. Mother No problems noted. Maternal Aunt Breast cancer Social History Household Members: Other Household Members Other:: Skilled Nursing Housing: Assisted Living Facility Alcohol intake: never Comment: unsteady gait Patient Tobacco Use Status: Former Tobacco user Years Smoked: 2 yrs e-Cigarette/Vaping Use: Never Used service: No Current occupational status: disabled Sexual orientation: Straight/Heterosexual Gender identity: Female Cognitive needs: No Hearing needs: No Vision needs: Yes Questionnaire PHQ-9 Over the last 2 weeks, how often have you been bothered by any of the following problems? 1. Little interest or pleasure in doing things: several days 2. Feeling down, depressed, or hopeless: several days 3. Trouble falling or staying asleep, or sleeping too much: nearly every day 4. Feeling tired or having little energy: more than half the days 5. Poor appetite or overeating: not at all 6. Feeling bad about yourself - or that you are a failure or have let yourself or your family down: several days 7. Trouble concentrating on things, such as reading the newspaper or watching television: several days 8. Moving or speaking so slowly that other people could have noticed. Or the opposite - being so fidgety or restless that you have been moving around a lot more than usual: not at all 9. Thoughts that you would be better off or of hurting yourself in some way: several days Total score: 10 Depression Screening Interpretation: Positive (has schizophrenia, currently followed by psychiatrist, Telma Stock) Depression Screening Follow-up: Existing condition, In treatment and Community Mental Health Worker F/U Depression Screening Done: Yes 15132 - PHQ-9 Billing: Yes Source: Developed by Drs. Oc Dyson, Kate Sánchez, Surya Marks and colleagues, with an educational ena from [employer]. Thrive Questionnaire Date Thrive assessed: 09/24/24 I am a: Parent/Caregiver What is your living situation today?: I have a steady place to live Within the past 12 months, did the food you bought not last and you didn't have the money to get more?: Often true Within the past 12 months, did you worry whether your food would run out before you got money to buy more?: Never true Do you have trouble paying for medicines?: No Do you have trouble getting transportation to medical appointments?: No Do you have trouble paying your heating and electricity bill?: No Do you have trouble taking care of your child, family member or friend?: No Do you have trouble with day-to-day activities such as bathing, preparing meals, shopping, managing finances, etc.?: No Are you currently unemployed and looking for a job?: No Are you interested in more education?: No Please select the resources that you would like help with: None Currently or been in a relationship where the following occur: No concerns reported THRIVE Score: 1 AUDIT C Alcohol Use Questionnaire (AUDIT-C) 1. How often do you have a drink containing alcohol?: Never Total Score: 0 Score Reviewed/Action Taken: Yes JUSTINO-7 AMB Questionnaire JUSTINO-7 Date JUSTINO - 7 assessed: 09/24/24 Feeling nervous, anxious, or on edge: 0 = Not at all Not being able to stop or control worryin = Not at all Worrying too much about different things: 0 = Not at all Trouble relaxin = Not at all Being so restless that it is hard to sit still: 0 = Not at all Becoming easily annoyed or irritable: 0 = Not at all Feeling afraid as if something awful might happen: 0 = Not at all Total JUSTINO-7 score (0-4 normal; 5-9 mild; 10-14 moderate; 15-21 severe): 0 Source: Developed by Drs. Oc Dyson, Kate Sánchez, Surya Marks and colleagues, with an educational ena from [employer]. JUSTINO-7 Assessment Billing JUSTINO-7 Assessment Tool: JUSTINO-7 Assessment 08194 Review of Systems Const Reports no additional complaints Eyes Details: Sees Dr. Barlow had appointment 06/30/2025 Denies change in vision ENT Reports no additional complaints Card Denies chest pain, Denies lightheadedness and Denies dyspnea Resp Denies cough, Denies dyspnea and Denies wheezing GI Denies abdominal pain, Denies change in bowel habits, Denies change in stool character, Denies dyspepsia and Denies heartburn Reports no additional complaints, Denies hematuria and Denies dysuria Musc Reports abnormal gait, Reports arthralgias, Denies joint swelling, Denies muscle weakness, Denies numbness and Reports stiffness Skin/Breast Denies lesions and Denies rash Neuro Reports abnormal gait, Denies numbness and Denies Sensory deficit (Neuro) Psych Reports as per HPI Endo Reports no additional complaints Lit/Lymph Denies easy bleeding and Denies easy bruising Aller/Immun Denies seasonal rhinorrhea and Denies wheezing Physical exam (Primary Care) Vital Signs: Last Vital Signs Temp 98.0 F 09/24/24 08:41 Pulse 74 09/24/24 08:41 BP 110/80 09/24/24 08:41 Pulse Ox 98 09/24/24 08:41 Oxygen Delivery Method Room Air 09/24/24 08:41 BMI result Body Mass Index 44.7 Tobacco/Smoking Status: Tobacco use Status Tobacco use date assessed 09/24/24 09/24/24 08:44 Patient Tobacco Use Status Former Tobacco user 09/24/24 08:44 e-Cigarette/Vaping Use Never Used 09/24/24 08:44 PHQ-9: PHQ-9 Score PHQ-9: Total score 10 10/04/24 16:36 Depression Screening Interpretation: Positive (has schizophrenia, currently followed by psychiatrist, Telma Stock) Depression Screening Follow-up: Existing condition, In treatment and Community Mental Health Worker F/U Thrive Assessment: Date of Thrive Assessment Date Thrive assessed 09/24/24 09/24/24 08:49 Currently or been in a relationship where the following occur: No concerns reported Const Other: Caregiver accompanying patient Nutritional Appearance: obese Orientation/consciousness: oriented to person and oriented to place Limitations: ambulation with walker HENMT Ears: external ears normal General nose exam: Normal external nose present and No nasal discharge present Face and sinus: Yes face symmetric Eyes Pupils: Equal, round and reactive pupils present Neck Other: Thyroid gland nonpalpable Neck: Yes full ROM and Yes supple Resp Auscultation: clear to auscultation bilaterally Cardio Other: S1-S2 present regular rate and rhythm GI Inspection: Yes obesity Palpation (GI): Soft to palpation, nontender, no guarding and no masses Auscultation: normal bowel sounds Skin General skin exam: no rashes or lesions noted Neuro General: oriented to person, oriented to place, moves all extremities and no focal motor deficits Cranial nerves: Yes Equal, round and reactive pupils present and Yes Bilaterally intact EOM present Speech: Other speech findings present (Neuro) (Occasional Dysarthria and garbled speech) Gait exam (Neuro): Assisted gait required Gait assisted method: walker Motor exam (neuro): 5/5 motor strength present throughout Sensory Exam: No Sensory deficit (Neuro) Extrem General: Yes full ROM, Yes no joint enlargement and Yes no pedal edema Psych Appearance: grossly normal Speech and movement: Slowed movement present (Neuro) Affect: Blunted affect present Attitude: cooperative Coding Level of Care Code Est Pt Prev Care 40-64y(89856) Diagnoses Annual visit for general adult medical examination with abnormal findings Z00.01 MYA (obstructive sleep apnea) G47.33 Morbid obesity with BMI of 40.0-44.9, adult E66.01; Z68.41 MYA on CPAP G47.33 Schizophrenia F20.9 Osteoarthritis, knee M17.10 Developmental disability F89 Gait instability R26.81 Advance directive discussed with patient Z71.89 Additional Codes JUSTINO-7 Assessment Billing - JUSTINO-7 Assessment Tool: JUSTINO-7 Assessment 14498 ([id number]) PHQ-9 - 68570 - PHQ-9 Billing: Yes ([id number]) Assessment & Plan Assessment & Plan (1) Annual visit for general adult medical examination with abnormal findings: Code(s): Z00.01 - Encounter for general adult medical examination with abnormal findings (2) MYA (obstructive sleep apnea): Code(s): G47.33 - Obstructive sleep apnea (adult) (pediatric) Category: Medical (3) Morbid obesity with BMI of 40.0-44.9, adult: Code(s): E66.01 - Morbid (severe) obesity due to excess calories; Z68.41 - Body mass index [BMI] 40.0-44.9, adult Category: Medical (4) MYA on CPAP: Code(s): G47.33 - Obstructive sleep apnea (adult) (pediatric) Category: Medical (5) Schizophrenia: Code(s): F20.9 - Schizophrenia, unspecified Category: Medical (6) Osteoarthritis, knee: Code(s): M17.10 - Unilateral primary osteoarthritis, unspecified knee Category: Medical (7) Developmental disability: Comment: Has mild mental retardation, lives in half-way, can sign for herself, sister HCP will bring DOS Code(s): F89 - Unspecified disorder of psychological development Category: Medical (8) Gait instability: Code(s): R26.81 - Unsteadiness on feet Category: Medical (9) Advance directive discussed with patient: Code(s): Z71.89 - Other specified counseling Plan: Initiated the conversation about Advanced Directives. Advanced Directives help patients prepare for current and future decisions about their medical treatment and place of care. Discussed with patient that it is a process where a patients current condition and prognosis are reviewed, their wishes for information regarding their illness are elicited, and likely medical dilemmas are presented and options discussed. Healthcare proxy form completed today. The form can be amended as needed, reviewed yearly and make changes as needed Plan The patient will begin Ozempic at 0.25 mg subcutaneously weekly, contingent on insurance approval, to assist with weight management. Monitoring for side effects such as nausea or gastrointestinal issues is advised. Continued use of the CPAP machine is recommended for obstructive sleep apnea management, with a follow-up scheduled one month post-Ozempic initiation to evaluate treatment response and side effects. The patient is encouraged to adhere to a healthy diet and exercise regimen to support weight management and overall health, with a referral to a community program assistant for additional dietary advice. Reminded to get her fasting labs done which includes a fasting lipid panel, thyroid levels, fasting glucose, liver enzymes and electrolyte. Scheduled preventative care includes a mammogram on February 16, 2025, and a [employer] exam on March 05, 2025, which the patient is advised to attend as part of her health maintenance strategy. Patient was informed and verbally consented to the use of an ambient scribe for clinic note documentation during this visit. Medications: New Ozempic (semaglutide) for 4 weeks 0.25 mg (0.368 mL) subcut QWEEK 3 mL 1RF 30 days NS E66.01 - Morbid (severe) obesity due to excess calories, Z68.41 - Body mass index [BMI] 40.0-44.9, adult, G47.33 - Obstructive sleep apnea (adult) (pediatric)
--- OUTSIDE RECORDS SUMMARY | 2024-09-24 09:09 | XMS_ITS | Patient Health Record ---
Author Organization [facility] Address [address] [place] [address] Care Team Providers Care Pan Pusher Name Role Phone Deonna Ratliff MD Primary Care Provider Oc Villanueva Unavailable [phone] Allergies Allergen (clinical drug ingredient) Drug/Non Drug Allergy documented on EMR Reaction Allergy Type Onset Date Status Lactose Unknown Drug Allergy Active Reason For Referral No Information Medications Medication SIG (Take, Route, Frequency, Duration) Notes Start Date End Date Status Imodium A-D Active Multivitamin/Minerals Active Tylenol Extra Strength 500 MG 1 tablet as needed Orally prn Active Robitussin DM Active Glucosamine Active Levothyroxine Sodium Active Calcium Active Metamucil 0.52 GM 2 capsules with 8 ou nces of liquid Orally Twice a day for 30 day(s) 06/28/2017 Active MiraLax (colon prep) 8.3 ounce ((238) grams mixed with Gatorade or Crystal Light orally begin at 5:00 p.m. the day before the procedure for 1 day 06/30/2017 Active Clotrimazole 1 % Externally Ac tive Dulcolax (colon prep) 5 MG take at 3:00 p.m and 7:00p.m. Orally two tablets twice a day for one day for 1 day 06/30/2017 Active Cortisone Active Myrbetriq Active Topamax Active Lactaid Active Dulcolax (colon prep) 5 MG take at 3:00 p.m and 7:00p.m. Orally two tablets twice a day for one day for 1 day 11/02/2017 Active MiraLax (colon prep) 8.3 ounce ((238) grams mixed with Gatorade or Crystal Light orally begin at 5:00 p.m. the day before the procedure for 1 day 11/02/2017 Active Problems Problem Type SNOMED Code ICD Code Onset Dates Problem Status W/U Status Risk Notes Problem 658517372 Change in bowel habits (R19.4) Active confirmed Problem 25284656 Heartburn (R12) Active confirmed Problem 975702997 GERD (gastroesophageal reflux disease) (K21.9) Active confirmed Problem 62818167 Irritable bowel syndrome with both constipation and diarrhea (K58.2) Active confirmed Plan Of Treatment Future Test Test Name Order Date UPPER GI ENDOSCOPY 05/12/2015 COLONOSCOPY 06/26/2017 Insurance Providers Payer Name Payer Address Payer Phone Subscriber Number Group Number Insured Name Patient Relationship to Insured Coverage Start Date Coverage End Date [facility] [address] [address] [place], [place] [id number] ELLEN REED Self - patient is the insured MEDICAID OF [employer] [address] [place] [address] [id number] ELLEN REED Self - patient is the insured Medical (General) History Medical History History ICD Code Denies [place],DM,CVA,Lung disease,renal dise ase Depression, labile mood Sleep apnea-uses CPAP Hypothyroidism Arthritis-knees GERD with EGD in 07/2015--sma ll to moderate-sized HH--no esophagitis nor [facility] Surgical History Surgery Date(Month/Year) Cholecystectomy Knee surgery --reports a knee replacemen t on 07/05/17 Ankle surgery Hip replacement---left--approx 2010
--- OUTSIDE RECORDS SUMMARY | 2024-09-24 09:09 | XMS_ITS | Clinical Summary ---
Author Organization [address] [facility] Address [address] [place] [address] Phone Care Team Providers Care Carver And Checkerer Specials Name Role Phone Deonna Ratliff MD Primary Care Provider Allergies No known active allergies Medications ARIPiprazole [...] mouth 2 (two) times a day. Active multivitamin tablet Take 1 tablet by mouth 1 (one) time each day. 01/16/2017 Active lactase (Lactaid Fast Act) 9,000 unit chewable tablet Chew 1 tablet (9,000 Units total) 3 (three) times a day with meals. 01/16/2017 Active multivitamine, geriatric, (Multivitamin 50 Plus) tablet Take 1 tablet by mouth 1 (one) time each day. 07/07/2019 Active Gemtesa 75 mg tablet tablet Take 1 tablet (75 mg total) by mouth 1 (one) time each day. Active Active Problems No known active problems Encounters Date Type Department Care Team Description 07/07/2024 8:45 AM EDT Office Visit Bariatric Surgery - [address] [place] [address] Jayshree Becerril PA Draining cutaneous sinus tract (Primary Dx); History of left knee replacement from Last 3 Months Social History Tobacco Use Types Packs/Day Years Used Date Smoking Tobacco: Never Assessed Smokeless Tobacco: Never Comments Unknown Sex and Gender Information Value Date Recorded Sex Assigned at Not on file Legal Sex Female 12:19 AM EST Gender Identity Not on file Sexual Orientation Not on file Obstetrics History Last Filed Vital Signs Vital Sign Reading Time Taken Comments Blood Pressure 142/81 07/07/2024 8:45 AM EDT Pulse 80 07/07/2024 8:45 AM EDT Temperature 36.3 C (97.3 F) 07/07/2024 8:45 AM EDT Respiratory Rate - - Oxygen Saturation - - Inhaled Oxygen Concentration - - Weight 98.9 kg (218 lb) 07/07/2024 8:45 AM EDT Height 152.4 cm (5') 07/07/2024 8:45 AM EDT Body Mass Index 42.58 07/07/2024 8:45 AM EDT Plan of Treatment Health Maintenance Due Date Last Done Comments Breast Cancer Screening 1970 DTaP,Tdap,and Td Vaccines (1 - Tdap) 01/21/1987 Hepatitis B Vaccines (1 of 3 - 19+ 3-dose series) 01/21/1987 Cervical Cancer Screening: P ap Smear 01/21/1989 Pneumococcal Vaccine: 50+ Ye ars (1 of 1 - PCV) 01/21/2018 Zoster Vaccines (1 of 2) 01/21/2018 Cholesterol Screening (Lipid Panel) 03/07/2023 Colorectal Cancer Screening: Colonoscopy 03/07/2023 HIV Screening 03/07/2023 Hepatitis C Screening 03/07/2023 Medicare Annual Wellness Visit 03/07/2023 Social Influencers of Health Screening 03/07/2023 COVID-19 Vaccine (1 - 2023-2 5 season) 2023 Depression Screening 02/06/2024 Influenza Vaccine (#1) 2024 HIB Vaccines Aged Out No longer [...] this topic Insurance MEDICARE MEDICAID - [place] Care Teams Car[employer] And Checkerer Specials Relationship Specialty Start Date End Date Deonna Ratliff MD [address] [place] [address] PCP - General Internal Medicine 07/07/24
== END 2024-09-24 10:46 | disposition home or self-care (01) ==
LOC: HO.HMCC 08:29
PROVIDERS: PCP Internal Medicine; Visit Provider Internal Medicine
DX: Z00.01 Encounter for general adult medical examination with abnormal findings (principal); E66.01 Morbid (severe) obesity due to excess calories; Z68.41 Body mass index [BMI] 40.0-44.9, adult; F20.9 Schizophrenia, unspecified; G47.33 Obstructive sleep apnea (adult) (pediatric); F89 Unspecified disorder of psychological development; R26.81 Unsteadiness on feet; Z71.89 Other specified counseling; M17.10 Unilateral primary osteoarthritis, unspecified knee

== ENCOUNTER → 2024-09-24 08:29 | Outpatient (BNVA) | payer MEDICARE, MEDICAID, SELFPAY | PROVIDERS: PCP Internal Medicine; Visit Provider Internal Medicine | DX: Z00.01 Encounter for general adult medical examination with abnormal findings (principal); G47.33 Obstructive sleep apnea (adult) (pediatric); E66.01 Morbid (severe) obesity due to excess calories; Z68.41 Body mass index [BMI] 40.0-44.9, adult; F20.9 Schizophrenia, unspecified; M17.10 Unilateral primary osteoarthritis, unspecified knee; F89 Unspecified disorder of psychological development; R26.81 Unsteadiness on feet; Z71.89 Other specified counseling | CPT/HCPCS: 96127; 99396 ==

== ENCOUNTER → 2024-10-02 13:57 | Outpatient (BNVA) | payer MEDICARE, MEDICAID, SELFPAY | PROVIDERS: PCP Internal Medicine | DX: Z71.3 Dietary counseling and surveillance (principal) | CPT/HCPCS: 99211 ==

== ENCOUNTER 2024-10-08 09:12 | Outpatient (REF) | payer MEDICARE, MEDICAID, SELFPAY ==
--- OUTSIDE RECORDS SUMMARY | 2024-10-08 09:56 | XMS_ITS | Clinical Summary ---
Author Organization [address] [facility] Address [address] [place] [address] Phone Care Team Providers Care Booth Operator Name Role Phone Deonna Ratliff MD Primary [...] 03/07/2023 Social Influencers of Health Screening 03/07/2023 Depression Screening 02/06/2024 COVID-19 Vaccine (1 - 2023-2 5 season) 2024 Influenza Vaccine (#1) 2024 HIB Vaccines Aged [...] Insurance MEDICARE MEDICAID - [place] Care Teams Booth Operator Relationship Specialty Start Date End Date Deonna Ratliff MD [address] [place] [address] PCP - General Internal Medicine 07/07/24
--- OUTSIDE RECORDS SUMMARY | 2024-10-08 09:56 | XMS_ITS | Patient Health Record ---
[facility] Organization [facility] Address [address] [place] [address] Care Team Providers Care Telephone Lineman Name Role Phone Deonna Ratliff MD Primary Care Provider Oc Villanueva Unavailable [phone] Allergies Allergen (clinical drug ingredient) Drug/Non Drug [...] Problem Status W/U Status Risk Notes Problem 239087313 Change in bowel habits (R19.4) Active confirmed Problem 83051877 Heartburn (R12) Active confirmed Problem 938247233 GERD (gastroesophageal reflux disease) (K21.9) Active confirmed Problem 63753195 Irritable bowel syndrome with both constipation and diarrhea (K58.2) Active confirmed Plan Of Treatment Future Test Test Name Order Date UPPER GI ENDOSCOPY 05/12/2015 COLONOSCOPY 06/26/2017 Insurance Providers Payer Name Payer Address Payer Phone Subscriber Number Group Number Insured Name Patient Relationship to Insured Coverage Start Date Coverage End Date [facility] [employer] [facility] [address] [address] [place], [place] [id number] ELLEN REED Self - patient is the insured MEDICAID OF [employer] [address] [place] [address] [id number] ELLEN REED Self - patient is the insured Medical (General) History Medical History History ICD Code Denies [place],DM,CVA,Lung disease,renal dise ase Depression, labile mood Sleep apnea-uses CPAP Hypothyroidism Arthritis-knees GERD with EGD in 07/2015--sma ll to moderate-sized HH--no esophagitis nor [facility] Surgical History Surgery Date(Month/Year) Cholecystectomy Knee surgery --reports a knee replacemen t on 07/05/17 Ankle surgery Hip replacement---left--approx 2010
[2024-10-08 14:19] LABS: Hemoglobin A1C 136.9163 umol/L; Total Hemoglobin (HGBA1C) 3546.2864 umol/L
[2024-10-08 14:41] LABS: Alanine Aminotransferase 27 U/L (0-31); Anion Gap 12 (12-20); Aspartate Amino Transferase 29 U/L (5-31); Blood Urea Nitrogen 16 mg/dL (9-16); Calcium 9.2 mg/dL (8.4-10.2); Carbon Dioxide 30 mmol/L (22-29); Chloride 102 mmol/L (96-108); Cholesterol 165 mg/dL (<200); Estimated Glomerular Filt Rate > 60; HDL Cholesterol 60 mg/dL (>40); Potassium 4.3 mmol/L (3.3-5.1); Sodium 140 mmol/L (135-145); Triglycerides 48 mg/dL (<150)
[2024-10-08 14:45] LABS: Free T4 (Free Thyroxine) 1.05 ng/dL (0.71-1.85); Thyroid Stimulating Hormone 4.28 uIU/mL (0.32-4.0)
== END 2024-10-08 09:13 | disposition home or self-care (01) ==
LOC: HO.CHCLDS 09:12
PROVIDERS: Visit Provider Internal Medicine
DX: Z13.220 Encounter for screening for lipoid disorders (principal); Z13.1 Encounter for screening for diabetes mellitus; M17.10 Unilateral primary osteoarthritis, unspecified knee; E66.9 Obesity, unspecified; E03.9 Hypothyroidism, unspecified; R73.01 Impaired fasting glucose; Z78.0 Asymptomatic menopausal state
CPT/HCPCS: 36415; 80048; 80061; 82306; 83036; 84439; 84443; 84450; 84460